=== PATIENT | female | born 1965 | race Caucasian/White ===

== ENCOUNTER 2020-03-30 02:00 | Emergency (ER) | payer MEDICAID, SELFPAY ==
[2020-03-30 02:18] VITALS: BP 138/88; PULSE 85; RESP 18; TEMP 36.3; O2SAT 98; BMI 25.7
--- NOTE | 2020-03-30 02:28 | ED_ITS ---
HPI - Weakness General Chief complaint: Weakness Stated complaint: Weakness Time Seen by Provider: 03/30/20 02:13 Source: patient and japanese interpreter Mode of arrival: ambulatory Limitations: no limitations History of Present Illness HPI Narrative: This is a 54-year-old female who is the mother of a patient who has tested positive for COVID-19. She states her daughter called her and that she has been exposed to her and recalls that she has been feeling body aches for the past 3 days. Related Data Allergies Allergy/AdvReac Type Severity Reaction Status Date / Time No Known Allergies Allergy Mild NO KNOW Unverified 01/30/20 16:03 ALLERGY Review of Systems Review of Systems: pertinent positives and negatives as stated HPI 10 point review systems otherwise negative. [facility] Past Medical History Source: nursing notes reviewed Medical History No known health problems No known health problems Social History Social History Advance Directives: No Advance Directives Information Provided: No Physical Exam Vital Signs: Vital Signs: Last Vital Signs Temp 97.3 F 03/30/20 02:18 Pulse 85 03/30/20 02:18 Resp 18 03/30/20 02:18 BP 138/88 03/30/20 02:18 Pulse Ox 98 03/30/20 02:18 Body Mass Index 25.7 VITAL SIGNS: Reviewed. GENERAL: Well developed, well nourished, in no acute distress. HEAD: Normocephalic/atraumatic, EYES: PERRLA, EOMI intact without pain, no nystagmus/pallor/icterus noted EARS: Ext canals without abnormality, TMs non-bulging and non-erythematous NOSE: Nares patent bilateral OROPHARYNX: no oral lesions noted, posterior pharynx clear and non-erythematous without noted tonsillar enlargement/erythema/exudates NECK: Supple, no adenopathy LUNGS: Normal breath sounds. No adventitious sounds or accessory muscle use. SpO2<98> CARDIOVASCULAR: Regular rate and rhythm without noted murmurs, no JVD or lower extremity edema. ABDOMEN: Soft, non-tender, non-distended with bowel sounds. No rigidity. No guarding. No palpable masses or hernias noted MUSCULOSKELETAL: No tenderness, deformities, or effusions noted on gross inspection. EXTREMITIES: No cyanosis, clubbing or edema. SKIN: Inspection of the skin reveals no rashes, ulcerations, jaundice, pallor, or petechiae. NEUROLOGIC: Alert and oriented x 4. Strength and sensation to light touch were grossly intact x 4. Course Course Course Narrative: This is a 54-year-old female with history and clinical presentation most consistent with viral syndrome but patient otherwise looks well and there is no evidence respiratory distress or hypoxia. In addition, there is no temperature elevation. Patient will be tested for COVID-19 and then instructed to self quarantine until the results are called to her. She is stable for discharge to home. Discharge Plan Discharge Clinical Impression: Acute viral syndrome Patient Disposition: Home, Self-Care Instructions: Viral Syndrome (ED) Additional Instructions: 1. Tylenol 1000 mg, por v?a oral, cada 6 horas seg?n sea necesario para tacos corporales y temperaturas superiores a 100,4?C. No exceda los 4000 mg en 24 horas. 2. Aumente la hidrataci?n de l?quidos espec?ficamente con agua. 3. Hoy le mena hecho la prueba de COVID-19 y debe ponerse en cuarentena hasta que reciba los resultados de la prueba de COVID-19 y debe cumplir con todas las pautas y precauciones estatales liz meredith tiempo. El paciente y / o la kandy reconocen que comprenden los resultados (seg?n corresponda), el diagn?stico, el plan de tratamiento, la necesidad de seguimiento y los s?ntomas que deber?an impulsar el regreso a la kady de emergencias. Referrals: Luly Laguna MD [Primary Care Provider] - 2 days ( management and re- evaluation presentation.) Print Language: Cuban
== END 2020-03-30 03:17 | disposition home or self-care (01) ==
LOC: HO.ED 02:54
PROVIDERS: Emergency Provider Student in an Organized Health Care Education/Training Program; PCP Family Medicine
DX: B34.9 Viral infection, unspecified (principal); Z20.828 Contact with and (suspected) exposure to other viral communicable diseases
CPT/HCPCS: 99283; U0003

== ENCOUNTER 2020-05-18 11:15 | Outpatient (REF) | payer MEDICAID, SELFPAY ==
--- NOTE | 2020-05-18 11:25 | XR_ITS ---
EXAMINATION: RIGHT SHOULDER AND CERVICAL SPINE. CLINICAL INFORMATION: Pain right shoulder and neck pain. COMPARISON: None TECHNIQUE: Cervical spine 5 views. Right shoulder 3 views. FINDINGS: CERVICAL SPINE: There is mild straightening of cervical lordosis. The vertebral heights and alignment is normal. There is mild loss of C5-C6 disc height with moderate ventral and mild posterior spondylosis. Mild bilateral narrowing of neural foramina at C5-C6 disc level from uncovertebral hypertrophic changes are noted. No visible acute fracture, dislocation or subluxation seen. The craniovertebral junction and C1-C2 alignment is normal. The prevertebral and paravertebral soft tissues are normal. RIGHT SHOULDER: There is no visible acute fracture, dislocation or subluxation. There is mild loss of AC joint space with inferior periarticular spurring. No loose bodies or calcifications seen. XR/XR cervical spine 4V IMPRESSION: Degenerative arthritic changes C5-C6 disc level with moderate ventral bridging osteophyte and mild posterior spondylosis.
--- NOTE | 2020-05-18 11:25 | XR_ITS ---
EXAMINATION: RIGHT SHOULDER AND CERVICAL SPINE. CLINICAL INFORMATION: Pain right shoulder and neck pain. COMPARISON: None TECHNIQUE: Cervical spine 5 views. Right shoulder 3 views. FINDINGS: CERVICAL SPINE: There is mild straightening of cervical lordosis. The vertebral heights and alignment is normal. There is mild loss of C5-C6 disc height with moderate ventral and mild posterior spondylosis. Mild bilateral narrowing of neural foramina at C5-C6 disc level from uncovertebral hypertrophic changes are noted. No visible acute fracture, dislocation or subluxation seen. The craniovertebral junction and C1-C2 alignment is normal. The prevertebral and paravertebral soft tissues are normal. RIGHT SHOULDER: There is no visible acute fracture, dislocation or subluxation. There is mild loss of AC joint space with inferior periarticular spurring. No loose bodies or calcifications seen. XR/XR shoulder RT min 2V IMPRESSION: Degenerative arthritic changes C5-C6 disc level with moderate ventral bridging osteophyte and mild posterior spondylosis.
== END 2020-05-18 11:16 | disposition home or self-care (01) ==
LOC: HO.XRAY 11:15
PROVIDERS: PCP Family Medicine; Visit Provider Family Medicine
DX: M25.511 Pain in right shoulder (principal); M54.2 Cervicalgia
CPT/HCPCS: 72050; 73030

== ENCOUNTER → 2020-05-27 10:47 | Outpatient (BNVA) | payer MEDICAID, SELFPAY | PROVIDERS: PCP Family Medicine; Visit Provider Orthopaedic Surgery | DX: M54.12 Radiculopathy, cervical region (principal) | CPT/HCPCS: 99202 ==

== ENCOUNTER 2020-07-17 12:00 | Outpatient (RCR) | payer MEDICAID, SELFPAY | END 2020-07-17 12:36 | disposition other institution (70) | LOC: HO.PT 12:00 | PROVIDERS: PCP Family Medicine; Visit Provider Family Medicine | DX: M25.511 Pain in right shoulder (principal) | CPT/HCPCS: 97110; 97112; 97140; 97161 ==

== ENCOUNTER 2021-02-23 10:36 | Outpatient (REF) | payer MEDICAID, SELFPAY ==
--- NOTE | ~2021-02-23 | MM_ITS ---
EXAMINATION: MM SCREENING DIGITAL BREAST TOMOSYNTHESIS, BILATERAL CLINICAL INFORMATION: Screening. Asymptomatic. The lifetime risk of breast cancer based on the Tyrer-Cuzick Model is 8.8%. COMPARISON: Mammography: December 18, 2019 and studies dating back to August 23, 2011 TECHNIQUE: Digital breast tomosynthesis is performed in both the craniocaudal and mediolateral oblique views along with computer-aided detection (CAD). Synthesized 2D images are generated from the tomosynthesis. FINDINGS: There are scattered areas of fibroglandular density (ACR BI-RADS breast composition Category b). There are no significant masses, abnormal calcifications, or other abnormalities. About the deep medial aspect of the right breast on craniocaudal view there is a density likely related to sternalis muscle as has been seen on multiple prior studies. MM/MM tomosynthesis screening BI IMPRESSION: There are no significant changes from prior study. ASSESSMENT: BI-RADS 1: Negative RECOMMENDATION: Routine annual mammography screening. This patient's information was entered into a reminder system with a target due date for their next mammogram.
== END 2021-02-23 10:37 | disposition home or self-care (01) ==
LOC: HO.MAMMO 10:36
PROVIDERS: Visit Provider Family Medicine
DX: Z12.31 Encounter for screening mammogram for malignant neoplasm of breast (principal)
CPT/HCPCS: 77063; 77067

== ENCOUNTER 2021-10-28 15:51 | Outpatient (REF) | payer MEDICAID, SELFPAY ==
--- NOTE | ~2021-10-28 | MR_ITS ---
EXAMINATION: MR BRAIN WITHOUT AND WITH CONTRAST CLINICAL INFORMATION: Left-sided sensorineural hearing loss. COMPARISON: None. TECHNIQUE: Multiplanar, multisequential imaging was obtained without and with intravenous contrast. Intravenous contrast: Gadolinium 7.5 mL. FINDINGS: No diffusion abnormality is seen. Minimal scattered white matter signal changes are nonspecific and may be due to chronic microangiopathy. The ventricles are normal in size. No mass effect or midline shift is evident. No extra-axial fluid collections are noted. The brainstem and cerebellum are normal. There is no abnormal parenchymal or leptomeningeal enhancement. The VII and VIII cranial nerve complexes are normal in course and caliber. No signal abnormality is visualized within the inner ear structures on the precontrast axial T1-weighted sequence. Fluid signal is preserved within the cochlea, semicircular canals, and vestibule on the high-resolution axial FIESTA sequence. No cerebellopontine angle lesion is noted. There is no abnormal labyrinthine or intracanalicular enhancement on postcontrast imaging. The craniovertebral junction, marrow signal, and midline structures are normal. The gradient refocused acquisition is normal. The visualized portions of the major intracranial flow voids at the level of the igiugig of Ambriz are preserved. The dural venous sinus flow voids are maintained. The mastoid air cells and paranasal sinuses are fairly well aerated. MR/MR head/brain wo/w con IMPRESSION: No retrocochlear pathology. Minimal scattered white matter signal changes which are nonspecific but may be due to chronic microangiopathy.
== END 2021-10-28 15:52 | disposition home or self-care (01) ==
LOC: HO.MRI 15:51
PROVIDERS: Visit Provider Otolaryngology
DX: H90.42 Sensorineural hearing loss, unilateral, left ear, with unrestricted hearing on the contralateral side (principal)
CPT/HCPCS: 70553; A9585

== ENCOUNTER 2022-03-01 10:23 | Outpatient (REF) | payer MEDICAID, SELFPAY ==
--- NOTE | ~2022-03-01 | MM_ITS ---
EXAMINATION: MM SCREENING DIGITAL BREAST TOMOSYNTHESIS, BILATERAL CLINICAL INFORMATION: Screening. Asymptomatic. The lifetime risk of breast cancer based on the Tyrer-Cuzick Model is 9%. COMPARISON: Mammography: 02/23/2021, 12/18/2019, 12/12/2018 TECHNIQUE: Digital breast tomosynthesis is performed in both the craniocaudal and mediolateral oblique views along with computer-aided detection (CAD). Synthesized 2D images are generated from the tomosynthesis. FINDINGS: There are scattered areas of fibroglandular density (ACR BI-RADS breast composition Category b). There are no significant masses, abnormal calcifications, or other abnormalities. No developing density or architectural abnormality. No significant changes. The axilla and skin contours are unremarkable. MM/MM tomosynthesis screening BI IMPRESSION: No mammographic evidence of malignancy. ASSESSMENT: BI-RADS 1: Negative RECOMMENDATION: Routine annual mammography screening. This patient's information was entered into a reminder system with a target due date for their next mammogram.
== END 2022-03-01 10:24 | disposition home or self-care (01) ==
LOC: HO.MAMMO 10:23
PROVIDERS: PCP Family Medicine; Visit Provider Family Medicine
DX: Z12.31 Encounter for screening mammogram for malignant neoplasm of breast (principal)
CPT/HCPCS: 77063; 77067

== ENCOUNTER 2023-03-07 10:17 | Outpatient (REF) | payer MEDICAID, SELFPAY | END 2023-03-07 10:18 | disposition home or self-care (01) | LOC: HO.MAMMO 10:17 | PROVIDERS: PCP Family Medicine; Visit Provider Family Medicine | DX: Z12.31 Encounter for screening mammogram for malignant neoplasm of breast (principal) | CPT/HCPCS: 77063; 77067 ==

== ENCOUNTER → 2023-03-07 10:30 | Outpatient (BNV) | payer MEDICAID, SELFPAY | PROVIDERS: PCP Family Medicine; Visit Provider Radiology Diagnostic Radiology | DX: Z12.31 Encounter for screening mammogram for malignant neoplasm of breast (principal) | CPT/HCPCS: 77063; 77067 ==

== ENCOUNTER 2023-05-04 11:30 | Outpatient (REF) | payer MEDICAID, SELFPAY ==
[2023-05-04 13:17] LABS: MANUAL DIFF FLAG NO
[2023-05-04 13:39] LABS: Basophils Absolute Auto 0.1 X10*3/uL (0.0-0.2); Basophils Percent Auto 0.7 % (0-2); Eosinophils Absolute Auto 0.3 X10*3/uL (0.0-0.4); Eosinophils Percent Auto 4.1 % (0-4); Hematocrit 41.3 % (37.0-47.0); Hemoglobin 13.2 g/dl (12.0-16.0); Imm Gran Abs Auto 0.03 X10*3/uL (0.00-0.03); Imm Gran Pct Auto 0.4 % (0.0-0.4); Lymphocytes Absolute Auto 2.9 X10*3/uL (1.2-4.9); Lymphocytes Percent Auto 34.9 % (20-40); Mean Corpuscular Hemoglobin 29.6 pg (27.0-33.0); Mean Corpuscular Volume 92.6 fL (80.0-98.0); Mean Platelet Volume 10.8 fL (9.4-12.3); Monocytes Absolute Auto 0.5 X10*3/uL (0.1-1.2); Monocytes Percent Auto 6.4 % (2-11); Neutrophils Absolute Auto 4.4 x10*3/uL (2.0-8.3); Neutrophils Percent Auto 53.5 % (45-73); Platelet Count 265 X10*3/uL (160-400); Red Blood Count 4.46 X10*6/uL (4.20-5.50); Red Cell Distribution Width 12.8 % (11.0-16.0); White Blood Count 8.3 X10*3/uL (4.8-10.8)
[2023-05-04 13:49] LABS: Estimated Average Glucose 111 mg/dL; Hemoglobin A1c % 5.5 % (<6.0)
[2023-05-04 14:03] LABS: Alanine Aminotransferase 24 U/L (0-31); Albumin Level 4.1 g/dL (3.5-5.0); Alkaline Phosphatase 90 U/L (39-117); Anion Gap 13 (12-20); Aspartate Amino Transferase 21 U/L (5-31); Bilirubin Direct 0.2 mg/dL (0.0-0.5); Bilirubin Total 0.7 mg/dL (0.0-1.0); Blood Urea Nitrogen 11 mg/dL (9-16); Calcium 9.3 mg/dL (8.4-10.2); Carbon Dioxide 27 mmol/L (22-29); Chloride 109 mmol/L (96-108); Cholesterol 224 mg/dL (<200); Estimated Glomerular Filt Rate > 60; Glucose Random 93 mg/dL (60-115); HDL Cholesterol 50 mg/dL (>40); LDL Cholesterol Calculated 145 mg/dL (<100); Magnesium 2.3 mg/dL (1.6-2.6); Potassium 4.8 mmol/L (3.3-5.1); Sodium 144 mmol/L (135-145); Triglycerides 146 mg/dL (<150)
[2023-05-04 14:22] LABS: TSH reflex Free T4 1.81 uIU/mL (0.32-4.0); Vitamin D 25-OH Total 29.9 ng/mL (>30)
[2023-05-05 08:12] LABS: ~HepC Num1 0.17 S/CO (0.00-0.79); ~Hepatitis C Antibody Nonreactive (Nonreactive)
== END 2023-05-04 11:31 | disposition home or self-care (01) ==
LOC: HO.HHCL 11:30
PROVIDERS: Visit Provider Family Medicine
DX: E55.9 Vitamin D deficiency, unspecified (principal); E66.9 Obesity, unspecified; E78.5 Hyperlipidemia, unspecified; M79.7 Fibromyalgia; Z11.59 Encounter for screening for other viral diseases
CPT/HCPCS: 36415; 80048; 80061; 80076; 82306; 83036; 83735; 84443; 85025; 86803

== ENCOUNTER → 2024-02-27 09:23 | Outpatient (REF) | payer MEDICAID, SELFPAY ==
--- NOTE | 2024-02-27 09:27 | HM_ITS ---
* Total monitoring time 1 day 13 hours. * Underlying rhythm is sinus with an average rate of 85/Min. * Rare supraventricular ectopy. * One isolated ventricular ectopic beat. * No significant pauses or high-grade AV blocks. * No patient markers or diary events. MTDD
== END ==
LOC: HO.CARD 09:23
PROVIDERS: PCP Family Medicine; Visit Provider Nurse Practitioner Primary Care
DX: R00.2 Palpitations (principal)
CPT/HCPCS: 93225

== ENCOUNTER → 2024-02-27 09:27 | Outpatient (BNV) | payer MEDICAID, SELFPAY | PROVIDERS: PCP Family Medicine; Visit Provider Internal Medicine | DX: I47.10 Supraventricular tachycardia, unspecified (principal) | CPT/HCPCS: 93227 ==

== ENCOUNTER 2024-03-08 10:43 | Outpatient (REF) | payer MEDICAID, SELFPAY ==
--- NOTE | ~2024-03-08 | MM_ITS ---
EXAMINATION: MM SCREENING DIGITAL BREAST TOMOSYNTHESIS, BILATERAL CLINICAL INFORMATION: Screening. Asymptomatic. COMPARISON: Mammography: Comparison is made with available priors TECHNIQUE: Digital breast mammography with tomosynthesis is performed in both the craniocaudal and mediolateral oblique views along with computer-aided detection (CAD). FINDINGS: There are scattered areas of fibroglandular density (ACR BI-RADS breast composition Category b). There are no significant masses, abnormal calcifications, or other abnormalities. MM/MM tomosynthesis screening BI IMPRESSION: No mammographic evidence of malignancy. ASSESSMENT: BI-RADS BI-RADS 1 - Negative RECOMMENDATION: Routine annual mammography screening. 1 year F/U This examination should not preclude the clinical evaluation of a suspicious palpable abnormality. This patient's information was entered into a reminder system with a target due date for their next mammogram. Electronically signed by: Lisa Casper DO 03/19/2024 08:47 AM THAI
== END 2024-03-08 10:44 | disposition home or self-care (01) ==
LOC: HO.MAMMO 10:43
PROVIDERS: PCP Family Medicine; Visit Provider Family Medicine
DX: Z12.31 Encounter for screening mammogram for malignant neoplasm of breast (principal)
CPT/HCPCS: 77063; 77067

== ENCOUNTER → 2024-03-08 10:45 | Outpatient (BNV) | payer MEDICAID, SELFPAY | PROVIDERS: PCP Family Medicine; Visit Provider Internal Medicine | DX: Z12.31 Encounter for screening mammogram for malignant neoplasm of breast (principal) | CPT/HCPCS: 77063; 77067 ==

== ENCOUNTER 2024-03-25 11:45 | Outpatient (REF) | payer MEDICAID, SELFPAY ==
[2024-03-25 13:27] LABS: Basophils Percent Auto 0.6 % (0-2); Eosinophils Absolute Auto 0.2 X10*3/uL (0.0-0.4); Eosinophils Percent Auto 3.2 % (0-4); Hematocrit 39.2 % (37.0-47.0); Hemoglobin 12.8 g/dl (12.0-16.0); Imm Gran Abs Auto 0.01 X10*3/uL (0.00-0.03); Imm Gran Pct Auto 0.1 % (0.0-0.4); Lymphocytes Absolute Auto 2.7 X10*3/uL (1.2-4.9); Lymphocytes Percent Auto 38.5 % (20-40); MANUAL DIFF FLAG NO; Mean Corpuscular HGB Conc 32.7 g/dl (31.0-35.0); Mean Corpuscular Hemoglobin 29.4 pg (27.0-33.0); Mean Corpuscular Volume 90.1 fL (80.0-98.0); Mean Platelet Volume 10.5 fL (9.4-12.3); Monocytes Absolute Auto 0.4 X10*3/uL (0.1-1.2); Monocytes Percent Auto 6.2 % (2-11); Neutrophils Absolute Auto 3.7 x10*3/uL (2.0-8.3); Neutrophils Percent Auto 51.4 % (45-73); Platelet Count 252 X10*3/uL (160-400); Red Blood Count 4.35 X10*6/uL (4.20-5.50); Red Cell Distribution Width 12.8 % (11.0-16.0); White Blood Count 7.1 X10*3/uL (4.8-10.8)
[2024-03-25 13:48] LABS: Anion Gap 13 (12-20); Blood Urea Nitrogen 12 mg/dL (9-16); Calcium 9.2 mg/dL (8.4-10.2); Carbon Dioxide 26 mmol/L (22-29); Chloride 109 mmol/L (96-108); Estimated Glomerular Filt Rate > 60; Glucose Random 92 mg/dL (60-115); Potassium 4.5 mmol/L (3.3-5.1); Sodium 143 mmol/L (135-145)
[2024-03-25 13:52] LABS: Alanine Aminotransferase 18 U/L (0-31); Alkaline Phosphatase 74 U/L (39-117); Anion Gap 10 (12-20); Aspartate Amino Transferase 22 U/L (5-31); Bilirubin Direct 0.2 mg/dL (0.0-0.5); Bilirubin Total 0.7 mg/dL (0.0-1.0); Blood Urea Nitrogen 12 mg/dL (9-16); Calcium 9.4 mg/dL (8.4-10.2); Carbon Dioxide 27 mmol/L (22-29); Chloride 110 mmol/L (96-108); Cholesterol 204 mg/dL (<200); Estimated Glomerular Filt Rate > 60; Glucose Random 93 mg/dL (60-115); HDL Cholesterol 47 mg/dL (>40); LDL Cholesterol Calculated 132 mg/dL (<100); Potassium 4.2 mmol/L (3.3-5.1); Sodium 143 mmol/L (135-145); Total Protein 6.8 g/dL (6.5-8.0); Triglycerides 128 mg/dL (<150)
[2024-03-25 14:08] LABS: TSH reflex Free T4 1.98 uIU/mL (0.32-4.0)
[2024-03-25 14:09] LABS: TSH reflex Free T4 1.98 uIU/mL (0.32-4.0); Vitamin D 25-OH Total 52.8 ng/mL (>30)
== END 2024-03-25 11:46 | disposition home or self-care (01) ==
LOC: HO.HHCL 11:45
PROVIDERS: Nurse Practitioner Primary Care; Visit Provider Family Medicine
DX: R00.2 Palpitations (principal); E55.9 Vitamin D deficiency, unspecified; I67.1 Cerebral aneurysm, nonruptured; I10 Essential (primary) hypertension
CPT/HCPCS: 36415; 80048; 80061; 80076; 82306; 83735; 84443; 85025

== ENCOUNTER 2024-08-19 09:55 | Outpatient (AMB) | payer MEDICAID, SELFPAY ==
[2024-08-19 10:03] VITALS: BP 120/70; PULSE 87; BMI 28.9
--- NOTE | 2024-08-19 10:03 | MHC.OFFVIS ---
Vital Signs 08/19/24 10:03 Height 5 ft 3 in Weight 163 lb 2.273 oz BMI 28.9 BP 120/70 Blood Pressure Location Lt brachial Position Sitting Pulse 87 Intake Visit Reasons: [employer]/Dr. Laguna/Palpitations Intake Note: New patient dx palpitations c/o every once in a while strong palpitation lasting a few seconds Model And Mold Maker Required: Yes Model And Mold Maker Services: Model And Mold Maker Present Model And Mold Maker Name: maria t Villar Allergies No Known Allergies Allergy (Mild, Unverified 01/30/20 16:03) NO KNOW ALLERGY Medication List - Last Reconciled 08/19/24 by Yair Dillon MD atorvastatin 20 mg PO DAILY cholecalciferol (vitamin D3) 25 mcg PO DAILY clonazepam (Klonopin) 0.25 mg PO BEDTIME fluoxetine 20 mg PO DAILY omeprazole 20 mg PO BID HPI Comments Details: Mahogany was referred here for symptoms of palpitation. History was obtained with help of foreign language interpreter over the phone. Patient was 59 year female with prior history of what appears to be anxiety as well as acid reflux disease and hyperlipidemia. Since fall last year she has been having intermittent episode of palpitation. She describes his episodes of palpitation he was strong heartbeat feels it in her chest and then radiating to her throat. Symptoms are intermittent and not periodic are not consistent. Symptoms happen at any time mostly at rest. She also has Mibi few sec she feels fast heart rate. She underwent a Holter monitor and was told that this was abnormal and she was referred here for further evaluation. Holter monitor showed rare PACs. She had no sustained arrhythmias noted during that time. However since these symptoms she was also noticing with exertion she gets tired and short of breath. She was no exertional chest pain. Denies any orthopnea, PND, leg edema. No lightheadedness, syncope. There was no significant recent change in her health. No systemic symptoms otherwise. [facility] Medical History Depression Anxiety Hypertension No known health problems No known health problems Family History Father Stroke Mother No problems noted. Social History Current occupational status: unemployed Current occupation: Right Handed Review of Systems Const Denies chills, Denies daytime sleepiness, Denies fatigue, Denies fever(s), Denies frequent falls, Denies poor appetite, Denies snoring, Denies stops breathing during sleep, Denies weakness, Denies weight gain and Denies weight loss Eyes Denies loss of vision ENT Denies dizziness and Denies hearing loss Card Reports chest pain, Denies claudication, Denies leg edema, Denies lightheadedness, Reports palpitations, Denies dyspnea, Denies dyspnea on exertion and Denies orthopnea Resp Denies cough, Denies excessive phlegm production, Denies dyspnea, Denies dyspnea on exertion, Denies snoring and Denies wheezing GI Denies abdominal pain, Denies hematochezia, Denies change in bowel habits, Denies nausea and Denies vomiting Denies urinary frequency and Denies dysuria Musc Denies arthralgias, Denies muscle weakness, Denies numbness and Denies other (frequent falls) Skin/Breast Denies nail changes and Denies rash Neuro Denies Abnormal speech present, Denies dizziness, Denies frequent falls, Denies loss of vision, Denies memory loss, Denies numbness and Denies weakness Psych Denies depression and Denies memory loss Endo Denies fatigue and Reports palpitations Vik/Lymph Reports easy bruising and Reports other (anemia) Aller/Immun Denies wheezing Physical Exam Vital Signs: Last Vital Signs Pulse 87 08/19/24 10:03 BP 120/70 08/19/24 10:03 BMI result Body Mass Index 28.9 Const General: cooperative, comfortable, no acute distress, well developed, alert and awake Nutritional Appearance: well nourished and overweight Orientation/consciousness: patient oriented x3 Limitations: no limitations HEENT Head: Yes normocephalic and Yes atraumatic Neck Neck: Yes trachea midline, Yes supple and Yes no JVD Resp Effort & Inspection: normal respiratory effort Auscultation: clear to auscultation bilaterally Cardio Jugular venous distension: no JVD Palpation: normal PMI Rate: regular rate Rhythm: regular rhythm Heart sounds: S1 normal heart sound present, S2 normal heart sound present, no click, no gallops, no murmurs and no rubs GI Auscultation: normal bowel sounds Skin General skin exam: no rashes or lesions noted Neuro General: patient oriented x3 and no focal motor deficits Speech: No Abnormal speech present Extrem General: Yes no clubbing, cyanosis or edema Psych Appearance: grossly normal Office Procedures EKG Details: EKG shows normal sinus rhythm with nonspecific ST changes 24773-[id number], Complete Assessment & Plan Assessment & Plan (1) Palpitations: Code(s): R00.2 - Palpitations Plan: Patient with persistent symptoms of palpitation which she says have been worse since her Holter monitor results. Holter monitor was pretty benign and this was explained to her with help of foreign language interpreter. This showed rare PACs. This carries benign prognosis. However she says she continues to have significant symptoms and is possible that her arrhythmia burden has increased and/or she was different for him for arrhythmias such as atrial fibrillation. Will suggest a 30 day event monitor to further assess for the same. Also suggest an echocardiogram to assess for the same. Will not start on any pharmacotherapy till we establish a diagnose. Avoidance of stimulants was discussed. Stress mitigation strategies was discussed. (2) Short of breath on exertion: Code(s): R06.02 - Shortness of breath Plan: Patient also says since onset of her palpitation she is also notice decreased exercise capacity with increased exertional shortness of breath. She says she was still walking but is able to not do that now. She does have risk factors of age as well as hyperlipidemia. Will suggest a stress test with a stress echocardiogram going to baseline abnormal EKG to assess for myocardial ischemia. Continue statin therapy with target goal LDL less than 100 mg/dL. Will follow up in the clinic in 2 months time, sooner p.r.n.. Thank you for allowing me to partake in her care Coding Level of Care Code New Pt Level 4 (25661) Complex EM visit Add On G2211 Diagnoses Palpitations R00.2 Short of breath on exertion R06.02 CPT Codes EKG - CPT: 97302-[id number], Complete ([id number])
--- OUTSIDE RECORDS SUMMARY | 2024-08-19 11:34 | XMS_ITS | Encounter Summary ---
Author Organization [employer] Address [address] [facility] [address] [place] [address] Care Team Providers Care House Coordinator Name Role Phone Luly Laguna MD Primary Care Provider [phone]- [phone] Alan Horowitz Unavailable Polly Bryant Unavailable Reason for Visit * Reason Comments Med Refill Encounter Details Date Type Department Care Team (Late st Contact Info) Description 01/19/2024 Refill [facility] [address] [place], [place] [phone] Gudelia Jaimes, ANP [address], [place] [phone] Gastroesophageal reflux disease, unspecified whether esophagitis present (Primary Dx) Social History Tobacco Use Types Packs/Day Years Used Date Smoking Tobacco: Never Smokeless Tobacco: Never Alcohol Use Standard Drinks/Week Comments Never 0 (1 standard drink = 0.6 oz pur e alcohol) Depression Answer Date Recorded Patient Health Questionnaire-9 Score 0 11/07/2022 Housing Stability Answer Date Recorded What is your housing situation today? I have kemal vieira 03/06/[address] you li ve. Do you have problems with any of the following? None of the above 03/06/2023 Food Insecurity Answer Date Recorded Within the past 12 months, y ou worried that your food would run out before you got money to buy more: Never True 03/06/2023 Within the past 12 months,th e food you bought just didn't last and you didn't have enough money to get more: Never True Transportation Answer Date Recorded In the past 12 months, has l ack of transportation kept you from medical appts, meetings, work or from getting things needed for daily living? No 03/06/2023 Utilities Answer Date Recorded In the past 12 months, has t he electric, gas, oil or water company threatened to shut off services in your home? No 03/06/2023 Depression Answer Date Recorded Patient Health Questionnaire-2 Score 0 11/07/2022 Comments Unknown Sex and Gender Information Value Date Recorded Sex Assigned at Female 03/14/2022 10:15 AM EDT Legal Sex Female 10:15 AM EDT Gender Identity Female 03/14/2022 10:15 AM EDT Sexual Orientation Choose not to disclose 2021 10:15 AM EDT documented as of this encounter Plan of Treatment Upcoming Encounters Date Type Department Care Team (Late st Contact Info) Description 09/18/2024 11:30 AM EDT Office Visit [facility] [address] [place] [address] Luly Laguna MD [address] [place] [address] documented as of this encounter Visit Diagnoses Diagnosis Gastroesophageal reflux disease, unspecified whether esophagitis present- Primary documented in this encounter Additional Health Concerns Assessment Noted Time PHQ-9 Depression Total Score: 0 11/08/19 23 11:15 AM EDT documented as of this encounter Care Teams House Coordinator Relationship Specialty Start Date End Date Luly Laguna MD [address] [place] [address] PCP - General Family Medicine 05/15/18 Alan Horowitz [address] [facility] [address] [place] [address] Gastroenterology 06/18/24 Polly Bryant [address] [address] Obstetrics and Gynecology 06/18/24 An Thomas Wage And Salary AdministratorMerchandise Handler 01/22/24 documented as of this encounter
--- OUTSIDE RECORDS SUMMARY | 2024-08-19 11:34 | XMS_ITS | Encounter Summary ---
Author Organization [employer] Address [address] [place] [address] [address] [place] [address] Care Team Providers Care Makeup Artist Name Role Phone Luly Laguna MD Primary Care Provider [phone]- [phone] Alan Horowitz Unavailable Polly Bryant Unavailable Encounter Details Date Type Department Care Team (Late st Contact Info) Description 11/24/2022 Abstract [facility] [address] [place] [address] Luly Laguna MD [address] [place] [address] Social History Tobacco Use Types Packs/Day Years Used Date Smoking Tobacco: Never Smokeless Tobacco: Never Alcohol Use Standard Drinks/Week Comments Never 0 (1 standard drink = 0.6 oz pur e alcohol) Depression Answer Date Recorded Patient Health Questionnaire-9 Score 0 11/07/2022 Depression Answer Date Recorded Patient Health Questionnaire-2 Score 0 11/07/2022 Comments Unknown Sex and Gender Information Value Date Recorded Sex Assigned at Female 03/14/2022 10:15 AM EDT Legal Sex Female 10:15 AM EDT Gender Identity Female 03/14/2022 10:15 AM EDT Sexual Orientation Choose not to disclose 2021 10:15 AM EDT COVID-19 Exposure Response Date Recorded In the last 10 days, have yo u been in contact with someone who was confirmed or suspected to have Coronavirus/COVID-19? No / Unsure 11/07/2022 10:44 AM EDT documented as of this encounter Plan of Treatment Upcoming Encounters Date Type Department Care Team (Late st Contact Info) Description 09/18/2024 11:30 AM EDT Office Visit [facility] [address] [place] [address] Luly Laguna MD [address] [place] [address] documented as of this encounter Visit Diagnoses Not on filedocumented in this encounter Additional Health Concerns Assessment Noted Time PHQ-9 Depression Total Score: 0 11/08/19 23 11:15 AM EDT documented as of this encounter Care Teams Makeup Artist Relationship Specialty Start Date End Date Luly Laguna MD [address] [place], [place] [phone] PCP - General Family Medicine 05/15/18 Alan Horowitz [address] [facility] [address] [place] [address] Gastroenterology 06/18/24 Polly Bryant [address] [address] Obstetrics and Gynecology 06/18/24 An Thomas Ferryboat OperatorAssociate Professor Of Art 01/22/24 documented as of this encounter
--- OUTSIDE RECORDS SUMMARY | 2024-08-19 11:34 | XMS_ITS | Clinical Summary ---
Author Organization [employer] Address [address] [place] [address] Care Team Providers Care Environmental Engineering Manager Name Role Phone Luly Laguna MD Primary Care Provider [phone] Alan Horowitz Unavailable Gerry Bryantmen Unavailable Allergies No known active allergies Medications ibuprofen 400 MG tabletIndicatio ns:Streptococca l pharyngitis Take 1 tablet (400 mg) by mouth every 6 (six) hours if needed for moderate pain or fever for up to 30 doses. 30 tablet 11/08/19 23 Active FLUoxetine (PROzac) 20 MG capsuleIndicati ons:Depressive disorder TAKE 2 CAPSULES BY MOUTH EVERY MORNING 60 capsule 11 12/21/19 24 Active atorvastatin (Lipitor) 20 MG tabletIndicatio ns:Dyslipidemia Take 1 tablet (20 mg) by mouth Once per day. 30 tablet 11 03/27/20 24 025 Active omeprazole (PriLOSEC) [address] capsuleIndicati ons:Gastroesoph ageal reflux disease, unspecified whether esophagitis present TAKE 1 CAPSULE BY MOUTH TWICE A DAY 180 capsule 1 07/17/19 25 Active clonazePAM (KlonoPIN) 0.5 MG tabletIndicatio ns:Anxiety TOME 1 TABLETA POR VIA ORAL DOS VECES AL VANESSA CUANDO SEA NECESARIO PARA LA ANSIEDAD 56 tablet 07/27/19 25 Active clonazePAM (KlonoPIN) 0.5 MG tabletIndicatio ns:Anxiety TOME 1 TABLETA POR VIA ORAL DOS VECES AL VANESSA CUANDO SEA NECESARIO PARA LA ANSIEDAD 56 tablet 07/27/19 25 Active cholecalciferol (Vitamin D-[address]) 25 MCG (1000 UT) tabletIndicatio ns:Vitamin D deficiency TAKE 1 TABLET BY MOUTH EVERY DAY 90 tablet 07/31/19 25 Active cholecalciferol (Vitamin D-[address]) 25 MCG (1000 UT) tabletIndicatio ns:Vitamin D deficiency TAKE 1 TABLET BY MOUTH EVERY DAY 90 tablet 3 07/28/19 24 025 Discontinued clonazePAM (KlonoPIN) 0.5 MG tabletIndicatio ns:Anxiety TOME 1 TABLETA POR VIA ORAL DOS VECES AL VANESSA CUANDO SEA NECESARIO PARA LA ANSIEDAD 56 tablet 06/25/19 25 025 Discontinued Active Problems Problem Noted Date Diagnosed Date Palpitations 03/25/2024 Overview (03/26/2024): [facility]en on [facility] for palpitations with associated SOB. Symptoms appeared episodic and random. Check Holter. EKG here sinus no ST changes. Ordered TSH W/Reflex to FT4, CBC auto differential, Basic Metabolic Panel. -Will refer to cardiology for longer monitor 03/25/24 Assessment & Plan (03/25/2024 12:59 PM EST): Seen on 02/09/24 in [facility] for palpitations with associated SOB. Symptoms appeared episodic and random. Check Holter. EKG here sinus no ST changes. Ordered TSH W/Reflex to FT4, CBC auto differential, Basic Metabolic Panel. -Will refer to cardiology for longer monitor 03/25/24 Abnormal colonoscopy 03/25/2024 Overview (06/18/2024): - 07/25/23 impression: 1 diminutive polyp in the ascending colon, removed with a jumbo cold forceps. Resected and retrieved. Internal hemorrhoids. Recommendations: Advance diet as tolerated. Continue present medications. Await pathology results. And repeat colonoscopy in 10 years. Done at [facility] with Dr. Alan Horowitz MD Assessment & Plan (03/26/2024 1:34 PM EST): - 07/25/23 impression: 1 diminutive polyp in the ascending colon, removed with a jumbo cold forceps. Resected and retrieved. Internal hemorrhoids. Recommendations: Advance diet as tolerated. Continue present medications. Await pathology results. And repeat colonoscopy in 10 years. Encounter for screening mamm ogram for malignant neoplasm of breast 03/25/2024 Overview (03/25/2024): 03/08/24 BI-RADS 1 - Negative. RECOMMENDATION: Routine annual mammography screening. Assessment & Plan (03/26/2024 1:37 PM EST): 03/08/24 BI-RADS 1 - Negative. RECOMMENDATION: Routine annual mammography screening. Chronically on benzodiazepine therapy 03/13/2024 Cardiac risk counseling 09/06/2023 Overview (03/27/2024): Calculated 03/27/24: low risk The 10-year ASCVD risk score (Quang CARPIO, et al., 2019) is: 3.7% Values used to calculate the score: Age: 58 years Sex: Female Is Non- : No Diabetic: No Tobacco smoker: No Systolic Blood Pressure: 128 mmHg Is BP treated: No HDL Cholesterol: 47 mg/dL Total Cholesterol: 204 mg/dL Lab Results Component Value Date LDLCHOLCAL 132 (H) 03/25/2024 LDLCHOLCAL 145 (H) 05/04/2023 -Atherosclerotic Cardiovascular Disease (ASCVD) Risk Calculator is intended for a person age 40-79 without ASCVD and with LDL-cholesterol < 190/mg/dl to assesses the chances of developing heart disease over the next 10 years. -ACC/AHA risk categories based on a person's estimated 10-year risk of CVD: ?Low - <5 percent ?Borderline risk - 5 to 7.4 percent ?Intermediate risk- 7.5 to 19.9 percent ?High risk- >=20 percent -Tobacco cessation: not applicable -Statin therapy: atorvastatin 20mg started 03/27/24 -Importance of moderate physical activity and nutrition interventions discussed. Essential hypertension 11/07/2022 Overview (03/25/2024): -Blood pressure is at goal. 128/86 BP 03/25/24 -Continue lifestyle modifications -Controlled off medicaions Assessment & Plan (03/25/2024 12:56 PM EST): -Blood pressure is at goal. 128/86 BP 03/25/24 -Continue lifestyle modifications -Controlled off medicaions Assessment & Plan (05/04/2023 10:53 AM EST): -Blood pressure is at goal -Continue lifestyle modifications -Controlled off medicaions Assessment & Plan (11/07/2022 12:54 PM EDT): -Blood pressure is at goal -Continue lifestyle modifications -Controlled off medicaions Fibromyalgia 11/07/2022 Overview (03/25/2024): Multiple labs including inflammatory markers, lyme, CBC, gen chem normal 02/2019 I explained to her that in the absence of secondary arthritis, current grieving and depression could exacerbate pains and aches. Assessment & Plan (05/04/2023 10:53 AM EST): Multiple labs including inflammatory markers, lyme, CBC, gen chem normal 02/2019 I explained to her that in the absence of secondary arthritis, current grieving and depression could exacerbate pains and aches. Assessment & Plan (11/07/2022 12:55 PM EDT): Multiple labs including inflammatory markers, lyme, CBC, gen chem normal 02/2019 I explained to her that in the absence of secondary arthritis, current grieving and depression could exacerbate pains and aches. Sensorineural hearing loss ( SNHL) of left ear with unrestricted hearing of right ear 11/07/2022 Overview (05/04/2023): Seen by Dr. Ezekiel Pickard 01/15/2019 -audiometric testing demonstrated mild high freqkuency SNHL bilaterally slight worse in left ear. -follow up audiogram in 1 year recommended to ensure stable hearing and consider MRI if hearing worsens -notes requested 11/07/2022, she reports has follow up next month Assessment & Plan (05/04/2023 10:54 AM EST): Seen by Dr. Ezekiel Pickard 01/15/2019 -audiometric testing demonstrated mild high freqkuency SNHL bilaterally slight worse in left ear. -follow up audiogram in 1 year recommended to ensure stable hearing and consider MRI if hearing worsens -notes requested 11/07/2022, she reports has follow up next month Assessment & Plan (11/07/2022 12:56 PM EDT): Seen by Dr. Ezekiel Pickard 01/15/2019 -audiometric testing demonstrated mild high freqkuency SNHL bilaterally slight worse in left ear. -follow up audiogram in 1 year recommended to ensure stable hearing and consider MRI if hearing worsens -notes requested 11/07/2022, she reports has follow up next month Other specified health status 11/07/2022 Overview (03/26/2024): -next annual exam due after 03/25/25 -eye care facilitated by Dr. Carrasco, notes requested 11/07/2022 -dental home is [facility] - Health care Proxy 03/25/24 Assessment & Plan (03/26/2024 1:39 PM EST): -next annual exam due after 03/25/25 -eye care facilitated by Dr. Carrasco, notes requested 11/07/2022 -dental home is [facility] - Health care Proxy 03/25/24 Assessment & Plan (11/07/2022 12:56 PM EDT): -next physical exam due after 11/08/2023 -eye care facilitated by Dr. Carrasco, notes requested 11/07/2022 -dental home is [facility] Dyslipidemia 11/07/2022 Overview (03/27/2024): Lab Results Component Value Date CHOL 204 (H) 03/25/2024 CHOL 224 (H) 05/04/2023 TRIG 128 03/25/2024 TRIG 146 05/04/2023 HDL 47 03/25/2024 HDL 50 05/04/2023 LDLCHOLCAL 132 (H) 03/25/2024 LDLCHOLCAL 145 (H) 05/04/2023 -continue lifestyle modification -atrovastatin 20mg started 03/27/24 -check labs 6 weeks Assessment & Plan (03/27/2024 6:50 AM EST): Lab Results Component Value Date CHOL 204 (H) 03/25/2024 CHOL 224 (H) 05/04/2023 TRIG 128 03/25/2024 TRIG 146 05/04/2023 HDL 47 03/25/2024 HDL 50 05/04/2023 LDLCHOLCAL 132 (H) 03/25/2024 LDLCHOLCAL 145 (H) 05/04/2023 -continue lifestyle modification -atrovastatin 20mg started 03/27/24 -check labs 6 weeks Assessment & Plan (05/04/2023 10:54 AM EST): No results found for: TRIG , CHOL , LDLCHOLCAL , HDL Lab Results Component Value Date CHOLESTEROL 236 (H) 08/05/2021 HDLCHOL 46 (L) 08/05/2021 LDLCHOL 161 (H) 08/05/2021 CHOLHDLRAT 5.1 (H) 08/05/2021 NONHDLCHOL 190 (H) 08/05/2021 -continue lifestyle modifications Assessment & Plan (11/07/2022 12:57 PM EDT): Lab Results Component Value Date CHOLESTEROL 236 (H) 08/05/2021 LDLCHOL 161 (H) 08/05/2021 HDLCHOL 46 (L) 08/05/2021 CHOLHDLRAT 5.1 (H) 08/05/2021 No indication for statin at this time, labs ordered 11/07/2022 Lifestyle modification discuseed GERD (gastroesophageal reflux disease) 3 Overview (11/07/2022): -trial of omeprazole short term 11/07/2022 Assessment & Plan (03/25/2024 1:05 PM EST): -trial of omeprazole short term 11/07/2022 Assessment & Plan (05/04/2023 10:54 AM EST): -trial of omeprazole short term 11/07/2022 Assessment & Plan (11/07/2022 12:57 PM EDT): -trial of omeprazole short term 11/07/2022 Right ear impacted cerumen 11/07/2022 Vitamin D deficiency 11/07/2022 Cerebral arterial aneurysm 08/05/2021 Overview (03/26/2024): Seen in inpatient neurology due to left sided facial symptoms. Saw Fahad Barrientos 07/10/18. 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 CTA notes a small outpouching , possibly a small sidewall aneurysm of basilar vs an irregularity due to atherosclerosis. -MRA of the head 08/03/2018 revealed area of previously questions aneurysm of the distal basilar artery apperas to represent tortuosity of the basilar tip and proximal right P1 segment, no evidence of aneurysm. -MRA 04/2019 no discrete aneurysm demonstrated -Visit with Dr Barrientos 06/25/2019 no further imagine required. Follow up PRN. - Ordered Labs 03/25/24 Assessment & Plan (03/26/2024 1:22 PM EST): Seen in inpatient neurology due to left sided facial symptoms. Saw Fahad Barrientos 07/10/18. 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 CTA notes a small outpouching , possibly a small sidewall aneurysm of basilar vs an irregularity due to atherosclerosis. -MRA of the head 08/03/2018 revealed area of previously questions aneurysm of the distal basilar artery apperas to represent tortuosity of the basilar tip and proximal right P1 segment, no evidence of aneurysm. -MRA 04/2019 no discrete aneurysm demonstrated -Visit with Dr Barrientos 06/25/2019 no further imagine required. Follow up PRN. - Ordered Labs 03/25/24 Assessment & Plan (05/04/2023 10:52 AM EST): Seen in inpatient neurology due to left sided facial symptoms. Saw Fahad Barrientos 07/10/18. 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 CTA notes a small outpouching , possibly a small sidewall aneurysm of basilar vs an irregularity due to atherosclerosis. -MRA of the head 08/03/2018 revealed area of previously questions aneurysm of the distal basilar artery apperas to represent tortuosity of the basilar tip and proximal right P1 segment, no evidence of aneurysm. -MRA 04/2019 no discrete aneurysm demonstrated -Visit with Dr Barrientos 06/25/2019 no further imagine required. Follow up PRN. Assessment & Plan (11/07/2022 11:05 AM EDT): Seen in inpatient neurology due to left sided facial symptoms. Saw Fahad Barrientos 07/10/18. 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 CTA notes a small outpouching , possibly a small sidewall aneurysm of basilar vs an irregularity due to atherosclerosis. -MRA of the head 08/03/2018 revealed area of previously questions aneurysm of the distal basilar artery apperas to represent tortuosity of the basilar tip and proximal right P1 segment, no evidence of aneurysm. -MRA 04/2019 no discrete aneurysm demonstrated -Visit with Dr Barrientos 06/25/2019 no further imagine required. Follow up PRN. Mass of oral cavity 08/05/2021 Overview (05/04/2023): -CT neck 06/2018 revealed fullness of left oral pharynx, concerning a neoplastic Left sided BOT mass. 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 She underwent biopsy 07/13/18 which revealed benign lingual tonsil with reactive lymphoid hyperplasia. Negative for dysplasia. Gram stain negative for fungal organisms. -Saw ENT Dr Ezekiel Pickard 09/07/18 Laryngoscopy showed stable 1cm mass of left BOT. He recommends repeat DL with biopsy for a more complete assessment of the mass. This was postponed due to the pandemic. -biopsy performed 10/02/2018 was benign -Seen 01/31/2019 work of for lingual tonsil prominence benign and no further intervention required. Assessment & Plan (05/04/2023 10:53 AM EST): -CT neck 06/2018 revealed fullness of left oral pharynx, concerning a neoplastic Left sided BOT mass. 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 She underwent biopsy 07/13/18 which revealed benign lingual tonsil with reactive lymphoid hyperplasia. Negative for dysplasia. Gram stain negative for fungal organisms. -Saw ENT Dr Ezekiel Pickard 09/07/18 Laryngoscopy showed stable 1cm mass of left BOT. He recommends repeat DL with biopsy for a more complete assessment of the mass. This was postponed due to the pandemic. -biopsy performed 10/02/2018 was benign -Seen 01/31/2019 work of for lingual tonsil prominence benign and no further intervention required. Assessment & Plan (11/07/2022 12:56 PM EDT): -CT neck 06/2018 revealed fullness of left oral pharynx, concerning a neoplastic Left sided BOT mass. 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 She underwent biopsy 07/13/18 which revealed benign lingual tonsil with reactive lymphoid hyperplasia. Negative for dysplasia. Gram stain negative for fungal organisms. -Saw ENT Dr Ezekiel Pickard 09/07/18 Laryngoscopy showed stable 1cm mass of left BOT. He recommends repeat DL with biopsy for a more complete assessment of the mass. This was postponed due to the pandemic. -biopsy performed 10/02/2018 was benign -Seen 01/31/2019 work of for lingual tonsil prominence benign and no further intervention required. Anxiety 02/20/2012 Depressive disorder 02/20/2012 Resolved Problems Problem Noted Date Diagnosed Date Resolved Date Joint pain 11/07/2022 11/07/2022 Encounters Date Type Department Care Team Description 07/30/2024 Refill [facility] [address] [place] [address] Luly Laguna MD Vitamin D deficiency 07/26/2024 Population Health Risk Score [facility] [address] [place] [address] Provider, Population Health Generic 07/25/2024 Refill [facility] [address] [place] [address] Yenny Ryder RN Anxiety 07/24/2024 Refill [facility] [address] [place] [address] Luly Laguna MD Anxiety 07/15/2024 Refill [facility] [address] [place] [address] Luly Laguna MD Gastroesophageal reflux disease, unspecified whether esophagitis present 07/02/2024 Telephone [facility] [address] [place] [address] Luly Laguna MD May Recalls 07/02/2024 Travel 06/24/2024 Refill [facility] [address] [place] [address] Luly Laguna MD Anxiety 06/18/2024 Orders Only [facility] [address] [place] [phone] Luly Laguna MD Abnormal colonoscopy (Primary Dx) 06/18/2024 Telephone [facility] [address] [place] [address] [phone] Luly Laguna MD from Last 3 Months Immunizations Name Administration Dates Next Due Hep A / Hep B 02/13/2017,09/09/2016,08/12/2016 Hep B, adult 11/07/2022 Influenza Injectable Quadriv alant Preservative Free IIV4 MDCK 08/05/2021 Influenza injectable quadriv alent IIV4 with preservative 02/08/2018 Influenza injectable quadriv alent preservative free 04/14/2020,01/31/2019,02/13/2017,2015,02/02/2015 Influenza, IIV3, injectable 01/29/2014, 2 Influenza, Split (incl. nicole fied surface antigen) 02/20/2012 Tdap 11/07/2022,08/05/2021,10/20/2009 Zoster, Recombinant 10/06/2021,08/05/2021 Social History Tobacco Use Types Packs/Day Years Used Date Smoking Tobacco: Never Smokeless Tobacco: Never Tobacco Cessation:Counseling Given: Not Answered Alcohol Use Standard Drinks/Week Comments Never 0 (1 standard drink = 0.6 oz pur e alcohol) Depression Answer Date Recorded Patient Health Questionnaire-9 Score 3 03/25/2024 Patient Health Questionnaire-9 Score 3 03/25/2024 Last PHQ-9: Questionnaire Data Not on file 1 05/25/2023 Housing Stability Answer Date Recorded What is [...] Date Recorded Patient Health Questionnaire-2 Score 0 03/25/2024 Comments Unknown Sex and Gender Information Value Date Recorded Sex Assigned at Female 03/14/2022 10:15 AM EDT Legal Sex Female 10:15 AM EDT Gender Identity Female 03/14/2022 10:15 AM EDT Sexual Orientation Choose not to disclose 2021 10:15 AM EDT Last Filed Vital Signs Vital Sign Reading Time Taken Comments Blood Pressure 128/86 03/25/2024 1:06 PM EST Pulse 78 03/25/2024 10:57 AM EST Temperature 36.1 ??C (97 ??F) 03/25/2024 10:57 AM EST Respiratory Rate 14 03/25/2024 10:57 AM EST Oxygen Saturation 98% 03/25/2024 10:57 AM EST Inhaled Oxygen Concentration - - Weight 72 kg (158 lb 12.8 oz) 03/25/2024 10:57 A M EST Height 162.6 cm (5' 4 ) 03/25/2024 10:57 AM EST Body Mass Index 27.26 03/25/2024 10:57 AM EST Plan of Treatment Upcoming Encounters Date Type Department Care Team (Late st Contact Info) Description 09/18/2024 11:30 AM EDT Office Visit [facility] [address] [place] [address] Luly Laguna MD [address] [place] [address] Health Maintenance Due Date Last Done Comments CT Colonography 1965 FIT DNA/Cologuard 1965 FIT 1965 FOBT 1965 Sigmoidoscopy 1965 Pneumococcal Vaccine: 50+ Years (1 of 1 - PCV) 06/02/2013 SDOH Screening 06/23/2023 06/23/2022 Influenza Vaccine (#1) 2024 , 04/14/2020, 01/31/2019, Additional history exists Postponed from 01/14/2024 (Patient Refused) Alcohol/Substance Use Screening 03/25/2025 03/25/2024 COVID-19 Vaccine ( - season) 2025 Postponed from 01/14/2024 (Patient Refused) Depression Screening 03/25/2025 03/25/2024, 03/25/20 24 Tobacco Screening 03/25/2025 03/25/2024 Pap Smear 09/19/2025 09/19/2022, 08/11/2016 Mammogram 03/08/2026 03/08/2024, 02/13, 03/01/2022, Additional history exists Cervical Cancer Screening 09/20/2027 HPV/Cotest 09/20/2027 09/19/2022 Lipid Panel 03/25/2029 03/25/2024, 04/15, 08/05/2021 DTaP/Tdap/Td Vaccines (4 - Td or Tdap) 11/07/2032 11/07/2022, 08/05/2021, 10/20/2009 Colonoscopy 07/24/2033 07/25/2023, 04/24/2014 Colorectal Cancer Screening 07/24/2033 RSV Patients and Patients Aged 60 years or older (1 - 1-dose 75+ series) 06/02/2038 Hepatitis A Vaccines Aged Out 02/13/2017, 09/09/2016, 08/12/2016 No longer eligible based on patient's age to complete this topic HIV Screening Completed 08/05/2021 Zoster Vaccines Completed 10/06/2021, 08/05/2021 Hepatitis B Vaccines Completed 11/07/2022, 02/13/2017, 09/09/2016, Additional history exists Hepatitis C Screening Completed 05/04/2023 HIB Vaccines Aged Out No longer eligi ble based on patient's age to complete this topic HPV Vaccines Aged Out No longer eligi ble based on patient's age to complete this topic IPV Vaccines Aged Out No longer eligi ble based on patient's age to complete this topic Meningococcal Vaccine Aged Out No reynold darwin eligible based on patient's age to complete this topic RSV under 20 months Aged Out No longe r eligible based on patient's age to complete this topic Rotavirus Vaccines Aged Out No longer eligible based on patient's age to complete this topic Procedures Procedure Name Priority Date/Time Associated Diagnosis Comments LIPID PANEL, STANDARD Routine 03/25/2024 11:50 AM EST Cerebral arterial aneurysm BI MAMMOGRAM SCREENING TOMOSYNTHESIS BILATERAL Routine 03/08/2024 10:50 AM EDT COLONOSCOPY Routine 07/25/2023 HEPATITIS C AB W/REFL TO HCV RNA, QN, PCR Routine 05/04/2023 11:34 AM EST Encounter for hepatitis C screening test for low risk patient PAP/HPV Routine 09/19/2022 HIV 1/2 ANTIGEN/ANTIBODY, FOURTH GENERATION W/RFL Routine 08/05/2021 11:46 AM EDT from Last 3 Months or Most Recently Relevant to Health Maintenance Results * (ABNORMAL) Lipid Panel, Standard (03/25/2024 11:50 AM EST) Triglycerides 128 <150 mg/dL [facility] Comment:Desirable Triglyceri de: less than 150 mg/dLBorderline High Triglyceride 150-199 mg/dLHigh Triglyceride: 200-499 mg/dLVery High Triglyceride: greater than or equal to 5OO mg/dL Cholesterol 204(H) <200 mg/dL [facility] Comment:Desirable Cholestero l: less than 200 mg/dLBorderline High Cholesterol: 200-239 mg/dLHigh Cholesterol: greater than 239 mg/dL LDL Cholesterol Calculated 132(H) <100 mg/dL [facility] Comment:Desirable LDL: less than 100 mg/dLNear Optimal/Above Optimal LDL: 110- 129 mg/dLBorderline High LDL: 130-159 mg/dLHigh LDL: 160-189 mg/dLVery High LDL: greater than or equal to 190 mg/dL HDL Cholesterol 47 >40 mg/dL [facility] Comment:Desirable HDL: great er than 40 mg/dL Note: This HDL assay may give artificially low results in patients with liver disease. Blood Venous blood specimen / Unknown 03/25/2024 11:50 AM EST 03/25/2024 1:09 PM EST Luly Laguna MD LAB BLOOD ORDERABLES Final Result Performing Organization Address City/State/[facility] Co de Phone Number [facility] [address] [place] [address] [phone] * BI Mammogram Screening Tomosynthesis Bilateral (03/08/2024 10:50 AM EDT) Anatomical Region Laterality Modality Breast Bilateral Mammography 03/08/2024 10:5 0 AM EDT Narrative 03/19/2024 8:50 AM EST ? [facility] ? [address] ?[place] [address] ? Mammography Report ? Signed ? Patient: Tapia,Mahogany ?MR#: [id number] ?? 2 ? : 1965 ?Acct:[id number] ? Age/Sex: 58 / F ?ADM Date: 10/25/24 ? Loc: HO.MAMMO ? Attending : Luly Laguna MD ? Ordering Physician: Luly Laguna MD ?Results: 1N ?? egative ? Date of Service: 03/08/24 ?Follow Up: 1 Year From Orig ?? inal Mammogram ? Procedure(s): MM tomosynthesis screening BI ?? Accession Number(s): [id number] ? cc: Luly Laguna MD ? EXAMINATION: ?? MM SCREENING DIGITAL BREAST TOMOSYNTHESIS, BILATERAL ? CLINICAL INFORMATION: ? Screening. Asymptomatic. ? COMPARISON: ?? Mammography: Comparison is made with available priors ? TECHNIQUE: ?? Digital breast mammography with tomosynthesis is performed in both the ?? craniocaudal and mediolateral oblique views along with computer-aided ?? detection (CAD). ? FINDINGS: ?? There are scattered areas of fibroglandular density (ACR BI-RADS breast ?? composition Category b). ? There are no significant masses, abnormal calcifications, or other ?? abnormalities. ? MM/MM tomosynthesis screening BI ?? IMPRESSION: ?? No mammographic evidence of malignancy. ? ASSESSMENT: ? BI-RADS BI-RADS 1 - Negative ? RECOMMENDATION: ?? Routine annual mammography screening. ? 1 year F/U ? This examination should not preclude the clinical evaluation of a ?? suspicious palpable abnormality. ? This patient's information was entered into a reminder system with a ?? target due date for their next mammogram. ? Electronically signed by: ??Lisa Casper DO ??03/19/2024 08:47 AM EST ?? RP ? Dictated By: ?Lisa Casper DO ? Signed By: ?<Electronically signed by Lisa Casper, DO in OV> ? 03/19/24 0847 ? DD/ 1050 ? TD/TT: 03/08/24 1112 ? Pre Certification Specialist: ? Procedure Note Donotuseinterpreter, Image - 03/19/2024 [place] [facility] [address] [place], [place] [address] Mammography Report Signed Patient: Deann Tapia#: [id number] 2 : 1965Acct:[id number] Age/Sex: 58 / FADM Date: 03/08/24 Loc: HO.MAMMO Attending Dr: Luly Laguna MD Ordering Physician: Luly Laguna MDResults: 1N egative Date of Service: 03/08/24Follow Up: 1 Year From Orig inal Mammogram Procedure(s): MM tomosynthesis screening BI Accession Number(s): [id number] cc: Luly Laguna MD EXAMINATION: MM SCREENING DIGITAL BREAST TOMOSYNTHESIS, BILATERAL CLINICAL INFORMATION: Screening. Asymptomatic. COMPARISON: Mammography: Comparison is made with available priors TECHNIQUE: Digital breast mammography with tomosynthesis is performed in both the craniocaudal and mediolateral oblique views along with computer-aided detection (CAD). FINDINGS: There are scattered areas of fibroglandular density (ACR BI-RADS breast composition Category b). There are no significant masses, abnormal calcifications, or other abnormalities. MM/MM tomosynthesis screening BI IMPRESSION: No mammographic evidence of malignancy. ASSESSMENT: BI-RADS BI-RADS 1 - Negative RECOMMENDATION: Routine annual mammography screening. 1 year F/U This examination should not preclude the clinical evaluation of a suspicious palpable abnormality. This patient's information was entered into a reminder system with a target due date for their next mammogram. Electronically signed by: Lisa Casper DO 03/19/2024 08:47 AM EST Dictated By: Lisa Casper DO Signed By: <Electronically signed by Lisa Casper DO in OV> 03/19/24 0847 DD/ 1050 TD/TT: 03/08/24 1112 Pre Certification Specialist: Luly Laguna MD IMG BI PROCEDURES Final Re sult * (ABNORMAL) Colonoscopy (07/25/2023) Pathologist [facility] Colonoscopy Abnormal( A) Normal Comment:small polyp, await p athology results at [place] Historical Provider HEALTH MAINTENANCE Final Result * Hepatitis C Antibody with Reflex to HCV, RNA, Quantitative, Real-Time PCR (05/04/2023 11:34 AM EST) [facility] Hepatitis C Antibody Nonreactive Nonreactive [facility] Comment:Antibodies to HCV no t detected; does not exclude early acuteHCV infection. Blood Venous blood specimen / Unknown 05/04/2023 11:34 AM EST 05/04/2023 1:12 PM EST Result [facility] Luly Laguna MD LAB BLOOD ORDERABLES Final Result Performing Organization Address City/State/[facility] Co de Phone Number [facility] [address] [place] [phone] * (ABNORMAL) Pap Smear (09/19/2022) [facility] Pap Other Negative for intraephithelial lesion or malignancy, Other Comment:unsatisfactory HPV Not Detected Undetected, Indeterminate, Quantitative, Not Detected Historical Provider HEALTH MAINTENANCE Final Result * HIV 1/2 ANTIGEN/ANTIBODY,FOURTH GENERATION W/RFL (08/05/2021 11:46 AM EDT) [facility] HIV-1/2 ANTIGEN AND ANTIBODIES, 4TH GENERATION W/ REFLEX NON-REACT SAVI NON-REACT SAVI [facility] Comment: HIV-1 antigen and HIV-1/HIV-2 antibodies were not detected. There is no laboratory evidence of HIV infection. ?? PLEASE NOTE: This information has been disclosed to you from records whose confidentiality may be protected by state law. ??If your state requires such protection, then the state law prohibits you from making any further disclosure of the information without the specific written consent of the person to whom it pertains, or as otherwise permitted by law. A general authorization for the release of medical or other information is NOT sufficient for this purpose. ? For additional information please refer to http://education.StartBull.Matcha/faq/VJH427 (This link is being provided for informational/ educational purposes only.) ? The performance of this assay has not been clinically validated in patients less than 2 years old. ?? 08/05/2021 11:4 6 AM EDT us Luly Laguna MD LAB BLOOD ORDERABLES Final Result [facility] [address] from Last 3 Months or Most Recently Relevant to Health Maintenance Insurance [facility] Care Teams Environmental Engineering Manager Relationship Specialty Start Date End Date [place], [place] Luly [address] [place] [phone] PCP - General Family Medicine 05/15/18 Alan Horowitz 175 [facility] 2nd Floor [address] [place] [address] Gastroenterology 06/18/24 Polly Bryant [address] [address] Obstetrics and Gynecology 06/18/24 An Thomas School Lunch MonitorPbx Wire Chief 01/22/24
--- OUTSIDE RECORDS SUMMARY | 2024-08-19 11:34 | XMS_ITS | Encounter Summary ---
Author Organization [employer] Address [address] [place] [address] 7t [place] [address] Care Team Providers Care Recording Clerk Name Role Phone Luly Laguna MD Primary Care Provider +1- [phone] Alan Horowitz Unavailable Polly Bryant Unavailable Encounter Details Date Type Department Care Team (Late st Contact Info) Description 11/24/2022 Abstract [facility] MEDICINE [address] [place] [address] Luly Laguna MD [address] [place] [address] Social History Tobacco Use Types Packs/Day Years [...] Description 09/18/2024 11:30 AM EDT Office Visit [facility] MEDICINE [address] [place] [address] Luly Laguna MD 230 [place] [address] documented as of this encounter Visit Diagnoses Not on filedocumented in this encounter Additional Health Concerns Assessment Noted Time PHQ-9 Depression Total Score: 0 11/08/19 23 11:15 AM EDT documented as of this encounter Care Teams Recording Clerk Relationship Specialty Start Date End Date Luly Laguna MD 230 [place], [place] [phone] PCP - General Family Medicine 05/15/18 Alan Horowitz 175 [facility] 2nd Floor [address] [place] [address] Gastroenterology 06/18/24 Polly Bryant [address] [address] Obstetrics and Gynecology 06/18/24 An Thomas Continuous Improvement ConsultantPot Fisher 01/22/24 documented as of this encounter
--- OUTSIDE RECORDS SUMMARY | 2024-08-19 11:34 | XMS_ITS | Encounter Summary ---
Author Organization [employer] Address [address] [facility] 7t [place] [address] Care Team Providers Care Refractory Furnace Designer Name Role Phone Luly Laguna MD Primary Care Provider +1- [phone] Alan Horowitz Unavailable Polly Bryant Unavailable Encounter Details Date Type Department Care Team (Late st Contact Info) Description 06/18/2024 Orders Only [facility] MEDICINE 230 [place] [address] Luly Laguna MD 230 [place], [place] [phone] Abnormal colonoscopy (Primary Dx) Social History Tobacco Use Types [...] 11:30 AM EDT Office Visit [facility] MEDICINE 230 [place] [address] Luly Laguna MD 230 [place] [address] documented as of this encounter Visit Diagnoses Diagnosis Abnormal colonoscopy- Primary documented in this encounter Additional Health Concerns Assessment Noted Time PHQ-9 Depression Total Score: 3 03/25/20 24 11:38 AM EST documented as of this encounter Care Teams Refractory Furnace Designer Relationship Specialty Start Date End Date Luly Laguna MD 230 [place] [address] PCP - General Family Medicine 05/15/18 Alan Horowitz 175 [facility] 2nd Floor [address] [place] [address] Gastroenterology 06/18/24 Polly Bryant 271 [address] [place] [address] Obstetrics and Gynecology 06/18/24 An Thomas Elementary Art TeacherShell Mold Bonder 01/22/24 documented as of this encounter
--- OUTSIDE RECORDS SUMMARY | 2024-08-19 11:34 | XMS_ITS | Encounter Summary ---
Author Organization [employer] Address [address] [place] [address] 7t [place] [address] Care Team Providers Care Marking Stitcher Name Role Phone Luly Laguna MD Primary Care Provider +1- [phone] CampbelljesAlan Unavailable Manny Polly Unavailable Reason for Visit * Reason Comments Med Change Request Encounter Details Date Type Department Care Team ([facility] st Contact Info) Description 11/07/2022 Refill [facility] MEDICINE 230 [place] [address] Luly Laguna MD 230 [place], [place] [phone] Social History Tobacco Use Types Packs/Day Years [...] Description 09/18/2024 11:30 AM EDT Office Visit [facility] MEDICINE [address] [place] [address] Luly Laguna MD 230 [place] [address] documented as of this encounter Visit Diagnoses Not on filedocumented in this encounter Additional Health Concerns Assessment Noted Time PHQ-9 Depression Total Score: 0 11/08/19 23 11:15 AM EDT documented as of this encounter Care Teams Marking Stitcher Relationship Specialty Start Date End Date Luly Laguna MD 230 [place] [address] PCP - General Family Medicine 05/15/18 Alan Horowitz 175 [facility] 2nd Floor [address] [place] [address] Gastroenterology 06/18/24 Polly Bryant [address] [address] Obstetrics and Gynecology 06/18/24 An Thomas Product DeveloperPatrol Deputy Sheriff 01/22/24 documented as of this encounter
--- OUTSIDE RECORDS SUMMARY | 2024-08-19 11:34 | XMS_ITS | Encounter Summary ---
Author Organization [employer] Address [address] [place] [address] 7t [place] [address] Care Team Providers Care Serologist Name Role Phone Luly Laguna MD Primary Care Provider +1- [phone] Alan Horowitz Unavailable Polly Bryant Unavailable Encounter Details Date Type Department Care Team (Late st Contact Info) Description 11/24/2022 Abstract [facility] MEDICINE 230 [place] [address] Luly Laguna MD 230 [place] [address] Social History Tobacco Use Types Packs/Day Years [...] Description 09/18/2024 11:30 AM EDT Office Visit [facility] MEDICINE [address] [place] [address] Luly Laguna MD 230 [place] [address] documented as of this encounter Visit Diagnoses Not on filedocumented in this encounter Additional Health Concerns Assessment Noted Time PHQ-9 Depression Total Score: 0 11/08/19 23 11:15 AM EDT documented as of this encounter Care Teams Serologist Relationship Specialty Start Date End Date Luly Laguna MD 230 [place], [place] [phone] PCP - General Family Medicine 05/15/18 Alan Horowitz 175 [facility] 2nd Floor [address] [place] [address] Gastroenterology 06/18/24 Polly Bryant [address] [address] Obstetrics and Gynecology 06/18/24 An Thomas Aircraft PainterBranding Machine Operator 01/22/24 documented as of this encounter
--- OUTSIDE RECORDS SUMMARY | 2024-08-19 11:34 | XMS_ITS | Encounter Summary ---
Author Organization [employer] Address [address] [place] [address] 7t [place] [address] Care Team Providers Care Evening Anchor Name Role Phone Luly Laguna MD Primary Care Provider +1- [phone] Campbelljes Alan Zayda Unavailable Manny Polly Unavailable Encounter Details Date Type Department Care Team (Late st Contact Info) Description 05/29/2022 Abstract [facility] MEDICINE [address] [place] [address] [phone] Luly Laguna MD [address] [place] [address] [phone] Social History Tobacco Use Types Packs/Day Years Used Date Smoking Tobacco: Never Assessed Comments Unknown Sex and Gender Information Value [...] Description 09/18/2024 11:30 AM EDT Office Visit [facility] MEDICINE [address] [place] [address] [phone] Luly Laguna MD [address] [place] [address] [phone] documented as of this encounter Procedures Procedure Name Priority Date/Time Associated Diagnosis Comments MAMMOGRAPHY Routine 03/01/2022 PAP/HPV Routine 08/11/2016 COLONOSCOPY Routine 04/24/2014 documented in this encounter Results * Mammography (03/01/2022) Mammogram normal Anatomical Region Laterality Modality Other Historical Provider HEALTH MAINTENANCE Final Result * Pap Smear (08/11/2016) Pap smear ILM HPV neg Polly Treadwell [facility] Provider HEALTH MAINTENANCE Final Result * Colonoscopy (04/24/2014) Pathologist [facility] Colonoscopy normal with Dr. Sawant [facility] Provider HEALTH MAINTENANCE Final Result documented in this encounter Visit Diagnoses Not on filedocumented in this encounter Care Teams Evening Anchor Relationship Specialty Start Date End Date Luly Laguna MD 230 [place] [address] PCP - General Family Medicine 05/15/18 Alan Horowitz 175 [facility] 2nd Floor [address] [place] [address] Gastroenterology 06/18/24 Polly Bryant [address] [address] Obstetrics and Gynecology 06/18/24 An Thomas Metal TempererPalliative Care Nurse 01/22/24 documented as of this encounter
--- OUTSIDE RECORDS SUMMARY | 2024-08-19 11:34 | XMS_ITS | Encounter Summary ---
Author Organization [employer] Address 75 [facility] 7t [place] [address] Care Team Providers Care Communication Clerk Name Role Phone Luly Laguna MD Primary Care Provider +1- [phone] Alan Horowitz Unavailable Manny Polly Unavailable Reason for Visit * Reason Comments Med Refill Encounter Details Date Type Department Care Team (Late st Contact Info) Description 10/23/2023 Refill [facility] MEDICINE 230 [place], [place] [phone] Luly Laguna MD 230 [place], [place] [phone] Social History Tobacco Use Types Packs/Day Years [...] 11:30 AM EDT Office Visit [facility] MEDICINE [address] [place] [address] Luly Laguna MD 230 [place] [address] documented as of this encounter Visit Diagnoses Not on filedocumented in this encounter Additional Health Concerns Assessment Noted Time PHQ-9 Depression Total Score: 0 11/08/19 23 11:15 AM EDT documented as of this encounter Care Teams Communication Clerk Relationship Specialty Start Date End Date Luly Laguna MD 230 [place] [address] PCP - General Family Medicine 05/15/18 Alan Horowitz 175 [facility] 2nd Floor [address] [place] [address] Gastroenterology 06/18/24 Polly Bryant [address] [place] [place] [address] Obstetrics and Gynecology 06/18/24 An Thomas Roller Skates AssemblerSole Scraper 01/22/24 documented as of this encounter
--- OUTSIDE RECORDS SUMMARY | 2024-08-19 11:34 | XMS_ITS | Encounter Summary ---
Author Organization [employer] Address [address] [facility] 7t [place] [address] Care Team Providers Care Conditioning Yard Supervisor Name Role Phone Luly Laguna MD Primary Care Provider +1- [phone] CampbelljesAlan Unavailable Manny Polly Unavailable Encounter Details Date Type Department Care Team ([facility] Contact Info) Description 07/01/2022 Orders Only [facility] MED & PEDS [address] [place], [place] [phone] Lora Russell LPN Social History Tobacco Use Types Packs/Day Years Used Date Smoking Tobacco: Never Smokeless Tobacco: Never Alcohol Use Standard Drinks/Week Comments Never 0 (1 standard drink = 0.6 oz pur e alcohol) Comments Unknown Sex and Gender Information Value [...] suspected to have Coronavirus/COVID-19? No / Unsure 06/23/2022 2:01 PM EST documented as of this encounter Plan of Treatment Upcoming Encounters Date Type Department Care Team ([facility] Contact Info) Description 09/18/2024 11:30 AM EDT Office Visit [facility] MEDICINE 230 [place], [place] [phone] Luly Laguna MD 230 [place] [address] documented as of this encounter Visit Diagnoses Not on filedocumented in this encounter Care Teams Conditioning Yard Supervisor Relationship Specialty Start Date End Date Luly Laguna MD 230 [place] [address] PCP - General Family Medicine 05/15/18 Alan Horowitz 175 [facility] 2nd Floor [address] [place] [address] Gastroenterology 06/18/24 Polly Bryant [address] [address] Obstetrics and Gynecology 06/18/24 An Thomas Pouch MakerAlcohol Rubber 01/22/24 documented as of this encounter
--- OUTSIDE RECORDS SUMMARY | 2024-08-19 11:34 | XMS_ITS | Encounter Summary ---
Author Organization [employer] Address [address] [place] [address] 7t [place] [address] Care Team Providers Care Loss Prevention And Safety Manager Name Role Phone Luly Laguna MD Primary Care Provider +1- [phone] Alan Horowitz Unavailable Manny Polly Unavailable Encounter Details Date Type Department Care Team (Latest Contact Info) Description 11/22/2018 Abstract [facility] CONVERSIONS Dental, Provider, DDS Social History Tobacco Use Types Packs/Day Years [...] Description 09/18/2024 11:30 AM EDT Office Visit [facility] MEDICINE [address] [place] [address] Luly Laguna MD 230 [place], [place] [phone] documented as of this encounter Visit Diagnoses Not on filedocumented in this encounter Care Teams Loss Prevention And Safety Manager Relationship Specialty Start Date End Date Luly Laguna MD [address] [place] [address] [phone] PCP - General Family Medicine 05/15/18 Alan Horowitz 175 [facility] 2nd Floor [address] [place] [address] Gastroenterology 06/18/24 Polly Bryant [address] [place] [address] Obstetrics and Gynecology 06/18/24 An Thomas Associate JusticeTool And Die Maker/Designer 01/22/24 documented as of this encounter
== END 2024-08-19 10:38 | disposition home or self-care (01) ==
LOC: HO.HCS 09:55
PROVIDERS: PCP Family Medicine; Visit Provider Internal Medicine Cardiovascular Disease
DX: R00.2 Palpitations (principal); R06.02 Shortness of breath
CPT/HCPCS: 93010; 99204

== ENCOUNTER → 2024-08-19 09:55 | Outpatient (BNVA) | payer MEDICAID, SELFPAY | PROVIDERS: PCP Family Medicine; Visit Provider Internal Medicine Cardiovascular Disease | DX: R00.2 Palpitations (principal); R06.02 Shortness of breath | CPT/HCPCS: 93005; 99202 ==

== ENCOUNTER → 2024-08-29 08:52 | Outpatient (REF) | payer MEDICAID, SELFPAY ==
--- NOTE | ~2024-08-29 | XR_ITS ---
EXAMINATION: X-ray knee bilaterally, 3 views. CLINICAL INFORMATION: Chronic knee pain, bilaterally. TECHNIQUE: 3 views of the knees. COMPARISON: September 30, 2014. FINDINGS: There is mild asymmetric joint space narrowing involving mostly the medial compartment. No acute cortical disruption or malalignment. There is marginal osteophyte formation on the right femoral condyles and posterior patella. No suprapatellar bursa joint effusion on the right knee. Probable suprapatellar bursa joint effusion on the left knee. No subcutaneous emphysema. XR/XR Knee Oscar 3V IMPRESSION: Mild medial compartment osteoarthrosis, bilaterally. Probable suprapatellar bursa joint effusion, left knee. Electronically signed by: Mitch Cantu MD 08/29/2024 04:01 PM EDT
--- NOTE | 2024-08-29 08:59 | CA_ITS ---
Transthoracic Echocardiogram Patient (Last, First, Middle): Mahogany Tapia, Gender: Female Date of : 1965 Age: 59 Procedure Date: 08/29/2024 Procedure Type: Transthoracic Echocardiogram Location: OP Height: 160.02 cm Weight: 73.94 kg BSA: 1.77 m2 Heart Rate: bpm BP: 120 / 70 mmHg Mobile Security Architect: MACI Referring MD: Yair Dillon MD Syrup Machine Laborer: Yair Dillon MD Symptoms: R00.2 - Palpitations Study Quality: Fair ECG Rhythm: Sinus Conclusions: - Essentially normal study Findings Left Ventricle Normal left ventricular size, thickness, and systolic function. The visually estimated ejection fraction is between 60-65%. Spectral Doppler is indicative of a normal filling pattern. Right Ventricle Normal right ventricular cavity size and systolic function. Atria The left atrium is normal in size. There is no evidence of interatrial shunt. The right atrium was not well visualized. Aortic Valve The aortic valve structure and function is likely normal. There is no aortic valve stenosis. There is no aortic valve regurgitation. Mitral Valve Normal mitral valve structure and function. There is trace mitral valve regurgitation. There is no mitral valve stenosis. Pulmonic Valve The pulmonic valve is likely normal. There is trace pulmonic valve regurgitation. Tricuspid Valve Normal tricuspid valve structure. There is trace tricuspid valve regurgitation. The right ventricular systolic pressure is normal. The right ventricular systolic pressure is 15 mmHg. Normal right atrial pressure. There is no evidence of pulmonary hypertension. Great Vessels All visible segments of the aorta are normal in size. The pulmonary artery was not well visualized. There is no dilatation of the ascending aorta measuring 3.00 cm. Venous The inferior vena cava is normal in size and collapses greater than 50% with inspiration. Pericardium/Pleural There is no evidence of pericardial effusion. Prior Study Comparison No prior study available for comparison. Measurements 2D Linear Measurements IVSd: 0.81 0.6-0.9/0.6-1.0 cm LVIDd: 3.87 3.9-5.3/4.2-5.9 cm LVIDd Index: 2.19 2.4-3.2/2.2-3.1 cm/m2 LVIDs: 2.37 2.0-3.6 cm LVPWd: 0.88 0.7-1.1 cm LA Diam: 3.00 2.7-3.8/3.0-4.0 cm LAIDs Index: 1.69 1.5-2.3 cm/m2 LV Mass: 117.99 67-162/88-224 g LV Mass Index: 66.66 43-95/49-115 g/m2 LVOT Diam: 1.90 3.0+(-)1.3 cm 2D Systolic Function EF 4C: 59.40 >55% EF 2C: 64.70 >55% EF BiP: 61.20 >55% Mitral Valve MV Pk E: 0.89 MV PK A: 0.81 MV Decel Time: 165.00 E/A: 1.10 E'Lateral: 5.98 E'Medial: 4.68 E/E' Med: 19.00 E/E' Lat: 14.90 PHT: 48.00 MVA PHT: 4.58 Decel Plumas: 5.39 Aortic Valve AoV Pk Ruben: 1.34 AoV Mn Ruben: 0.84 AoV VTI: 0.29 AoV Pk Grad: 7.00 Aov Mn Grad: 3.00 XIOMARA Cont.VTI: 2.28 LVOT LVOT Pk Ruben: 1.02 LVOT Mn Ruben: 0.74 LVOT VTI: 0.23 LVOT Pk Grad: 4.00 LVOT Mn Grad: 2.00 LVOT Diam: 1.90 LVOT Area: 2.84 Diastolic Function MV Pk E: 0.89 MV Pk A: 0.81 E/A: 1.10 E'Medial: 4.68 E/E' Med: 19.00 E' Laterial: 5.98 E/E' Lat: 14.90 Right Ventricle TAPSE (mm): 24.40 TVS' Ruben: 10.40 Tricuspid Valve TR Pk Ruben: 1.74 TR Pk Grad: 12.00 RA Press: 3.00 RVSP: 15.00 Great Vessels Aorta Sinus of Valsalva: 2.96 2.0-3.[address] Ridge: 2.79 1.7-3.4 cm Ao Asc: 3.00 2.1-3.4 cm Ao Arch: 2.80 Updated in Other Vendor System with Status of Final Yair Dillon MD electronically signed on 08/29/2024 3:35:11 PM with status of Final
--- OUTSIDE RECORDS SUMMARY | 2024-08-29 09:35 | XMS_ITS | Encounter Summary ---
Author Organization [employer] Address [address] [facility] 7t [place] [address] Care Team Providers Care Grain Farmer Name Role Phone Luly Laguna MD Primary Care Provider +1- [phone] Alan Horowitz Unavailable Manny Polly Unavailable Reason for Visit * Reason Comments Med Refill Encounter Details Date Type Department Care Team (Late st Contact Info) Description 10/23/2023 Refill [facility] MEDICINE [address] [place], [place] [phone] Luly Laguna MD 230 [place], [place] [phone] Social History Tobacco Use Types Packs/Day Years [...] Description 09/18/2024 11:30 AM EDT Office Visit [facility] MEDICINE 230 [place] [address] Luly Laguna MD [address] [place] [address] documented as of this encounter Visit Diagnoses Not on filedocumented in this encounter Additional Health Concerns Assessment Noted Time PHQ-9 Depression Total Score: 0 11/08/19 23 11:15 AM EDT documented as of this encounter Care Teams Grain Farmer Relationship Specialty Start Date End Date Luly Laguna MD [address] [place] [address] PCP - General Family Medicine 05/15/18 Alan Horowitz 175 [facility] 2nd Floor [address] [place] [address] Gastroenterology 06/18/24 Polly Bryant [address] [place] [address] Obstetrics and Gynecology 06/18/24 An Thomas Link Wire Fabric Machine OperatorGround Support Equipment Fitter 01/22/24 documented as of this encounter
--- OUTSIDE RECORDS SUMMARY | 2024-08-29 09:35 | XMS_ITS | Encounter Summary ---
Author Organization [employer] Address [address] [place] [address] 7t [place] [address] Care Team Providers Care Stable Hand Name Role Phone Luly Laguna MD Primary Care Provider +1- [phone] Alan Horowitz Unavailable Manny Polly Unavailable Encounter Details Date Type Department Care Team (Latest Contact Info) Description 11/22/2018 Abstract [facility] CONVERSIONS Dental, Provider, DDS Social History Tobacco [...] Description 09/18/2024 11:30 AM EDT Office Visit [facility] MEDICINE [address] [place] [address] Luly Laguna MD 230 [place], [place] [phone] documented as of this encounter Visit Diagnoses Not on filedocumented in this encounter Care Teams Stable Hand Relationship Specialty Start Date End Date Luly Laguna MD [address] [place] [address] [phone] PCP - General Family Medicine 05/15/18 Alan Horowitz 175 [facility] 2nd Floor [address] [place] [address] Gastroenterology 06/18/24 Polly Bryant [address] [place] [address] Obstetrics and Gynecology 06/18/24 An Thomas City DirectorDirector Of Occupational Therapy 01/22/24 documented as of this encounter
--- OUTSIDE RECORDS SUMMARY | 2024-08-29 09:35 | XMS_ITS | Encounter Summary ---
Author Organization [employer] Address [address] [facility] 7t [place] [address] Care Team Providers Care Director Mission Name Role Phone Luly Laguna MD Primary Care Provider +1- [phone] Alan Horowitz Unavailable Polly Bryant Unavailable Encounter Details Date Type Department Care Team (Late st Contact Info) Description 06/18/2024 Orders Only [facility] MEDICINE [address] [place] [address] Luly Laguna MD [address] [place], [place] [phone] Abnormal colonoscopy (Primary Dx) Social History Tobacco [...] 09/18/2024 11:30 AM EDT Office Visit [facility] MEDICINE [address] [place] [address] Luly Laguna MD 230 [place] [address] documented as of this encounter Visit Diagnoses Diagnosis Abnormal colonoscopy- Primary documented in this encounter Additional Health Concerns Assessment Noted Time PHQ-9 Depression Total Score: 3 03/25/20 24 11:38 AM EST documented as of this encounter Care Teams Director Mission Relationship Specialty Start Date End Date Luly Laguna MD [address] [place] [address] PCP - General Family Medicine 05/15/18 Alan Horowitz [address] [facility] 2nd Floor [address] [place] [address] Gastroenterology 06/18/24 Polly Bryant [address] [place] [address] Obstetrics and Gynecology 06/18/24 An Thomas Data Visualization DeveloperMeat Cutting Block Repairer 01/22/24 documented as of this encounter
--- OUTSIDE RECORDS SUMMARY | 2024-08-29 09:35 | XMS_ITS | Clinical Summary ---
Author Organization [employer] Address [address] [facility] 7t [place] [address] Care Team Providers Care Agent Licensing Clerk Name Role Phone Luly Laguna MD Primary Care Provider +1- [phone] Alan Horowitz Unavailable Polly Bryant Unavailable Allergies No known active allergies Medications ibuprofen 400 MG tabletIndication s:Streptococcal pharyngitis Take 1 tablet (400 mg) by mouth every 6 (six) hours if needed for moderate pain or fever for up to 30 doses. 30 tablet 3 Active FLUoxetine (PROzac) 20 MG capsuleIndicatio ns:Depressive disorder TAKE 2 CAPSULES BY MOUTH EVERY MORNING 60 capsule 11 4 Active atorvastatin (Lipitor) 20 MG tabletIndication s:Dyslipidemia Take 1 tablet (20 mg) by mouth Once per day. 30 tablet 11 4 03/27/20 25 Active omeprazole (PriLOSEC) [address] capsuleIndicatio ns:Gastroesophag eal reflux disease, unspecified whether esophagitis present TAKE 1 CAPSULE BY MOUTH TWICE A DAY 180 capsule 1 5 Active clonazePAM (KlonoPIN) 0.5 MG tabletIndication s:Anxiety TOME 1 TABLETA POR VIA ORAL DOS VECES AL VANESSA CUANDO SEA NECESARIO PARA LA ANSIEDAD 56 tablet 5 Active clonazePAM (KlonoPIN) 0.5 MG tabletIndication s:Anxiety TOME 1 TABLETA POR VIA ORAL DOS VECES AL VANESSA CUANDO SEA NECESARIO PARA LA ANSIEDAD 56 tablet 5 Active cholecalciferol (Vitamin D-[address]) 25 MCG (1000 UT) tabletIndication s:Vitamin D deficiency TAKE 1 TABLET BY MOUTH EVERY DAY 90 tablet 5 Active Active Problems Problem Noted Date Diagnosed Date [...] repeat colonoscopy in 10 years. Done at [facility] with Dr. Alan Horowitz MD Assessment & [...] Carrasco, notes requested 11/07/2022 -dental home is [facility] - Health care Proxy 03/25/24 Assessment & Plan (03/26/2024 1:39 PM EST): -next annual exam due after 03/25/25 -eye care facilitated by Dr. Carrasco, notes requested 11/07/2022 -dental home is [facility] - Health care Proxy 03/25/24 Assessment & Plan (11/07/2022 12:56 PM EDT): -next physical exam due after 11/08/2023 -eye care facilitated by Dr. Carrasco, notes requested 11/07/2022 -dental home is [facility] Dyslipidemia 11/07/2022 Overview (03/27/2024): Lab Results Component [...] Lifestyle modification discuseed GERD (gastroesophageal reflux disease) Overview (11/07/2022): -trial of omeprazole short term [...] to left sided facial symptoms. Saw Fahad Chacho Barrientos 07/10/18. Found to have a possible [...] due to left sided facial symptoms. Saw KatherineMauricio Chacho Barrientos 07/10/18. Found to have a possible [...] to left sided facial symptoms. Saw Fahad Chacho Barrientos 07/10/18. Found to have a possible [...] Type Department Care Team Description 07/30/2024 Refill [facility] MEDICINE [address] [place] [address] Luly Laguna MD Vitamin D deficiency 07/26/2024 Population Health Risk Score [facility] (C3) Department [address] [phone] Provider, Population Health Generic 07/25/2024 Refill [facility] [address] [place] [address] Yenny Ryder, WM Anxiety 07/24/2024 Refill [facility] MEDICINE [address] [place] [address] Luly Laguna MD Anxiety 07/15/2024 Refill [facility] MEDICINE [address] [place] [address] Luly Laguna MD Gastroesophageal reflux disease, unspecified whether esophagitis present 07/02/2024 Telephone [facility] MEDICINE [address] [place] [address] Luly Laguna MD May Recalls 07/02/2024 Travel 06/24/2024 Refill [facility] MEDICINE [address] [place] [address] Luly Laguna MD Anxiety 06/18/2024 Orders Only [facility] [place] [address] Luly Laguna MD Abnormal colonoscopy (Primary Dx) 06/18/2024 Telephone [facility] MEDICINE [address] [place] [address] Luly Laguna MD from Last 3 Months [...] Description 09/18/2024 11:30 AM EDT Office Visit [facility] MEDICINE [address] [place] [address] Luly Laguna MD [address] [place] [address] Health Maintenance Due Date Last Done Comments [...] (Patient Refused) Depression Screening 03/25/2025 03/25/2024, 03/25/20 Tobacco Screening 03/25/2025 03/25/2024 Pap Smear 09/19/2025 [...] TOMOSYNTHESIS BILATERAL Routine 03/08/2024 10:50 AM EDT HM COLONOSCOPY Routine 07/25/2023 HEPATITIS C AB W/REFL [...] 11:50 AM EST) Triglycerides 128 <150 mg/dL [facility] Comment:Desirable Triglyceri de: less than 150 mg/dLBorderline High Triglyceride 150-199 mg/dLHigh Triglyceride: 200-499 mg/dLVery High Triglyceride: greater than or equal to 5OO mg/dL Cholesterol 204(H) <200 mg/dL [facility] Comment:Desirable Cholestero l: less than 200 mg/dLBorderline High Cholesterol: 200-239 mg/dLHigh Cholesterol: greater than 239 mg/dL LDL Cholesterol Calculated 132(H) <100 mg/dL [facility] Comment:Desirable LDL: less than 100 mg/dLNear Optimal/Above Optimal LDL: 110- 129 mg/dLBorderline High LDL: 130-159 mg/dLHigh LDL: 160-189 mg/dLVery High LDL: greater than or equal to 190 mg/dL HDL Cholesterol 47 >40 mg/dL [facility] Comment:Desirable HDL: great er than 40 mg/dL Note: This HDL assay may give artificially low results in patients with liver disease. Blood Venous blood specimen / Unknown 03/25/2024 11:50 AM EST 03/25/2024 1:09 PM EST Luly Laguna MD LAB BLOOD ORDERABLES Final Result [facility] [address] [place] [address] [phone] * BI Mammogram Screening Tomosynthesis Bilateral (03/08/2024 10:50 AM EDT) Anatomical Region Laterality Modality Breast Bilateral Mammography 03/08/2024 10:5 0 AM EDT Narrative 03/19/2024 8:50 AM EST ? [facility] ? [address] ?[place] [address] ? Mammography Report ? Signed ? Patient: Tapia,Mahogany ?MR#: [id number] ?? 2 ? : 1965 ?Acct:[id number] ? Age/Sex: 58 / F ?ADM Date: 10/25/24 ? Loc: HO.MAMMO ? Attending Dr: Luly Laguna MD ? Ordering Physician: Luly Laguna MD ?Results: 1N ?? egative ? Date of Service: 10/25/24 ?Follow Up: 1 Year From Orig ?? inal Mammogram ? Procedure(s): MM tomosynthesis screening BI ?? Accession Number(s): [id number] ? cc: Luly Laguna MD ? EXAMINATION: [...] ??Lisa Casper DO ??03/19/2024 08:47 AM EST ? Dictated By: ?Lisa Casper DO ? Signed By: ?<Electronically signed by Lisa Casper, DO in OV> ? 03/19/24 0847 ? DD/ 1050 ? TD/TT: 03/08/24 1112 ? Operations Agent: ? Procedure Note Arely Ridley - 03/19/2024 [facility] [address] [place] [address] Mammography Report Signed Patient: Deann Tapia#: [id number] 2 : 1965Acct:[id number] Age/Sex: 58 / FADM Date: 03/08/24 Loc: HO.MAMMO Attending Dr: Luly Laguna MD Ordering Physician: Luly Laguna MDResults: 1N egative Date of Service: 03/08/24Follow Up: 1 Year From Orig ina Mammogram Procedure(s): MM tomosynthesis screening BI Accession Number(s): [id number] cc: Luly Laguna MD EXAMINATION: MM SCREENING [...] 03/19/24 0847 DD/ 1050 TD/TT: 03/08/24 1112 Operations Agent: Luly Laguna MD IMG BI PROCEDURES Final Re sult * (ABNORMAL) Hm Colonoscopy (07/25/2023) Colonoscopy Abnormal( A) Normal Comment:small polyp, await p athology results at [place] Historical Provider HEALTH MAINTENANCE Final Result * Hepatitis C Antibody with Reflex to HCV, RNA, Quantitative, Real-Time PCR (05/04/2023 11:34 AM EST) Hepatitis C Antibody Nonreactive Nonreactive [facility] Comment:Antibodies to HCV no t detected; does not exclude early acuteHCV infection. Blood Venous blood specimen / Unknown 05/04/2023 11:34 AM EST 05/04/2023 1:12 PM EST Result [facility] Luly Laguna MD LAB BLOOD ORDERABLES Final Result [facility] [address] [place] [phone] * (ABNORMAL) Hm Pap Smear (09/19/2022) Pathologist [facility] Pap Other Negative for intraephithelial lesion or malignancy, Other Comment:unsatisfactory HPV Not Detected Undetected, Indeterminate, Quantitative, Not Detected Kentrell Nassar MD HEALTH MAINTENANCE Final Result * HIV 1/2 ANTIGEN/ANTIBODY,FOURTH GENERATION W/RFL (08/05/2021 11:46 AM EDT) [facility] HIV-1/2 ANTIGEN AND ANTIBODIES, 4TH GENERATION W/ REFLEX NON-REACT SAVI NON-REACT SAVI [facility] Comment: HIV-1 antigen and HIV-1/HIV-2 [...] ? For additional information please refer to http://education.[employer].CPXi/faq/BJY384 (This link is being provided for informational/ educational purposes only.) ? The performance of this assay has not been clinically validated in patients less than 2 years old. ?? 08/05/2021 11:4 6 AM EDT Result [facility] Luly Laguna MD LAB BLOOD ORDERABLES Final Result [facility] [address] from Last 3 Months or Most Recently Relevant to Health Maintenance Insurance [facility] C3 Care Teams Agent Licensing Clerk Relationship Specialty Start Date End Date [place], [place] Luly [address] [place] [address] PCP - General Family Medicine 05/15/18 Alan Horowitz 175 [facility] 2nd Floor [address] [place] [address] Gastroenterology 06/18/24 Polly Bryant [address] [address] Obstetrics and Gynecology 06/18/24 An Thomas Foam Cutting SupervisorBacking In Machine Tender 01/22/24
--- OUTSIDE RECORDS SUMMARY | 2024-08-29 09:35 | XMS_ITS | Encounter Summary ---
Author Organization [employer] Address [address] [place] [address] 7t [place] [address] Care Team Providers Care Whale Fisherman Name Role Phone Luly Laguna MD Primary Care Provider +1- [phone] Alan Horowitz Unavailable Polly Bryant Unavailable Encounter Details Date Type Department Care Team (Late st Contact Info) Description 11/24/2022 Abstract [facility] MEDICINE [address] [place] [address] Luly Laguna MD [address] [place] [address] Social History Tobacco Use Types Packs/Day Years [...] Description 09/18/2024 11:30 AM EDT Office Visit [facility] MEDICINE [address] [place] [address] Luly Laguna MD [address] [place] [address] documented as of this encounter Visit Diagnoses Not on filedocumented in this encounter Additional Health Concerns Assessment Noted Time PHQ-9 Depression Total Score: 0 11/08/19 23 11:15 AM EDT documented as of this encounter Care Teams Whale Fisherman Relationship Specialty Start Date End Date Luly Laguna MD [address] [place], [place] [phone] PCP - General Family Medicine 05/15/18 Alan Horowitz 175 [facility] 2nd Floor [address] [place] [address] Gastroenterology 06/18/24 Polly Bryant [address] [address] Obstetrics and Gynecology 06/18/24 An Thomas Insurance Office SupervisorTransportation Services Representative 01/22/24 documented as of this encounter
--- OUTSIDE RECORDS SUMMARY | 2024-08-29 09:35 | XMS_ITS | Encounter Summary ---
Author Organization [employer] Address [address] [place] [address] 7t [place] [address] Care Team Providers Care Income Auditor Name Role Phone Luly Laguna MD Primary Care Provider +1- [phone] CampbelljesAlan Unavailable Manny Polly Unavailable Reason for Visit * Reason Comments Med Change Request Encounter Details Date Type Department Care Team ([facility] st Contact Info) Description 11/07/2022 Refill [facility] MEDICINE [address] [place] [address] Luly Laguna MD [address] [place], [place] [phone] Social History Tobacco Use Types Packs/Day Years [...] Description 09/18/2024 11:30 AM EDT Office Visit [facility] MEDICINE [address] [place] [address] Luly Laguna MD [address] [place] [address] documented as of this encounter Visit Diagnoses Not on filedocumented in this encounter Additional Health Concerns Assessment Noted Time PHQ-9 Depression Total Score: 0 11/08/19 23 11:15 AM EDT documented as of this encounter Care Teams Income Auditor Relationship Specialty Start Date End Date Luly Laguna MD [address] [place] [address] PCP - General Family Medicine 05/15/18 Alan Horowitz 175 [facility] 2nd Floor [address] [place] [address] Gastroenterology 06/18/24 Polly Bryant [address] [address] Obstetrics and Gynecology 06/18/24 An Thomas Office TechnologistElectric Detector Operator 01/22/24 documented as of this encounter
--- OUTSIDE RECORDS SUMMARY | 2024-08-29 09:35 | XMS_ITS | Encounter Summary ---
Author Organization [employer] Address [address] [place] [address] 7t [place] [address] Care Team Providers Care Licsw Name Role Phone Luly Laguna MD Primary Care Provider +1- [phone] Alan Horowitz Unavailable Polly Bryant Unavailable Encounter Details Date Type Department Care Team (Late st Contact Info) Description 11/24/2022 Abstract [facility] MEDICINE [address] [place] [address] Luly Laguna MD [address] [place] [address] Social History Tobacco Use Types Packs/Day Years [...] Description 09/18/2024 11:30 AM EDT Office Visit [facility] MEDICINE [address] [place] [address] Luly Laguna MD [address] [place] [address] documented as of this encounter Visit Diagnoses Not on filedocumented in this encounter Additional Health Concerns Assessment Noted Time PHQ-9 Depression Total Score: 0 11/08/19 23 11:15 AM EDT documented as of this encounter Care Teams Licsw Relationship Specialty Start Date End Date Luly Laguna MD 230 [place], [place] [phone] PCP - General Family Medicine 05/15/18 Alan Horowitz 175 [facility] 2nd Floor [address] [place] [address] Gastroenterology 06/18/24 Polly Bryant [address] [address] Obstetrics and Gynecology 06/18/24 An Thomas Director Of Vendor ManagementCrew Attendant 01/22/24 documented as of this encounter
--- OUTSIDE RECORDS SUMMARY | 2024-08-29 09:35 | XMS_ITS | Encounter Summary ---
Author Organization [employer] Address [address] [place] [address] 7t [place] [address] Care Team Providers Care Benefits Administrator Name Role Phone Luly Laguna MD Primary Care Provider +1- [phone] Alan Horowitz Unavailable Polly Bryant Unavailable Encounter Details Date Type Department Care Team (Late st Contact Info) Description 11/24/2022 Abstract [facility] MEDICINE [address] [place] [address] Luly Laguna MD 230 [place] [address] Social History Tobacco Use Types Packs/Day Years [...] 11:30 AM EDT Office Visit [facility] MEDICINE [address] [place] [address] Luly Laguna MD [address] [place] [address] documented as of this encounter Visit Diagnoses Not on filedocumented in this encounter Additional Health Concerns Assessment Noted Time PHQ-9 Depression Total Score: 0 11/08/19 23 11:15 AM EDT documented as of this encounter Care Teams Benefits Administrator Relationship Specialty Start Date End Date Luly Laguna MD 230 [place], [place] [phone] PCP - General Family Medicine 05/15/18 Alan Horowitz 175 [facility] 2nd Floor [address] [place] [address] Gastroenterology 06/18/24 Polly Bryant [address] [address] Obstetrics and Gynecology 06/18/24 An Thomas Program Coordinator For Residence LifeElectrical Equipment Technician 01/22/24 documented as of this encounter
--- OUTSIDE RECORDS SUMMARY | 2024-08-29 09:35 | XMS_ITS | Encounter Summary ---
Author Organization [employer] Address 75 [facility] 7t [place] [address] Care Team Providers Care Workforce Analyst Name Role Phone Luly Laguna MD Primary Care Provider +1- [phone] Alan Horowitz Unavailable Polly Bryant Unavailable Reason for Visit * Reason Comments Med Refill Encounter Details Date Type Department Care Team (Late st Contact Info) Description 01/19/2024 Refill [facility] MEDICINE 230 [place], [place] [phone] Gudelia Jaimes, ANP [address] [place], [place] [phone] Gastroesophageal reflux disease, unspecified whether esophagitis present [...] Description 09/18/2024 11:30 AM EDT Office Visit [facility] MEDICINE [address] [place] [address] Luly Laguna MD [address] [place] [address] documented as of this encounter Visit Diagnoses Diagnosis Gastroesophageal reflux disease, unspecified whether esophagitis present- Primary documented in this encounter Additional Health Concerns Assessment Noted Time PHQ-9 Depression Total Score: 0 11/08/19 23 11:15 AM EDT documented as of this encounter Care Teams Workforce Analyst Relationship Specialty Start Date End Date Luly Laguna MD [address] [place] [address] PCP - General Family Medicine 05/15/18 Alan Horowitz 175 [facility] 2nd Floor [address] [place] [address] Gastroenterology 06/18/24 Polly Bryant [address] [address] Obstetrics and Gynecology 06/18/24 An Thomas Assistant Account ManagerCanvas Cutter 01/22/24 documented as of this encounter
--- OUTSIDE RECORDS SUMMARY | 2024-08-29 09:35 | XMS_ITS | Encounter Summary ---
Author Organization [employer] Address [address] [place] [address] 7t [place] [address] Care Team Providers Care Pari Mutuel Ticket Cashier Name Role Phone Luly Laguna MD Primary Care Provider +1- [phone] Campbelljes Alan Zayda Unavailable Manny Polly Unavailable Encounter Details Date Type Department Care Team (Late st Contact Info) Description 05/29/2022 Abstract [facility] MEDICINE [address] [place] [phone] Luly Laguna MD [address] [place] [address] [phone] Social History Tobacco Use Types Packs/Day Years [...] Description 09/18/2024 11:30 AM EDT Office Visit [facility] MEDICINE [address] [place] [address] [phone] Luly Laguna MD [address] [place] [phone] documented as of this encounter Procedures Procedure Name Priority Date/Time Associated Diagnosis Comments MAMMOGRAPHY Routine 03/01/2022 PAP/HPV Routine 08/11/2016 COLONOSCOPY Routine 04/24/2014 documented in this encounter Results * Mammography (03/01/2022) Mammogram normal Anatomical Region Laterality Modality Other Historical Provider HEALTH MAINTENANCE Final Result * Pap Smear (08/11/2016) Pap smear ILM HPV neg Polly Treadwell [facility] Provider HEALTH MAINTENANCE Final Result * Colonoscopy (04/24/2014) Pathologist [facility] Colonoscopy normal with Dr. Sawant [facility] Provider HEALTH MAINTENANCE Final Result documented in this encounter Visit Diagnoses Not on filedocumented in this encounter Care Teams Pari Mutuel Ticket Cashier Relationship Specialty Start Date End Date Luly Laguna MD [address] [place] [address] PCP - General Family Medicine 05/15/18 Alan Horowitz 175 [facility] 2nd Floor [address] [place] [address] Gastroenterology 06/18/24 Polly Bryant [address] [address] Obstetrics and Gynecology 06/18/24 An Thomas Set IllustratorProfile Saw Setup Operator 01/22/24 documented as of this encounter
--- OUTSIDE RECORDS SUMMARY | 2024-08-29 09:35 | XMS_ITS | Encounter Summary ---
Author Organization [employer] Address 75 [facility] 7t [place] [address] Care Team Providers Care Public Service Representative Name Role Phone Luly Laguna MD Primary Care Provider +1- [phone] CampbelljesAlan Unavailable Manny Polly Unavailable Encounter Details Date Type Department Care Team ([facility] Contact Info) Description 07/01/[address] [facility] [address] [place], [place] [phone] Lora Russell LPN Social History Tobacco Use [...] Upcoming Encounters Date Type Department Care Team ([facility] Contact Info) Description 09/18/2024 11:30 AM EDT Office Visit [facility] MEDICINE 230 [place], [place] [phone] Luly Laguna MD 230 [place] [address] documented as of this encounter Visit Diagnoses Not on filedocumented in this encounter Care Teams Public Service Representative Relationship Specialty Start Date End Date Luly Laguna MD 230 [place] [address] PCP - General Family Medicine 05/15/18 Alan Horowitz 175 [facility] 2nd Floor [address] [place] [address] Gastroenterology 06/18/24 Polly Bryant [address] [address] Obstetrics and Gynecology 06/18/24 An Thomas Vacuum Cleaner RepairerMaltster 01/22/24 documented as of this encounter
[2024-08-29 17:41] LABS: Alanine Aminotransferase 30 U/L (0-31); Aspartate Amino Transferase 27 U/L (5-31); Bilirubin Direct 0.4 mg/dL (0.0-0.5); Cholesterol 138 mg/dL (<200); HDL Cholesterol 47 mg/dL (>40); LDL Cholesterol Calculated 70 mg/dL (<100); Total Protein 6.7 g/dL (6.5-8.0); Triglycerides 108 mg/dL (<150)
[2024-08-29 17:48] LABS: Alkaline Phosphatase 93 U/L (39-117)
== END ==
LOC: HO.CARD 08:52
PROVIDERS: PCP Family Medicine; Visit Provider Internal Medicine Cardiovascular Disease
DX: R00.2 Palpitations (principal); R06.02 Shortness of breath; E78.5 Hyperlipidemia, unspecified
CPT/HCPCS: 36415; 73562; 80061; 80076; 93270; 93306

== ENCOUNTER → 2024-08-29 08:59 | Outpatient (BNV) | payer MEDICAID, SELFPAY | PROVIDERS: PCP Family Medicine; Visit Provider Internal Medicine Cardiovascular Disease | DX: I34.0 Nonrheumatic mitral (valve) insufficiency (principal); I37.1 Nonrheumatic pulmonary valve insufficiency; I36.1 Nonrheumatic tricuspid (valve) insufficiency | CPT/HCPCS: 93306 ==

== ENCOUNTER → 2024-08-29 13:30 | Outpatient (BNV) | payer MEDICAID, SELFPAY | PROVIDERS: PCP Family Medicine; Visit Provider Radiology Diagnostic Radiology | DX: M25.562 Pain in left knee (principal); M25.561 Pain in right knee | CPT/HCPCS: 73562 ==

== ENCOUNTER 2024-08-29 14:01 | Outpatient (REF) | payer MEDICAID, SELFPAY ==
--- OUTSIDE RECORDS SUMMARY | 2024-08-29 17:06 | XMS_ITS | Clinical Summary ---
Author Organization [employer] Address [address] [facility] 7[address] [place] [address] Care Team Providers Care Water System Operator Name Role Phone Luly Laguna MD Primary Care Provider +1- [phone] Alan Horowitz Unavailable Polly Bryant Unavailable Allergies [...] EVERY DAY 90 tablet 07/31/19 25 Active predniSONE (Deltasone) 20 MG tabletIndicatio ns:Right knee pain, unspecified chronicity,Pain and swelling of left knee 2 tabs po daily for 5 days 10 tablet 08/30/19 25 Active clonazePAM (KlonoPIN) 0.5 MG tabletIndicatio ns:Anxiety TOME 1 TABLETA POR VIA ORAL DOS VECES AL VANESSA CUANDO SEA NECESARIO PARA LA ANSIEDAD 56 tablet 07/27/19 25 025 Discontinued(Me d list cleanup (will not trigger notification to Pharmacy)) Active Problems Problem Noted Date Diagnosed Date Right knee pain 08/29/2024 Overview (08/29/2024): Pain and decreased ROM to right knee. No increased warmth, swelling, or effusion on exam. -ordered XR right knee 08/29/24 Assessment & Plan (08/29/2024 1:31 PM EDT): Pain and decreased ROM to right knee. No increased warmth, swelling, or effusion on exam. -ordered XR right knee 08/29/24 Pain and swelling of left knee 08/29/2024 Overview (08/29/2024): Suspect mild joint inflammation versus joint strain. No effusion on exam. No increased warmth, Appreciated swelling, tenderness and decreased ROM. -ordered left knee XR 08/29/24 -prescribed predniSONE (Deltasone) 20 MG 08/29/24 Xr 08/29/24 XR/XR Knee Oscar 3V IMPRESSION: Mild medial compartment osteoarthrosis, bilaterally. Probable suprapatellar bursa joint effusion, left knee. Assessment & Plan (08/29/2024 4:23 PM EDT): Suspect mild joint inflammation versus joint strain. No effusion on exam. No increased warmth, Appreciated swelling, tenderness and decreased ROM. -ordered left knee XR 08/29/24 -prescribed predniSONE (Deltasone) 20 MG 08/29/24 Xr 08/29/24 XR/XR Knee Oscar 3V IMPRESSION: Mild medial compartment osteoarthrosis, bilaterally. Probable suprapatellar bursa joint effusion, left knee. Overweight 08/29/2024 Assessment & Plan (08/29/2024 1:31 PM EDT): Discussed weight, diet, exercise with patient in relation to health conditions. Used motivational interviewing to illicit change talk and established initial goals with patient. Exercise counseling 08/29/2024 Assessment & Plan (08/29/2024 1:31 PM EDT): Exercise Recommendations: At least 150 minutes of moderate-intensity physical activity per week, or an equivalent combination of moderate- and vigorous-intensity activity. Dietary counseling 08/29/2024 Assessment & Plan (08/29/2024 1:31 PM EDT): Dietary Recommendations: Fruits, vegetables, whole grains, protein foods, and fat-free or low-fat dairy products are healthy choices. Eat different types of protein foods in your diet. This can include seafood, lean meats, poultry, beans, peas, lentils, nuts, seeds, soy products, and eggs. Limit foods and beverages higher in added sugars, saturated fat, and sodium. Palpitations 03/25/2024 Overview (08/29/2024): Seen on 02/09/24 in [facility] for palpitations with associated SOB. Symptoms appeared episodic and random. Check Holter. EKG here sinus no ST changes. Ordered TSH W/Reflex to FT4, CBC auto differential, Basic Metabolic Panel. -Will refer to cardiology for longer monitor 03/25/24 -08/30/23 currently has extended cafeteria monitor for 30 days, will follow-up with cardiology after completion. Assessment & Plan (08/29/2024 1:26 PM EDT): Seen [facility]/24 in [facility] for palpitations with associated SOB. Symptoms appeared episodic and random. Check Holter. EKG here sinus no ST changes. Ordered TSH W/Reflex to FT4, CBC auto differential, Basic Metabolic Panel. -Will refer to cardiology for longer monitor 03/25/24 -08/30/23 currently has extended cafeteria monitor for 30 days, will follow-up with cardiology after completion. Assessment & Plan (03/25/2024 12:59 PM EST): [...] repeat colonoscopy in 10 years. Done at [facility] with Dr. Alan Horowitz MD Assessment & [...] therapy 03/13/2024 Cardiac risk counseling 09/06/2023 Overview (08/29/2024): Calculated 08/29/24: low risk The 10-year ASCVD risk score (Quang CARPIO, et al., 2019) is: 4.9% Values used to calculate the score: Age: 59 years Sex: Female Is Non- : No Diabetic: No Tobacco smoker: No Systolic Blood Pressure: 140 mmHg Is BP treated: No HDL Cholesterol: [...] moderate physical activity and nutrition interventions discussed. -ordered repeat FLP and HFP 08/29/24 Assessment & Plan (08/29/2024 1:32 PM EDT): Calculated 08/29/24: low risk The 10-year ASCVD risk score (Quang CARPIO, et al., 2019) is: 4.9% Values used to calculate the score: Age: 59 years Sex: Female Is Non- : No Diabetic: No Tobacco smoker: No Systolic Blood Pressure: 140 mmHg Is BP treated: No HDL Cholesterol: [...] moderate physical activity and nutrition interventions discussed. -ordered repeat FLP and HFP 08/29/24 Essential hypertension 11/07/2022 Overview (03/25/2024): -Blood pressure [...] Carrasco, notes requested 11/07/2022 -dental home is [facility] - Health care Proxy 03/25/24 Assessment & Plan (03/26/2024 1:39 PM EST): -next annual exam due after 03/25/25 -eye care facilitated by Dr. Carrasco, notes requested 11/07/2022 -dental home is [facility] - Health care Proxy 03/25/24 Assessment & Plan (11/07/2022 12:56 PM EDT): -next physical exam due after 11/08/2023 -eye care facilitated by Dr. Carrasco, notes requested 11/07/2022 -dental home is [facility] Dyslipidemia 11/07/2022 Overview (08/29/2024): Lab Results Component Value Date CHOL 204 (H) 03/25/2024 CHOL 224 (H) 05/04/2023 TRIG 128 03/25/2024 TRIG 146 05/04/2023 HDL 47 03/25/2024 HDL 50 05/04/2023 LDLCHOLCAL 132 (H) 03/25/2024 LDLCHOLCAL 145 (H) 05/04/2023 -continue lifestyle modification -atrovastatin 20mg started 03/27/24 -ordered repeat FLP and HFP 08/29/24 Assessment & Plan (08/29/2024 1:32 PM EDT): Lab Results Component Value Date CHOL 204 (H) 03/25/2024 CHOL 224 (H) 05/04/2023 TRIG 128 03/25/2024 TRIG 146 05/04/2023 HDL 47 03/25/2024 HDL 50 05/04/2023 LDLCHOLCAL 132 (H) 03/25/2024 LDLCHOLCAL 145 (H) 05/04/2023 -continue lifestyle modification -atrovastatin 20mg started 03/27/24 -ordered repeat FLP and HFP 08/29/24 Assessment & Plan (03/27/2024 6:50 AM EST): [...] deficiency 11/07/2022 Cerebral arterial aneurysm 08/05/2021 Overview (08/29/2024): Seen in inpatient neurology due to left [...] required. Follow up PRN. - Ordered Labs 03/25/24, which was largely unremarkable except for elevated lipids, started on Statin 03/27/24 Assessment & Plan (03/26/2024 1:22 PM EST): [...] Encounters Date Type Department Care Team Description 08/29/2024 1:00 PM EDT Office Visit [facility] [address] [place] [address] Luly Laguna MD Right knee pain, unspecified chronicity (Primary Dx); Pain and swelling of left knee; Palpitations; Dyslipidemia; Cardiac risk counseling; Overweight; Dietary counseling; Exercise counseling 08/29/2024 Travel 07/30/2024 Refill [facility] MEDICINE [address] [place] [phone] Luly Laguna MD Vitamin D deficiency 07/26/2024 Population Health Risk Score [facility] () Department [address] [place] [phone] Provider, Population Health Generic 07/25/2024 Refill [facility] CHC MED & PEDS [address] [place] [address] Yenny Ryder RN Anxiety 07/24/2024 Refill [facility] MEDICINE [address] [place] [address] Luly Laguna MD Anxiety 07/15/2024 Refill [facility] MEDICINE [address] [place] [address] Luly Laguna MD Gastroesophageal reflux disease, unspecified whether esophagitis present 07/02/2024 Telephone [facility] MEDICINE [address] [place] [address] Luly Laguna MD May Recalls 07/02/2024 Travel 06/24/2024 Refill [facility] MEDICINE [address] [place] [address] Luly Laguna MD Anxiety 06/18/2024 Orders Only [facility] MED[facility]INE [address] [place] [phone] Luly Laguna MD Abnormal colonoscopy (Primary Dx) 06/18/2024 Telephone [facility] MEDICINE [address] [place] [phone] Luly Laguna MD from Last 3 Months [...] antigen) 02/20/2012 Tdap 11/07/2022,08/05/2021,10/20/2009 Zoster, Recombinant 10/06/2021,08/05/2021 Family History Medical History Relation Name Comments Heart disease Father Relation Name Status Comments Father Social History Tobacco Use Types Packs/Day Years [...] Sign Reading Time Taken Comments Blood Pressure 140/90 08/29/2024 1:00 PM EDT Pulse 80 08/29/2024 1:00 PM EDT Temperature 36.7 ??C (98 ??F) 08/29/2024 1:00 PM EDT Respiratory Rate 20 08/29/2024 1:00 PM EDT Oxygen Saturation 98% 03/25/2024 10:57 AM EST Inhaled Oxygen Concentration - - Weight 74.6 kg (164 lb 6.4 oz) 08/29/2024 1:00 P M EDT Height 162.6 cm (5' 4 ) 08/29/2024 1:00 PM EDT Body Mass Index 28.22 08/29/2024 1:00 PM EDT Plan of Treatment Upcoming Encounters Date Type Department Care Team (Late st Contact Info) Description 09/18/2024 11:30 AM EDT Office Visit [facility] MEDICINE [address] [place] [phone] Luly Laguna MD [address] [place] [address] Health Maintenance Due Date Last Done Comments CT Colonography 1965 FIT DNA/Cologuard 1965 FIT 1965 FOBT 1965 Sigmoidoscopy 1965 Pneumococcal Vaccine: 50+ Years (1 of 1 - PCV) 06/02/2013 SDOH Screening 06/23/2023 06/23/2022 Influenza Vaccine (#1) 2024 2, 04/14/2020, 01/31/2019, Additional history exists Postponed from 01/14/2024 (Patient Refused) Alcohol/Substance Use Screening 03/25/2025 03/25/2024 COVID-19 Vaccine ( season) 2025 Postponed from 01/14/2024 (Patient Refused) Depression Screening 03/25/2025 03/25/2024, 03/25/20 Tobacco Screening 08/29/2025 08/29/2024 Pap Smear 09/19/2025 09/19/2022, 08/11/2016 Mammogram 03/08/2026 [...] Procedure Name Priority Date/Time Associated Diagnosis Comments XR KNEE 3 VIEWS BILATERAL Routine 08/29/2024 1:30 PM EDT LIPID PANEL, STANDARD Routine 03/25/2024 11:50 AM [...] Recently Relevant to Health Maintenance Results * XR Knee 3 Views Bilateral (08/29/2024 1:30 PM EDT) Anatomical Region Laterality Modality Lower Extremities, Knee Bilateral Radiogra phic Imaging 08/29/2024 1:30 PM EDT Narrative 08/29/2024 4:04 PM EDT ? [facility] ?[address] ?[place] [address] ?XRay Report ? Signed ? Patient: Tapia,Mahogany ?MR#: [id number] ?? 2 ? : 1965 ?Acct:[id number] ? Age/Sex: 59 / F ?ADM Date: 04/17/25 ? Loc: HO.CARD ? Attending Mayda Dillon MD ? Ordering Physician: [place],Luly MD ?? Date of Service: 08/29/24 ?? Procedure(s): XR Knee Oscar 3V ?? Accession Number(s): [id number] ? cc: Luly Laguna MD ? EXAMINATION: ?? X-ray knee bilaterally, 3 views. ? CLINICAL INFORMATION: ?? Chronic knee pain, bilaterally. ? TECHNIQUE: 3 views of the knees. ? COMPARISON: September 30, 2014. ? FINDINGS: ? There is mild asymmetric joint space narrowing involving mostly the ?? medial compartment. No acute cortical disruption or malalignment. There ?? is marginal osteophyte formation on the right femoral condyles and ?? posterior patella. ?? No suprapatellar bursa joint effusion on the right knee. ?? Probable suprapatellar bursa joint effusion on the left knee. ?? No subcutaneous emphysema. ? XR/XR Knee Oscar 3V ?? IMPRESSION: ? Mild medial compartment osteoarthrosis, bilaterally. ?? Probable suprapatellar bursa joint effusion, left knee. ? Electronically signed by: ??Mitch Cantu MD ??08/29/2024 04:01 PM ?? EDT RP ? Dictated By: ?Mitch Castro MD ? Signed By: ?<Electronically signed by Mitch Alfredo MD in OV> ? 08/29/24 1601 ? DD/ 1330 ? TD/TT: 08/29/24 1400 ? Budget Officer: ? Procedure Note Keyana, Image - 08/29/2024 [place] [address] XRay Report Signed Patient: Deann Tapia#: [id number] 2 : 1965Acct:[id number] Age/Sex: 59 / FADM Date: 08/29/24 Loc: KASSANDRA Attending Dr: Yair Dillon MD Ordering Physician: Luly Laguna MD Date of Service: 08/29/24 Procedure(s): XR Knee Oscar 3V Accession Number(s): [id number] cc: Luly Laguna MD EXAMINATION: X-ray knee bilaterally, 3 views. CLINICAL INFORMATION: Chronic knee pain, bilaterally. TECHNIQUE: 3 views of the knees. COMPARISON: September 30, 2014. FINDINGS: There is mild asymmetric joint space narrowing involving mostly the medial compartment. No acute cortical disruption or malalignment. There is marginal osteophyte formation on the right femoral condyles and posterior patella. No suprapatellar bursa joint effusion on the right knee. Probable suprapatellar bursa joint effusion on the left knee. No subcutaneous emphysema. XR/XR Knee Oscar 3V IMPRESSION: Mild medial compartment osteoarthrosis, bilaterally. Probable suprapatellar bursa joint effusion, left knee. Electronically signed by: Mitch Cantu MD 08/29/2024 04:01 PM EDT RP Dictated By: Mitch Castro MD Signed By: <Electronically signed by Mitch Alfredo MDin OV> 08/29/24 1601 DD/ 1330 TD/TT: 08/29/24 1400 Budget Officer: Luly Laguna MD IMG XR PROCEDURES Final Re sult * (ABNORMAL) Lipid Panel, Standard (03/25/2024 11:50 AM EST) Triglycerides 128 <150 mg/dL [facility] Comment:Desirable Triglyceri de: less than 150 mg/dLBorderline High Triglyceride 150-199 mg/dLHigh Triglyceride: 200-499 mg/dLVery High Triglyceride: greater than or equal to 5OO mg/dL Cholesterol 204(H) <200 mg/dL [facility] Comment:Desirable Cholestero l: less than 200 mg/dLBorderline High Cholesterol: 200-239 mg/dLHigh Cholesterol: greater than 239 mg/dL LDL Cholesterol Calculated 132(H) <100 mg/dL [facility] Comment:Desirable LDL: less than 100 mg/dLNear Optimal/Above Optimal LDL: 110- 129 mg/dLBorderline High LDL: 130-159 mg/dLHigh LDL: 160-189 mg/dLVery High LDL: greater than or equal to 190 mg/dL HDL Cholesterol 47 >40 mg/dL [facility] Comment:Desirable HDL: great er than 40 mg/dL Note: This HDL assay may give artificially low results in patients with liver disease. Blood Venous blood specimen / Unknown 03/25/2024 11:50 AM EST 03/25/2024 1:09 PM EST Luly Laguna MD LAB BLOOD ORDERABLES Final Result [facility] [address] [place] [address] [phone] * BI Mammogram Screening Tomosynthesis Bilateral (03/08/2024 10:50 AM EDT) Anatomical Region Laterality Modality Breast Bilateral Mammography 03/08/2024 10:5 0 AM EDT Narrative 03/19/2024 8:50 AM EST ? [facility] ? [address] ?[place] [address] ? Mammography Report ? Signed ? Patient: Tapia,Mahogany ?MR#: [id number] ?? 2 ? : 1965 ?Acct:[id number] ? Age/Sex: 58 / F ?ADM Date: 03/08/24 ? Loc: HO.MAMMO ? Attending Dr: Luly Laguna MD ? Ordering Physician: Luly Laguna MD ?Results: 1N ?? egative ? Date of Service: 03/08/ ?Follow Up: 1 Year From Orig ?? inal Mammogram ? Procedure(s): MM tomosynthesis screening BI ?? Accession Number(s): [id number] ? cc: Luly Laguna MD ? EXAMINATION: [...] DD/ 1050 ? TD/TT: 03/08/24 1112 ? Budget Officer: ? Procedure Note Keyana, Image - 03/19/2024 [facility] [address] [place] [address] Mammography Report Signed Patient: Deann Tapia#: [id number] 2 : 1965Acct:[id number] Age/Sex: 58 / FADM Date: 03/08/24 Loc: KELI Attending Dr: Luly Laguna MD Ordering Physician: Luly Lagunaesults: 1N egative Date of Service: 03/08/24Follow Up: 1 Year From Orig inal Mammogram Procedure(s): MM tomosynthesis screening BI Accession Number(s): [id number] cc: Luly Laguna MD EXAMINATION: MM SCREENING [...] 03/19/24 0847 DD/ 1050 TD/TT: 03/08/24 1112 Budget Officer: Luly Laguna MD IMG BI PROCEDURES Final Re sult * (ABNORMAL) Colonoscopy (07/25/2023) Colonoscopy Abnormal( A) Normal Comment:small polyp, await p athology results at [place] Historical Provider HEALTH MAINTENANCE Final Result * Hepatitis C Antibody with Reflex to HCV, RNA, Quantitative, Real-Time PCR (05/04/2023 11:34 AM EST) Hepatitis C Antibody Nonreactive Nonreactive [facility] Comment:Antibodies to HCV no t detected; does not exclude early acuteHCV infection. Blood Venous blood specimen / Unknown 05/04/2023 11:34 AM EST 05/04/2023 1:12 PM EST Luly Laguna MD LAB BLOOD ORDERABLES Final Result [facility] [address] [place] [address] [phone] * (ABNORMAL) Pap Smear (09/19/2022) Pap Other Negative for intraephithelial lesion or malignancy, Other Comment:unsatisfactory HPV Not Detected Undetected, Indeterminate, Quantitative, Not Detected Historical Provider HEALTH MAINTENANCE Final Result * HIV 1/2 ANTIGEN/ANTIBODY,FOURTH GENERATION W/RFL (08/05/2021 11:46 AM EDT) HIV-1/2 ANTIGEN AND ANTIBODIES, 4TH GENERATION W/ REFLEX NON-REACT SAVI NON-REACT SAVI [facility] Comment: HIV-1 antigen and HIV-1/HIV-2 [...] ? For additional information please refer to http://education.[employer].Kymeta/faq/BEF510 (This link is being provided for informational/ educational purposes only.) ? The performance of this assay has not been clinically validated in patients less than 2 years old. ?? 08/05/2021 11:4 6 AM EDT Luly Laguna MD LAB BLOOD ORDERABLES Final Result [facility] [address] from Last 3 Months or Most Recently Relevant to Health Maintenance Insurance [facility] C3 Care Teams Water System Operator Relationship Specialty Start Date End Date [place], MD Luly [address] [place] [address] PCP - General Family Medicine 05/15/18 Alan Horowitz [address] [place] [address] Gastroenterology 06/18/24 Polly Bryant [address] [address] Obstetrics and Gynecology 06/18/24 An Thomas Stone Chimney MasonCloth Washer 01/22/24
--- OUTSIDE RECORDS SUMMARY | 2024-08-29 17:06 | XMS_ITS | Encounter Summary ---
Author Organization [employer] Address [address] [facility] 7t [place] [address] Care Team Providers Care Field Crop Grower Name Role Phone Luly Laguna MD Primary Care Provider +1- [phone] Alan Horowitz Unavailable Polly Bryant Unavailable Encounter Details Date Type Department Care Team (Latest Contact Info) Description 08/29/2024 Travel Social History Tobacco Use Types Packs/Day Years [...] Description 09/18/2024 11:30 AM EDT Office Visit [facility] [address] [place] [address] Luly Laguna MD [address] [place] [address] documented as of this encounter Visit Diagnoses Not on filedocumented in this encounter Additional Health Concerns Assessment Noted Time PHQ-9 Depression Total Score: 3 03/25/20 24 11:38 AM EST documented as of this encounter Care Teams Field Crop Grower Relationship Specialty Start Date End Date Luly Laguna MD [address] [place] [address] PCP - General Family Medicine 05/15/18 Alan Horowitz 175 [facility] 2nd Floor [address] [place] [address] Gastroenterology 06/18/24 Polly Bryant [address] [place] [address] Obstetrics and Gynecology 06/18/24 An Thomas Crosscutter Rolled GlassFactory Engineer 01/22/24 documented as of this encounter
--- OUTSIDE RECORDS SUMMARY | 2024-08-29 17:06 | XMS_ITS | Encounter Summary ---
Author Organization [employer] Address [address] [place] [address] 7t [place] [address] Care Team Providers Care Production Checker Name Role Phone Luly Laguna MD Primary Care Provider +1- [phone] Alan Horowitz Unavailable Polly Bryant Unavailable Encounter Details Date Type Department Care Team (Late st Contact Info) Description 11/24/2022 Abstract [facility] [address] [place] [address] Luly Laguna MD [address] [place] [address] Social History Tobacco Use Types Packs/Day Years [...] Description 09/18/2024 11:30 AM EDT Office Visit [facility] MED[facility] [address] [place] [address] Luly Laguna MD [address] [place] [address] documented as of this encounter Visit Diagnoses Not on filedocumented in this encounter Additional Health Concerns Assessment Noted Time PHQ-9 Depression Total Score: 0 11/08/19 23 11:15 AM EDT documented as of this encounter Care Teams Production Checker Relationship Specialty Start Date End Date Luly Laguna MD [address] [place], [place] [phone] PCP - General Family Medicine 05/15/18 Alan Horowitz 175 [facility] 2nd Floor [address] [place] [address] Gastroenterology 06/18/24 Polly Bryant [address] [address] Obstetrics and Gynecology 06/18/24 An Thomas Wallpaper InstallerBusiness Development Executive 01/22/24 documented as of this encounter
--- OUTSIDE RECORDS SUMMARY | 2024-08-29 17:06 | XMS_ITS | Encounter Summary ---
Author Organization [employer] Address [address] [facility] 7t [place] [address] Care Team Providers Care Product Marketing Intern Name Role Phone Luly Laguna MD Primary Care Provider +1- [phone] Alan Horowitz Unavailable Manny Polly Unavailable Reason for Visit * Reason Comments Med Refill Encounter Details Date Type Department Care Team (Late st Contact Info) Description 10/23/2023 Refill [facility] MEDICINE [address] [place], [place] [phone] Luly Laguna MD [address] [place], [place] [phone] Social History Tobacco Use Types Packs/Day Years [...] 11:30 AM EDT Office Visit [facility] MED[facility] [address] [place] [address] Luly Laguna MD [address] [place] [address] documented as of this encounter Visit Diagnoses Not on filedocumented in this encounter Additional Health Concerns Assessment Noted Time PHQ-9 Depression Total Score: 0 11/08/19 23 11:15 AM EDT documented as of this encounter Care Teams Product Marketing Intern Relationship Specialty Start Date End Date Luly Laguna MD [address] [place] [address] PCP - General Family Medicine 05/15/18 Alan Horowitz 175 [facility] 2nd Floor [address] [place] [address] Gastroenterology 06/18/24 Polly Bryant [address] [place] [address] Obstetrics and Gynecology 06/18/24 An Thomas Zinc Plate CutterPlane Tender 01/22/24 documented as of this encounter
--- OUTSIDE RECORDS SUMMARY | 2024-08-29 17:06 | XMS_ITS | Encounter Summary ---
Author Organization [employer] Address [address] [facility] 7t [place] [address] Care Team Providers Care Adapted Physical Education Teacher Name Role Phone Luly Laguna MD Primary Care Provider +1- [phone] Alan Horowitz Unavailable Manny Polly Unavailable Reason for Referral * Consultation (Routine) - Pending Review Specialty Diagnoses / Procedures Referred By Efren manzo Referred To Contact Orthopaedic Surgery Diagnoses Right knee pain, unspecified chronicity Pain and swelling of left knee Luly Laguna MD [address] [place] [phone] Phone: tel: fax: Referral ID Status Reason Start Date Expiration Date Visits Requested Visits Authorized [id number] Pending Review Specialty Services Required 08/29/2024 08/29/2025 1 1 Reason for Visit * Reason Comments Knee Pain Encounter Details Date Type Department Care Team (Late st Contact Info) Description 08/29/2024 1:00 PM EDT Office Visit [facility] [address] [place] [address] [phone] Luly Laguna MD [address] [place] [address] [phone] Right knee pain, unspecified chronicity (Primary Dx); Pain and swelling of left knee; Palpitations; Dyslipidemia; Cardiac risk counseling; Overweight; Dietary counseling; Exercise counseling Social History Tobacco Use Types Packs/Day Years [...] AM EDT documented as of this encounter Last Filed Vital Signs Vital Sign Reading Time Taken Comments Blood Pressure 140/90 08/29/2024 1:00 PM EDT Pulse 80 08/29/2024 1:00 PM EDT Temperature 36.7 ??C (98 ??F) 08/29/2024 1:00 PM EDT Respiratory Rate 20 08/29/2024 1:00 PM EDT Oxygen Saturation - - Inhaled Oxygen Concentration - - Weight 74.6 kg (164 lb 6.4 oz) 08/29/2024 1:00 P M EDT Height 162.6 cm (5' 4 ) 08/29/2024 1:00 PM EDT Body Mass Index 28.22 08/29/2024 1:00 PM EDT documented in this encounter Progress Notes * Neema Nice - 08/29/2024 1:00 PM EDT Subjective Patient ID: Mahogany Tapia is a 59 y.o. female with past medical history of hypertension, cerebralarterial aneurysm, GERD, fibromyalgia and dyslipidemia who presents to walk in clinic for Knee Pain. During last visit with me(PCP) 03/25/24, pt reported palpitations/heart racing and Holter monitor did not provide accurate results as pt felt her palpitations were not prominent during the monitoring. Referred back to cardiology for longer monitoring. And ordered HFP, Mg, TSH and CBC which were unremarkable. Today pt reports both knees are painful., but left knee has had swelling, pain and discomfort with movement. Has tried PT but was not able to complete it due to difficulty with required movements. She reports she currently has a monitoring engineer in place that she is wearing for 30 days and will then follow-up with cardiology regarding results. Pt notes she has been taking her statin. Review of Systems Constitutional: Negative for fever and unexpected weight change. Respiratory: Negative for shortness of breath. Cardiovascular: Negative for chest pain. Gastrointestinal: Negative for abdominal pain. Genitourinary: Negative for difficulty urinating. Musculoskeletal: Positive for arthralgias and joint swelling. Objective Visit Vitals BP (!) 140/90 (BP Location: Left arm, Patient Position: Sitting, BP Cuff Size: Adult) Pulse 80 Temp 98 ??F (36.7 ??C) (Temporal) Resp 20 Ht 5' 4 (1.626 m) Wt 164 lb 6.4 oz (74.6 kg) BMI 28.22 kg/m?? Smoking Status Never BSA 1.84 m?? Physical Exam Constitutional: Appearance: Normal appearance. Cardiovascular: Rate and Rhythm: Normal rate and regular rhythm. Heart sounds: Normal heart sounds. Pulmonary: Effort: Pulmonary effort is normal. Breath sounds: Normal breath sounds. Musculoskeletal: Cervical back: Normal range of motion and neck supple. Right knee: Tenderness present over the lateral joint line. Left knee: Swelling present. Decreased range of motion. Tenderness present over the lateral joint line. Neurological: General: No focal deficit present. Mental Status: She is alert. Psychiatric: Behavior: Behavior normal. Office Visit on 03/25/2024 Component Date Value Bilirubin, Total 03/25/2024 0.7 Bilirubin, Direct 03/25/2024 0.2 Aspartate Amino Transfer* 03/25/2024 22 Alanine Aminotransferase 03/25/2024 18 Total Protein 03/25/2024 6.8 Albumin Level 03/25/2024 4.0 Alkaline Phosphatase 03/25/2024 74 Magnesium 03/25/2024 2.0 Triglycerides 03/25/2024 128 Cholesterol 03/25/2024 204 (H) LDL Cholesterol Calculat* 03/25/2024 132 (H) HDL Cholesterol 03/25/2024 47 Sodium 03/25/2024 143 Potassium 03/25/2024 4.2 Chloride 03/25/2024 110 (H) Carbon Dioxide 03/25/2024 27 Anion Gap 03/25/2024 10 (L) Urea Nitrogen (BUN) 03/25/2024 12 Creatinine, Serum 03/25/2024 0.76 Estimated Glomerular Thomas* 03/25/2024 >60 Glucose 03/25/2024 93 Calcium 03/25/2024 9.4 TSH reflex Free T4 03/25/2024 1.98 White Blood Count 03/25/2024 7.1 Red Blood Count 03/25/2024 4.35 Hemoglobin 03/25/2024 12.8 Hematocrit 03/25/2024 39.2 Mean Corpuscular Volume 03/25/2024 90.1 Mean Corpuscular Hemoglo* 03/25/2024 29.4 Mean Corpuscular HGB Conc 03/25/2024 32.7 Red Cell Distribution Wi* 03/25/2024 12.8 Platelet Count 03/25/2024 252 Mean Platelet Volume 03/25/2024 10.5 Neutrophils Percent Auto 03/25/2024 51.4 Imm Gran Pct Auto 03/25/2024 0.1 Lymphocytes Percent Auto 03/25/2024 38.5 Monocytes Percent Auto 03/25/2024 6.2 Eosinophils Percent Auto 03/25/2024 3.2 Basophils Percent Auto 03/25/2024 0.6 NRBC Pct Auto 03/25/2024 0.0 Neutrophils Absolute Auto 03/25/2024 3.7 Imm Gran Abs Auto 03/25/2024 0.01 Lymphocytes Absolute Au* 03/25/2024 2.7 Monocytes Absolute Auto 03/25/2024 0.4 Eosinophils Absolute Auto 03/25/2024 0.2 Basophils Absolute Auto 03/25/2024 0.0 NRBC Abs Auto 03/25/2024 0.000 Vitamin D 25-OH Total 03/25/2024 52.8 Problem List Items Addressed This Visit Right knee pain - Primary Pain and decreased ROM to right knee. No increased warmth, swelling, or effusion on exam. -ordered XR right knee 08/29/24 Relevant Medications predniSONE (Deltasone) 20 MG tablet Other Relevant Orders XR Knee 3 Views Right Referral to Orthopaedic Surgery Pain and swelling of left knee Suspect mild joint inflammation versus joint strain. No effusion on exam. No increased warmth, Appreciated swelling, tenderness and decreased ROM. -ordered left knee XR 08/29/24 -prescribed predniSONE (Deltasone) 20 MG 08/29/24 Xr 08/29/24 XR/XR Knee Oscar 3V IMPRESSION: Mild medial compartment osteoarthrosis, bilaterally. Probable suprapatellar bursa joint effusion, left knee. Relevant Medications predniSONE (Deltasone) 20 MG tablet Other Relevant Orders XR Knee 3 Views Right Referral to Orthopaedic Surgery Palpitations Seen on 02/09/24 in [facility] Center for palpitations with associated SOB. Symptoms appeared episodic and random. Check Holter. EKG here sinus no ST changes. Ordered TSH W/Reflex to FT4, CBC auto differential, Basic Metabolic Panel. -Will refer to cardiology for longer monitor 03/25/24 -08/30/23 currently has extended monitoring engineer for 30 days, will follow-up with cardiology after completion. Dyslipidemia Lab Results Component Value Date CHOL 204 (H) 03/25/2024 CHOL 224 (H) 05/04/2023 TRIG 128 03/25/2024 TRIG 146 05/04/2023 HDL 47 03/25/2024 HDL 50 05/04/2023 LDLCHOLCAL 132 (H) 03/25/2024 LDLCHOLCAL 145 (H) 05/04/2023 -continue lifestyle modification -atrovastatin 20mg started 03/27/24 -ordered repeat FLP and HFP 08/29/24 Relevant Orders Lipid Panel, Standard Hepatic Function Panel Cardiac risk counseling Calculated 08/29/24: low risk The 10-year ASCVD [...] discussed. -ordered repeat FLP and HFP 08/29/24 Overweight Discussed weight, diet, exercise with patient in relation to health conditions. Used motivational interviewing to illicit change talk and established initial goals with patient. Dietary counseling Dietary Recommendations: Fruits, vegetables, whole grains, protein foods, and fat-free or low-fat dairy products are healthychoices. Eat different types of protein foods in your diet. This can include seafood, lean meats, poultry, beans, peas, lentils, nuts, seeds, soy products, and eggs. Limit foods and beverages higher in added sugars, saturated fat, and sodium. Exercise counseling Exercise Recommendations: At least 150 minutes of moderate-intensity physical activity per week, or an equivalent combinationof moderate- and vigorous-intensity activity. -No evidence of acute disease process. Suspect acute in chronic joint pain versus joint inflammation. Symptoms mild. -Will treat with short course of steroids and ordered Xrays. . -ER precautions discussed. -Seek medical attention for worsening symptoms. I, Neema Nice, am serving as a scribe to document services personally performed by Dr. Alcaraz, based on the patient's response to questions by provider and providers statements to me. documented in this encounter Miscellaneous Notes * Assessment & Plan Note - Neema Nice - 08/29/2024 1:32 PM EDTAssociated Problem(s): Cardiac risk counseling Calculated 08/29/24: low risk The 10-year ASCVD [...] discussed. -ordered repeat FLP and HFP 08/29/24 * Assessment & Plan Note - Neema Nice - 08/29/2024 1:32 PM EDTAssociated Problem(s): Dyslipidemia Lab Results Component Value Date CHOL 204 (H) 03/25/2024 CHOL 224 (H) 05/04/2023 TRIG 128 03/25/2024 TRIG 146 05/04/2023 HDL 47 03/25/2024 HDL 50 05/04/2023 LDLCHOLCAL 132 (H) 03/25/2024 LDLCHOLCAL 145 (H) 05/04/2023 -continue lifestyle modification -atrovastatin 20mg started 03/27/24 -ordered repeat FLP and HFP 08/29/24 * Assessment & Plan Note - Neema Nice - 08/29/2024 1:31 PM EDTAssociated Problem(s): Dietary counseling Dietary Recommendations: Fruits, vegetables, whole grains, protein foods, and fat-free or low-fat dairy products are healthychoices. Eat different types of protein foods in your diet. This can include seafood, lean meats, poultry, beans, peas, lentils, nuts, seeds, soy products, and eggs. Limit foods and beverages higher in added sugars, saturated fat, and sodium. * Assessment & Plan Note - Neema Nice - 08/29/2024 1:31 PM EDTAssociated Problem(s): Exercise counseling Exercise Recommendations: At least 150 minutes of moderate-intensity physical activity per week, or an equivalent combinationof moderate- and vigorous-intensity activity. * Assessment & Plan Note - Neema Nice - 08/29/2024 1:31 PM EDTAssociated Problem(s): Overweight Discussed weight, diet, exercise with patient in relation to health conditions. Used motivational interviewing to illicit change talk and established initial goals with patient. * Assessment & Plan Note - Neema Nice - 08/29/2024 1:31 PM EDTAssociated Problem(s): Right knee pain Pain and decreased ROM to right knee. No increased warmth, swelling, or effusion on exam. -ordered XR right knee 08/29/24 * Assessment & Plan Note - Neema Nice - 08/29/2024 1:29 PM EDTAssociated Problem(s): Pain and swelling of left knee Suspect mild joint inflammation versus joint strain. No effusion on exam. No increased warmth, Appreciated swelling, tenderness and decreased ROM. -ordered left knee XR 08/29/24 -prescribed predniSONE (Deltasone) 20 MG 08/29/24 Xr 08/29/24 XR/XR Knee Oscar 3V IMPRESSION: Mild medial compartment osteoarthrosis, bilaterally. Probable suprapatellar bursa joint effusion, left knee. * Assessment & Plan Note - Neema Nice - 08/29/2024 1:26 PM EDTAssociated Problem(s): Palpitations Seen on 02/09/24 in [facility] for palpitations with associated SOB. Symptoms appeared episodic and random. Check Holter. EKG here sinus no ST changes. Ordered TSH W/Reflex to FT4, CBC auto differential, Basic Metabolic Panel. -Will refer to cardiology for longer monitor 03/25/24 -08/30/23 currently has extended monitoring engineer for 30 days, will follow-up with cardiology after completion. documented in this encounter Plan of Treatment Upcoming Encounters Date Type Department Care Team (Late st Contact Info) Description 09/18/2024 11:30 AM EDT Office Visit [facility] [address] [place] [address] Luly Laguna MD [address] [place] [address] Scheduled Orders Name Type Priority Associated Diagnoses Orde r Schedule XR Knee 3 Views Right Imaging Routine Right knee pain, unspecified chronicity Pain and swelling of left knee Expected: 08/29/2024, Expires: 08/29/2025 Lipid Panel, Standard Lab Routine Dyslipidemia Expected: 08/29/2024 (Approximate), Expires: 08/29/2025 Hepatic Function Panel Lab Routine Dyslipidemia Expected: 08/29/2024 (Approximate), Expires: 08/29/2025 Scheduled Referrals Name Type Priority Associated Diagnoses Orde r Schedule Referral to Orthopaedic Surgery Outpatient Referral Routine Right knee pain, unspecified chronicity Pain and swelling of left knee Expected: 08/29/2024 (Approximate), Expires: 08/29/2025 documented as of this encounter Procedures Procedure Name Priority Date/Time Associated Diagnosis Comments XR KNEE 3 VIEWS BILATERAL Routine 08/29/2024 1:30 PM EDT documented in this encounter Results * XR Knee 3 Views Bilateral (08/29/2024 1:30 PM EDT) Anatomical Region Laterality Modality Lower Extremities, Knee Bilateral Radiogra phic Imaging 08/29/2024 1:30 PM EDT Narrative 08/29/2024 4:04 PM EDT ? [facility] ?[address] ?[place] [address] ?XRay Report ? Signed ? Patient: Mahogany Tapia ?MR#: [id number] ?? 2 ? : 1965 ?Acct:[id number] ? Age/Sex: 59 / F ?ADM Date: 08/29/24 ? Loc: HO.CARD ? Attending Dr: Yair [place] MD ? Ordering Physician: Luly Laguna MD ?? Date of Service: 08/29/24 ?? Procedure(s): XR Knee Oscar 3V ?? Accession Number(s): [id number] ? cc: Luly Laguna MD ? EXAMINATION: [...] DD/ 1330 ? TD/TT: 08/29/24 1400 ? Insurance Sales Specialist: ? Procedure Note Arely Ridley - 08/29/2024 [place] [address] XRay Report Signed Patient: Deann Tapia#: [id number] 2 : 1965Acct:[id number] Age/Sex: 59 / FADM Date: 08/29/24 Loc: HO.CARD Attending Dr: Yair [place] MD Ordering Physician: Luly Laguna MD Date of Service: 08/29/24 Procedure(s): XR Knee Oscar 3V Accession Number(s): [id number] cc: Luly Laguna MD EXAMINATION: X-ray knee [...] 08/29/24 1601 DD/ 1330 TD/TT: 08/29/24 1400 Insurance Sales Specialist: Lluy Laguna MD IMG XR PROCEDURES Final Re sult documented in this encounter Visit Diagnoses Diagnosis Right knee pain, unspecified chronicity- Primary Pain and swelling of left knee Palpitations Dyslipidemia Other and unspecified hyperlipidemia Cardiac risk counseling Overweight Dietary counseling Dietary surveillance and counseling Exercise counseling documented in this encounter Additional Health Concerns Assessment Noted Time PHQ-9 Depression Total Score: 3 03/25/20 24 11:38 AM EST documented as of this encounter Care Teams Adapted Physical Education Teacher Relationship Specialty Start Date End Date Luly Laguna MD [address] [place] [address] PCP - General Family Medicine 05/15/18 Alan Horowitz [address] [facility] 2nd Floor [address] [place] [address] Gastroenterology 06/18/24 Polly Bryant [address] [address] Obstetrics and Gynecology 06/18/24 An Thomas Tumbler Machine OperatorAnalog Design Engineer 01/22/24 documented as of this encounter
--- OUTSIDE RECORDS SUMMARY | 2024-08-29 17:06 | XMS_ITS | Encounter Summary ---
Author Organization [employer] Address [address] [facility] 7t [place] [address] Care Team Providers Care Medical Records Supervisor Name Role Phone Luly Laguna MD Primary Care Provider +1- [phone] CampbelljesAlan Unavailable Manny Polly Unavailable Encounter Details Date Type Department Care Team ([facility] Contact Info) Description 07/01/2022 Orders Only [facility] [address] [place], [place] [phone] Lora Russell LPN Social History Tobacco Use [...] Upcoming Encounters Date Type Department Care Team ([facility] Contact Info) Description 09/18/2024 11:30 AM EDT Office Visit [facility] [address] [place], [place] [phone] Luly Laguna MD [address] [place] [address] documented as of this encounter Visit Diagnoses Not on filedocumented in this encounter Care Teams Medical Records Supervisor Relationship Specialty Start Date End Date Luly Laguna MD [address] [place] [address] PCP - General Family Medicine 05/15/18 Alan Horowitz [address] [facility] 2nd Floor [address] [place] [address] Gastroenterology 06/18/24 Polly Bryant [address] [address] Obstetrics and Gynecology 06/18/24 An Thomas Water Quality TesterDirector Of Global Marketing 01/22/24 documented as of this encounter
--- OUTSIDE RECORDS SUMMARY | 2024-08-29 17:06 | XMS_ITS | Encounter Summary ---
Author Organization [employer] Address [address] [place] [address] 7t [place] [address] Care Team Providers Care Moshgiach Name Role Phone Luly Laguna MD Primary Care Provider +1- [phone] Alan Horowitz Unavailable Polly Bryant Unavailable Encounter Details Date Type Department Care Team (Late st Contact Info) Description 11/24/2022 Abstract [facility] [address] [place] [address] Luly Laguna MD [address] [place] [address] Social History Tobacco Use Types Packs/Day Years [...] 11:30 AM EDT Office Visit [facility] [address] [place] [address] Luly Laguna MD [address] [place] [address] documented as of this encounter Visit Diagnoses Not on filedocumented in this encounter Additional Health Concerns Assessment Noted Time PHQ-9 Depression Total Score: 0 11/08/19 23 11:15 AM EDT documented as of this encounter Care Teams Moshgiach Relationship Specialty Start Date End Date Luly Laguna MD [address] [place], [place] [phone] PCP - General Family Medicine 05/15/18 Alan Horowitz 175 [facility] 2nd Floor [address] [place] [address] Gastroenterology 06/18/24 Polly Bryant [address] [address] Obstetrics and Gynecology 06/18/24 An Thomas Advanced Solutions ArchitectProposal Editor 01/22/24 documented as of this encounter
--- OUTSIDE RECORDS SUMMARY | 2024-08-29 17:06 | XMS_ITS | Encounter Summary ---
Author Organization [employer] Address [address] [place] [address] 7t [place] [address] Care Team Providers Care Pattern Duplicator Name Role Phone Luly Laguna MD Primary Care Provider +1- [phone] CampbelljesAlan Unavailable Manny Polly Unavailable Reason for Visit * Reason Comments Med Change Request Encounter Details Date Type Department Care Team ([facility] st Contact Info) Description 11/07/2022 Refill [facility] [address] [place] [address] Luly Laguna MD [address] [place], [place] [phone] Social History Tobacco Use Types Packs/Day Years [...] Description 09/18/2024 11:30 AM EDT Office Visit [facility] [address] [place] [address] Luly Laguna MD [address] [place] [address] documented as of this encounter Visit Diagnoses Not on filedocumented in this encounter Additional Health Concerns Assessment Noted Time PHQ-9 Depression Total Score: 0 11/08/19 23 11:15 AM EDT documented as of this encounter Care Teams Pattern Duplicator Relationship Specialty Start Date End Date Luly Laguna MD [address] [place] [address] PCP - General Family Medicine 05/15/18 Alan Horowitz 175 [facility] 2nd Floor [address] [place] [address] Gastroenterology 06/18/24 Polly Bryant [address] [address] Obstetrics and Gynecology 06/18/24 An Thomas Senior Health ConsultantSteerer 01/22/24 documented as of this encounter
--- OUTSIDE RECORDS SUMMARY | 2024-08-29 17:06 | XMS_ITS | Encounter Summary ---
Author Organization [employer] Address [address] [facility] 7t [place] [address] Care Team Providers Care Research Tech Name Role Phone Luly Laguna MD Primary Care Provider +1- [phone] Alan Horowitz Unavailable Polly Bryant Unavailable Reason for Visit * Reason Comments Med Refill Encounter Details Date Type Department Care Team (Late st Contact Info) Description 01/19/2024 Refill [facility] [address] [place], [place] [phone] Gudelia Jaimes, ANP [address] [place], [place] [phone] Gastroesophageal reflux disease, unspecified whether esophagitis present [...] Description 09/18/2024 11:30 AM EDT Office Visit [facility] [address] [place] [address] Luly Laguna MD [address] [place] [address] documented as of this encounter Visit Diagnoses Diagnosis Gastroesophageal reflux disease, unspecified whether esophagitis present- Primary documented in this encounter Additional Health Concerns Assessment Noted Time PHQ-9 Depression Total Score: 0 11/08/19 23 11:15 AM EDT documented as of this encounter Care Teams Research Tech Relationship Specialty Start Date End Date Luly Laguna MD [address] [place] [address] PCP - General Family Medicine 05/15/18 Alan Horowitz 175 [facility] 2nd Floor [address] [place] [address] Gastroenterology 06/18/24 Polly Bryant [address] [address] Obstetrics and Gynecology 06/18/24 An Thomas Gang Hemstitching Machine OperatorTool Grinder Operator External 01/22/24 documented as of this encounter
--- OUTSIDE RECORDS SUMMARY | 2024-08-29 17:06 | XMS_ITS | Encounter Summary ---
Author Organization [employer] Address [address] [place] [address] 7t [place] [address] Care Team Providers Care Kiln Worker Name Role Phone Luly Laguna MD Primary Care Provider +1- [phone] Alan Horowitz Unavailable Manny Polly Unavailable Encounter Details Date Type Department Care Team (Latest Contact Info) Description 11/22/2018 Abstract [facility] CONVERSIONS Dental, Provider, DDS Social [...] Description 09/18/2024 11:30 AM EDT Office Visit [facility] [address] [place] [address] Luly Laguna MD [address] [place], [place] [phone] documented as of this encounter Visit Diagnoses Not on filedocumented in this encounter Care Teams Kiln Worker Relationship Specialty Start Date End Date Luly Laguna MD [address] [place] [phone] PCP - General Family Medicine 05/15/18 Alan Horowitz 175 [facility] 2nd Floor [address] [place] [address] Gastroenterology 06/18/24 Polly Bryant [address] [place] [address] Obstetrics and Gynecology 06/18/24 An Thomas Hotel DirectorHealth Sanitarian 01/22/24 documented as of this encounter
--- OUTSIDE RECORDS SUMMARY | 2024-08-29 17:06 | XMS_ITS | Encounter Summary ---
Author Organization [employer] Address [address] [facility] 7t [place] [address] Care Team Providers Care Forestry Contractor Name Role Phone Luly Laguna MD Primary Care Provider +1- [phone] Alan Horowitz Unavailable Polly Bryant Unavailable Encounter Details Date Type Department Care Team (Late st Contact Info) Description 06/18/2024 Orders Only [facility] [address] [place] [address] Luly Laguna MD [address] [place], [place] [phone] Abnormal colonoscopy (Primary Dx) Social History Tobacco [...] 11:30 AM EDT Office Visit [facility] [address] [place] [address] Luly Laguna MD [address] [place] [address] documented as of this encounter Visit Diagnoses Diagnosis Abnormal colonoscopy- Primary documented in this encounter Additional Health Concerns Assessment Noted Time PHQ-9 Depression Total Score: 3 03/25/20 24 11:38 AM EST documented as of this encounter Care Teams Forestry Contractor Relationship Specialty Start Date End Date Luly Laguna MD [address] [place] [address] PCP - General Family Medicine 05/15/18 Alan Horowitz 175 [facility] 2nd Floor [address] [place] [address] Gastroenterology 06/18/24 Polly Bryant [address] [place] [address] Obstetrics and Gynecology 06/18/24 An Thomas Field InspectorHealth Education Director 01/22/24 documented as of this encounter
--- OUTSIDE RECORDS SUMMARY | 2024-08-29 17:06 | XMS_ITS | Encounter Summary ---
Author Organization [employer] Address [address] [place] [address] 7[address] [place] [address] Care Team Providers Care Supervisor Plastering Name Role Phone Luly Laguna MD Primary Care Provider +1- [phone] Alan oHrowitz Unavailable Polly Bryant Unavailable Encounter Details Date Type Department Care Team (Late st Contact Info) Description 11/24/2022 Abstract [facility] MEDICINE [address] [place] [address] Luly Laguna MD [address] [place] [address] Social History Tobacco Use Types Packs/Day Years [...] Description 09/18/2024 11:30 AM EDT Office Visit [facility] MEDICINE [address] [place] [address] Luly Laguna MD [address] [place] [address] documented as of this encounter Visit Diagnoses Not on filedocumented in this encounter Additional Health Concerns Assessment Noted Time PHQ-9 Depression Total Score: 0 11/08/19 23 11:15 AM EDT documented as of this encounter Care Teams Supervisor Plastering Relationship Specialty Start Date End Date Luly Laguna MD [address] [place], [place] [phone] PCP - General Family Medicine 05/15/18 Alan Horowitz [address] [facility] 2nd Floor [address] [place] [address] Gastroenterology 06/18/24 Polly Bryant [address] [address] Obstetrics and Gynecology 06/18/24 An Thomas [employer] RepairerEmergency Management Program Specialist 01/22/24 documented as of this encounter
--- OUTSIDE RECORDS SUMMARY | 2024-08-29 17:06 | XMS_ITS | Encounter Summary ---
Author Organization [employer] Address [address] [place] [address] 7t [place] [address] Care Team Providers Care Ammonium Hydroxide Operator Name Role Phone Luly Laguna MD Primary Care Provider +1- [phone] Campbelljes Alan Zayda Unavailable Manny Polly Unavailable Encounter Details Date Type Department Care Team (Late st Contact Info) Description 05/29/[address] [facility] MEDICINE [address] [place] [address] [phone] Luly Laguna MD [address] [place] [address] [phone] Social History Tobacco Use Types Packs/Day Years [...] Description 09/18/2024 11:30 AM EDT Office Visit [facility] MEDICINE [address] [place] [address] [phone] Luly Laguna MD [address] [place] [address] [phone] documented as of this encounter Procedures Procedure Name Priority Date/Time Associated Diagnosis Comments MAMMOGRAPHY Routine 03/01/2022 PAP/HPV Routine 08/11/2016 COLONOSCOPY Routine 04/24/2014 documented in this encounter Results * Mammography (03/01/2022) Mammogram normal Anatomical Region Laterality Modality Other Historical Provider HEALTH MAINTENANCE Final Result * Pap Smear (08/11/2016) Pap smear ILM HPV neg Polly Treadwell [facility] Provider HEALTH MAINTENANCE Final Result * Colonoscopy (04/24/2014) Pathologist [facility] Colonoscopy normal with Dr. Sawant [facility] Provider HEALTH MAINTENANCE Final Result documented in this encounter Visit Diagnoses Not on filedocumented in this encounter Care Teams Ammonium Hydroxide Operator Relationship Specialty Start Date End Date Luly Laguna MD [address] [place] [address] PCP - General Family Medicine 05/15/18 Alan Horowitz 175 [facility] 2nd Floor [address] [place] [address] Gastroenterology 06/18/24 Polly Bryant [address] [address] Obstetrics and Gynecology 06/18/24 An Thomas Box WorkerMule Operator 01/22/24 documented as of this encounter
== END 2024-08-29 14:02 | disposition home or self-care (01) ==
LOC: HO.HHCL 14:01
PROVIDERS: Visit Provider Family Medicine
DX: Z13.89 Encounter for screening for other disorder (principal)

== ENCOUNTER → 2024-09-26 10:52 | Outpatient (REF) | payer MEDICAID, SELFPAY ==
--- NOTE | 2024-09-26 10:55 | CA_ITS ---
Acquisition Time: 2024-09-26 11:13:58 Total Exercise Time: 00:05:01 Test Indications: PAC'S,Dyspnea,Palpitations Medications: ATORVASTATIN FLUOXETINE OMEPRAZOLE CLONAZAPAM Protocol: LUTHER Max HR: 151 BPM 94% of Pred: 159 BPM Max BP: 162/74 mmHG Max Work Load: 7.0 METS Exercise stress test with exercise 5 mins 1 sec of Luther Protocol, achieving 94% MPHR, with reports of SOB and dizzines, no chest pain, without any arrythmias, with normotensive response to exercise. With sagging ST in recovery, not meeting criteria for ischemia. Baseline ST-T waves abnormality. In recovery, pt feeling back to baseline. Echo images obtained by tech at rest and post peak exercise. Definity contrast utilized. Test reviewed with Dr. Dillon. Referred By: Yair Dillon Electronically Signed By: Dc Blackman
--- OUTSIDE RECORDS SUMMARY | 2024-09-26 12:01 | XMS_ITS | Encounter Summary ---
Author Organization [employer] Address [address] [facility] 7t [place] [address] Care Team Providers Care Business Applications Developer Name Role Phone Luly Laguna MD Primary Care Provider +1- [phone] Alan Horowitz Zayda Unavailable Polly Bryant Unavailable Reason for Visit * Reason Comments Med Refill Encounter Details Date Type Department Care Team (Late st Contact Info) Description 10/23/2023 Refill [facility] MEDICINE [address] [place], [place] [phone] Luly Laguna MD [address] [place], [place] [phone] Social History Tobacco Use Types Packs/Day Years [...] Care Team (Late st Contact Info) Description 10/22/2024 10:30 AM EDT Office Visit [facility] ADULT DENTAL [address] [place] [address] Chaya Bustamante DDS [address] [place] [address] documented as of this encounter Visit Diagnoses Not on filedocumented in this encounter Additional Health Concerns Assessment Noted Time PHQ-9 Depression Total Score: 0 11/08/19 23 11:15 AM EDT documented as of this encounter Care Teams Business Applications Developer Relationship Specialty Start Date End Date Luly Laguna MD [address] [place] [address] PCP - General Family Medicine 05/15/18 Alan Horowitz 175 [facility] 2nd Floor [address] [place] [address] Gastroenterology 06/18/24 Polly Bryant [address] [place] [address] Obstetrics and Gynecology 06/18/24 An Thomas Seaming Machine OperatorInsulation Cupola Operator 01/22/24 documented as of this encounter
--- OUTSIDE RECORDS SUMMARY | 2024-09-26 12:01 | XMS_ITS | Clinical Summary ---
Author Organization [employer] Address [address] [facility] 7t [place] [address] Care Team Providers Care Radio Electrician Name Role Phone Luly Laguna MD Primary Care Provider +1- [phone] Alan Horowitz Unavailable Manny Polly Unavailable Allergies No known active allergies Medications [...] daily for 5 days 10 tablet 08/30/19 Active clonazePAM (KlonoPIN) 0.5 MG tabletIndicatio ns:Anxiety [...] and swelling of left knee 08/29/2024 Overview (09/18/2024): Suspect mild joint inflammation versus joint strain. No effusion on exam. No increased warmth, Appreciated swelling, tenderness and decreased ROM. -ordered left knee XR 08/29/24 -prescribed predniSONE (Deltasone) 20 MG 08/29/24 XR 08/29/24 IMPRESSION: Mild medial compartment osteoarthrosis, bilaterally. Probable suprapatellar bursa joint effusion, left knee. -Encouraged to follow-up with Orthopedist. Assessment & Plan (08/29/2024 4:23 PM EDT): [...] (08/29/2024): Seen on 02/09/24 in [facility] for palpitations with associated SOB. Symptoms appeared episodic and random. Check Holter. EKG here sinus no ST changes. Ordered TSH W/Reflex to FT4, CBC auto differential, Basic Metabolic Panel. -Will refer to cardiology for longer monitor 03/25/24 -08/30/23 currently has extended quality assurance monitor final for 30 days, will follow-up with cardiology [...] longer monitor 03/25/24 -08/30/23 currently has extended quality assurance monitor final for 30 days, will follow-up with cardiology [...] repeat colonoscopy in 10 years. Done at [facility] with Dr. Alan Horowitz MD Assessment & [...] therapy 03/13/2024 Cardiac risk counseling 09/06/2023 Overview (09/18/2024): Calculated 09/18/24: low risk The ASCVD Risk score (Quang CARPIO, et al., 2019) failed to calculate for the following reasons: Unable to determine if patient is Non- Lab Results Component Value Date LDLCHOLCAL 70 08/29/2024 LDLCHOLCAL 132 (H) 03/25/2024 LDLCHOLCAL 145 (H) [...] and HFP 08/29/24 Essential hypertension 11/07/2022 Overview (09/18/2024): -Blood pressure is at goal. -Continue lifestyle modifications -Controlled off medicaions Assessment & Plan (09/18/2024 2:40 PM EDT): -Blood pressure is at goal. -Continue lifestyle modifications -Controlled off medicaions Assessment [...] month Other specified health status 11/07/2022 Overview (09/18/2024): -next annual exam due after 03/25/25 -eye care facilitated by Dr. Carrasco, notes requested 11/07/2022 -dental home is [facility] -Health care Proxy 03/25/24 Assessment & Plan (03/26/2024 1:39 PM EST): -next annual exam due after 03/25/25 -eye care facilitated by Dr. Carrasco, notes requested 11/07/2022 -dental home is [facility] - Health care Proxy 03/25/24 Assessment & Plan (11/07/2022 12:56 PM EDT): -next physical exam due after 11/08/2023 -eye care facilitated by Dr. Carrasco, notes requested 11/07/2022 -dental home is [facility] Dyslipidemia 11/07/2022 Overview (09/18/2024): Lab Results Component Value Date CHOL 138 08/29/2024 CHOL 204 (H) 03/25/2024 CHOL 224 (H) 05/04/2023 TRIG 108 08/29/2024 TRIG 128 03/25/2024 TRIG 146 05/04/2023 HDL 47 08/29/2024 HDL 47 03/25/2024 HDL 50 05/04/2023 LDLCHOLCAL 70 08/29/2024 LDLCHOLCAL 132 (H) 03/25/2024 LDLCHOLCAL 145 (H) 05/04/2023 -continue lifestyle modification -atrovastatin 20mg started 03/27/24 with normal repeat labs Assessment & Plan (09/18/2024 2:40 PM EDT): Lab Results Component Value Date CHOL 138 08/29/2024 CHOL 204 (H) 03/25/2024 CHOL 224 (H) 05/04/2023 TRIG 108 08/29/2024 TRIG 128 03/25/2024 TRIG 146 05/04/2023 HDL 47 08/29/2024 HDL 47 03/25/2024 HDL 50 05/04/2023 LDLCHOLCAL 70 08/29/2024 LDLCHOLCAL 132 (H) 03/25/2024 LDLCHOLCAL 145 (H) 05/04/2023 -continue lifestyle modification -atrovastatin 20mg started 03/27/24 with normal repeat labs Assessment & Plan (08/29/2024 1:32 PM EDT): [...] impacted cerumen 11/07/2022 Vitamin D deficiency 11/07/2022 Overview (09/18/2024): Lab Results Component Value Date [id number] 52.8 03/25/2024 [id number] 29.9 (L) 05/04/2023 Mass of oral cavity 08/05/2021 Overview (05/04/2023): [...] Date Resolved Date Joint pain 11/07/2022 11/07/2022 Cerebral arterial aneurysm 08/05/2021 0 09/18/2024 Overview (08/29/2024): Seen in inpatient neurology due [...] to left sided facial symptoms. Saw Fahad Flor Floyd 07/10/18. Found to have a possible 2-3 [...] no further imagine required. Follow up PRN. Encounters Date Type Department Care Team Description 09/18/2024 11:30 AM EDT Office Visit [address] [address] Luly Laguna MD Essential hypertension (Primary Dx); Pain and swelling of left knee; Dyslipidemia; Overweight; Dietary counseling; Exercise counseling; Chronic pain of both knees; Other specified health status; Encounter for immunization 09/18/2024 Travel 09/17/[address] [address] Luly Laguna MD CHART PREP 08/30/[address] [address] Luly Laguna MD 08/30/[address] [address] Anastasiia Alfredo, RN Results; Referral 08/29/2024 1:00 PM EDT Office Visit [facility] [address] [place] [address] Luly Laguna MD Right knee pain, unspecified chronicity (Primary Dx); Pain and swelling of left knee; Palpitations; Dyslipidemia; Cardiac risk counseling; Overweight; Dietary counseling; Exercise counseling 08/29/2024 Travel 07/30/2024 Refill [facility] [address] [place] [address] Luly Laguna MD Vitamin D deficiency 07/26/2024 Population Health Risk Score [facility] () Department [address] [place] [phone] Provider, Population Health Generic 07/25/2024 Refill [facility] [address] [place], [place] [phone] Yenny Ryder RN Anxiety 07/24/2024 Refill [facility] [address] [place] [address] Luly Laguna MD Anxiety 07/15/2024 Refill [facility] [address] [place], [place] [phone] Luly Laguna MD Gastroesophageal reflux disease, unspecified whether esophagitis present 07/02/2024 Telephone [facility] [address] [place] [address] Luly Laguna MD May Recalls 07/02/2024 Travel from Last 3 Months Immunizations Immunization Administration Dates Next Due Hep A / Hep B 02/13/2017,09/09/2016,08/12/2016 Hep B, adult 11/07/2022 Influenza Injectable Quadriv alant Preservative Free IIV4 MDCK 08/05/2021 Influenza injectable quadriv alent IIV4 with preservative 02/08/2018 Influenza injectable quadriv alent preservative free 04/14/2020,01/31/2019,02/13/2017,2015,02/02/2015 Influenza, IIV3, injectable 01/29/2014, 2 Influenza, Split (incl. nicole fied surface antigen) 02/20/2012 Pneumococcal Conjugate PCV 20 09/18/2024 Tdap 11/07/2022,08/05/2021,10/20/2009 Zoster, Recombinant 10/06/2021,08/05/2021 Family History [...] is your housing situation today? I have kemalfarhana vieira 09/18/[address] you li ve. Do you have problems with any of the following? None of the above 09/18/2024 Food Insecurity Answer Date Recorded Within the past 12 months, y ou worried that your food would run out before you got money to buy more: Never True 09/18/2024 Within the past 12 months,th e food you bought just didn't last and you didn't have enough money to get more: Never True 11/2024 Transportation Answer Date Recorded In the past 12 months, has l ack of transportation kept you from medical appts, meetings, work or from getting things needed for daily living? No 09/18/2024 Utilities Answer Date Recorded In the past 12 months, has t he [email or web address], gas, oil or water [employer] threatened to shut off services in your home? No 09/18/2024 Depression Answer Date Recorded Patient Health Questionnaire-2 Score 0 03/25/2024 Internet Access Answer Date Recorded Internet Access Q1 No 09/18/2024 Internet Access Q2 I do not want or need it 11/2024 Comments Unknown Sex and Gender Information Value Date Recorded Sex Assigned at Female 03/14/2022 10:15 AM EDT Legal Sex Female 10:15 AM EDT Gender Identity Female 03/14/2022 10:15 AM EDT Sexual Orientation Choose not to disclose 2021 10:15 AM EDT Last Filed Vital Signs Vital Sign Reading Time Taken Comments Blood Pressure 138/80 09/18/2024 11:24 AM EDT Pulse 85 09/18/2024 11:16 AM EDT Temperature 35.8 ??C (96.5 ??F) 09/18/2024 11:16 AM E DT Respiratory Rate 20 09/18/2024 11:16 AM EDT Oxygen Saturation 98% 09/18/2024 11:16 AM EDT Inhaled Oxygen Concentration - - Weight 73 kg (161 lb) 09/18/2024 11:16 AM EDT Height 158.8 cm (5' 2.5 ) 09/18/2024 11:16 AM ED T Body Mass Index 28.98 09/18/2024 11:16 AM EDT Plan of Treatment Upcoming Encounters Date Type Department Care Team (Late st Contact Info) Description 10/22/2024 10:30 AM EDT Office Visit [facility] [address] [place], [place] [phone] Chaya Bustamante, DDS [address] [place] [address] Health Maintenance Due Date Last Done Comments CT Colonography 1965 FIT DNA/Cologuard 1965 FIT 1965 FOBT 1965 Sigmoidoscopy 1965 Influenza Vaccine (#1) 2024 2, 04/14/2020, 01/31/2019, Additional history exists Postponed from 01/14/2024 (Patient Refused) Alcohol/Substance Use Screening 03/25/2025 03/25/2024 COVID-19 Vaccine ( season) 2025 Postponed from 01/14/2024 (Patient Refused) Depression Screening 03/25/2025 03/25/2024, 03/25/20 24 SDOH Screening 09/18/2025 09/18/2024 Tobacco Screening 09/18/2025 09/18/2024 Pap Smear 09/19/2025 09/19/2022, 08/11/2016 Mammogram 03/08/2026 03/08/2024, 02/13, 03/01/2022, Additional history exists Cervical Cancer Screening 09/20/2027 HPV/Cotest 09/20/2027 09/19/2022 Lipid Panel 08/29/2029 08/29/2024, 03/15, 05/04/2023, Additional history exists DTaP/Tdap/Td Vaccines (4 - Td or Tdap) 11/07/2032 11/07/2022, 08/05/2021, 10/20/2009 Colonoscopy 07/24/2033 07/25/2023, 04/24/2014 Colorectal Cancer Screening 07/24/2033 RSV Patients and Patients Aged 60 years or older (1 - 1-dose 75+ series) 2038 Hepatitis A Vaccines Aged Out 02/13/2017, 09/09/2016, 08/12/2016 No longer eligible based on patient's age to complete this topic HIV Screening Completed 08/05/2021 Zoster Vaccines Completed 10/06/2021, 08/05/2021 Hepatitis B Vaccines Completed 11/07/2022, 02/13/2017, 09/09/2016, Additional history exists Hepatitis C Screening Completed 05/04/2023 Pneumococcal Vaccine: 50+ Years Completed 09/18/2024 HIB Vaccines Aged Out No longer eligi ble based on patient's age to complete this topic HPV Vaccines Aged Out No longer eligi ble based on patient's age to complete this topic IPV Vaccines Aged Out No longer eligi ble based on patient's age to complete this topic Meningococcal B Vaccine Aged Out No l onger eligible based on patient's age to complete [...] Procedure Name Priority Date/Time Associated Diagnosis Comments HEPATIC FUNCTION PANEL Routine 2:04 PM EDT Dyslipidemia LIPID PANEL, STANDARD Routine 08/29/2024 2:04 PM EDT Dyslipidemia XR KNEE 3 VIEWS BILATERAL Routine 08/29/2024 1:30 PM EDT BI MAMMOGRAM SCREENING TOMOSYNTHESIS BILATERAL Routine 03/08/2024 [...] Recently Relevant to Health Maintenance Results * Hepatic Function Panel (08/29/2024 2:04 PM EDT) Bilirubin, Total 1.0 0.0 - 1.0 mg/dL [facility] Bilirubin, Direct 0.4 0.0 - 0.5 mg/dL [facility] Aspartate Amino Transferase 27 5 - 31 U/L [facility] Alanine Aminotransferase 30 0 - 31 U/L [facility] Total Protein 6.7 6.5 - 8.0 g/dL [facility] Albumin Level 4.0 3.5 - 5.0 g/dL [facility] Alkaline Phosphatase 93 39 - 117 U/L [facility] Blood Venous blood specimen / Unknown 08/29/2024 2:04 PM EDT 08/29/2024 4:12 PM EDT us Luly Laguna MD LAB BLOOD ORDERABLES Final Result [facility] [address] [place] [phone] * Lipid Panel, Standard (08/29/2024 2:04 PM EDT) Triglycerides 108 <150 mg/dL [facility] Comment:Desirable Triglyceri de: less than 150 mg/dLBorderline High Triglyceride 150-199 mg/dLHigh Triglyceride: 200-499 mg/dLVery High Triglyceride: greater than or equal to 5OO mg/dL Cholesterol 138 <200 mg/dL [facility] Comment:Desirable Cholestero l: less than 200 mg/dLBorderline High Cholesterol: 200-239 mg/dLHigh Cholesterol: greater than 239 mg/dL LDL Cholesterol Calculated 70 <100 mg/dL [facility] Comment:Desirable LDL: less than 100 mg/dLNear Optimal/Above Optimal LDL: 110- 129 mg/dLBorderline High LDL: 130-159 mg/dLHigh LDL: 160-189 mg/dLVery High LDL: greater than or equal to 190 mg/dL HDL Cholesterol 47 >40 mg/dL [facility] Comment:Desirable HDL: great er than 40 mg/dL Note: This HDL assay may give artificially low results in patients with liver disease. Blood Venous blood specimen / Unknown 08/29/2024 2:04 PM EDT 08/29/2024 4:12 PM EDT us Luly Laguna MD LAB BLOOD ORDERABLES Final Result [facility] [address] [place] [phone] * XR Knee 3 Views Bilateral (08/29/2024 1:30 PM EDT) Anatomical Region Laterality Modality Lower Extremities, Knee Bilateral Radiogra phic Imaging 08/29/2024 1:30 PM EDT Narrative 08/29/2024 4:04 PM EDT ? [facility] ?[address] [facility] ?[place] [address] ?XRay Report ? Signed ? Patient: Tapia,Mahogany ?MR#: [id number] ?? 2 ? : 1965 ?Acct:[id number] ? Age/Sex: 59 / F ?ADM Date: 04/17/25 ? Loc: HO.CARD ? Attending Dr: Yair Dillon MD ? Ordering Physician: Luly Laguna MD ?? Date of Service: 08/29/24 ?? Procedure(s): XR Knee Oscar 3V ?? Accession Number(s): [id number] ? cc: Luly Laguna MD ? EXAMINATION: [...] DD/ 1330 ? TD/TT: 08/29/24 1400 ? Chemical Equipment Controller: ? Procedure Note [place], Image - 08/29/2024 [place] [address] XRay Report Signed Patient: Deann Tapia#: [id number] 2 : 1965Acct:[id number] Age/Sex: 59 / FADM Date: 08/29/24 Loc: [facility]AN[facility] Attending Dr: Yair Dillon MD Ordering Physician: Luly Laguna MD Date of Service: 08/29/24 Procedure(s): XR Knee Oscar 3V Accession Number(s): [id number] cc: Luly Laguna MD EXAMINATION: X-ray knee [...] 08/29/24 1601 DD/ 1330 TD/TT: 08/29/24 1400 Chemical Equipment Controller: Luly Laguna MD IMG XR PROCEDURES Final Re sult * BI Mammogram Screening Tomosynthesis Bilateral (03/08/2024 10:50 AM EDT) Anatomical Region Laterality Modality Breast Bilateral Mammography 03/08/2024 10:5 0 AM EDT Narrative 03/19/2024 8:50 AM EST ? [facility] [place] ? [address] ?[place] [address] ? Mammography Report ? Signed ? Patient: Tapia,Mahogany ?MR#: [id number] ?? 2 ? : 1965 ?Acct:[id number] ? Age/Sex: 58 / F ?ADM Date: 10/25/24 ? Loc: HO.MAMMO ? Attending Dr: Luly Laguna MD ? Ordering Physician: Luly Laguna MD ?Results: 1N ?? egative ? Date of Service: 03/08/24 ?Follow Up: 1 Year From Orig ?? inal Mammogram ? Procedure(s): MM tomosynthesis screening BI ?? Accession Number(s): [id number] ? cc: Luly Laguna MD ? EXAMINATION: [...] DO in OV> ? 03/19/24 0847 ? DD/DT: 03/08/ 1050 ? TD/TT: 03/08/ 1112 ? Chemical Equipment Controller: ? Procedure Note Donotuseinterpreter, Image - 03/19/2024 [facility] [address] [place], [place] [address] Mammography Report Signed Patient: Deann Tapia#: [id number] 2 : 1965Acct:[id number] Age/Sex: 58 / FADM Date: 03/08/24 Loc: HO.MAMMO Attending Dr: Luly Laguna MD Ordering Physician: Luly Laguna MDResults: 1N egative Date of Service: 03/08/24Follow Up: 1 Year From Orig inal Mammogram Procedure(s): MM tomosynthesis screening BI Accession Number(s): [id number] cc: Luly Laguna MD EXAMINATION: MM SCREENING [...] 03/19/24 0847 DD/ 1050 TD/TT: 03/08/24 1112 Chemical Equipment Controller: Luly Laguna MD IMG BI PROCEDURES Final Re sult * (ABNORMAL) Hm Colonoscopy (07/25/2023) Pathologist [facility] Colonoscopy Abnormal( A) Normal Comment:small polyp, await p athology results at [place] Historical Provider HEALTH MAINTENANCE Final Result * Hepatitis C Antibody with Reflex to HCV, RNA, Quantitative, Real-Time PCR (05/04/2023 11:34 AM EST) [facility] Hepatitis C Antibody Nonreactive Nonreactive [facility] Comment:Antibodies to HCV no t detected; does not exclude early acuteHCV infection. Blood Venous blood specimen / Unknown 05/04/2023 11:34 AM EST 05/04/2023 1:12 PM EST Luly Laguna MD LAB BLOOD ORDERABLES Final Result [facility] [address] [place] [phone] * (ABNORMAL) Pap Smear (09/19/2022) Pathologist [facility] Pap Other Negative for intraephithelial lesion or malignancy, Other Comment:unsatisfactory HPV Not Detected Undetected, Indeterminate, Quantitative, Not Detected Historical Provider [facility] MAINTENANCE Final Result * HIV 1/2 ANTIGEN/ANTIBODY,FOURTH GENERATION W/RFL (08/05/2021 11:46 AM EDT) Pathologist [facility] HIV-1/2 ANTIGEN AND ANTIBODIES, 4TH GENERATION W/ REFLEX NON-REACT SAVI NON-REACT SAVI [facility] Comment: HIV-1 antigen and HIV-1/HIV-2 [...] ? For additional information please refer to http://education.questdiagnostics.com/faq/IBM068 (This link is being provided for informational/ educational purposes only.) ? The performance of this assay has not been clinically validated in patients less than 2 years old. ?? 08/05/2021 11:4 6 AM EDT Luly Laguna MD LAB BLOOD ORDERABLES Final Result Performing Organization Address City/State/[facility] Co de Phone Number [facility] [address] from Last 3 Months or Most Recently Relevant to Health Maintenance Insurance [facility] STANDARD DENTAL-[facility] MEDICAID STAND ADULT Care Teams Radio Electrician Relationship Specialty Start Date End Date [place], MD Luly [address] [place] [address] PCP - General Family Medicine 05/15/18 Alan Horowitz [address] [facility] 2nd Floor [address] [place] [address] Gastroenterology 06/18/24 Polly Bryant [address] [facility] 1stfloor [place] [address] Obstetrics and Gynecology 06/18/24 An Thomas Category SpecialistThiokol Operator 01/22/24
--- OUTSIDE RECORDS SUMMARY | 2024-09-26 12:01 | XMS_ITS | Encounter Summary ---
Author Organization [employer] Address [address] [facility] 7t [place] [address] Care Team Providers Care Clinical Support Nurse Name Role Phone Luly Laguna MD Primary Care Provider +1- [phone] Alan Horowitz Zayda Unavailable Polly Bryant Unavailable Encounter Details Date Type Department Care Team (Latest Contact Info) Description 11/22/2018 Abstract [facility] CONVERSIONS Dental, Provider, DDS Social [...] Description 10/22/2024 10:30 AM EDT Office Visit [facility] ADULT [facility] [address] [place] [address] Patino-Stark, Chaya, DDS [address] [place] [address] documented as of this encounter Visit Diagnoses Not on filedocumented in this encounter Care Teams Clinical Support Nurse Relationship Specialty Start Date End Date Luly Laguna MD [address] [place], [place] [phone] PCP - General Family Medicine 1/1/19 Alan Horowitz [address] [facility] 2nd Floor [address] [place] [address] Gastroenterology 06/18/24 Polly Bryant [address] [address] Obstetrics and Gynecology 06/18/24 An Thomas Renovator Machine OperatorGlass Presser 01/22/24 documented as of this encounter
--- OUTSIDE RECORDS SUMMARY | 2024-09-26 12:01 | XMS_ITS | Encounter Summary ---
Author Organization [employer] Address [address] [facility] 7t [place] [address] Care Team Providers Care Biotech Production Specialist Name Role Phone Luly Laguna MD Primary Care Provider +1- [phone] Alan Horowitz Unavailable Manny Polly Unavailable Reason for Visit * Reason Comments Med Refill Encounter Details Date Type Department Care Team (Late st Contact Info) Description 01/19/2024 Refill [facility] [address] [place] [address] Gudelia Jaimes, ANP [address] [place], [place] [phone] Gastroesophageal reflux disease, unspecified whether esophagitis present [...] Description 10/22/2024 10:30 AM EDT Office Visit [facility] [address] [place] [address] Chaya Bustamante DDS [address] [place] [address] documented as of this encounter Visit Diagnoses Diagnosis Gastroesophageal reflux disease, unspecified whether esophagitis present- Primary documented in this encounter Additional Health Concerns Assessment Noted Time PHQ-9 Depression Total Score: 0 11/08/19 23 11:15 AM EDT documented as of this encounter Care Teams Biotech Production Specialist Relationship Specialty Start Date End Date Luly Laguna MD [address] [place] [address] PCP - General Family Medicine 05/15/18 Alan Horowitz [address] [facility] 2nd Floor [address] [place] [address] Gastroenterology 06/18/24 Polly Bryant [address] [place] [address] Obstetrics and Gynecology 06/18/24 An Thomas Program/Music DirectorDistrict Medical Examiner 01/22/24 documented as of this encounter
--- OUTSIDE RECORDS SUMMARY | 2024-09-26 12:02 | XMS_ITS | Encounter Summary ---
Author Organization [employer] Address [address] [facility] 7t [place] [address] Care Team Providers Care Laundry Clerk Name Role Phone Luly Laguna MD Primary Care Provider +1- [phone] Alan Horowitz Zayda Unavailable Manny Polly Unavailable Encounter Details Date Type Department Care Team (Late st Contact Info) Description 11/24/2022 Abstract [facility] [address] [place] [address] Luly Laguna MD [address] [place] [address] Social History Tobacco Use Types Packs/Day Years [...] Description 10/22/2024 10:30 AM EDT Office Visit [facility] [address] [place], [place] [phone] Sukumar-Chaya Stark, DDS [address] [place], [place] [phone] documented as of this encounter Visit Diagnoses Not on filedocumented in this encounter Additional Health Concerns Assessment Noted Time PHQ-9 Depression Total Score: 0 11/08/19 23 11:15 AM EDT documented as of this encounter Care Teams Laundry Clerk Relationship Specialty Start Date End Date Luly Laguna MD [address] [place], [place] [phone] PCP - General Family Medicine 05/15/18 Alan Horowitz [address] [facility] 2nd Floor [address] [place] [address] Gastroenterology 06/18/24 Polly Bryant [address] [address] Obstetrics and Gynecology 06/18/24 An Thomas Scrubber System AttendantCompugraph Operator 01/22/24 documented as of this encounter
--- OUTSIDE RECORDS SUMMARY | 2024-09-26 12:02 | XMS_ITS | Encounter Summary ---
Author Organization [employer] Address [address] [facility] 7t [place] [address] Care Team Providers Care Cattle Dehorner Name Role Phone Luly Laguna MD Primary Care Provider +1- [phone] CampbelljesAlan Unavailable Manny Polly Unavailable Encounter Details Date Type Department Care Team (Late st Contact Info) Description 06/18/2024 Orders Only [facility] [address] [place], [place] [phone] Luly Laguna MD [address] [place], [place] [phone] Abnormal colonoscopy (Primary Dx) Social History Tobacco [...] Description 10/22/2024 10:30 AM EDT Office Visit [facility] ADULT DENTAL [address] [place] [address] Chaya Bustamante DDS [address] [place] [address] documented as of this encounter Visit Diagnoses Diagnosis Abnormal colonoscopy- Primary documented in this encounter Additional Health Concerns Assessment Noted Time PHQ-9 Depression Total Score: 3 03/25/20 24 11:38 AM EST documented as of this encounter Care Teams Cattle Dehorner Relationship Specialty Start Date End Date Luly Laguna MD [address] [place] [address] PCP - General Family Medicine 05/15/18 Alan Horowitz [address] [facility] 2nd Floor [address] [place] [address] Gastroenterology 06/18/24 Polly Bryant [address] [address] Obstetrics and Gynecology 06/18/24 An Thomas Gauge CheckerReimbursement Counselor 01/22/24 documented as of this encounter
--- OUTSIDE RECORDS SUMMARY | 2024-09-26 12:02 | XMS_ITS | Encounter Summary ---
Author Organization [employer] Address 75 [facility] 7t [place] [address] Care Team Providers Care Director Of Enrollment Name Role Phone Luly Laguna MD Primary Care Provider +1- [phone] CampbellAlan andre Zayda Unavailable KristaPolly gary Unavailable Encounter Details Date Type Department Care Team ([facility] Contact Info) Description 07/01/2022 Orders Only [facility] CHC MED & PEDS [address] [place], [place] [phone] Lora Russell LPN Social History Tobacco Use [...] Upcoming Encounters Date Type Department Care Team ([facility] Contact Info) Description 10/22/2024 10:30 AM EDT Office Visit [facility] ADULT DENTAL [address] [place] [address] Chaya Bustamante DDS [address] [place] [address] documented as of this encounter Visit Diagnoses Not on filedocumented in this encounter Care Teams Director Of Enrollment Relationship Specialty Start Date End Date Luly Laguna MD [address] [place] [address] PCP - General Family Medicine 05/15/18 Alan Horowitz 175 [facility] 2nd Floor [address] [place] [address] Gastroenterology 06/18/24 Polly Bryant [address] [address] Obstetrics and Gynecology 06/18/24 An Thomas Relocation ManagerCoating Machine Operator 01/22/24 documented as of this encounter
--- OUTSIDE RECORDS SUMMARY | 2024-09-26 12:02 | XMS_ITS | Encounter Summary ---
Author Organization [employer] Address 75 [facility] 7t [place] [address] Care Team Providers Care Materials Engineer Name Role Phone Luly Laguna MD Primary Care Provider +1- [phone] Alan Horowitz Zayda Unavailable Manny Polly Unavailable Encounter Details Date Type Department Care Team (Late st Contact Info) Description 11/24/2022 Abstract [facility] MEDICINE [address] [place] [address] Luly Laguna MD [address] [place] [address] Social History Tobacco Use Types Packs/Day Years [...] Description 10/22/2024 10:30 AM EDT Office Visit [facility] ADULT DENTAL [address] [place], [place] [phone] Sukumar-Chaya Stark, DDS [address] [place], [place] [phone] documented as of this encounter Visit Diagnoses Not on filedocumented in this encounter Additional Health Concerns Assessment Noted Time PHQ-9 Depression Total Score: 0 11/08/19 23 11:15 AM EDT documented as of this encounter Care Teams Materials Engineer Relationship Specialty Start Date End Date Luly Laguna MD [address] [place], [place] [phone] PCP - General Family Medicine 05/15/18 Alan Horowitz 175 [facility] 2nd Floor [address] [place] [address] Gastroenterology 06/18/24 Polly Bryant [address] [address] Obstetrics and Gynecology 06/18/24 An Thomas Intelligence Support OfficerDirector Channel 01/22/24 documented as of this encounter
--- OUTSIDE RECORDS SUMMARY | 2024-09-26 12:02 | XMS_ITS | Encounter Summary ---
Author Organization [employer] Address [address] [place] [address] 7t [place] [address] Care Team Providers Care Tanner Rotary Drum Continuous Process Name Role Phone Luly Laguna MD Primary Care Provider +1- [phone] MusAlan andre Zayda Unavailable KristaPolly gary Unavailable Encounter Details Date Type Department Care Team (Late st Contact Info) Description 05/29/2022 Abstract [facility] MEDICINE [address] [place] [address] Luly Laguna MD [address] [place] [address] Social History Tobacco Use Types Packs/Day Years [...] Description 10/22/2024 10:30 AM EDT Office Visit [facility] ADULT DENTAL [address] [place] [address] Chaya Bustamante, DDS [address] [place], [place] [phone] documented as of this encounter Procedures Procedure Name Priority Date/Time Associated Diagnosis Comments MAMMOGRAPHY Routine 03/01/2022 PAP/HPV Routine 08/11/2016 COLONOSCOPY Routine 04/24/2014 documented in this encounter Results * Mammography (03/01/2022) Mammogram normal Anatomical Region Laterality Modality Other Historical Provider HEALTH MAINTENANCE Final Result * Pap Smear (08/11/2016) Pap smear ILM HPV neg Polly Treadwell [facility] Provider HEALTH MAINTENANCE Final Result * Colonoscopy (04/24/2014) Colonoscopy normal with Dr. Sawant [facility] Provider HEALTH MAINTENANCE Final Result documented in this encounter Visit Diagnoses Not on filedocumented in this encounter Care Teams Tanner Rotary Drum Continuous Process Relationship Specialty Start Date End Date Luly Laguna MD [address] [place] [address] PCP - General Family Medicine 05/15/18 Alan Horowitz 175 [facility] 2nd Floor [address] [place] [address] Gastroenterology 06/18/24 Polly Bryant 271 [address] [place] [address] Obstetrics and Gynecology 06/18/24 An Thomas Catheterization Laboratory TechnicianConstruction Electrician 01/22/24 documented as of this encounter
--- OUTSIDE RECORDS SUMMARY | 2024-09-26 12:02 | XMS_ITS | Encounter Summary ---
Author Organization [employer] Address 75 [facility] 7t [place] [address] Care Team Providers Care Core Machine Tender Name Role Phone Luly Laguna MD Primary Care Provider +1- [phone] Alan Horowitz Zayda Unavailable Manny Polly Unavailable Encounter Details Date Type Department Care Team (Late st Contact Info) Description 11/24/2022 Abstract [facility] MEDICINE [address] [place] [address] Luly Laguna MD [address] [place] [address] Social History Tobacco Use Types Packs/Day Years [...] 10/22/2024 10:30 AM EDT Office Visit [facility] ADULT DENTAL [address] [place], [place] [phone] Sukumar-Chaya Stark, DDS [address] [place], [place] [phone] documented as of this encounter Visit Diagnoses Not on filedocumented in this encounter Additional Health Concerns Assessment Noted Time PHQ-9 Depression Total Score: 0 11/08/19 23 11:15 AM EDT documented as of this encounter Care Teams Core Machine Tender Relationship Specialty Start Date End Date Luly Laguna MD [address] [place], [place] [phone] PCP - General Family Medicine 05/15/18 Alan Horowitz 175 [facility] 2nd Floor [address] [place] [address] Gastroenterology 06/18/24 Polly Bryant [address] [address] Obstetrics and Gynecology 06/18/24 An Thomas Rv MechanicDirector Of Online Education 01/22/24 documented as of this encounter
--- OUTSIDE RECORDS SUMMARY | 2024-09-26 12:02 | XMS_ITS | Encounter Summary ---
Author Organization [employer] Address 75 [facility] 7t [place] [address] Care Team Providers Care Portable Track Crew Chief Name Role Phone Luly Laguna MD Primary Care Provider +1- [phone] Alan Horowitz Zayda Unavailable Polly Bryant Unavailable Reason for Visit * Reason Comments Med Change Request Encounter Details Date Type Department Care Team (Late st Contact Info) Description 11/07/2022 Refill [facility] MEDICINE [address] [place] [address] Luly Laguna MD [address] [place] [address] Social History Tobacco Use Types Packs/Day Years [...] AM EDT documented as of this encounter Functional Status * Over the past 2 weeks, how often have you been bothered by any of the following problems? Question Answer Date of Assessment Author Patient Health Questionnaire-2 Score 0 10/14 11:15 AM Vicki Franklin [place] * Over the past 2 weeks, how often have you been bothered by any of the following problems? Question Answer Date of Assessment Author Little interest or pleasure in doing things Not at all 11/07/2022 11:15 AM Vicki Franklin M A Feeling down, depressed, or hopeless Not at all 11/07/2022 11:15 AM Vicki Franklin M A Trouble falling or staying asleep, or sleeping too much Not at all 11/07/2022 11:15 AM Vicki Franklin [place] Feeling tired or having julian le energy Not at all 11/07/2022 11:15 AM Vicki Franklin M A Poor appetite or overeating Not at all 11/07/2022 11 :15 AM Vicki Franklin [place] Feeling bad about yourself - or that you are a failure or have let yourself or your family down Not at all 11/07/2022 11:15 AM Vicki Calderón [place] Trouble concentrating on thi ngs, such as reading the newspaper or watching television Not at all 11/07/2022 11:15 AM Vicki Franklin M A Moving or speaking so slowly that other people could have noticed? Or the opposite - being so fidgety or restless that you have been moving around a lot more than usual. Not at all 11/07/2022 11:15 AM Vicki Franklin M A Thoughts that you would be better off or hurting yourself in some way Not at all 11/07/2022 11:15 AM Vicki Franklin MA Patient Health Questionnaire -9 Score 0 11/07/2022 11:15 AM Vicki Franklin M A documented as of this encounter Plan of Treatment Upcoming Encounters Date Type Department Care Team (Late st Contact Info) Description 10/22/2024 10:30 AM EDT Office Visit [facility] ADULT DENTAL [address] [place] [address] Sukumar-Chaya Stark, DDS [address] [place] [address] documented as of this encounter Visit Diagnoses Not on filedocumented in this encounter Additional Health Concerns Assessment Noted Time PHQ-9 Depression Total Score: 0 11/08/19 23 11:15 AM EDT documented as of this encounter Care Teams Portable Track Crew Chief Relationship Specialty Start Date End Date Luly Laguna MD [address] [place] [address] PCP - General Family Medicine 05/15/18 Alan Horowitz 175 [facility] 2nd Floor [address] [place] [address] Gastroenterology 06/18/24 Polly Bryant [address] [address] Obstetrics and Gynecology 06/18/24 An Thomas Senior Teradata DeveloperOrthotist 01/22/24 documented as of this encounter
== END ==
LOC: HO.CARD 10:52
PROVIDERS: PCP Family Medicine; Visit Provider Internal Medicine Cardiovascular Disease
DX: R06.02 Shortness of breath (principal)
CPT/HCPCS: 93350; Q9957

== ENCOUNTER → 2024-09-26 10:55 | Outpatient (BNV) | payer MEDICAID, SELFPAY | PROVIDERS: PCP Family Medicine | DX: R06.02 Shortness of breath (principal); R94.31 Abnormal electrocardiogram [ECG] [EKG] | CPT/HCPCS: 93016; 93018; 93350; 93352 ==

== ENCOUNTER 2024-10-31 10:25 | Outpatient (AMB) | payer MEDICAID, SELFPAY ==
--- NOTE | 2024-10-31 10:28 | MHC.OFFVIS ---
Vital Signs 10/31/24 10:29 Height 5 ft 3 in Weight 161 lb 6.054 oz BMI 28.6 BP 110/72 Blood Pressure Location Lt brachial Position Sitting Pulse 83 Pulse Source Pulse Oximeter Intake Visit Reasons: 2 mth s/p stress echo/ echo/ 30 day Intake Note: mth f/up-stress echo/echo/30 day holter Process Improvement Analyst Required: Yes Process Improvement Analyst Language: Credit Professional Name: maria t/[id number] Accompanied by: Self / Same As Patient Allergies No Known Allergies Allergy (Mild, Unverified 01/30/20 16:03) NO KNOW ALLERGY Medication List - Last Reconciled 10/31/24 by Sandra Schaffer NP-C atorvastatin 20 mg PO DAILY cholecalciferol (vitamin D3) 25 mcg PO DAILY clonazepam (Klonopin) 0.25 mg PO BEDTIME diclofenac potassium 50 mg PO DAILY fluoxetine 20 mg PO DAILY omeprazole 20 mg PO BID HPI HPI 2 mth s/p stress echo/ echo/ 30 day: Details: Mahogany is a 59-year-old female with past medical history of hypertension who was recently evaluated for heart palpitations. A Holter monitor had shown no significant abnormalities. She underwent a cardiac event monitor and echocardiogram and now presents for follow-up. Today she reports that she continues to have rapid heart palpitations that cause her concern. She has no lightheadedness, presyncope, syncope, falls. No chest discomfort at rest or with activity. No shortness of breath, PND, orthopnea or edema. She tries to remain physically active but concern over her rapid heartbeat Holter back. She denies caffeine intake and reports compliance with her medications. [facility], [facility] Medical History (Updated 10/31/24 @ 11:36 by Sandra Schaffer NP-[place]) Depression Anxiety Hypertension No known health problems No known health problems Family History Father Stroke Mother No problems noted. Social History Current occupational status: unemployed Current occupation: Right Handed Review of Systems Const All systems reviewed & are unremarkable except as noted in HPI and below Denies chills, Denies fatigue, Denies fever(s), Denies frequent falls, Denies weakness, Denies weight gain and Denies weight loss ENT Denies dizziness Card Details: Palpitations Denies chest pain, Reports rapid heart rate, Denies leg edema, Denies lightheadedness, Denies palpitations, Denies dyspnea and Denies dyspnea on exertion Resp Denies cough, Denies dyspnea and Denies dyspnea on exertion GI Denies hematochezia Musc Denies abnormal gait, Denies muscle weakness, Denies numbness, Denies radiating pain into limb and Denies tingling Neuro Denies abnormal gait, Denies dizziness, Denies frequent falls, Denies numbness, Denies tingling and Denies weakness Endo Denies fatigue and Denies palpitations Physical Exam Vital Signs: Last Vital Signs Pulse 83 10/31/24 10:29 BP 110/72 10/31/24 10:29 BMI result Body Mass Index 28.6 Const General: cooperative, healthy appearing, comfortable and no acute distress Orientation/consciousness: patient oriented x3 Neck Neck: Yes normal visual inspection Resp Effort & Inspection: normal respiratory effort Auscultation: clear to auscultation bilaterally, no crackles, no rales, no rhonchi and no wheezes Cardio Rate: regular rate Rhythm: regular rhythm Heart sounds: S1 normal heart sound present, S2 normal heart sound present, no gallops, no murmurs and no rubs Neuro General: patient oriented x3 Extrem General: Yes normal to inspection, No no pedal edema and No calf tenderness Psych Appearance: grossly normal Mental Status: mental status grossly normal Speech and movement: Normal speech and movement present Assessment & Plan Assessment & Plan (1) Palpitations: Code(s): R00.2 - Palpitations Category: Medical Plan: Reports of heart palpitations like her heart is beating fast. Holter monitor done 02/26/2025 for 1-1/2 days shows sinus rhythm with average heart rate 85, rare SVE, 1 PVC. A cardiac event monitor 08/29/2024 05/18/2019 8.5 days shows sinus rhythm with average heart rate 90 beats per minute with heart rate range 50 to 144 beats per minute frequent sinus tachycardia, 40% of the time heart rate greater than 100, one 5 beat NSVT, symptoms correlated with sinus rhythm.. Echocardiogram done 08/29/2024 shows normal study, EF 60-65%. Due to her concerns over rapid heartbeats will start on metoprolol XL 25 mg daily. Reviewed avoidance of caffeinated beverages. Maintain good hydration and physical activity. Cardiology follow-up 6-8 weeks, sooner if needed to reassess. (2) Sinus tachycardia: Code(s): R00.0 - Tachycardia, unspecified Category: Medical Plan: As above (3) Hypertension: Code(s): I10 - Essential (primary) hypertension Category: Medical Plan: Blood pressure goal less than 130/80, well controlled at this time. Adding low-dose metoprolol. Plan I discussed with the patient that her rapid heartbeat is not currently a cause for concern and does not require medication unless it causes significant anxiety. After further discussion, we decided to try metoprolol to help manage her symptoms, with instructions to take one pill daily and adjust the dose if side effects occur. I advised her to follow up in a few weeks to assess the medication's effectiveness and to report any side effects. Medications: New metoprolol succinate ER 25 mg PO DAILY 30 tabs 5RF Patient Instructions: - Take metoprolol as prescribed, one pill daily. - If dizziness or lightheadedness occurs, take half a pill. - Follow up in a few weeks to evaluate the medication's effectiveness. - Report any concerning side effects immediately. Patient was informed and verbally consented to the use of an ambient scribe for clinic note documentation during this visit. Visit time spent on chart review, interview, assessment, orders, documentation. Coding Level of Care Code Est Pt Level 4 (11208) Complex EM visit Add On G2211 Diagnoses Palpitations R00.2 Sinus tachycardia R00.0 Hypertension I10 Time Spent (min) 28
[2024-10-31 10:29] VITALS: BP 110/72; PULSE 83; BMI 28.6
--- OUTSIDE RECORDS SUMMARY | 2024-10-31 11:49 | XMS_ITS | Encounter Summary ---
Author Organization [employer] Address 75 [facility] 7t [place] [address] Care Team Providers Care Plant Taxonomist Name Role Phone Luly Laguna MD Primary Care Provider +1- [phone] Alan Horowitz Unavailable Polly Bryant Unavailable Reason for Visit * Reason Comments Med Refill Encounter Details Date Type Department Care Team (Late st Contact Info) Description 01/19/2024 Refill [facility] MEDICINE [address] [place], [place] [phone] Gudelia Jaimes, ANP [address] [place], [place] [phone] Gastroesophageal reflux disease, unspecified whether esophagitis present [...] Care Team (Late st Contact Info) Description 11/06/2024 10:30 AM EDT Office Visit [facility] ADULT DENTAL [address] [place] [address] Chaya Bustamante DDS [address] [place] [address] 05/06/2025 1:00 PM EST Office Visit [facility] ADULT DENTAL [address] [place] [address] AdolphTasha [address] [place] [address] documented as of this encounter Visit Diagnoses Diagnosis Gastroesophageal reflux disease, unspecified whether esophagitis present- Primary documented in this encounter Additional Health Concerns Assessment Noted Time PHQ-9 Depression Total Score: 0 11/08/19 11:15 AM EDT documented as of this encounter Care Teams Plant Taxonomist Relationship Specialty Start Date End Date Luly Laguna MD [address] [place] [address] PCP - General Family Medicine 05/15/18 Alan Horowitz 175 [facility] 2nd Floor [address] [place] [address] Gastroenterology 06/18/24 Polly Bryant [address] [place] [address] Obstetrics and Gynecology 06/18/24 An Thomas Software Development ManagerBible Reader 01/22/24 documented as of this encounter
== END 2024-10-31 10:57 | disposition home or self-care (01) ==
LOC: HO.HCS 10:25
PROVIDERS: PCP Family Medicine; Visit Provider Nurse Practitioner Family
DX: R00.2 Palpitations (principal); R00.0 Tachycardia, unspecified; I10 Essential (primary) hypertension
CPT/HCPCS: 99214

== ENCOUNTER → 2024-10-31 10:25 | Outpatient (BNVA) | payer MEDICAID, SELFPAY | PROVIDERS: PCP Family Medicine; Visit Provider Nurse Practitioner Family | DX: R00.2 Palpitations (principal); R00.0 Tachycardia, unspecified; I10 Essential (primary) hypertension | CPT/HCPCS: 99212 ==

== ENCOUNTER 2024-11-08 07:23 | Outpatient (REF) | payer MEDICAID, SELFPAY ==
--- NOTE | ~2024-11-08 | XR_ITS ---
CLINICAL HISTORY: M25.569 - Pain in unspecified knee --- Additional Notes or Special Instructions: bilateral sunrise Left knee one view Comparison: None provided Findings: Single sunrise view of the patella. No acute bony abnormality noted. Significant abnormalities could go undetected. There is loss of joint space femoropatellar compartment. Impression: Single view of left patella is somewhat limited No acute bony abnormality identified This document has been electronically signed by: Robin Henson MD on 11/09/2024 20:34:59
--- NOTE | ~2024-11-08 | XR_ITS ---
CLINICAL HISTORY: M25.569 - Pain in unspecified knee --- Additional Notes or Special Instructions: bilateral sunrise Right knee one view Comparison: None provided Findings: I have a single image labeled left knee. This demonstrates just the left patella. Additional image submitted of both patella. However, images clipped and portions of both knees excluded. If right patellar assessment is needed, recommend repeat study. Impression: Nondiagnostic right patellar images This document has been electronically signed by: Robin Henson MD on 11/09/2024 21:13:36
--- OUTSIDE RECORDS SUMMARY | 2024-11-11 07:18 | XMS_ITS | Encounter Summary ---
Author Organization [employer] Address 75 [facility] 7t [place] [address] Care Team Providers Care Supervising Film Or Videotape Editor Name Role Phone Luly Laguna MD Primary Care Provider +1- [phone] Alan Horowitz Unavailable Manny Polly Unavailable Sandra Schaffer Unavailable Reason for Visit * Reason Comments Med Refill Encounter Details Date Type Department Care Team (Late st Contact Info) Description 01/19/2024 Refill [facility] MEDICINE [address] [place], [place] [phone] Gudelia Jaimes, ANP [address] [place], [place] [phone] Gastroesophageal reflux disease, unspecified whether esophagitis present [...] Care Team (Late st Contact Info) Description 05/06/2025 1:00 PM EST Office Visit [facility] ADULT DENTAL [address] [place] [address] Adolph, Tasha [address] [place] [address] documented as of this encounter Visit Diagnoses Diagnosis Gastroesophageal reflux disease, unspecified whether esophagitis present- Primary documented in this encounter Additional Health Concerns Assessment Noted Time PHQ-9 Depression Total Score: 0 11/08/19 23 11:15 AM EDT documented as of this encounter Care Teams Supervising Film Or Videotape Editor Relationship Specialty Start Date End Date Luly Laguna MD [address] [place] [address] PCP - General Family Medicine 05/15/18 Alan Horowitz 175 [facility] 2nd Floor [address] [place] [address] Gastroenterology 06/18/24 Polly Bryant [address] [address] Obstetrics and Gynecology 06/18/24 Sandra Schaffer [address] 3rd [place] [address] Cardiology 11/01/24 An Thomas AppliquerMixer Operator Tablets 01/22/24 documented as of this encounter
== END 2024-11-08 07:24 | disposition home or self-care (01) ==
LOC: HO.HOSX 07:23
PROVIDERS: PCP Family Medicine; Visit Provider Physician Assistant
DX: M17.0 Bilateral primary osteoarthritis of knee (principal)
CPT/HCPCS: 20610; 73560; 99212; J1010; J2003

== ENCOUNTER 2024-11-08 13:27 | Outpatient (AMB) | payer MEDICAID, SELFPAY ==
[2024-11-08 13:36] VITALS: BMI 28.5
--- NOTE | 2024-11-08 13:36 | A.OFFVIS_ITS ---
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 Patient reports ongoing pain for about 3 months and has not improved. She notices her pain is worse in the right knee and is worsen when she is bending, walking and using the stairs. Patient recalls walking for a prolong time and woke up with knee pain the following day. She was seen with her PCP who RX her prednisone. She takes tylenol to help with her pain . IMPRESSION: Mild medial compartment osteoarthrosis, bilaterally. Probable suprapatellar bursa joint effusion, left knee. 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 Tapia is a 59-year-old female who presents to the office today for bilateral knee pain. She reports pain for the last 3 months. Atraumatic in nature. She saw her PCP for this and was prescribed prednisone but this did not help. She is looking for additional treatment options today. [facility] Medical History (Updated 11/08/24 @ 14:25 by Keyla Stevenson PA-C) Depression Anxiety Hypertension No known health problems No known health problems Family History Father Stroke Mother No problems noted. Social History Current occupational status: unemployed Current occupation: Right Handed Physical Exam Vital Signs: BMI result Body Mass Index 28.5 Extrem Other: Bilateral knees mild effusion. Range of motion 0-90 degrees with crepitus. Pain with patellar grind and retropatellar tenderness. NVI. Office Procedures AMB Joint Injection/Aspiration Joint Injection/Aspiration Primary Site: right knee Secondary Site: left knee Prep: site was prepped using aseptic technique, ethochloride spray was applied and injection warnings given Injected: 80 mg of, DepoMedrol and with 8 mL of (2% plain lidocaine ) Approach Used: anterolateral Procedure: The patient tolerated the procedure well, but had some pain with the injection and there was some relief with the local anesthesia Coding 16924 - Bilateral Large Joint Procedure code (CPT) selection complete Assessment & Plan Assessment & Plan (1) Bilateral primary osteoarthritis of knee: Code(s): M17.0 - Bilateral primary osteoarthritis of knee Category: Medical Plan The patient was offered a cortisone injection in bilateral knees with 80 mg of DepoMedrol. The patient was explained the risks, benefits, and alternatives to receiving this injection. After receiving consent for the injection, the patient had the procedure done while in the office today. The patient tolerated the procedure well with no complications. Due to the patient?s history of diabetes, they were instructed to monitor their blood glucose level. The patient was informed that they could see a rise in their numbers and if the numbers became too high, they were instructed to call their PCP. The patient was also informed that they could have facial flushing as a side effect of the injection, but this will pass. Follow-up will be PRN, or sooner if needed X-rays of bilateral knees which were obtained while in the office today and were reviewed by me, Keyla Stevenson PA-C, revealed osteoarthritis. Orders: Orders XR knee LT 1V Today M25.569 - Pain in unspecified knee XR knee RT 1V Today M25.569 - Pain in unspecified knee Coding Level of Care Code New Pt Level 3 (80125) Diagnoses Bilateral primary osteoarthritis of knee M17.0 CPT Codes Coding - 37140 - Bilateral Large Joint: 26560 - Bilateral Large Joint ([id number])
== END 2024-11-08 14:36 | disposition home or self-care (01) ==
LOC: HO.HOS 13:28
PROVIDERS: PCP Family Medicine; Visit Provider Physician Assistant
DX: M17.0 Bilateral primary osteoarthritis of knee (principal)
CPT/HCPCS: 20610; 99203

== ENCOUNTER → 2024-11-08 13:45 | Outpatient (BNV) | payer MEDICAID, SELFPAY | PROVIDERS: Visit Provider Radiology Diagnostic Radiology | DX: M25.569 Pain in unspecified knee (principal) | CPT/HCPCS: 73560 ==

== ENCOUNTER 2024-12-19 09:58 | Outpatient (AMB) | payer MEDICAID, SELFPAY ==
[2024-12-19 10:18] VITALS: BP 120/72; PULSE 76; BMI 27.9
--- NOTE | 2024-12-19 10:18 | A.OFFVIS_ITS ---
Vital Signs 12/19/24 10:18 Height 5 ft 3 in Weight 157 lb 6.561 oz BMI 27.9 BP 120/72 Blood Pressure Location Rt brachial Position Sitting Pulse 76 Pulse Source Pulse Oximeter Intake Visit Reasons: 6-8 wk follow up Linderman Operator Required: Yes Linderman Operator Language: Environmental Technician Name: voice chong [id number] Allergies No Known Allergies Allergy (Mild, Unverified 12/19/24 10:20) NO KNOW ALLERGY Medication List - Last Reconciled 12/19/24 by Sandra Schaffer NP-C atorvastatin 20 mg PO DAILY cholecalciferol (vitamin D3) 25 mcg PO DAILY clonazepam (Klonopin) 0.25 mg PO BEDTIME diclofenac potassium 50 mg PO DAILY fluoxetine 20 mg PO DAILY metoprolol succinate ER 25 mg PO DAILY omeprazole 20 mg PO BID HPI HPI 6-8 wk follow up: Details: Mahogany is a 59-year-old female with past medical history of hypertension, palpitations, frequent sinus tachycardia who was started on metoprolol last visit and now presents for follow-up. Today she reports that she has been feeling much better with less heart palpitations. She no longer has concerning tachycardia. No lightheadedness, presyncope, syncope, falls. No chest discomfort at rest or with activity. No shortness of breath, PND, orthopnea or edema. She tries has been physically active and walking more. She is limited by bilateral knee pain which she says is arthritis. Taking meds as directed. [facility], [facility] Medical History Depression Anxiety Hypertension No known health problems No known health problems Family History Father Stroke Mother No problems noted. Social History Current occupational status: unemployed Current occupation: Right Handed Review of Systems Const All systems reviewed & are unremarkable except as noted in HPI and below ENT Denies dizziness Card Denies chest pain, Denies chest pain at rest, Denies chest pain with activity, Denies rapid heart rate, Denies pedal edema, Denies edema, Denies leg edema, Denies lightheadedness, Denies palpitations, Denies dyspnea, Denies dyspnea on exertion and Denies orthopnea Resp Denies cough, Denies dyspnea and Denies dyspnea on exertion GI Denies hematochezia and Denies change in stool character Musc Denies abnormal gait, Denies limited range of motion, Denies muscle cramps, Denies muscle weakness, Denies numbness, Denies radiating pain into limb, Denies stiffness and Denies tingling Neuro Denies abnormal gait, Denies dizziness, Denies numbness and Denies tingling Endo Denies palpitations Physical Exam Vital Signs: BMI result Body Mass Index 27.9 Const General: cooperative, healthy appearing, comfortable and no acute distress Orientation/consciousness: patient oriented x3 Neck Neck: Yes normal visual inspection Resp Effort & Inspection: normal respiratory effort Auscultation: clear to auscultation bilaterally, no crackles, no rales, no rhonchi and no wheezes Cardio Rate: regular rate Rhythm: regular rhythm Heart sounds: S1 normal heart sound present, S2 normal heart sound present, no gallops, no murmurs and no rubs Neuro General: patient oriented x3 Extrem General: Yes normal to inspection, No no pedal edema and No calf tenderness Psych Appearance: grossly normal Mental Status: mental status grossly normal Speech and movement: Normal speech and movement present Assessment & Plan Assessment & Plan (1) Palpitations: Code(s): R00.2 - Palpitations Category: Medical Plan: Prior Reports of heart palpitations like her heart is beating fast with finding of frequent sinus tachycardia. Echocardiogram done 08/29/2024 shows normal study, EF 60-65%. A cardiac event monitor 08/29/2024 worn for 28.5 days shows sinus rhythm with average heart rate 90 beats per minute with heart rate range 50 to 144 beats per minute frequent sinus tachycardia, 40% of the time heart rate greater than 100, one 5 beat NSVT, symptoms correlated with sinus rhythm. Metoprolol added following this result with resolution of her symptom. Pulse is 76 on exam today. Continue metoprolol XL 25 mg daily. Reviewed avoidance of caffeinated beverages. Maintain good hydration and physical activity. Cardiology follow-up 1 year, sooner if needed to reassess. (2) Sinus tachycardia: Code(s): R00.0 - Tachycardia, unspecified Category: Medical Plan: As above (3) Hypertension: Code(s): I10 - Essential (primary) hypertension Category: Medical Plan: Blood pressure goal less than 130/80, well controlled at this time. Continue metoprolol. Plan Time spent on chart review, documentation, interview and assessment Coding Level of Care Code Est Pt Level 3 (15827) Complex EM visit Add On G2211 Diagnoses Palpitations R00.2 Sinus tachycardia R00.0 Hypertension I10 Time Spent (min) 22
--- OUTSIDE RECORDS SUMMARY | 2024-12-19 10:26 | XMS_ITS | Encounter Summary ---
Author Organization [employer] Address [address] [facility] 7t [place] [address] Care Team Providers Care Access Spec Name Role Phone Luly Laguna MD Primary Care Provider +1- [phone] Alan Horowitz Unavailable Manny Polly Unavailable Karime, Sandra Unavailable Elva Keyla Unavailable Reason for Visit * Reason Comments Med Refill Encounter Details Date Type Department Care Team (Late st Contact Info) Description 01/19/2024 Refill [facility] MEDICINE 230 [place], [place] [phone] Gudelia Jaimes, ANP 230 [place], [place] [phone] Gastroesophageal reflux disease, unspecified whether esophagitis present [...] Description 05/06/2025 1:00 PM EST Office Visit [facility] ADULT DENTAL 230 [place] [address] Adolph, Tasha 230 [place] [address] documented as of this encounter Visit Diagnoses Diagnosis Gastroesophageal reflux disease, unspecified whether esophagitis present- Primary documented in this encounter Additional Health Concerns Assessment Noted Time PHQ-9 Depression Total Score: 0 11/08/19 23 11:15 AM EDT documented as of this encounter Care Teams Access Spec Relationship Specialty Start Date End Date Luly Laguna MD 230 [place] [address] PCP - General Family Medicine 05/15/18 Alan Horowitz 175 [facility] 2nd Floor [address] [place] [address] Gastroenterology 06/18/24 Polly Bryant [address] [address] Obstetrics and Gynecology 06/18/24 Sandra Schaffer [address] 3rd [place] [id number] Cardiology 11/01/24 Keyla Stevenson [address] [place] [address] [address] [place] [id number] Orthopaedic Surgery 11/14/24 An Thomas Brick OffbearerNumerical Control Router Operator 01/22/24 documented as of this encounter
== END 2024-12-19 10:45 | disposition home or self-care (01) ==
LOC: HO.HCS 09:58
PROVIDERS: PCP Family Medicine; Visit Provider Nurse Practitioner Family
DX: R00.2 Palpitations (principal); R00.0 Tachycardia, unspecified; I10 Essential (primary) hypertension
CPT/HCPCS: 99213

== ENCOUNTER → 2024-12-19 09:58 | Outpatient (BNVA) | payer MEDICAID, SELFPAY | PROVIDERS: PCP Family Medicine; Visit Provider Nurse Practitioner Family | DX: R00.2 Palpitations (principal); R00.0 Tachycardia, unspecified; I10 Essential (primary) hypertension | CPT/HCPCS: 99212 ==

== ENCOUNTER 2025-02-11 15:04 | Outpatient (AMB) | payer MEDICAID, SELFPAY ==
--- NOTE | 2025-02-11 15:47 | A.OFFVIS_ITS ---
Intake Visit Reasons: Inj- B/L knee last inj- 11/08/24 Allergies No Known Allergies Allergy (Mild, Unverified 12/19/24 10:20) NO KNOW ALLERGY HPI HPI Inj- B/L knee last inj- 11/08/24: Details: Ms. Tapia is a 59-year-old female who presents to the office today for chronic bilateral knee pain. Last cortisone injection was performed on 11/08/2024. She is looking to repeat injections while in the office today. She reports that she received about a month and a half of relief from the prior injections. [facility] Medical History Depression Anxiety Hypertension No known health problems No known health problems Family History Father Stroke Mother No problems noted. Social History Current occupational status: unemployed Current occupation: Right Handed Review of Systems Const All systems reviewed & are unremarkable except as noted in HPI and below Physical Exam Const General: cooperative, healthy appearing and no acute distress Resp Effort & Inspection: normal respiratory effort and able to speak in complete sentences Extrem Other: Bilateral knees mild effusion. Range of motion 0-90 degrees with crepitus. Pain with patellar grind and retropatellar tenderness. NVI. Psych Appearance: grossly normal Mental Status: mental status grossly normal Attitude: cooperative Office Procedures AMB Joint Injection/Aspiration Joint Injection/Aspiration Primary Site: right knee Secondary Site: left knee Prep: site was prepped using aseptic technique, ethochloride spray was applied and injection warnings given Injected: 40 mg of, with 3 mL of, 1% plain lidocaine, 0.25% bupivacaine, in the joint and decadron Approach Used: anterolateral Procedure: The patient tolerated the procedure well, but had some pain with the injection and there was some relief with the local anesthesia Coding 72515 - Bilateral Large Joint Procedure code (CPT) selection complete Assessment & Plan Assessment & Plan (1) Bilateral primary osteoarthritis of knee: Code(s): M17.0 - Bilateral primary osteoarthritis of knee Category: Medical Plan Ms. Tapia is a 59-year-old female who presents to the office today for chronic bilateral knee pain. Last cortisone injection was performed on 11/08/2024. She is looking to repeat injections while in the office today. She reports that she received about a month and a half of relief from the prior injections. The patient was offered a cortisone injection in bilateral knees. The patient was explained the risks, benefits, and alternatives to receiving this injection. After receiving consent for the injection, the patient had the procedure done while in the office today. The patient tolerated the procedure well with no complications. Follow-up will be PRN, or sooner if needed Orders: Referrals 2 Podiatry Referral M79.671 - Pain in right foot Coding Level of Care Code Est Pt Level 3 (74773) Diagnoses Bilateral primary osteoarthritis of knee M17.0 CPT Codes Coding - 22599 - Bilateral Large Joint: 33461 - Bilateral Large Joint ([id number])
--- OUTSIDE RECORDS SUMMARY | 2025-02-11 16:28 | XMS_ITS | Encounter Summary ---
Author Organization [employer] Address [address] [facility] 7t [place] [address] Care Team Providers Care Jewelry Drilling Machine Operator Name Role Phone Luly Laguna MD Primary Care Provider +1- [phone] Musjes Alna Zayda Unavailable KristaPolly gary Unavailable Sandra Schaffer Unavailable Keyla Stevenson Unavailable Encounter Details Date Type Department Care Team (Late st Contact Info) Description 11/24/[address] [facility] MEDICINE 230 [place], [place] [phone] Luly Laguna MD 230 [place], [place] [phone] Social History Tobacco Use Types Packs/Day Years [...] Care Team (Late st Contact Info) Description 07/02/2025 10:00 AM EST Office Visit [facility] ADULT DENTAL 230 [place] [address] Tasha Farfan 230 [place] [address] documented as of this encounter Visit Diagnoses Not on filedocumented in this encounter Additional Health Concerns Assessment Noted Time PHQ-9 Depression Total Score: 0 11/08/19 11:15 AM EDT documented as of this encounter Care Teams Jewelry Drilling Machine Operator Relationship Specialty Start Date End Date Luly Laguna MD 230 [place] [address] PCP - General Family Medicine 05/15/18 Alan Horowitz 175 [facility] 2nd Floor [address] [place] [address] Gastroenterology 06/18/24 Polly Bryant [address] [address] Obstetrics and Gynecology 06/18/24 Sandra Schaffer 11 [facility] 3rd [place] [address] Cardiology 11/01/24 Keyla Stevenson [address] [place] [address] Orthopaedic Surgery 11/14/24 An Thomas Drawer Hardware WorkerBottle Label Inspector 01/22/24 documented as of this encounter
--- OUTSIDE RECORDS SUMMARY | 2025-02-11 16:28 | XMS_ITS | Encounter Summary ---
Author Organization [employer] Address [address] [facility] 7t [place] [address] Care Team Providers Care Expressive Therapist Name Role Phone Luly Laguna MD Primary Care Provider +1- [phone] Musjes Alan Zayda Unavailable KristaPolly gary Unavailable Sandra Schaffer Unavailable Keyla Stevenson Unavailable Encounter Details Date Type Department Care Team (Late st Contact Info) Description 11/24/2022 Abstract [facility] MEDICINE 230 [place], [place] [phone] Luly Laguna MD 230 [place], [place] [phone] Social History Tobacco Use Types Packs/Day Years [...] Description 07/02/2025 10:00 AM EST Office Visit [facility] ADULT DENTAL 230 [place] [address] Tasha Farfan 230 [place] [address] documented as of this encounter Visit Diagnoses Not on filedocumented in this encounter Additional Health Concerns Assessment Noted Time PHQ-9 Depression Total Score: 0 11/08/19 11:15 AM EDT documented as of this encounter Care Teams Expressive Therapist Relationship Specialty Start Date End Date Luly Laguna MD 230 [place] [address] PCP - General Family Medicine 05/15/18 Alan Horowitz 175 [facility] 2nd Floor [address] [place] [address] Gastroenterology 06/18/24 Polly Bryant [address] [address] Obstetrics and Gynecology 06/18/24 Sandra Schaffer 11 [facility] 3rd [place] [address] Cardiology 11/01/24 Keyla Stevenson [address] [facility] [address] [place] [address] Orthopaedic Surgery 11/14/24 An Thomas Crisis ManagerKiln Operator Helper 01/22/24 documented as of this encounter
--- OUTSIDE RECORDS SUMMARY | 2025-02-11 16:28 | XMS_ITS | Encounter Summary ---
Author Organization [employer] Address [address] [place] [address] 7t [place] [address] Care Team Providers Care Cloth Grader Name Role Phone Luly Laguna MD Primary Care Provider +1- [phone] Alan Horowitz Unavailable Manny Polly Unavailable Karime, Sandra Unavailable Evla Keyla Unavailable Reason for Visit * Reason Comments Med Refill Encounter Details Date Type Department Care Team (Late st Contact Info) Description 02/05/2025 Refill [facility] MEDICINE 230 [place], [place] [phone] Daya Matta MD 230 [place], [place] [phone] Anxiety Social History Tobacco Use Types Packs/Day Years [...] housing situation today? I have kemal vieira 09/18/[address] you [...] Description 07/02/2025 10:00 AM EST Office Visit [facility] ADULT DENTAL 230 [place] [address] Adolph, Tasha 230 [place] [address] documented as of this encounter Visit Diagnoses Diagnosis Anxiety Anxiety state, unspecified documented in this encounter Additional Health Concerns Assessment Noted Time PHQ-9 Depression Total Score: 3 03/25/20 24 11:38 AM EST documented as of this encounter Care Teams Cloth Grader Relationship Specialty Start Date End Date Luly Laguna MD 230 [place] [address] PCP - General Family Medicine 05/15/18 Alan Horowitz 175 [facility] 2nd Floor [address] [place] [address] Gastroenterology 06/18/24 Polly Bryant [address] [place] [address] Obstetrics and Gynecology 06/18/24 Sandra Schaffer [address] [place] [address] 3rd [place] [address] Cardiology 11/01/24 Keyla Stevenson [address] [place] [address] Dr [address] [place] [address] Orthopaedic Surgery 11/14/24 An Thomas Etl Informatica DeveloperProduction Dispatcher 01/22/24 documented as of this encounter
--- OUTSIDE RECORDS SUMMARY | 2025-02-11 16:28 | XMS_ITS | Encounter Summary ---
Author Organization [employer] Address [address] [facility] 7t [place] [address] Care Team Providers Care Warehouse Assembly Worker Name Role Phone Luly Laguna MD Primary Care Provider +1- [phone] CampbelljesAlan Unavailable Manny Polly Unavailable Sandra Schaffer Unavailable Keyla Stevenson Unavailable Reason for Visit * Reason Onset Date Comments Telephone Call 11/22/2024 Durable Medical Equipment 11/22/2024 Encounter Details Date Type Department Care Team (Late st Contact Info) Description 11/22/2024 Telephone [facility] MEDICINE 230 [place], [place] [phone] Luly Laguna MD 230 [place], [place] [phone] Telephone Call ; Durable Medical Equipment Social History Tobacco Use Types Packs/Day Years [...] AM EDT documented as of this encounter Miscellaneous Notes * Telephone Encounter - Jesenia Momin - 02/11/2025 10:34 AM EDT Please see message from [facility], below and advise. If agree, please provide diagnosis and notes to support the need for orthopedic shoes and cane. Thank you * Telephone Encounter - Emmie Nguyen - 02/10/2025 10:01 AM EDT Tc from [facility] requesting status on DME in prior message Contact Radhika at [phone] * Telephone Encounter - Kaya Mancilla - 11/22/2024 2:54 PM EDT Incoming call from [facility], pt is requesting a rx for new blood pressure machine, a cane and orthopedicshoes. Call back number is [phone]. Thanks. Kaya Medina documented in this encounter Plan of Treatment Upcoming Encounters Date Type Department Care Team (Late st Contact Info) Description 07/02/2025 10:00 AM EST Office Visit [facility] ADULT DENTAL 230 [place] [address] Adolph, Tasha 230 [place] [address] documented as of this encounter Visit Diagnoses Diagnosis Essential hypertension Unspecified essential hypertension documented in this encounter Additional Health Concerns Assessment Noted Time PHQ-9 Depression Total Score: 3 03/25/20 24 11:38 AM EST documented as of this encounter Care Teams Warehouse Assembly Worker Relationship Specialty Start Date End Date Luly Laguna MD 230 [place] [address] PCP - General Family Medicine 05/15/18 Alan Horowitz 175 [facility] 2nd Floor [address] [place] [address] Gastroenterology 06/18/24 Polly Bryant 271 [facility] 1stfloor [place] [address] Obstetrics and Gynecology 06/18/24 Sandra Schaffer [address] [facility] [address] 3rd [place] [address] Cardiology 11/01/24 Keyla Stevenson [address] [place] [address] [address] [place] [address] Orthopaedic Surgery 11/14/24 An Thomas Water Resources Program DirectorLining Finisher 01/22/24 documented as of this encounter
--- OUTSIDE RECORDS SUMMARY | 2025-02-11 16:28 | XMS_ITS | Encounter Summary ---
Author Organization [employer] Address [address] [facility] 7t [place] [address] Care Team Providers Care Block Breaker Operator Name Role Phone Luly Laguna MD Primary Care Provider +1- [phone] Alan Horowitz Unavailable Manny Polly Unavailable Karime, Sandra Unavailable Elva Keyla Unavailable Reason for Visit * Reason Comments Med Refill Encounter Details Date Type Department Care Team (Late st Contact Info) Description 01/19/2024 Refill [facility] MEDICINE 230 [place], [place] [phone] Gudelia Jaimes, ANP 230 [place], [place] [phone] Gastroesophageal reflux disease, unspecified whether esophagitis present [...] Description 07/02/2025 10:00 AM EST Office Visit [facility] ADULT DENTAL 230 [place] [address] Adolph, Tasha 230 [place] [address] documented as of this encounter Visit Diagnoses Diagnosis Gastroesophageal reflux disease, unspecified whether esophagitis present- Primary documented in this encounter Additional Health Concerns Assessment Noted Time PHQ-9 Depression Total Score: 0 11/08/19 23 11:15 AM EDT documented as of this encounter Care Teams Block Breaker Operator Relationship Specialty Start Date End Date Luly Laguna MD 230 [place] [address] PCP - General Family Medicine 05/15/18 Alan Horowitz 175 [facility] 2nd Floor [address] [place] [address] Gastroenterology 06/18/24 Polly Bryant [address] [address] Obstetrics and Gynecology 06/18/24 Sandra Schaffer [address] [facility] [address] [place] [address] Cardiology 11/01/24 Keyla Stevenson [address] [place] [address] [address] [place] [address] Orthopaedic Surgery 11/14/24 An Thomas Manufacturing Quality InspectorLadies Locker Room Attendant 01/22/24 documented as of this encounter
--- OUTSIDE RECORDS SUMMARY | 2025-02-11 16:28 | XMS_ITS | Encounter Summary ---
Author Organization [employer] Address [address] [facility] 7t [place] [address] Care Team Providers Care Tap Dancer Name Role Phone Luly Laguna MD Primary Care Provider +1- [phone] MusjesAlan Unavailable KristaPolly gary Unavailable Sandra Schaffer Unavailable ElvaKeyla Unavailable Reason for Visit * Reason Comments Med Change Request Encounter Details Date Type Department Care Team (Late st Contact Info) Description 11/07/2022 Refill [facility] MEDICINE 230 [place], [place] [phone] Luly Laguna MD 230 [place], [place] [phone] Social History Tobacco Use Types Packs/Day Years [...] television Not at all 11/07/2022 11:15 AM iVcki Franklin M A Moving or speaking so [...] 10:00 AM EST Office Visit [facility] ADULT DENTAL 230 [place] [address] Tasha Farfan [address] [place] [address] documented as of this encounter Visit Diagnoses Not on filedocumented in this encounter Additional Health Concerns Assessment Noted Time PHQ-9 Depression Total Score: 0 11/08/19 23 11:15 AM EDT documented as of this encounter Care Teams Tap Dancer Relationship Specialty Start Date End Date Luly Laguna MD 230 [place] [address] PCP - General Family Medicine 05/15/18 Alan Horowitz 175 [facility] 2nd Floor [address] [place] [address] Gastroenterology 06/18/24 Polly Bryant [address] [facility] [address] [place] [address] Obstetrics and Gynecology 06/18/24 Sandra Schaffer [address] [place] [address] [address] [place] [address] Cardiology 11/01/24 Keyla Stevenson [address] [place] [address] Dr [address] [place] [address] Orthopaedic Surgery 11/14/24 An Thomas Labor Law ProfessorRaw Stock Drier Tender 01/22/24 documented as of this encounter
--- OUTSIDE RECORDS SUMMARY | 2025-02-11 16:28 | XMS_ITS | Encounter Summary ---
Author Organization [employer] Address [address] [facility] 7t [place] [address] Care Team Providers Care Business Information Manager Name Role Phone Luly Laguna MD Primary Care Provider +1- [phone] MusAlan andre Unavailable Polly Bryant Unavailable Karime, Sandra Unavailable Elva, Keyla Unavailable Encounter Details Date Type Department Care Team (Late st Contact Info) Description 07/01/2022 Orders Only [facility] MED & PEDS [address] [place], [place] [phone] Lora Russell LPN Social History Tobacco Use [...] Encounters Date Type Department Care Team (Late Contact Info) Description 07/02/2025 10:00 AM EST Office Visit [facility] ADULT DENTAL 230 [place] [address] Tasha Farfan 230 [place] [address] documented as of this encounter Visit Diagnoses Not on filedocumented in this encounter Care Teams Business Information Manager Relationship Specialty Start Date End Date Luly Laguna MD 230 [place] [address] PCP - General Family Medicine 05/15/18 Alan Horowitz 175 [facility] 2nd Floor [address] [place] [address] Gastroenterology 06/18/24 Polly Bryant 271 [facility] 1stfloor [place] [address] Obstetrics and Gynecology 06/18/24 Sandra Schaffer [address] [facility] 3rd [place] [address] Cardiology 11/01/24 Keyla Stevenson [address] [place] [address] Dr [address] [place] [address] Orthopaedic Surgery 11/14/24 An Thomas Individualized Education Plan AideManager Strategy & Account 01/22/24 documented as of this encounter
--- OUTSIDE RECORDS SUMMARY | 2025-02-11 16:28 | XMS_ITS | Encounter Summary ---
Author Organization [employer] Address 75 [facility] 7t [place] [address] Care Team Providers Care Technical Applications Specialist Name Role Phone Luly Laguna MD Primary Care Provider +1- [phone] Alan Horowitz Unavailable Manny Polly Unavailable Sandra Schaffer Unavailable Elva, Keyla Unavailable Encounter Details Date Type Department Care Team (Late st Contact Info) Description 06/18/2024 Orders Only [facility] [address] [place] [address] Luly Laguna MD [address] [place], [place] [phone] Abnormal colonoscopy (Primary Dx) Social History Tobacco [...] Description 07/02/2025 10:00 AM EST Office Visit [facility] ADULT DENTAL [address] [place] [address] Adolph, Tasha [address] [place] [address] documented as of this encounter Visit Diagnoses Diagnosis Abnormal colonoscopy- Primary documented in this encounter Additional Health Concerns Assessment Noted Time PHQ-9 Depression Total Score: 3 03/25/20 24 11:38 AM EST documented as of this encounter Care Teams Technical Applications Specialist Relationship Specialty Start Date End Date Luly Laguna MD [address] [place] [address] PCP - General Family Medicine 05/15/18 Alan Horowitz 175 [facility] 2nd Floor [address] [place] [address] Gastroenterology 06/18/24 Polly Bryant [address] [address] Obstetrics and Gynecology 06/18/24 Sandra Schaffer 11 [facility] 3rd [place] [address] Cardiology 11/01/24 Keyla Stevenson [address] [place] [address] Dr [address] [place] [address] Orthopaedic Surgery 11/14/24 An Thomas Php Mysql DeveloperLap Runner 01/22/24 documented as of this encounter
--- OUTSIDE RECORDS SUMMARY | 2025-02-11 16:28 | XMS_ITS | Encounter Summary ---
Author Organization [employer] Address 75 [facility] 7t [place] [address] Care Team Providers Care Price Changer Name Role Phone Luly Laguna MD Primary Care Provider + [phone] MusAlan andre Unavailable KristaPolly gary Unavailable Sandra Schaffer Unavailable Keyla Stevenson Unavailable Encounter Details Date Type Department Care Team (Late st Contact Info) Description 05/29/2022 Abstract [facility] MEDICINE [address] [place], [place] [phone] Luly Laguna MD [address] [place], [place] [phone] Social History Tobacco Use Types Packs/Day Years [...] Description 07/02/2025 10:00 AM EST Office Visit [facility] ADULT DENTAL [address] [place], [place] [phone] Tasha Farfan [address] [place], [place] [phone] documented as of this encounter Procedures Procedure Name Priority Date/Time Associated Diagnosis Comments MAMMOGRAPHY Routine 03/01/2022 PAP/HPV Routine 08/11/2016 COLONOSCOPY Routine 04/24/2014 documented in this encounter Results * Mammography (03/01/2022) Mammogram normal Anatomical Region Laterality Modality Other Historical Provider HEALTH MAINTENANCE Final Result * Pap Smear (08/11/2016) Pap smear ILM HPV neg Polly Treadwell [facility] Provider HEALTH MAINTENANCE Final Result * Colonoscopy (04/24/2014) Colonoscopy normal with Dr. Sawant [facility] Provider HEALTH MAINTENANCE Final Result documented in this encounter Visit Diagnoses Not on filedocumented in this encounter Care Teams Price Changer Relationship Specialty Start Date End Date Luly Laguna MD [address] [place] [address] PCP - General Family Medicine 05/15/18 Alan Horowitz 175 [facility] 2nd Floor [address] [place] [address] Gastroenterology 06/18/24 Polly Bryant [address] [place] [address] Obstetrics and Gynecology 06/18/24 Sandra Schaffer 11 [facility] 3rd [place] [address] Cardiology 11/01/24 Keyla Stevenson [address] [place] [address] Dr [address] [place] [address] Orthopaedic Surgery 11/14/24 An Thomas Rn Complex CareControl Supervisor 01/22/24 documented as of this encounter
--- OUTSIDE RECORDS SUMMARY | 2025-02-11 16:28 | XMS_ITS | Encounter Summary ---
Author Organization [employer] Address 75 [facility] 7t [place] [address] Care Team Providers Care Welfare Supervisor Name Role Phone Luly Laguna MD Primary Care Provider +1- [phone] Alan Horowitz Unavailable KristaPolly gary Unavailable Sandra Schaffer Unavailable ElvaKeyla Unavailable Reason for Visit * Reason Comments Med Refill Encounter Details Date Type Department Care Team (Late st Contact Info) Description 02/05/[address] [facility] MEDICINE [address] [place], [place] [phone] Luly Laguna MD 230 [place], [place] [phone] Vitamin D deficiency Social History Tobacco Use Types Packs/Day Years [...] AM EST Office Visit [facility] ADULT DENTAL [address] [place] [address] Adolph, Tasha [address] [place] [address] documented as of this encounter Visit Diagnoses Diagnosis Vitamin D deficiency documented in this encounter Additional Health Concerns Assessment Noted Time PHQ-9 Depression Total Score: 3 03/25/20 24 11:38 AM EST documented as of this encounter Care Teams Welfare Supervisor Relationship Specialty Start Date End Date Luly Laguna MD 230 [place] [address] PCP - General Family Medicine 05/15/18 Alan Horowitz 175 [facility] 2nd Floor [address] [place] [address] Gastroenterology 06/18/24 Polly Bryant [address] [place] [address] Obstetrics and Gynecology 06/18/24 Sandra Schaffer [address] [place] [address] 3rd [place] [address] Cardiology 11/01/24 Keyla Stevenson [address] [place] [address] Dr [address] [place] [address] Orthopaedic Surgery 11/14/24 An Thomas Certified Medicine AideAddiction Medicine Physician 01/22/24 documented as of this encounter
--- OUTSIDE RECORDS SUMMARY | 2025-02-11 16:28 | XMS_ITS | Encounter Summary ---
Author Organization [employer] Address 75 [facility] 7t [place] [address] Care Team Providers Care Auto Slip Cover Installer Name Role Phone Luly Laguna MD Primary Care Provider +1- [phone] Musjes Alan Zayda Unavailable KristaPolly gary Unavailable Sandra Schaffer Unavailable Keyla Stevenson Unavailable Encounter Details Date Type Department Care Team (Late st Contact Info) Description 11/24/2022 Abstract [facility] MEDICINE 230 [place], [place] [phone] Luly Laguna MD 230 [place], [place] [phone] Social History Tobacco Use Types Packs/Day Years [...] Description 07/02/2025 10:00 AM EST Office Visit [facility] ADULT DENTAL 230 [place] [address] Tasha Farfan 230 [place] [address] documented as of this encounter Visit Diagnoses Not on filedocumented in this encounter Additional Health Concerns Assessment Noted Time PHQ-9 Depression Total Score: 0 11/08/19 11:15 AM EDT documented as of this encounter Care Teams Auto Slip Cover Installer Relationship Specialty Start Date End Date Luly Laguna MD [address] [place] [address] PCP - General Family Medicine 05/15/18 Alan Horowitz 175 [facility] 2nd Floor [address] [place] [address] Gastroenterology 06/18/24 Polly Bryant [address] [address] Obstetrics and Gynecology 06/18/24 Sandra Schaffer 11 [facility] 3rd [place] [address] Cardiology 11/01/24 Keyla Stevenson [address] [facility] [address] [place] [address] Orthopaedic Surgery 11/14/24 An Thomas Plywood PatcherLawn Care Professional 01/22/24 documented as of this encounter
--- OUTSIDE RECORDS SUMMARY | 2025-02-11 16:28 | XMS_ITS | Clinical Summary ---
Author Organization [employer] Address 75 [facility] 7t [place] [address] Care Team Providers Care Life Insurance Actuary Name Role Phone Luly Laguna MD Primary Care Provider +1- [phone] Alan Horowitz Unavailable Polly rByant Unavailable Karime, Sandra Unavailable Elva, Keyla Unavailable Allergies No known active allergies Medications ibuprofen 400 MG tabletIndication s:Streptococcal pharyngitis Take 1 tablet (400 mg) by mouth every 6 (six) hours if needed for moderate pain or fever for up to 30 doses. 30 tablet 11/08/19 23 Active FLUoxetine (PROzac) 20 MG capsuleIndicatio ns:Depressive disorder TAKE 2 CAPSULES BY MOUTH EVERY MORNING 60 capsule 11 12/21/19 24 Active predniSONE (Deltasone) 20 MG tabletIndication s:Right knee pain, unspecified chronicity,Pain and swelling of left knee 2 tabs po daily for 5 days 10 tablet 08/30/19 25 Active Acetaminophen Extra Strength 500 MG tabletIndication s:Chronic pain of both knees TAKE 2 TABLETS (1,000 MG) BY MOUTH EVERY 6 (SIX) HOURS IF NEEDED FOR MODERATE PAIN OR FEVER. 240 tablet 11/15/19 25 Active Blood Pressure kitIndications:E ssential hypertension 1 each Once per day. Use to check blood pressure once daily 1 kit 11/27/19 25 Active atorvastatin (Lipitor) 20 MG tabletIndication s:Dyslipidemia TAKE 1 TABLET BY MOUTH EVERY DAY 90 tablet 3 01/10/20 25 Active omeprazole (PriLOSEC) [address] capsuleIndicatio ns:Gastroesophag eal reflux disease, unspecified whether esophagitis present TAKE 1 CAPSULE BY MOUTH TWICE A DAY 180 capsule 01/11/20 25 Active cholecalciferol (Vitamin D-[address]) 25 MCG (1000 UT) tabletIndication s:Vitamin D deficiency TOME 1 TABLETA POR VIA ORAL TODOS LOS MARTINEZ 90 tablet 01/25/20 25 Active clonazePAM (KlonoPIN) 0.5 MG tabletIndication s:Anxiety TOME 1 TABLETA POR VIA ORAL DOS VECES AL VANESSA CUANDO SEA NECESARIO PARA LA ANSIEDAD 56 tablet 02/07/20 25 Active diclofenac (Cataflam) 50 MG tabletIndication s:Chronic pain of both knees TOME 1 TABLETA POR VIA ORAL DOS VECES AL VANESSA 60 tablet 02/11/20 25 Active cholecalciferol (Vitamin D-[address]) 25 MCG (1000 UT) tabletIndication s:Vitamin D deficiency TOME 1 TABLETA POR VIA ORAL TODOS LOS MARTINEZ 90 tablet 10/17/19 25 025 Discontinued diclofenac (Cataflam) 50 MG tabletIndication s:Chronic pain of both knees TAKE 1 TABLET BY MOUTH TWICE A DAY 60 tablet 11/15/19 25 025 Discontinued clonazePAM (KlonoPIN) 0.5 MG tabletIndication s:Anxiety TOME 1 TABLETA POR VIA ORAL DOS VECES AL VANESSA CUANDO SEA NECESARIO PARA LA ANSIEDAD 56 tablet 01/11/20 25 025 Discontinued Active Problems Problem Noted Date Diagnosed Date Right knee pain 08/29/2024 Overview (11/15/2024): Pain and decreased ROM to right knee. No increased warmth, swelling, or effusion on exam. -ordered XR right knee 08/29/24 -seen by Keyla mitchell 11/08/24 s/p cortisone injection in bilateral knees with 80 mg of DepoMedrol. -xr 11/14/24 right knee unrearkable Assessment & Plan (08/29/2024 1:31 PM EDT): Pain and decreased ROM to right knee. No increased warmth, swelling, or effusion on exam. -ordered XR right knee 08/29/24 Pain and swelling of left knee 08/29/2024 Overview (11/14/2024): Suspect mild joint inflammation versus joint strain. No effusion on exam. No increased warmth, Appreciated swelling, tenderness and decreased ROM. -ordered left knee XR 08/29/24 -prescribed predniSONE (Deltasone) 20 MG 08/29/24 XR 08/29/24 IMPRESSION: Mild medial compartment osteoarthrosis, bilaterally. Probable suprapatellar bursa joint effusion, left knee. -Encouraged to follow-up with Orthopedist. -seen by Keyla mitchell 11/08/24 s/p cortisone injection in bilateral knees with 80 mg of DepoMedrol. Assessment & Plan (08/29/2024 4:23 PM EDT): [...] saturated fat, and sodium. Palpitations 03/25/2024 Overview (12/19/2024): Seen on 02/09/24 in [facility] for palpitations with associated SOB. Symptoms appeared episodic and random. Labs reassuring and referred to cardiology. Followed by Pamella Woods NP. -Holter monitor done 02/26/2025 for 1-1/2 days shows sinus rhythm with average heart rate 85, rare SVE, 1 PVC. -A cardiac event monitor 08/29/2024 05/18/2019 8.5 days shows sinus rhythm with average heart rate 90 beats per minute with heart rate range 50 to 144 beats per minute frequent sinus tachycardia, 40% of the time heart rate greater than 100, one 5 beat NSVT, symptoms correlated with sinus rhythm. -Echocardiogram done 08/29/2024 shows normal study, EF 60-65%. Due to her concerns over rapid heartbeats will start on metoprolol XL 25 mg daily. Avoidance of caffeinated beverages. Maintain good hydration and physical activity. -note with Johanne Woods 10/31/24: her rapid heartbeat is not currently a cause for concern and does not require medication unless it causes significant anxiety. After further discussion, we decided to try metoprolol Succinate 25mg daily to help manage her symptoms, with instructions to take one pill daily and adjust the dose if side effects occur. I advised her to follow up in a few weeks to assess the medication's effectiveness and to report any side effects. -note with Sandra Schaffer NP Metoprolol with resolution of her symptom. Pulse was 76 on exam . Continue metoprolol XL 25 mg daily. Reviewed avoidance of caffeinated beverages. Maintain good hydration and physical activity. Cardiology follow-up 1 year, sooner if needed to reassess. Assessment & Plan (08/29/2024 1:26 PM EDT): Seen on 02/09/24 in [facility] for palpitations with associated SOB. Symptoms appeared episodic and random. Check Holter. EKG here sinus no ST changes. Ordered TSH W/Reflex to FT4, CBC auto differential, Basic Metabolic Panel. -Will refer to cardiology for longer monitor 03/25/24 -08/30/23 currently has extended appliance service supervisor for 30 days, will follow-up with cardiology [...] repeat colonoscopy in 10 years. Done at [facility] with Dr. Alan Horowitz MD [...] Carrasco, notes requested 11/07/2022 -dental home is [facility] -Health care Proxy 03/25/24 Assessment & Plan (03/26/2024 1:39 PM EST): -next annual exam due after 03/25/25 -eye care facilitated by Dr. Carrasco, notes requested 11/07/2022 -dental home is [facility] - Health care Proxy 03/25/24 Assessment & Plan (11/07/2022 12:56 PM EDT): -next physical exam due after 11/08/2023 -eye care facilitated by Dr. Carrasco, notes requested 11/07/2022 -dental home is [facility] Dyslipidemia 11/07/2022 Overview (09/18/2024): Lab Results Component [...] Overview (09/18/2024): Lab Results Component Value Date [id number] 52.8 03/25/2024 [id number] 29.9 (L) 05/04/2023 Mass of oral cavity [...] Encounters Date Type Department Care Team Description 02/07/2025 Refill [facility] [address] [place] [address] Luly Laguna MD Chronic pain of both knees 02/05/2025 Refill [facility] [address] [place] [address] Luly Laguna MD Vitamin D deficiency 02/05/2025 Refill [facility] [address] [place] [address] Daya Matta MD Anxiety 01/24/2025 Refill [facility] [address] [place] [address] Luly Laguna MD Vitamin D deficiency 01/10/2025 Refill [facility] [address] [place] [address] Luly Laguna MD Gastroesophageal reflux disease, unspecified whether esophagitis present 01/09/2025 Refill [facility] [address] [place] [address] Daya Matta MD Anxiety; Gastroesophageal reflux disease, unspecified whether esophagitis present 01/09/2025 Refill [facility] [address] [place] [address] Luly Laguna MD Dyslipidemia 12/25/2024 1:00 PM EDT Office Visit [facility] ADULT DENTAL [address] [place] [address] Marta Huang 12/02/2024 Refill [facility] [address] [place] [address] Luly Laguna MD Anxiety 11/22/2024 Telephone [facility] [address] [place] [address] Luly Laguna MD Telephone Call ; Durable Medical Equipment 11/14/2024 Refill [facility] [address] [place] [address] Nury Brower NP Chronic pain of both knees from Last 3 Months Immunizations Immunization Administration [...] Sign Reading Time Taken Comments Blood Pressure 116/72 12/25/2024 1:03 PM EDT Pulse 78 12/25/2024 1:03 PM EDT Temperature 36.7 C (98.1 F) 10/18/2024 12:57 PM EDT Respiratory Rate 17 10/18/2024 12:57 PM EDT Oxygen Saturation 96% 10/18/2024 12:57 PM EDT Inhaled Oxygen Concentration - - Weight 73.3 kg (161 lb 9.6 oz) 10/18/2024 12:57 PM EDT Height 158.8 cm (5' 2.5 ) 09/18/2024 11:16 AM ED T Body Mass Index 29.09 09/18/2024 11:16 AM EDT Plan of Treatment Upcoming Encounters Date Type Department Care Team (Late st Contact Info) Description 07/02/2025 10:00 AM EST Office Visit [facility] [address] [place] [address] Adolph, Tasha [address] [place] [address] Health Maintenance Due Date Last Done Comments CT Colonography 1965 FIT DNA/Cologuard 1965 FIT 1965 FOBT 1965 Sigmoidoscopy 1965 COVID-19 Vaccine ( season) 2025 Influenza Vaccine (#1) 2025 , 04/14/2020, 01/31/2019, Additional history exists Alcohol/Substance Use Screening 03/25/2025 03/25/2024 Depression Screening 03/25/2025 03/25/2024, 03/25/20 24 Dental Oral Exam 04/24/2025 10/22/2024, 03/2019, 11/16/2017, Additional history exists Dental Prophylaxis 06/28/2025 12/25/2024, 0 05/28/2019, 11/22/2018, Additional history exists Disability Screening 09/18/2025 09/18/2024 SDOH Screening 09/18/2025 09/18/2024 Pap Smear 09/19/2025 09/19/2022, 08/11/2016 Dental X-Ray: Bitewings 10/23/2025 10/23/19, 11/22/2018, 11/16/2017, Additional history exists Tobacco Screening 12/25/2025 12/25/2024 Mammogram 03/08/2026 03/08/2024, 02/13, 03/01/2022, Additional history exists Cervical Cancer Screening 09/20/2027 HPV/Cotest 09/20/2027 09/19/2022 Dental X-Ray: Full Mouth 10/24/2027 10/22/2024, 07/13 Lipid Panel 08/29/2029 08/29/2024, 03/15, 05/04/2023, Additional [...] Procedure Name Priority Date/Time Associated Diagnosis Comments CASE PRESENTATION, DETAILED AND EXTENSIVE TREATMENT PLANNING Routine 12/25/2024 1:00 PM EDT PROPHYLAXIS - ADULT Routine 12/25/2024 1 :00 PM EDT INTRAORAL - COMPLETE SERIES OF RADIOGRAPHIC IMAGES Routine 10/22/2024 10:30 AM EDT Excessive attrition of teeth Encounter for dental examination Fractured dental sabianist with loss of material Gingival hyperplasia Maxillary macrognathia PERIODIC ORAL EVALUATION - ESTABLISHED PATIENT Routine 10/22/2024 10:30 AM EDT Excessive attrition of teeth Encounter for dental examination Fractured dental sabianist with loss of material Gingival hyperplasia Maxillary macrognathia LIPID PANEL, STANDARD Routine 08/29/2024 2:04 PM EDT Dyslipidemia BI MAMMOGRAM SCREENING TOMOSYNTHESIS BILATERAL Routine 03/08/2024 [...] Recently Relevant to Health Maintenance Results * Lipid Panel, Standard (08/29/2024 2:04 PM EDT) Triglycerides 108 <150 mg/dL [facility] Comment:Desirable Triglyceri de: less than 150 mg/dLBorderline High Triglyceride 150-199 mg/dLHigh Triglyceride: 200-499 mg/dLVery High Triglyceride: greater than or equal to 5OO mg/dL Cholesterol 138 <200 mg/dL [facility] Comment:Desirable Cholestero l: less than 200 mg/dLBorderline High Cholesterol: 200-239 mg/dLHigh Cholesterol: greater than 239 mg/dL LDL Cholesterol Calculated 70 <100 mg/dL [facility] Comment:Desirable LDL: less than 100 mg/dLNear Optimal/Above Optimal LDL: 110- 129 mg/dLBorderline High LDL: 130-159 mg/dLHigh LDL: 160-189 mg/dLVery High LDL: greater than or equal to 190 mg/dL HDL Cholesterol 47 >40 mg/dL [facility] Comment:Desirable HDL: great er than 40 mg/dL Note: This HDL assay may give artificially low results in patients with liver disease. Blood Venous blood specimen / Unknown 08/29/2024 2:04 PM EDT 08/29/2024 4:12 PM EDT Luly Laguna MD LAB BLOOD ORDERABLES Final Result [facility] [address] [place] [phone] * BI Mammogram Screening Tomosynthesis Bilateral (03/08/2024 10:50 AM EDT) Anatomical Region Laterality Modality Breast Bilateral Mammography 03/08/2024 10:5 0 AM EDT Narrative 03/19/2024 8:[address] [place] [address] Mammography Report Signed Patient: Mahogany Tapia MR#: [id number] 2 : 1965 Acct:[id number] Age/Sex: 58 / F ADM Date: 03/08/24 Loc: HO.MAMMO Attending Dr: Luly Laguna MD Ordering Physician: Luly Laguna MD Results: 1N egative Date of Service: 03/08/24 Follow Up: 1 Year From Orig ina Mammogram Procedure(s): MM tomosynthesis screening BI Accession Number(s): [id number] cc: Luly Laguna MD EXAMINATION: MM SCREENING [...] Casper DO Signed By: <Electronically signed by Lias Casper DO in OV> 03/19/24 0847 DD/ 1050 TD/TT: 03/08/24 1112 Matrix Inspector: Procedure Note Donotuseinterpreter, Image - [facility]/20[facility] [address] [place] [address] Mammography Report Signed Patient: Deann Tapia#: [id number] 2 : 1965Acct:[id number] Age/Sex: 58 / FADM Date: 03/08/24 Loc: HO.MAMMO Attending Dr: Luly Laguna MD Ordering Physician: Luly Laguna MDResults: 1N egative Date of Service: 03/08/24Follow Up: 1 Year From Orig inal Mammogram Procedure(s): MM tomosynthesis screening BI Accession Number(s): [id number] cc: Luly Laguna MD EXAMINATION: MM SCREENING [...] DO Signed By: <Electronically signed by Lisa Csaper DO in OV> 03/19/24 0847 DD/ 1050 TD/TT: 03/08/24 1112 Matrix Inspector: Luly Laguna MD IMG BI PROCEDURES Final Re sult * (ABNORMAL) Colonoscopy (07/25/2023) Colonoscopy Abnormal( A) Normal Comment:small polyp, await p athology results at [place] [facility] Provider HEALTH MAINTENANCE Final Result * Hepatitis C Antibody with Reflex to HCV, RNA, Quantitative, Real-Time PCR (05/04/2023 11:34 AM EST) Hepatitis C Antibody Nonreactive Nonreactive [facility] Comment:Antibodies to HCV no t detected; does not exclude early acuteHCV infection. Blood Venous blood specimen / Unknown 05/04/2023 11:34 AM EST 05/04/2023 1:12 PM EST Result [facility] Luly Laguna MD LAB BLOOD ORDERABLES Final Result [facility] [address] [place] [phone] * (ABNORMAL) Pap Smear (09/19/2022) Pap Other [...] is no laboratory evidence of HIV infection. PLEASE NOTE: This information has been disclosed to you from records whose confidentiality may be protected by state law. If your state requires such protection, then the state law prohibits you from making any further disclosure of the information without the specific written consent of the person to whom it pertains, or as otherwise permitted by law. A general authorization for the release of medical or other information is NOT sufficient for this purpose. For additional information please refer to http://education.Animoto/faq/NXX576 (This link is being provided for informational/ educational purposes only.) The performance of this assay has not been clinically validated in patients less than 2 years old. 08/05/2021 11:4 6 AM EDT us Luly Laguna MD LAB BLOOD ORDERABLES Final Result [facility] [address] from Last 3 Months or Most Recently Relevant to Health Maintenance Insurance [facility] STAND ADULT Care Teams Life Insurance Actuary Relationship Specialty Start Date End Date Fisher, MD Luly [address] [place] [address] PCP - General Family Medicine 05/15/18 Alan Horowitz 175 [facility] 2nd Floor [address] [place] [address] Gastroenterology 06/18/24 Polly Bryant [address] [address] Obstetrics and Gynecology 06/18/24 Sandra Schaffer [address] [place] [address] Cardiology 11/01/24 Keyla Stevenson [address] [place] [address] [address] [place] [address] Orthopaedic Surgery 11/14/24 An Thomas Director Of MarketingService Employee 01/22/24
--- OUTSIDE RECORDS SUMMARY | 2025-02-11 16:28 | XMS_ITS | Encounter Summary ---
Author Organization [employer] Address 75 [facility] 7t [place] [address] Care Team Providers Care Pick Pack Worker Name Role Phone Luly aLguna MD Primary Care Provider +1- [phone] Alan Horowitz Unavailable KristaPolly gary Unavailable Sandra Schaffer Unavailable Keyla Stevenson Unavailable Reason for Visit * Reason Comments Med Refill Encounter Details Date Type Department Care Team (Late st Contact Info) Description 02/07/2025 Refill [facility] [address] [place], [place] [phone] Luly Laguna MD [address] [place], [place] [phone] Chronic pain of both knees Social History Tobacco Use Types Packs/Day Years [...] Description 07/02/2025 10:00 AM EST Office Visit [facility] [address] [place] [address] Tasha Farfan 230 [place] [address] documented as of this encounter Visit Diagnoses Diagnosis Chronic pain of both knees documented in this encounter Additional Health Concerns Assessment Noted Time PHQ-9 Depression Total Score: 3 03/25/20 24 11:38 AM EST documented as of this encounter Care Teams Pick Pack Worker Relationship Specialty Start Date End Date Luly Laguna MD 230 [place] [address] PCP - General Family Medicine 05/15/18 Alan Horowitz 175 [facility] 2nd Floor [address] [place] [address] Gastroenterology 06/18/24 Polly Bryant [address] [place] [address] Obstetrics and Gynecology 06/18/24 Sandra Schaffer [address] [place] [address] 3rd [place] [address] Cardiology 11/01/24 Keyla Stevenson [address] [place] [address] Dr [address] [place] [address] Orthopaedic Surgery 11/14/24 An Thomas Fabrication SupervisorFoil Wrapper 01/22/24 documented as of this encounter
--- OUTSIDE RECORDS SUMMARY | 2025-02-11 16:28 | XMS_ITS | Encounter Summary ---
Author Organization [employer] Address 75 [facility] 7t [place] [address] Care Team Providers Care Senior Compensation Consultant Name Role Phone Luly Laguna MD Primary Care Provider MusAlan andre Unavailable KristaPolly gary Unavailable Sandra Schaffer Unavailable ElvaKeyla kumar Unavailable Encounter Details Date Type Department Care Team (Latest Contact Info) Description 11/22/2018 Abstract [facility] CONVERSIONS Dental, Provider, DDS Social [...] Description 07/02/2025 10:00 AM EST Office Visit [facility] ADULT [facility] 230 [place], [place] [phone] Adolph, Tasha 230 [place], [place] [phone] documented as of this encounter Visit Diagnoses Not on filedocumented in this encounter Care Teams Senior Compensation Consultant Relationship Specialty Start Date End Date Luly Laguna MD 230 [place], [place] [phone] PCP - General Family Medicine 05/15/18 Alan Horowitz 175 [facility] 2nd Floor [address] [place] [address] Gastroenterology 06/18/24 Polly Bryant 271 [facility] 1stfloor [place] [address] Obstetrics and Gynecology 06/18/24 Sandra Schaffer [address] [facility] [address] 3rd [place] [address] Cardiology 11/01/24 Keyla Stevenson [address] [place] [address] Dr [address] [place] [address] Orthopaedic Surgery 11/14/24 An Thomas Bulldozer MechanicManager Of It 01/22/24 documented as of this encounter
--- OUTSIDE RECORDS SUMMARY | 2025-02-11 16:28 | XMS_ITS | Encounter Summary ---
Author Organization [employer] Address 75 [facility] 7t [place] [address] Care Team Providers Care Gas Pumping Station Supervisor Name Role Phone Luly Laguna MD Primary Care Provider +1- [phone] Alan Horowitz Unavailable KristaPolly gary Unavailable Sandra Schaffer Unavailable ElvaKeyla Unavailable Reason for Visit * Reason Comments Med Refill Encounter Details Date Type Department Care Team (Late st Contact Info) Description 10/23/2023 Refill [facility] 230 [place], [place] [phone] Luly Laguna MD 230 [place], [place] [phone] Social History Tobacco Use Types Packs/Day Years Used Date Smoking Tobacco: Never Smokeless Tobacco: Never Alcohol Use Standard Drinks/Week Comments Never 0 (1 standard drink = 0.6 oz pur e alcohol) Depression Answer Date Recorded Patient Health Questionnaire-9 Score 0 11/07/2022 Housing Stability Answer Date Recorded What is your housing situation today? I have kemal isha 03/06/[address] you li [...] [facility] 230 [place] [address] Adolph, Tasha 230 [place] [address] documented as of this encounter Visit Diagnoses Not on filedocumented in this encounter Additional Health Concerns Assessment Noted Time PHQ-9 Depression Total Score: 0 11/08/19 23 11:15 AM EDT documented as of this encounter Care Teams Gas Pumping Station Supervisor Relationship Specialty Start Date End Date Luly Laguna MD 230 [place] [address] PCP - General Family Medicine 05/15/18 Alan Horowitz 175 [facility] 2nd Floor [address] [place] [address] Gastroenterology 06/18/24 Polly Bryant 271 [address] [place] [address] Obstetrics and Gynecology 06/18/24 Sandra Schaffer [address] [facility] [address] 3rd [place] [address] Cardiology 11/01/24 Keyla Stevenson [address] [place] [address] Dr [address] [place] [address] Orthopaedic Surgery 11/14/24 An Thomas Otter Trawler BoatswainStretching Machine Tender Frame 01/22/24 documented as of this encounter
== END 2025-02-11 15:31 | disposition home or self-care (01) ==
LOC: HO.HOS 15:05
PROVIDERS: PCP Family Medicine; Visit Provider Physician Assistant
DX: M17.0 Bilateral primary osteoarthritis of knee (principal)
CPT/HCPCS: 20610; 99213

== ENCOUNTER → 2025-02-11 15:04 | Outpatient (BNVA) | payer MEDICAID, SELFPAY | PROVIDERS: PCP Family Medicine; Visit Provider Physician Assistant | DX: M17.0 Bilateral primary osteoarthritis of knee (principal) | CPT/HCPCS: 20610; 99212; J0665; J1100; J2003 ==

== ENCOUNTER 2025-02-28 10:08 | Outpatient (AMB) | payer MEDICAID, SELFPAY ==
--- NOTE | 2025-02-28 10:27 | MHC.OFFVIS ---
Vital Signs 02/28/25 10:27 Height 5 ft 3 in Intake Visit Reasons: New Pt - Right Foot Pain Intake Note: Mahogany is a 59 year old female who presents today as a new patient for her right foot pain. Pain is located on the ball of her feet towards her first three toes and her pain has been going on for 6 months. She has tried Tylenol and Motrin and massages, stretching exercises and bengay with no relief. Allergies acetaminophen (From Percocet) Allergy (Verified 02/28/25 10:29) shake oxycodone (From Percocet) Allergy (Verified 02/28/25 10:29) shake Medication List - Last Reconciled 02/28/25 by Alba Meadows DPM atorvastatin 20 mg PO DAILY cholecalciferol (vitamin D3) 25 mcg PO DAILY clonazepam (Klonopin) 0.25 mg PO BEDTIME diclofenac potassium 50 mg PO DAILY fluoxetine 20 mg PO DAILY methylprednisolone (Medrol (Nelson)) PO PER PKG DIR metoprolol succinate ER 25 mg PO DAILY omeprazole 20 mg PO BID HPI Comments Details: The patient is a 59 year old female with a PMH as seen below who presents today for right foot pain. She states she has been experiencing the pain for approximately 6 months, but denies any inciting injuries. Patient states the pain is localized to the area of the lateral metatarsal heads dorsally and plantaraly. She states she experiences pain while walking and with activity, and sometimes while at rest. She characterizes the pain as sharp and stabbing with intermittent pins and needles. She denies any numbness. She states she has tried Tylenol, Ibuprofen, Diclofenac, massaging, and toe sleeves without relief. She denies any other pedal concerns. Patient was accompanied by her daughter. [facility] Medical History (Updated 02/28/25 @ 10:44 by Alba Meadows DPM) Interdigital neuroma of right foot Metatarsalgia, right foot Depression Anxiety Hypertension No known health problems No known health problems Family History Father Stroke Mother No problems noted. Social History Current occupational status: unemployed Current occupation: Right Handed Review of Systems Const Details: MSK: Reports pain to the ball of the right foot with intermittent pins and needles. All systems reviewed & are unremarkable except as noted in HPI and below Physical Exam Extrem Other: RLE Focused Physical Exam: Derm: Skin supple and turgor WNL. No open lesions, abrasions, or wounds noted. No ecchymosis or discoloration noted. No maceration noted. No hyperkeratotic lesions noted. No clinical signs of infections. Vasc: DP/PT pulses palpable. CFT < 3 secs. Temp gradient warm to warm. No edema noted. No varicosities noted. Pedal hair absent. Neuro: Protective sensations grossly intact. MSK: Pain on palpation to the area of the 3rd and 4th metatarsal heads plantaraly and dorsally. Positive squeeze test. Positive jacob's sign without crepitus. Pain with ROM of the forefoot. MMT 5/5. ROM of the hindfoot and ankle WNL. Mildly antalgic gait unassisted noted. Results Reviewed Results Reviewed: Ordered right foot weightbearing xrays to be performed prior to next visit. Assessment & Plan Assessment & Plan (1) Right foot pain: Code(s): M79.671 - Pain in right foot Category: Medical (2) Metatarsalgia, right foot: Code(s): M77.41 - Metatarsalgia, right foot Category: Medical (3) Interdigital neuroma of right foot: Code(s): G57.81 - Other specified mononeuropathies of right lower limb Category: Medical Plan Discussed with patient diagnosis of metatarsalgia with potential diagnosis of a neuroma. Discussed conservative and surgical treatment options. Recommend conservative treatment at this time. - Ordered right foot weightbearing xrays to be obtained prior to next visit. - Provided patient with metatarsal pads to be used daily. - Advised patient to wear supportive shoe gear and avoid barefoot walking. - Prescribed Medrol dose nelson to be taken as directed. - Advised patient to wear inserts. - If pain persists, recommend injection or further imaging. RTC in 3 weeks for re-evaluation. Orders: Orders XR foot RT min 3V Today G57.81 - Other specified mononeuropathies of right lower limb, M77.41 - Metatarsalgia, right foot, M79.671 - Pain in right foot Medications: New methylprednisolone (Medrol (Nelson)) PO PER PKG DIR 21 ea 0RF Metatarsalgia & Neuroma right foot G57.81 - Other specified mononeuropathies of right lower limb, M77.41 - Metatarsalgia, right foot, M79.671 - Pain in right foot Coding Level of Care Code New Pt Level 4 (92509) Diagnoses Right foot pain M79.671 Metatarsalgia, right foot M77.41 Interdigital neuroma of right foot G57.81 Time Spent (min) 45
--- OUTSIDE RECORDS SUMMARY | 2025-02-28 11:56 | XMS_ITS | Encounter Summary ---
Author Organization [employer] Address 75 [facility] 7t [place] [address] Care Team Providers Care Sanitation Inspector Name Role Phone Luly Laguna MD Primary Care Provider +1- [phone] Alan Horowitz Unavailable KristaPolly gary Unavailable Sandra Schaffer Unavailable ElvaKeyal Unavailable Reason for Visit * Reason Comments Med Refill Encounter Details Date Type Department Care Team (Late st Contact Info) Description 10/23/2023 Refill [facility] [address] [place], [place] [phone] Luly Laguna MD 230 [place], [place] [phone] Social History Tobacco Use Types Packs/Day Years [...] Description 07/02/2025 10:00 AM EST Office Visit [facility]ULT [facility] 230 [place] [address] Adolph, Tasha [address] [place] [address] documented as of this encounter Visit Diagnoses Not on filedocumented in this encounter Additional Health Concerns Assessment Noted Time PHQ-9 Depression Total Score: 0 11/08/19 23 11:15 AM EDT documented as of this encounter Care Teams Sanitation Inspector Relationship Specialty Start Date End Date Luly Laguna MD 230 [place] [address] PCP - General Family Medicine 05/15/18 Alan Horowitz 175 [facility] 2nd Floor [address] [place] [address] Gastroenterology 06/18/24 Polly Bryant 271 [address] [place] [address] Obstetrics and Gynecology 06/18/24 Sandra Schaffer [address] 3rd [place] [address] Cardiology 11/01/24 Keyla Stevenson [address] [place] [address] Dr [address] [place] [address] Orthopaedic Surgery 11/14/24 An Thomas Underwriting Account RepresentativeDamage Appraiser 01/22/24 documented as of this encounter
--- OUTSIDE RECORDS SUMMARY | 2025-02-28 11:56 | XMS_ITS | Clinical Summary ---
Author Organization [employer] Address 75 [facility] 7t [place] [address] Care Team Providers Care Tanning Wheel Filler Name Role Phone Luly Laguna MD Primary Care Provider +1- [phone] Alan Horowitz Unavailable Polly Bryant Unavailable Karime, Sandra Unavailable [...] 25 Active omeprazole (PriLOSEC) [address] Tucker ns:Gastroesophag eal reflux disease, unspecified whether esophagitis [...] AL VANESSA 60 tablet 02/11/20 25 Active diclofenac (Cataflam) 50 MG tabletIndication [...] Diagnosed Date Right knee pain 08/29/2024 Overview (02/12/2025): Pain and decreased ROM to right knee. No increased warmth, swelling, or effusion on exam. -ordered XR right knee 08/29/24 -seen by Keyla Stevenson ortho 11/08/24 s/p cortisone injection in bilateral knees with 80 mg of DepoMedrol. -xr 11/14/24 right knee unrearkable -note from Dr. Stevenson from 02/11/25 reviewed Assessment & Plan (08/29/2024 1:31 PM EDT): [...] (12/19/2024): Seen on 02/09/24 in [facility] [place] for palpitations with associated SOB. Symptoms appeared [...] longer monitor 03/25/24 -08/30/23 currently has extended physical therapy teacher for 30 days, will follow-up with cardiology [...] repeat colonoscopy in 10 years. Done at [facility] with Dr. Alan Horowitz MD Assessment [...] Carrasco, notes requested 11/07/2022 -dental home is [facility] -Health care Proxy 03/25/24 Assessment & Plan (03/26/2024 1:39 PM EST): -next annual exam due after 03/25/25 -eye care facilitated by Dr. Carrasco, notes requested 11/07/2022 -dental home is [facility] - Health care Proxy 03/25/24 Assessment & Plan (11/07/2022 12:56 PM EDT): -next physical exam due after 11/08/2023 -eye care facilitated by Dr. Carrasco, notes requested 11/07/2022 -dental home is [facility] Dyslipidemia 11/07/2022 Overview (09/18/2024): Lab Results Component [...] Overview (09/18/2024): Lab Results Component Value Date [id number] 52.8 03/25/2024 [id number] 29.9 (L) 05/04/2023 Mass of oral cavity [...] Type Department Care Team Description 02/07/2025 Refill [facility] [address] [place] [address] Luly Laguna MD Chronic pain of both knees 02/05/2025 Refill [facility] 230 [place], [place] [phone] Luly Laguna MD Vitamin D deficiency 02/05/2025 Refill [facility] [address] [place] [address] Daya Matta MD Anxiety 01/24/2025 Refill [facility] [address] [place] [address] Luly Laguna MD Vitamin D deficiency 01/10/2025 Refill [facility] [address] [place] [address] Luly Laguna MD Gastroesophageal reflux disease, unspecified whether esophagitis present 01/09/2025 Refill [facility] [address] [place] [address] Daya Matta MD Anxiety; Gastroesophageal reflux disease, unspecified whether esophagitis present 01/09/2025 Refill [facility] [address] [place] [address] Luly Laguna MD Dyslipidemia 12/25/2024 1:00 PM EDT Office Visit [facility] [address] [place], [place] [phone] Sal, Marta 12/02/2024 Refill [facility] [address] [place] [address] Luly Laguna MD Anxiety from Last 3 Months Immunizations Immunization Administration [...] Description 07/02/2025 10:00 AM EST Office Visit [facility] [address] [place] [address] Adolph, Tasha [address] [place] [address] Health Maintenance Due Date Last Done Comments [...] teeth Encounter for dental examination 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 PERIODIC ORAL EVALUATION - ESTABLISHED PATIENT Routine 10/22/2024 10:30 AM EDT Excessive attrition of teeth Encounter for dental examination 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 Maxillary [...] 2:04 PM EDT) Triglycerides 108 <150 mg/dL [facility] Comment:Desirable Triglyceri de: less than 150 mg/dLBorderline High Triglyceride 150-199 mg/dLHigh Triglyceride: 200-499 mg/dLVery High Triglyceride: greater than or equal to 5OO mg/dL Cholesterol 138 <200 mg/dL [facility] Comment:Desirable Cholestero l: less than 200 mg/dLBorderline High Cholesterol: 200-239 mg/dLHigh Cholesterol: greater than 239 mg/dL LDL Cholesterol Calculated 70 <100 mg/dL [facility] Comment:Desirable LDL: less than 100 mg/dLNear Optimal/Above Optimal LDL: 110- 129 mg/dLBorderline High LDL: 130-159 mg/dLHigh LDL: 160-189 mg/dLVery High LDL: greater than or equal to 190 mg/dL HDL Cholesterol 47 >40 mg/dL [facility] Comment:Desirable HDL: great er than 40 mg/dL Note: This HDL assay may give artificially low results in patients with liver disease. Blood Venous blood specimen / Unknown 08/29/2024 2:04 PM EDT 08/29/2024 4:12 PM EDT Luly Laguna MD LAB BLOOD ORDERABLES Final Result [facility] [address] [place] [address] [phone] * BI Mammogram Screening Tomosynthesis Bilateral (03/08/2024 10:50 AM EDT) Anatomical Region Laterality Modality Breast Bilateral Mammography 03/08/2024 10:5 0 AM EDT Narrative 03/19/2024 8:50 AM EST [address] [place] [address] Mammography Report Signed Patient: Mahogany Tapia MR#: [id number] 2 : 1965 Acct:[id number] Age/Sex: 58 / F ADM Date: 03/08/24 Loc: HO.MAMMO Attending Dr: Luly Laguna MD Ordering Physician: Luly Laguna MD Results: 1N egative Date of Service: 03/08/24 Follow Up: 1 Year From Orig ina Mammogram Procedure(s): MM tomosynthesis screening BI Accession Number(s): [id number] cc: Luly Laguna MD EXAMINATION: MM SCREENING [...] Lisa Casper DO 03/19/2024 08:47 AM EST RP Dictated By: Lisa Casper DO Signed By: <Electronically signed by Lisa Casper DO in OV> 03/19/24 0847 DD/ 1050 TD/TT: 03/08/24 1112 Exhibits Curator: Procedure Note Donotuseinterpreter, Image - 03/19/20[facility] [address] [place], [place] [address] Mammography Report Signed Patient: Deann Tapia#: [id number] 2 : 1965Acct:[id number] Age/Sex: 58 / FADM Date: 03/08/24 Loc: HO.MAMMO Attending Dr: Luly Laguna MD Ordering Physician: Luly Laguna MDResults: 1N egative Date of Service: 03/08/24Follow Up: 1 Year From Orig inal Mammogram Procedure(s): MM tomosynthesis screening BI Accession Number(s): [id number] cc: Luly Laguna MD EXAMINATION: MM SCREENING [...] Lisa Casper DO 03/19/2024 08:47 AM EST RP Dictated By: Lisa Casper DO Signed By: <Electronically signed by Lisa Casper DO in OV> 03/19/24 0847 DD/ 1050 TD/TT: 03/08/24 1112 Exhibits Curator: Result [facility] Luly Laguna MD IMG BI PROCEDURES Final Re sult * (ABNORMAL) Colonoscopy (07/25/2023) Colonoscopy Abnormal( A) Normal Comment:small polyp, await p athology results at [facility] Result [facility] Historical Provider HEALTH MAINTENANCE Final Result * Hepatitis C Antibody with Reflex to HCV, RNA, Quantitative, Real-Time PCR (05/04/2023 11:34 AM EST) Pathologist [facility] Hepatitis C Antibody Nonreactive Nonreactive [facility] Comment:Antibodies to HCV no t detected; does not exclude early acuteHCV infection. Blood Venous blood specimen / Unknown 05/04/2023 11:34 AM EST 05/04/2023 1:12 PM EST Result [facility] Luly Laguna MD LAB BLOOD ORDERABLES Final Result [facility] [address] [place] [phone] * (ABNORMAL) Pap Smear (09/19/2022) Pap Other Negative for intraephithelial lesion or malignancy, Other Comment:unsatisfactory HPV Not Detected Undetected, Indeterminate, Quantitative, Not Detected Result [facility] Historical Provider [facility] MA[facility] Final Result * HIV 1/2 ANTIGEN/ANTIBODY,FOURTH GENERATION W/RFL (08/05/2021 11:46 AM EDT) HIV-1/2 ANTIGEN AND ANTIBODIES, 4TH GENERATION W/ REFLEX NON-REACT SAVI NON-REACT SAVI [facility] Comment: HIV-1 antigen and HIV-1/HIV-2 [...] purpose. For additional information please refer to http://education.BomTrip.com/faq/HTI215 (This link is being provided for informational/ educational purposes only.) The performance of this assay has not been clinically validated in patients less than 2 years old. 08/05/2021 11:4 6 AM EDT us Luly Laguna MD LAB BLOOD ORDERABLES Final Result [facility] Anywhere [address] from Last 3 Months or Most Recently Relevant to Health Maintenance Insurance [facility] ST[facility] AD[facility] Care Teams Tanning Wheel Filler Relationship Specialty Start Date End Date [place], MD Luly [address] [place] [address] PCP - General Family Medicine 05/15/18 Alan Horowitz 175 [facility] 2nd Floor [address] [place] [address] Gastroenterology 06/18/24 Polly Bryant 271 [facility] [place] [address] Obstetrics and Gynecology 06/18/24 Sandra Schaffer [address] 3rd [place] [address] Cardiology 11/01/24 Keyla Stevenson [address] [place] [address] Dr [address] [place] [address] Orthopaedic Surgery 11/14/24 An Thomas Motor ExpertState Appellate Clerk 01/22/24
--- OUTSIDE RECORDS SUMMARY | 2025-02-28 11:56 | XMS_ITS | Encounter Summary ---
Author Organization [employer] Address 75 [facility] 7t [place] [address] Care Team Providers Care Freight Broker Agent Name Role Phone Luly Laguna MD Primary Care Provider +1- [phone] Alan Horowitz Unavailable Manny Polly Unavailable Sandra Schaffer Unavailable Elva, Keyla Unavailable Encounter Details Date Type Department Care Team (Late st Contact Info) Description 06/18/2024 Orders Only [facility] MED[facility] [address] [place] [address] Luly Laguna MD 230 [place], [place] [phone] Abnormal colonoscopy (Primary Dx) Social History Tobacco [...] Description 07/02/2025 10:00 AM EST Office Visit [facility]ULT [facility] [address] [place] [address] Adolph, Tasha [address] [place] [address] documented as of this encounter Visit Diagnoses Diagnosis Abnormal colonoscopy- Primary documented in this encounter Additional Health Concerns Assessment Noted Time PHQ-9 Depression Total Score: 3 03/25/20 24 11:38 AM EST documented as of this encounter Care Teams Freight Broker Agent Relationship Specialty Start Date End Date Luly Laguna MD 230 [place] [address] PCP - General Family Medicine 05/15/18 Alan Horowitz 175 [facility] 2nd Floor [address] [place] [address] Gastroenterology 06/18/24 Polly Bryant [address] [address] Obstetrics and Gynecology 06/18/24 Sandra Schaffer 11 [facility] 3rd [place] [address] Cardiology 11/01/24 Keyla Stevenson [address] [place] [address] Dr [address] [place] [address] Orthopaedic Surgery 11/14/24 An Thomas Outreach CounselorRnp 01/22/24 documented as of this encounter
--- OUTSIDE RECORDS SUMMARY | 2025-02-28 11:56 | XMS_ITS | Encounter Summary ---
Author Organization [employer] Address 75 [facility] 7t [place] [address] Care Team Providers Care Complex Human Resources Manager Name Role Phone Luly Laguna MD Primary Care Provider +1- [phone] Alan Horowitz Unavailable Manny Polly Unavailable Karime, Sandra Unavailable Elva Keyla Unavailable Reason for Visit * Reason Comments Med Refill Encounter Details Date Type Department Care Team (Late st Contact Info) Description 01/19/2024 Refill [facility] MEDICINE [address] [place], [place] [phone] Gudelia Jaimes, ANP [address] [place], [place] [phone] Gastroesophageal reflux disease, unspecified whether esophagitis present [...] Description 07/02/2025 10:00 AM EST Office Visit [facility] ADULT DENTAL 230 [place] [address] Adolph, Tasha 230 [place] [address] documented as of this encounter Visit Diagnoses Diagnosis Gastroesophageal reflux disease, unspecified whether esophagitis present- Primary documented in this encounter Additional Health Concerns Assessment Noted Time PHQ-9 Depression Total Score: 0 11/08/19 23 11:15 AM EDT documented as of this encounter Care Teams Complex Human Resources Manager Relationship Specialty Start Date End Date Luly Laguna MD [address] [place] [address] PCP - General Family Medicine 05/15/18 Alan Horowitz 175 [facility] 2nd Floor [address] [place] [address] Gastroenterology 06/18/24 Polly Bryant [address] [address] Obstetrics and Gynecology 06/18/24 Sandra Schaffer [address] [facility] [address] 3rd [place] [address] Cardiology 11/01/24 Keyla Stevenson [address] [place] [address] [address] [place] [address] Orthopaedic Surgery 11/14/24 An Thomas Flux Core WelderAlmond Cutting Machine Tender 01/22/24 documented as of this encounter
--- OUTSIDE RECORDS SUMMARY | 2025-02-28 11:57 | XMS_ITS | Encounter Summary ---
Author Organization [employer] Address 75 [facility] 7t [place] [address] Care Team Providers Care Milk Bottler Name Role Phone Luly Laguna MD Primary Care Provider +1- [phone] MusAlan andre Unavailable Polly Bryant Unavailable Karime, Sandra Unavailable Elva, Keyla Unavailable Encounter Details Date Type Department Care Team (Late st Contact Info) Description 07/01/2022 Orders Only [facility] CH[facility] MED & PEDS [address] [place], [place] [phone] Lora Russell LPN Social History Tobacco Use [...] 07/02/2025 10:00 AM EST Office Visit [facility] ADULT DENTAL 230 [place] [address] Tasha Farfan 230 [place] [address] documented as of this encounter Visit Diagnoses Not on filedocumented in this encounter Care Teams Milk Bottler Relationship Specialty Start Date End Date Luly Laguna MD 230 [place] [address] PCP - General Family Medicine 05/15/18 Alan Horowitz 175 [facility] 2nd Floor [address] [place] [address] Gastroenterology 06/18/24 Polly Bryant 271 [facility] 1stfloor [place] [address] Obstetrics and Gynecology 06/18/24 Sandra Schaffer [address] 3rd [place] [address] Cardiology 11/01/24 Keyla Stevenson [address] [place] [address] [address] [place] [address] Orthopaedic Surgery 11/14/24 An Thomas Fitting SupervisorAmusement Ride Inspector 01/22/24 documented as of this encounter
--- OUTSIDE RECORDS SUMMARY | 2025-02-28 11:57 | XMS_ITS | Encounter Summary ---
Author Organization [employer] Address 75 [facility] 7t [place] [address] Care Team Providers Care Supervisor Motor Vehicle Assembly Name Role Phone Luly Laguna MD Primary Care Provider +1- [phone] Musjes Alan Zayda Unavailable KristaPolly gary Unavailable Sandra Schaffer Unavailable Keyla Stevenson Unavailable Encounter Details Date Type Department Care Team (Late st Contact Info) Description 11/24/2022 Abstract [facility] MEDICINE 230 [place], [place] [phone] Luly Laguna MD 230 [place], [place] [phone] Social History Tobacco Use Types Packs/Day Years [...] Description 07/02/2025 10:00 AM EST Office Visit [facility] ADULT DENTAL 230 [place] [address] Tasha Farfan 230 [place] [address] documented as of this encounter Visit Diagnoses Not on filedocumented in this encounter Additional Health Concerns Assessment Noted Time PHQ-9 Depression Total Score: 0 11/08/19 11:15 AM EDT documented as of this encounter Care Teams Supervisor Motor Vehicle Assembly Relationship Specialty Start Date End Date Luly Laguna MD 230 [place] [address] PCP - General Family Medicine 05/15/18 Alan Horowitz 175 [facility] 2nd Floor [address] [place] [address] Gastroenterology 06/18/24 Polly Bryant [address] [address] Obstetrics and Gynecology 06/18/24 Sandra Schaffer 11 [facility] 3rd [place] [address] Cardiology 11/01/24 Keyla Stevenson [address] [place] [address] Orthopaedic Surgery 11/14/24 An Thomas Wealth Management ConsultantRetail Leasing Agent 01/22/24 documented as of this encounter
--- OUTSIDE RECORDS SUMMARY | 2025-02-28 11:57 | XMS_ITS | Encounter Summary ---
Author Organization [employer] Address 75 [facility] 7t [place] [address] Care Team Providers Care Car Inspector Name Role Phone Luly Laguna MD Primary Care Provider +1- [phone] Musjes Alan Zayda Unavailable KristaPolly gary Unavailable Sandra Schaffer Unavailable Keyla Stevenson Unavailable Encounter Details Date Type Department Care Team (Late st Contact Info) Description 11/24/2022 Abstract [facility] MEDICINE 230 [place], [place] [phone] Luly Laguna MD 230 [place], [place] [phone] Social History Tobacco Use Types Packs/Day Years [...] Description 07/02/2025 10:00 AM EST Office Visit [facility] ADULT DENTAL 230 [place] [address] Tasha Farfan 230 [place] [address] documented as of this encounter Visit Diagnoses Not on filedocumented in this encounter Additional Health Concerns Assessment Noted Time PHQ-9 Depression Total Score: 0 11/08/19 11:15 AM EDT documented as of this encounter Care Teams Car Inspector Relationship Specialty Start Date End Date Luly Laguna MD 230 [place] [address] PCP - General Family Medicine 05/15/18 Alan Horowitz 175 [facility] 2nd Floor [address] [place] [address] Gastroenterology 06/18/24 Polly Bryant [address] [address] Obstetrics and Gynecology 06/18/24 Sandra Schaffer 11 [facility] 3rd [place] [address] Cardiology 11/01/24 Keyla Stevenson [address] [facility] [address] [place] [address] Orthopaedic Surgery 11/14/24 An Thomas Consultant InternHeat Plant Specialist 01/22/24 documented as of this encounter
--- OUTSIDE RECORDS SUMMARY | 2025-02-28 11:57 | XMS_ITS | Encounter Summary ---
Author Organization [employer] Address 75 [facility] 7t [place] [address] Care Team Providers Care Machine Designer Name Role Phone Luly Laguna MD Primary Care Provider MusAlan andre Unavailable KristaPolly gary Unavailable Sandra Schaffer Unavailable ElvaKeyla kumar Unavailable Encounter Details Date Type Department Care Team (Latest Contact Info) Description 11/22/2018 Abstract [facility] CONVERSIONS Dental, Provider, DDS Social History [...] 10:00 AM EST Office Visit [facility] ADULT DENTAL 230 [place], [place] [phone] Adolph, Tasha 230 [place], [place] [phone] documented as of this encounter Visit Diagnoses Not on filedocumented in this encounter Care Teams Machine Designer Relationship Specialty Start Date End Date Luly Laguna MD 230 [place], [place] [phone] PCP - General Family Medicine 05/15/18 Alan Horowitz 175 [facility] 2nd Floor [address] [place] [address] Gastroenterology 06/18/24 Polly Bryant 271 [facility] 1stfloor [place] [address] Obstetrics and Gynecology 06/18/24 Sandra Schaffer [address] [facility] [address] 3rd [place] [address] Cardiology 11/01/24 Keyla Stevenson [address] [place] [address] Dr [address] [place] [address] Orthopaedic Surgery 11/14/24 An Thomas Hospice Bereavement CoordinatorProvisioning Specialist 01/22/24 documented as of this encounter
--- OUTSIDE RECORDS SUMMARY | 2025-02-28 11:57 | XMS_ITS | Encounter Summary ---
Author Organization [employer] Address 75 [facility] 7t [place] [address] Care Team Providers Care Delivery Assistant Name Role Phone Luly Laguna MD Primary Care Provider +1- [phone] Alan Horowitz Unavailable KristaPolly gary Unavailable Sandra Schaffer Unavailable ElvaKeyla Unavailable Reason for Visit * Reason Comments Med Refill Encounter Details Date Type Department Care Team (Late st Contact Info) Description 02/05/2025 Refill [facility] MEDICINE 230 [place], [place] [phone] Luly Laguna MD 230 [place], [place] [phone] Vitamin D deficiency Social History Tobacco Use [...] Description 07/02/2025 10:00 AM EST Office Visit [facility] ADULT DENTAL 230 [place] [address] Adolph, Tasha 230 [place] [address] documented as of this encounter Visit Diagnoses Diagnosis Vitamin D deficiency documented in this encounter Additional Health Concerns Assessment Noted Time PHQ-9 Depression Total Score: 3 03/25/20 24 11:38 AM EST documented as of this encounter Care Teams Delivery Assistant Relationship Specialty Start Date End Date Luly Laguna MD 230 [place] [address] PCP - General Family Medicine 05/15/18 Alan Horowitz 175 [facility] 2nd Floor [address] [place] [address] Gastroenterology 06/18/24 Polly Bryant [address] [place] [address] Obstetrics and Gynecology 06/18/24 Sandra Schaffer [address] [place] [address] 3rd [place] [address] Cardiology 11/01/24 Keyla Stevenson [address] [place] [address] Dr [address] [place] [address] Orthopaedic Surgery 11/14/24 An Thomas Pullman Car RepairerRn Plastics 01/22/24 documented as of this encounter
--- OUTSIDE RECORDS SUMMARY | 2025-02-28 11:57 | XMS_ITS | Encounter Summary ---
Author Organization [employer] Address [address] [place] [address] 7t [place] [address] Care Team Providers Care Director Of Industrial Relations Name Role Phone Luly Laguna MD Primary Care Provider MusjesAlan Unavailable KristaPolly gary Unavailable Sandra Schaffer Unavailable Keyla Stevenson Unavailable Encounter Details Date Type Department Care Team (Late st Contact Info) Description 05/29/2022 Abstract [facility] MEDICINE 230 [place], [place] [phone] Luly Laguna MD 230 [place], [place] [phone] Social History Tobacco Use Types Packs/Day Years [...] 10:00 AM EST Office Visit [facility] ADULT DENTAL 230 [place], [place] [phone] Tasha Farfan 230 [place], [place] [phone] documented as of this encounter Procedures Procedure Name Priority Date/Time Associated Diagnosis Comments MAMMOGRAPHY Routine 03/01/2022 PAP/HPV Routine 08/11/2016 COLONOSCOPY Routine 04/24/2014 documented in this encounter Results * Mammography (03/01/2022) Mammogram normal Anatomical Region Laterality Modality Other Historical Provider HEALTH MAINTENANCE Final Result * Pap Smear (08/11/2016) Pap smear ILM HPV neg Polly Treadwell [facility] [place] [facility] Provider HEALTH MAINTENANCE Final Result * Colonoscopy (04/24/2014) Colonoscopy normal with Dr. Sawant [facility] [place] [facility] Provider HEALTH MAINTENANCE Final Result documented in this encounter Visit Diagnoses Not on filedocumented in this encounter Care Teams Director Of Industrial Relations Relationship Specialty Start Date End Date Luly Laguna MD 230 [place] [address] PCP - General Family Medicine 05/15/18 Alan Horowitz 175 [facility] 2nd Floor [address] [place] [address] Gastroenterology 06/18/24 Polly Bryant [address] [place] [address] Obstetrics and Gynecology 06/18/24 Sandra Schaffer 11 [facility] 3rd [place] [address] Cardiology 11/01/24 Keyla Stevenson [address] [place] [address] Dr [address] [place] [address] Orthopaedic Surgery 11/14/24 An Thomas Associate Professor Plant PathologyScrap Preparation Supervisor 01/22/24 documented as of this encounter
--- OUTSIDE RECORDS SUMMARY | 2025-02-28 11:57 | XMS_ITS | Encounter Summary ---
Author Organization [employer] Address [address] [place] [address] 7t [place] [address] Care Team Providers Care Pawn Shop Keeper Name Role Phone Luly Laguna MD Primary Care Provider +1- [phone] MusjesAlan Unavailable KristaPolly gary Unavailable Sandra Schaffer Unavailable ElvaKeyla Unavailable Reason for Visit * Reason Comments Med Change Request Encounter Details Date Type Department Care Team (Late st Contact Info) Description 11/07/2022 Refill [facility] MEDICINE 230 [place], [place] [phone] Luly Laguna MD 230 [place], [place] [phone] Social History Tobacco Use Types Packs/Day Years [...] 07/02/2025 10:00 AM EST Office Visit [facility] ADULT DENTAL 230 [place] [address] Tasha Farfan 230 [place] [address] documented as of this encounter Visit Diagnoses Not on filedocumented in this encounter Additional Health Concerns Assessment Noted Time PHQ-9 Depression Total Score: 0 11/08/19 23 11:15 AM EDT documented as of this encounter Care Teams Pawn Shop Keeper Relationship Specialty Start Date End Date Luly Laguna MD 230 [place] [address] PCP - General Family Medicine 05/15/18 Alan Horowitz 175 [facility] 2nd Floor [address] [place] [address] Gastroenterology 06/18/24 Polly Bryant 271 [facility] [address] [address] Obstetrics and Gynecology 06/18/24 Sandra Schaffer [address] [place] [address] 3[address] [place] [address] Cardiology 11/01/24 Keyla Stevenson [address] [place] [address] Dr [address] [place] [address] Orthopaedic Surgery 11/14/24 An Thomas Datapower DeveloperLead Loader 01/22/24 documented as of this encounter
--- OUTSIDE RECORDS SUMMARY | 2025-02-28 11:57 | XMS_ITS | Encounter Summary ---
Author Organization [employer] Address 75 [facility] 7t [place] [address] Care Team Providers Care Road Monkey Name Role Phone Luly Laguna MD Primary Care Provider +1- [phone] Musjes Alan Zayda Unavailable KristaPolly gary Unavailable Sandra Schaffer Unavailable Keyla Stevenson Unavailable Encounter Details Date Type Department Care Team (Late st Contact Info) Description 11/24/2022 Abstract [facility] MEDICINE 230 [place], [place] [phone] Luly Laguna MD 230 [place], [place] [phone] Social History Tobacco Use Types Packs/Day Years [...] Description 07/02/2025 10:00 AM EST Office Visit [facility] ADULT DENTAL 230 [place] [address] Tasha Farfan 230 [place] [address] documented as of this encounter Visit Diagnoses Not on filedocumented in this encounter Additional Health Concerns Assessment Noted Time PHQ-9 Depression Total Score: 0 11/08/19 11:15 AM EDT documented as of this encounter Care Teams Road Monkey Relationship Specialty Start Date End Date Luly Laguna MD 230 [place] [address] PCP - General Family Medicine 05/15/18 Alan Horowitz 175 [facility] 2nd Floor [address] [place] [address] Gastroenterology 06/18/24 Polly Bryant [address] [address] Obstetrics and Gynecology 06/18/24 Sandra Schaffer 11 [facility] 3rd [place] [address] Cardiology 11/01/24 Keyla Stevenson [address] [facility] [address] [place] [address] Orthopaedic Surgery 11/14/24 An Thomas Fish SmokerChipping Machine Operator 01/22/24 documented as of this encounter
== END 2025-02-28 10:51 | disposition home or self-care (01) ==
LOC: HO.HPODS 10:09
PROVIDERS: Visit Provider Student in an Organized Health Care Education/Training Program
DX: M79.671 Pain in right foot (principal); M77.41 Metatarsalgia, right foot; G57.81 Other specified mononeuropathies of right lower limb
CPT/HCPCS: 99204

== ENCOUNTER 2025-02-28 10:08 | Outpatient (REF) | payer MEDICAID, SELFPAY ==
--- NOTE | ~2025-02-28 | XR_ITS ---
EXAMINATION: XR FOOT 3 OR MORE VIEWS RIGHT HISTORY: M79.671 - Pain in right foot COMPARISON: There are no prior studies available for comparison. FINDINGS: Three weight bearing views of the right foot are submitted. Osseous mineralization is normal. There is no fracture or dislocation. The joint spaces are preserved. There is a small plantar calcaneal spur. The soft tissues are unremarkable. XR/XR foot RT min 3V IMPRESSION: Small plantar calcaneal spur. Otherwise unremarkable examination of the right foot. Electronically signed by: Ezekiel Saravia MD 02/28/2025 12:35 PM EDT
== END 2025-02-28 10:09 | disposition home or self-care (01) ==
LOC: HO.XRAY 10:08
PROVIDERS: PCP Family Medicine; Visit Provider Student in an Organized Health Care Education/Training Program
DX: M79.671 Pain in right foot (principal); M77.41 Metatarsalgia, right foot; G57.81 Other specified mononeuropathies of right lower limb
CPT/HCPCS: 73630; 99202

== ENCOUNTER → 2025-02-28 12:10 | Outpatient (BNV) | payer MEDICAID, SELFPAY | PROVIDERS: PCP Family Medicine; Visit Provider Radiology Diagnostic Radiology | DX: M77.31 Calcaneal spur, right foot (principal) | CPT/HCPCS: 73630 ==

== ENCOUNTER 2025-03-14 09:51 | Outpatient (AMB) | payer MEDICAID, SELFPAY ==
[2025-03-14 09:59] VITALS: BP 122/70; PULSE 76; BMI 28.5
--- NOTE | 2025-03-14 09:59 | MHC.OFFVIS ---
Vital Signs 03/14/25 09:59 Height 5 ft 3 in Weight 160 lb 14.999 oz BMI 28.5 BP 122/70 Blood Pressure Location Lt brachial Position Sitting Pulse 76 Pulse Source Pulse Oximeter Intake Visit Reasons: Palpitations Manager Business Required: Yes Manager Business Name: Alana [id number] Elli Accompanied by: Self / Same As Patient Allergies acetaminophen (From Percocet) Allergy (Verified 03/14/25 10:03) shake oxycodone (From Percocet) Allergy (Verified 03/14/25 10:03) shake Medication List - Last Reconciled 03/14/25 by Sandra Schaffer UNBUNDLER-C atorvastatin 20 mg PO DAILY cholecalciferol (vitamin D3) 25 mcg PO DAILY clonazepam (Klonopin) 0.25 mg PO BEDTIME diclofenac potassium 50 mg PO DAILY fluoxetine 20 mg PO DAILY methylprednisolone (Medrol (Nelson)) PO PER PKG DIR metoprolol succinate ER 25 mg PO DAILY omeprazole 20 mg PO BID HPI HPI Palpitations: Details: Mahogany is a 59-year-old female with past medical history of hypertension, palpitations, frequent sinus tachycardia who presents for follow-up. Today she reports that she has recently had an increase in her heart palpitations. It is now occurring daily and causes her concern. She is not able to check her pulse. She notices some shortness of breath when her heart is beating fast. She tries to sit and relax which will help it settled down. No lightheadedness, presyncope, syncope, falls. No chest discomfort at rest or with activity. No PND, orthopnea or edema. Activity is limited by knee arthritis. Taking meds as directed. [facility] Medical History Interdigital neuroma of right foot Metatarsalgia, right foot Depression Anxiety Hypertension No known health problems No known health problems Family History Father Stroke Mother No problems noted. Social History Current occupational status: unemployed Current occupation: Right Handed Review of Systems Const All systems reviewed & are unremarkable except as noted in HPI and below Denies daytime sleepiness, Denies difficulty sleeping, Denies snoring, Denies stops breathing during sleep and Denies weakness Card Denies chest pain, Reports rapid heart rate, Denies irregular heart rhythm, Denies claudication, Denies leg edema, Denies lightheadedness, Reports palpitations, Denies dyspnea, Denies dyspnea on exertion, Denies orthopnea, Denies paroxysmal nocturnal dyspnea and Denies slow heart rate Resp Denies cough, Denies dyspnea, Denies dyspnea on exertion and Denies snoring GI Denies no additional complaints, Denies hematochezia, Denies change in stool character and Denies dyspepsia Musc Denies abnormal gait, Denies muscle weakness and Denies numbness Neuro Denies abnormal gait, Denies numbness and Denies weakness Endo Reports palpitations Physical Exam Vital Signs: Last Vital Signs Pulse 76 03/14/25 09:59 BP 122/70 03/14/25 09:59 BMI result Body Mass Index 28.5 Const General: cooperative, healthy appearing, comfortable and no acute distress Orientation/consciousness: patient oriented x3 Neck Neck: Yes normal visual inspection and Yes no JVD Resp Effort & Inspection: normal respiratory effort Auscultation: clear to auscultation bilaterally, no crackles, no rales, no rhonchi and no wheezes Cardio Rate: regular rate Rhythm: regular rhythm Heart sounds: S1 normal heart sound present, S2 normal heart sound present, no gallops, no murmurs and no rubs Neuro General: patient oriented x3 Extrem General: Yes normal to inspection, No no pedal edema and No calf tenderness Psych Appearance: grossly normal Mental Status: mental status grossly normal Speech and movement: Normal speech and movement present Assessment & Plan Assessment & Plan (1) Palpitations: Code(s): R00.2 - Palpitations Category: Medical Plan: Prior Reports of heart palpitations like her heart is beating fast with finding of frequent sinus tachycardia treated with metoprolol XL 25 mg daily. Now with increased heart palpitations, occurring daily, causing her much concern. Last Echocardiogram done 08/29/2024 shows normal study, EF 60-65%. [facility] 08/29/[facility]24 worn for 28.5 days shows sinus rhythm with average heart rate 90 beats per minute with heart rate range 50 to 144 beats per minute frequent sinus tachycardia, 40% of the time heart rate greater than 100, one 5 beat NSVT, symptoms correlated with sinus rhythm. At this time will order Holter monitor to ensure she is not having any other arrhythmia. Will increase metoprolol XL to 50 mg daily. Reviewed avoidance of caffeinated beverages. Maintain good hydration and physical activity. Cardiology follow-up 3 mo, sooner if needed to reassess. (2) Sinus tachycardia: Code(s): R00.0 - Tachycardia, unspecified Category: Medical Plan: As above (3) Hypertension: Code(s): I10 - Essential (primary) hypertension Category: Medical Plan: Blood pressure goal less than 130/80, well controlled at this time. Continue metoprolol. Plan Time spent on chart review, documentation, interview and assessment Orders: Orders ECG 3 day holter monitor Today R00.0 - Tachycardia, unspecified, R00.2 - Palpitations Medications: New metoprolol succinate ER dose increased 50 mg PO DAILY 90 tabs 1RF Discontinued metoprolol succinate ER Discontinued Reason: Doctor's Order 25 mg PO DAILY 90 tabs 3RF Coding Level of Care Code Est Pt Level 3 (27743) Complex EM visit Add On G2211 Diagnoses Palpitations R00.2 Sinus tachycardia R00.0 Hypertension I10 Time Spent (min) 24
--- OUTSIDE RECORDS SUMMARY | 2025-03-14 11:04 | XMS_ITS | Encounter Summary ---
Author Organization [employer] Address 75 [facility] 7t [place] [address] Care Team Providers Care On Air Host Name Role Phone Luly Laguna MD Primary Care Provider +1- [phone] Musjes Alan Zayda Unavailable KristaPolly gary Unavailable Sandra Schaffer Unavailable Keyla Stevenson Unavailable Encounter Details Date Type Department Care Team (Late st Contact Info) Description 11/24/[address] [facility] MEDICINE 230 [place], [place] [phone] Luly Laguna MD 230 [place], [place] [phone] Social History Tobacco Use Types Packs/Day Years [...] Care Team (Late st Contact Info) Description 04/30/2025 11:15 AM EST Office Visit [facility] MEDICINE 230 [place] [address] Luly Laguna MD 230 [place] [address] 07/02/2025 10:15 AM EST Office Visit [facility] ADULT DENTAL 230 [place] [address] Adolph Tasha 230 [place] [address] documented as of this encounter Visit Diagnoses Not on filedocumented in this encounter Additional Health Concerns Assessment Noted Time PHQ-9 Depression Total Score: 0 11/08/19 11:15 AM EDT documented as of this encounter Care Teams On Air Host Relationship Specialty Start Date End Date Luly Laguna MD 230 [place] [address] PCP - General Family Medicine 05/15/18 Alan Horowitz 175 [facility] 2nd Floor [address] [place] [address] Gastroenterology 06/18/24 Polly Bryant 271 [facility] 1st[place] [address] Obstetrics and Gynecology 06/18/24 Sandra Schaffer 11 [facility] 3rd [place] [address] Cardiology 11/01/24 Keyla Stevenson [address] [facility] [address] [place] [address] Orthopaedic Surgery 11/14/24 An Thomas Beauty CulturistInsurance Claims Adjuster 01/22/24 documented as of this encounter
--- OUTSIDE RECORDS SUMMARY | 2025-03-14 11:04 | XMS_ITS | Encounter Summary ---
Author Organization [employer] Address 75 [facility] 7t [place] [address] Care Team Providers Care Cap Maker Name Role Phone Luly Laguna MD Primary Care Provider MusAlan andre Zayda Unavailable Polly Bryant Unavailable Sandra Schaffer Unavailable Keyla Stevenson Unavailable Encounter Details Date Type Department Care Team (Latest Contact Info) Description 11/22/2018 Abstract [facility] CONVERSIONS Dental, Provider, DDS Social History [...] Description 04/30/2025 11:15 AM EST Office Visit [facility] MEDICINE [address] [place], [place] [phone] Luly Laguna MD [address] [place], [place] [phone] 07/02/2025 10:15 AM EST Office Visit [facility] ADULT DENTAL [address] [place], [place] [phone] Tasha Farfan 230 [place] [address] documented as of this encounter Visit Diagnoses Not on filedocumented in this encounter Care Teams Cap Maker Relationship Specialty Start Date End Date Luly Laguna MD 230 [place] [address] PCP - General Family Medicine 05/15/18 Alan Horowitz 175 [facility] 2nd Floor [address] [place] [address] Gastroenterology 06/18/24 Polly Bryant [address] [place] [address] Obstetrics and Gynecology 06/18/24 Sandra Schaffer 11 [facility] 3rd [place] [address] Cardiology 11/01/24 Keyla Stevenson [address] [facility] [address] [facility] [address] [place] [address] Orthopaedic Surgery 11/14/24 An Thomas Woods WardenPhotoengraving Apprentice 01/22/24 documented as of this encounter
--- OUTSIDE RECORDS SUMMARY | 2025-03-14 11:04 | XMS_ITS | Encounter Summary ---
Author Organization [employer] Address 75 [facility] 7t [place] [address] Care Team Providers Care Biochemistry Technician Name Role Phone Luly Laguna MD Primary Care Provider +1- [phone] Alan Horowitz Unavailable KristaPolly gary Unavailable Sandra Schaffer Unavailable ElvaKeyla Unavailable Reason for Visit * Reason Comments Med Refill Encounter Details Date Type Department Care Team (Late st Contact Info) Description 10/23/[address] [facility] MEDICINE 230 [place], [place] [phone] Luly Laguna MD [address] [place], [place] [phone] Social History Tobacco Use Types Packs/Day Years [...] Description 04/30/2025 11:15 AM EST Office [facility] [address] [place] [address] Luly Laguna MD [address] [place] [address] 07/02/2025 10:15 AM EST Office Visit [facility] ADULT DENTAL [address] [place] [address] Adolph Tasha 230 [place] [address] documented as of this encounter Visit Diagnoses Not on filedocumented in this encounter Additional Health Concerns Assessment Noted Time PHQ-9 Depression Total Score: 0 11/08/19 11:15 AM EDT documented as of this encounter Care Teams Biochemistry Technician Relationship Specialty Start Date End Date Luly Laguna MD [address] [place] [address] PCP - General Family Medicine 05/15/18 Alan Horowitz 175 [facility] 2nd Floor [address] [place] [address] Gastroenterology 06/18/24 Polly Bryant [address] [place] [address] Obstetrics and Gynecology 06/18/24 Sandra Schaffer [address] [place] [address] 3rd [place] [address] Cardiology 11/01/24 Keyla Stevenson [address] [place] [address] Dr [address] [place] [address] Orthopaedic Surgery 11/14/24 An Thomas Alpaca FarmerLinen Tech 01/22/24 documented as of this encounter
--- OUTSIDE RECORDS SUMMARY | 2025-03-14 11:04 | XMS_ITS | Clinical Summary ---
Author Organization [employer] Address 75 [facility] 7t [place] [address] Care Team Providers Care Golf Course Ranger Name Role Phone Luly Laguna MD Primary Care Provider +1- [phone] Alan Horowitz Unavailable Manny Polly Unavailable Karime, Sandra Unavailable Elva, Keyla Unavailable [...] BY MOUTH TWICE A DAY 60 tablet 03/10/20 25 Active diclofenac (Cataflam) 50 MG tabletIndication s:Chronic pain of both knees TOME 1 TABLETA POR VIA ORAL DOS VECES AL VANESSA 60 tablet 02/11/20 25 025 Discontinued Active Problems Problem Noted [...] EDT): Seen on 02/09/24 in [facility] [place] for palpitations with associated SOB. Symptoms appeared episodic and random. Check Holter. EKG here sinus no ST changes. Ordered TSH W/Reflex to FT4, CBC auto differential, Basic Metabolic Panel. -Will refer to cardiology for longer monitor 03/25/24 -08/30/23 currently has extended monitoring specialist for 30 days, will follow-up with cardiology [...] repeat colonoscopy in 10 years. Done at [facility] with Dr. Alan Horowitz MD Assessment & [...] Carrasco, notes requested 11/07/2022 -dental home is [facility] -Health care Proxy 03/25/24 Assessment & Plan (03/26/2024 1:39 PM EST): -next annual exam due after 03/25/25 -eye care facilitated by Dr. Carrasco, notes requested 11/07/2022 -dental home is [facility] - Health care Proxy 03/25/24 Assessment & Plan (11/07/2022 12:56 PM EDT): -next physical exam due after 11/08/2023 -eye care facilitated by Dr. Carrasco, notes requested 11/07/2022 -dental home is [facility] Dyslipidemia 11/07/2022 Overview (09/18/2024): Lab Results Component [...] Overview (09/18/2024): Lab Results Component Value Date [id number] 52.8 03/25/2024 [id number] 29.9 (L) 05/04/2023 Mass of oral cavity [...] Encounters Date Type Department Care Team Description 03/09/2025 Refill [facility] [address] [place] [address] Luly Laguna MD Chronic pain of both knees 03/07/2025 Telephone [facility] [address] [place] [address] Luly Laguna MD April Recalls 03/07/2025 Travel 03/03/2025 Refill [facility] [address] [place] [address] Luly Laguna MD Right knee pain, unspecified chronicity; Pain and swelling of left knee 02/28/2025 Orders Only [facility] External Provider, [facility] 02/07/2025 Refill [facility] [address] [place] [address] Luly Laguna MD Chronic pain of both knees 02/05/2025 Refill [facility] [address] [place] [address] Luly Laguna MD Vitamin D deficiency 02/05/2025 Refill [facility] [address] [place] [address] Daya Matta MD Anxiety 01/24/2025 Refill [facility] [address] [place] [address] Luly Laguna MD Vitamin D deficiency 01/10/2025 Refill [facility] [address] [place] [address] Luly Laguna MD Gastroesophageal reflux disease, unspecified whether esophagitis present 01/09/2025 Refill [facility] [address] [place] [address] Daya Matta MD Anxiety; Gastroesophageal reflux disease, unspecified whether esophagitis present 01/09/2025 Refill [facility] [address] [place] [address] Luly Laguna MD Dyslipidemia 12/25/2024 1:00 PM EDT Office Visit [facility] ADULT D[facility] [address] [place] [address] Marta Huang from Last 3 Months Immunizations Immunization Administration [...] Description 04/30/2025 11:15 AM EST Office Visit [facility] [address] [place] [address] Luly Laguna MD 230 [place] [address] 07/02/2025 10:15 AM EST Office Visit [facility] ADULT DENTAL [address] [place] [address] Tasha Farfan [address] [place] [address] Health Maintenance Due Date Last Done Comments [...] Name Priority Date/Time Associated Diagnosis Comments XR FOOT 3+ VIEWS RIGHT Routine 02/28/2025 12:15 PM EDT CASE PRESENTATION, DETAILED AND EXTENSIVE TREATMENT PLANNING Routine 12/25/2024 1:00 PM EDT PROPHYLAXIS - ADULT Routine 12/25/2024 1 :00 PM EDT INTRAORAL - COMPLETE SERIES OF RADIOGRAPHIC IMAGES Routine 10/22/2024 10:30 AM EDT Excessive attrition of teeth Encounter for dental examination Fractured dental hindu with loss of material Gingival hyperplasia Maxillary macrognathia PERIODIC ORAL EVALUATION - ESTABLISHED PATIENT Routine 10/22/2024 10:30 AM EDT Excessive attrition of teeth Encounter for dental examination Fractured dental hindu with loss of material Gingival hyperplasia Maxillary [...] Relevant to Health Maintenance Results * XR Foot 3+ Views Right (02/28/2025 12:15 PM EDT) Anatomical Region Laterality Modality Lower Extremities, Foot Right Radiogra phic Imaging 02/28/2025 12:1 5 PM EDT Narrative 02/28/2025 12:37 PM EDT [address] [address] XRay Report Signed Patient: Mahogany Tapia MR#: [id number] 2 : 1965 Acct:[id number] Age/Sex: 59 / F ADM Date: 02/28/25 Loc: FLAVIO Attending Dr: Alba Meadows DPM Ordering Physician: Alba Meadows DPM Date of Service: 02/28/25 Procedure(s): XR foot RT min 3V Accession Number(s): [id number] cc: Luly Laguna MD; Alba Meadows DPM Reason for Exam: M79.671 - Pain in right foot EXAMINATION: XR FOOT 3 OR MORE VIEWS RIGHT HISTORY: M79.671 - Pain in right foot COMPARISON: There are no prior studies available for comparison. FINDINGS: Three weight bearing views of the right foot are submitted. Osseous mineralization is normal. There is no fracture or dislocation. The joint spaces are preserved. There is a small plantar calcaneal spur. The soft tissues are unremarkable. XR/XR foot RT min 3V IMPRESSION: Small plantar calcaneal spur. Otherwise unremarkable examination of the right foot. Electronically signed by: Ezekiel Saravia MD 02/28/2025 12:35 PM EDT RP Dictated By: Ezekiel Saravia MD Signed By: <Electronically signed by Ezekiel Saravia MD in OV> 02/28/25 1235 DD/ 1215 TD/TT: 02/28/25 1220 Termite Technician: Procedure Note Donotuseinterpreter, Image - 02/28/[address] [address] XRay Report Signed Patient: Deann Tapia#: [id number] 2 : 1965Acct:[id number] Age/Sex: 59 / FADM Date: 02/28/25 Loc: FLAVIO Attending Dr: Alba Meadows DPM Ordering Physician: Alba Meadows DPM Date of Service: 02/28/25 Procedure(s): XR foot RT min 3V Accession Number(s): [id number] cc: Luly Laguna MD; Alba Meadows DPM Reason for Exam: M79.671 - Pain in right foot EXAMINATION: XR FOOT 3 OR MORE VIEWS RIGHT HISTORY: M79.671 - Pain in right foot COMPARISON: There are no prior studies available for comparison. FINDINGS: Three weight bearing views of the right foot are submitted. Osseous mineralization is normal. There is no fracture or dislocation. The joint spaces are preserved. There is a small plantar calcaneal spur. The soft tissues are unremarkable. XR/XR foot RT min 3V IMPRESSION: Small plantar calcaneal spur. Otherwise unremarkable examination of the right foot. Electronically signed by: Ezekiel Saravia MD 02/28/2025 12:35 PM EDT RP Dictated By: Ezekiel Saravia MD Signed By: <Electronically signed by Ezekiel Saravia MD in OV> 02/28/25 1235 DD/ 1215 TD/TT: 02/28/25 1220 Termite Technician: [facility] External Provider IMG XR PROCEDURES Final Result * Lipid Panel, Standard (08/29/2024 2:04 PM EDT) Triglycerides 108 <150 mg/dL [facility] Comment:Desirable Triglyceri de: less than 150 mg/dLBorderline High Triglyceride 150-199 mg/dLHigh Triglyceride: 200-499 mg/dLVery High Triglyceride: greater than or equal to 5OO mg/dL Cholesterol 138 <200 mg/dL [facility] Comment:Desirable Cholestero l: less than 200 mg/dLBorderline High Cholesterol: 200-239 mg/dLHigh Cholesterol: greater than 239 mg/dL LDL Cholesterol Calculated 70 <100 mg/dL [facility] Comment:Desirable LDL: less than 100 mg/dLNear Optimal/Above Optimal LDL: 110- 129 mg/dLBorderline High LDL: 130-159 mg/dLHigh LDL: 160-189 mg/dLVery High LDL: greater than or equal to 190 mg/dL HDL Cholesterol 47 >40 mg/dL [facility] Comment:Desirable HDL: great er than 40 mg/dL Note: This HDL assay may give artificially low results in patients with liver disease. Blood Venous blood specimen / Unknown 08/29/2024 2:04 PM EDT 08/29/2024 4:12 PM EDT uLly Laguna MD LAB BLOOD ORDERABLES Final Result [facility] [address] [place] [phone] * BI Mammogram Screening Tomosynthesis Bilateral (03/08/2024 10:50 AM EDT) Anatomical Region Laterality Modality Breast Bilateral Mammography 03/08/2024 10:5 0 AM EDT Narrative 03/19/2024 8:50 AM EST [address] [place] [address] Mammography Report Signed Patient: Mahogany Tapia MR#: [id number] 2 : 1965 Acct:[id number] Age/Sex: 58 / F ADM Date: 03/08/24 Loc: HO.MAMMO Attending Dr: Luly Laguna MD Ordering Physician: Luly Laguna MD Results: 1N egative Date of Service: 03/08/24 Follow Up: 1 Year From [facility] Mammogram Procedure(s): MM tomosynthesis screening BI Accession Number(s): [id number] cc: Luly Laguna MD EXAMINATION: MM SCREENING [...] 03/19/24 0847 DD/ 1050 TD/TT: 03/08/24 1112 Termite Technician: Procedure Note Donotuseinterpreter, Image - [facility]/19/[facility] [address] [place], [place] [address] Mammography Report Signed Patient: Deann Tapia#: [id number] 2 : 1965Acct:[id number] Age/Sex: 58 / FADM Date: 03/08/24 Loc: HO.MAMMO Attending Dr: Luly Laguna MD Ordering Physician: Luly Laguna MDResults: 1N egative Date of Service: 03/08/24Follow Up: 1 Year From Orig inal Mammogram Procedure(s): MM tomosynthesis screening BI Accession Number(s): [id number] cc: Luly Laguna MD EXAMINATION: MM SCREENING [...] 03/19/24 0847 DD/ 1050 TD/TT: 03/08/24 1112 Termite Technician: Luly Laguna MD IMG BI PROCEDURES Final Re sult * (ABNORMAL) Colonoscopy (07/25/2023) Pathologist [facility] Colonoscopy Abnormal( A) Normal Comment:small polyp, await p athology results at [place] Historical Provider HEALTH MAINTENANCE Final Result * Hepatitis C Antibody with Reflex to HCV, RNA, Quantitative, Real-Time PCR (05/04/2023 11:34 AM EST) [facility] Hepatitis C Antibody Nonreactive Nonreactive [facility] Comment:Antibodies to HCV no t detected; does not exclude early acuteHCV infection. Blood Venous blood specimen / Unknown 05/04/2023 11:34 AM EST 05/04/2023 1:12 PM EST Luly Laguna MD LAB BLOOD ORDERABLES Final Result [facility] [address] [place] [phone] * (ABNORMAL) Pap Smear (09/19/2022) Pathologist [facility] Pap Other Negative for intraephithelial lesion or malignancy, Other Comment:unsatisfactory HPV Not Detected Undetected, Indeterminate, Quantitative, Not Detected Historical Provider HEALTH MAINTENANCE Final Result * HIV 1/2 ANTIGEN/ANTIBODY,FOURTH GENERATION W/RFL (08/05/2021 11:46 AM EDT) [facility] HIV-1/2 ANTIGEN AND ANTIBODIES, 4TH GENERATION W/ REFLEX NON-REACT SAVI NON-REACT SAVI [facility] Comment: HIV-1 antigen and [...] purpose. For additional information please refer to http://education.MapHazardly/faq/ZBY939 (This link is being provided for informational/ educational purposes only.) The performance of this assay has not been clinically validated in patients less than 2 years old. 08/05/2021 11:4 6 AM EDT us Luly Laguna MD LAB BLOOD ORDERABLES Final Result Performing Organization Address City/State/[facility] Phone Number [facility] [address] from Last 3 Months or Most Recently Relevant to Health Maintenance Insurance [facility] ST[facility] ADULT Care Teams Golf Course Ranger Relationship Specialty Start Date End Date Jase, MD Luly [address] [place] [address] PCP - General Family Medicine 05/15/18 Alan Horowitz 175 [facility] 2nd [facility] [address] [place] [address] Gastroenterology 06/18/24 Polly Bryant [address] [address] Obstetrics and Gynecology 06/18/24 Sandra Schaffer 11 [facility] 3rd [place] [address] Cardiology 11/01/24 Keyla Stevenson [address] [place] [address] [address] [place] [address] Orthopaedic Surgery 11/14/24 An Thomas Airport Operations CoordinatorMaterials Inspector 01/22/24
--- OUTSIDE RECORDS SUMMARY | 2025-03-14 11:04 | XMS_ITS | Encounter Summary ---
Author Organization [employer] Address 75 [facility] 7t [place] [address] Care Team Providers Care Snowmaker Name Role Phone Luly Laguna MD Primary Care Provider +1- [phone] Alan Horowitz Unavailable Manny Polly Unavailable Karime, Sandra Unavailable Elva Keyla Unavailable Reason for Visit * Reason Comments Med Refill Encounter Details Date Type Department Care Team (Late st Contact Info) Description 01/19/2024 Refill [facility] [address] [place], [place] [phone] Gudelia Jaimes, ANP [address] [place], [place] [phone] Gastroesophageal reflux disease, unspecified whether esophagitis present [...] 11:15 AM EST Office Visit [facility] [address] [place] [address] Luly Laguna MD 230 [place] [address] 07/02/2025 10:15 AM EST Office Visit [facility] [address] [place] [address] Adolph, Tasha [address] [place] [address] documented as of this encounter Visit Diagnoses Diagnosis Gastroesophageal reflux disease, unspecified whether esophagitis present- Primary documented in this encounter Additional Health Concerns Assessment Noted Time PHQ-9 Depression Total Score: 0 11/08/19 11:15 AM EDT documented as of this encounter Care Teams Snowmaker Relationship Specialty Start Date End Date Luly Laguna MD [address] [place] [address] PCP - General Family Medicine 05/15/18 Alan Horowitz [address] [place] [address] 2nd Floor [address] [place] [address] Gastroenterology 06/18/24 Polly Bryant [address] [place] [address] Obstetrics and Gynecology 06/18/24 Sandra Schaffer [address] 3rd [place] [address] Cardiology 11/01/24 Keyla Stevenson [address] [place] [address] [address] [place] [address] Orthopaedic Surgery 11/14/24 An Thomas Tyre Finisher And ExaminerK 9 Handler/ Deputy 01/22/24 documented as of this encounter
--- OUTSIDE RECORDS SUMMARY | 2025-03-14 11:04 | XMS_ITS | Encounter Summary ---
Author Organization [employer] Address 75 [facility] 7t [place] [address] Care Team Providers Care Rotary Peel Oven Tender Name Role Phone Luly Laguna MD Primary Care Provider +1- [phone] Alan Horowitz Unavailable Manny Polly Unavailable Sandra Schaffer Unavailable Elva, Keyla Unavailable Encounter Details Date Type Department Care Team (Late st Contact Info) Description 06/18/2024 Orders Only [facility] MEDICINE 230 [place] [address] uLly Laguna MD 230 [place], [place] [phone] Abnormal colonoscopy (Primary Dx) Social History Tobacco [...] Description 04/30/2025 11:15 AM EST Office Visit [facility] MEDICINE [address] [place] [address] Luly Laguna MD [address] [place] [address] 07/02/2025 10:15 AM EST Office Visit [facility] ADULT DENTAL [address] [place] [address] Adolph, Tasha 230 [place] [address] documented as of this encounter Visit Diagnoses Diagnosis Abnormal colonoscopy- Primary documented in this encounter Additional Health Concerns Assessment Noted Time PHQ-9 Depression Total Score: 3 03/25/20 24 11:38 AM EST documented as of this encounter Care Teams Rotary Peel Oven Tender Relationship Specialty Start Date End Date Luly Laguna MD [address] [place] [address] PCP - General Family Medicine 05/15/18 Alan Horowitz 175 [facility] 2nd Floor [address] [place] [address] Gastroenterology 06/18/24 Polly Bryant 271 [facility] 1stfloor [place] [address] Obstetrics and Gynecology 06/18/24 Sandra Schaffer [address] [facility] [address] [facility] [address] 3rd [place] [address] Cardiology 11/01/24 Keyla Stevenson [address] [place] [address] [address] [place] [address] Orthopaedic Surgery 11/14/24 An Thomas Lottery ClerkBakery Decorator 01/22/24 documented as of this encounter
--- OUTSIDE RECORDS SUMMARY | 2025-03-14 11:05 | XMS_ITS | Encounter Summary ---
Author Organization [employer] Address 75 [facility] 7t [place] [address] Care Team Providers Care Power Shear Operator Name Role Phone Luly Laguna MD Primary Care Provider +1- [phone] Musjes Alan Zayda Unavailable KristaPolly gary Unavailable Sandra Schaffer Unavailable Keyla Stevenson Unavailable Encounter Details Date Type Department Care Team (Late st Contact Info) Description 11/24/2022 Abstract [facility] 230 [place], [place] [phone] Luly Laguna MD 230 [place], [place] [phone] Social History Tobacco Use Types Packs/Day Years [...] Description 04/30/2025 11:15 AM EST Office Visit [facility] 230 [place] [address] Luly Laguna MD 230 [place] [address] 07/02/2025 10:15 AM EST Office Visit [facility] ADULT [facility] 230 [place] [address] Adolph Tasha 230 [place] [address] documented as of this encounter Visit Diagnoses Not on filedocumented in this encounter Additional Health Concerns Assessment Noted Time PHQ-9 Depression Total Score: 0 11/08/19 11:15 AM EDT documented as of this encounter Care Teams Power Shear Operator Relationship Specialty Start Date End Date Luly Laguna MD 230 [place] [address] PCP - General Family Medicine 05/15/18 Alan Horowitz 175 [facility] 2nd Floor [address] [place] [address] Gastroenterology 06/18/24 Polly Bryant 271 [facility] 1stfloor [place] [address] Obstetrics and Gynecology 06/18/24 Sandra Schaffer 11 [facility] [address] [place] [address] Cardiology 11/01/24 Keyla Stevenson [address] [facility] [address] [place] [address] Orthopaedic Surgery 11/14/24 An Thomas Automobile Repair Service EstimatorLadle Cleaner 01/22/24 documented as of this encounter
--- OUTSIDE RECORDS SUMMARY | 2025-03-14 11:05 | XMS_ITS | Encounter Summary ---
Author Organization [employer] Address 75 [facility] 7t [place] [address] Care Team Providers Care Warehouse Examiner Name Role Phone Luly Laguna MD Primary Care Provider + [phone] MusjesAlan Unavailable KristaPolly gary Unavailable Sandra Schaffer Unavailable Keyla Stevenson Unavailable Encounter Details Date Type Department Care Team (Late st Contact Info) Description 05/29/2022 Abstract [facility] MED[facility] [address] [place] [address] [phone] Luly Laguna MD [address] [place] [address] [phone] Social History Tobacco Use Types Packs/Day Years [...] Description 04/30/2025 11:15 AM EST Office Visit [facility] [address] [place] [address] [phone] Luly Laguna MD [address] [place] [address] [phone] 07/02/2025 10:15 AM EST Office Visit [facility] ADULT DENTAL [address] [place] [address] Tasha Farfan [address] [place] [address] documented as of this encounter Procedures Procedure Name Priority Date/Time Associated Diagnosis Comments MAMMOGRAPHY Routine 03/01/2022 PAP/HPV Routine 08/11/2016 COLONOSCOPY Routine 04/24/2014 documented in this encounter Results * Mammography (03/01/2022) Mammogram normal Anatomical Region Laterality Modality Other [facility] Provider HEALTH MAINTENANCE Final Result * Pap Smear (08/11/2016) Pap smear ILM HPV neg Polly Treadwell Historical Provider HEALTH MAINTENANCE Final Result * Colonoscopy (04/24/2014) Colonoscopy normal with Dr. Sawant [facility] Provider HEALTH MAINTENANCE Final Result documented in this encounter Visit Diagnoses Not on filedocumented in this encounter Care Teams Warehouse Examiner Relationship Specialty Start Date End Date Jase, MD Luly [address] [place] [address] PCP - General Family Medicine 05/15/18 Alan Horowitz [address] [facility] 2nd Floor [address] [place] [address] Gastroenterology 06/18/24 Polly Bryant [address] [facility] 1stfloor [place] [address] Obstetrics and Gynecology 06/18/24 Sandra Schaffer [address] 3rd [place] [address] Cardiology 11/01/24 Keyla Stevenson [address] [place] [address] Dr [address] [place] [address] Orthopaedic Surgery 11/14/24 An Thomas Solar Project Coordination SpecialistParcel Post Order Clerk 01/22/24 documented as of this encounter
--- OUTSIDE RECORDS SUMMARY | 2025-03-14 11:05 | XMS_ITS | Encounter Summary ---
Author Organization [employer] Address [address] [place] [address] 7t [place] [address] Care Team Providers Care Pageant Director Name Role Phone Luly Laguna MD Primary Care Provider +1- [phone] MusjesAlan Unavailable KristaPolly gary Unavailable Sandra Schaffer Unavailable ElvaKeyla Unavailable Reason for Visit * Reason Comments Med Change Request Encounter Details Date Type Department Care Team (Late st Contact Info) Description 11/07/2022 Refill [facility] [address] [place], [place] [phone] Luly Laguna MD [address] [place], [place] [phone] Social History Tobacco Use Types Packs/Day Years [...] Description 04/30/2025 11:15 AM EST Office Visit [facility] [address] [place] [address] Luly Laguna MD [address] [place] [address] 07/02/2025 10:15 AM EST Office Visit [facility] ADULT DENTAL [address] [place] [address] Adolph, Tasha [address] [place] [address] documented as of this encounter Visit Diagnoses Not on filedocumented in this encounter Additional Health Concerns Assessment Noted Time PHQ-9 Depression Total Score: 0 11/08/19 11:15 AM EDT documented as of this encounter Care Teams Pageant Director Relationship Specialty Start Date End Date Luly Laguna MD [address] [place] [address] PCP - General Family Medicine 05/15/18 Alan Horowitz 175 [facility] 2nd Floor [address] [place] [address] Gastroenterology 06/18/24 Polly Bryant 271 [facility] 1stfloor [place] [address] Obstetrics and Gynecology 06/18/24 Sandra Schaffer [address] 3rd [place] [address] Cardiology 11/01/24 Keyla Stevenson [address] [place] [address] Dr [address] [place] [address] Orthopaedic Surgery 11/14/24 An Thomas Supervisor Forming DepartmentFountain Clerk 01/22/24 documented as of this encounter
--- OUTSIDE RECORDS SUMMARY | 2025-03-14 11:05 | XMS_ITS | Encounter Summary ---
Author Organization [employer] Address 75 [facility] 7t [place] [address] Care Team Providers Care Returned Case Inspector Name Role Phone Luly Laguna MD Primary Care Provider +1- [phone] MusAlan andre Unavailable Manny Polly Unavailable Karime, Sandra Unavailable ElvaKeyla Unavailable Encounter Details Date Type Department Care Team (Late st Contact Info) Description 07/01/2022 Orders Only [facility] PEDS [address] [place], [place] [phone] Lora Russell LPN Social History Tobacco Use [...] Department Care Team (Late Contact Info) Description 04/30/2025 11:15 AM EST Office Visit [facility] MEDICINE [address] [place] [address] Luly Laguna MD 230 [place] [address] 07/02/2025 10:15 AM EST Office Visit [facility] ADULT DENTAL [address] [place] [address] Adolph, Tasha [address] [place] [address] documented as of this encounter Visit Diagnoses Not on filedocumented in this encounter Care Teams Returned Case Inspector Relationship Specialty Start Date End Date Luly Laguna MD 230 [place] [address] PCP - General Family Medicine 05/15/18 Alan Horowitz 175 [facility] 2nd Floor [address] [place] [address] Gastroenterology 06/18/24 Polly Bryant [address] [facility] 1stfloor [place] [address] Obstetrics and Gynecology 06/18/24 Sandra Schaffer 11 [facility] 3rd [place] [address] Cardiology 11/01/24 Keyla Stevenson [address] [place] [address] Dr [address] [place] [address] Orthopaedic Surgery 11/14/24 An Thomas Fire EngineerTalent Specialist 01/22/24 documented as of this encounter
--- OUTSIDE RECORDS SUMMARY | 2025-03-14 11:05 | XMS_ITS | Encounter Summary ---
Author Organization [employer] Address 75 [facility] 7t [place] [address] Care Team Providers Care Textile Clothing And Footwear Mechanic Name Role Phone Luly Laguna MD Primary Care Provider +1- [phone] Musjes Alan Zayda Unavailable KristaPolly gary Unavailable Sandra Schaffer Unavailable Keyla Stevenson Unavailable Encounter Details Date Type Department Care Team (Late st Contact Info) Description 11/24/2022 Abstract [facility] MEDICINE [address] [place], [place] [phone] Luly Laguna MD 230 [place], [place] [phone] Social History Tobacco Use Types Packs/Day Years [...] 11:15 AM EST Office Visit [facility] MEDICINE [address] [place] [address] Luly Laguna MD 230 [place] [address] 07/02/2025 10:15 AM EST Office Visit [facility] ADULT DENTAL [address] [place] [address] Adolph Tasha [address] [place] [address] documented as of this encounter Visit Diagnoses Not on filedocumented in this encounter Additional Health Concerns Assessment Noted Time PHQ-9 Depression Total Score: 0 11/08/19 11:15 AM EDT documented as of this encounter Care Teams Textile Clothing And Footwear Mechanic Relationship Specialty Start Date End Date Luly Laguna MD 230 [place] [address] PCP - General Family Medicine 05/15/18 Alan Horowitz 175 [facility] 2nd Floor [address] [place] [address] Gastroenterology 06/18/24 Polly Bryant 271 [facility] 1stfloor [place] [address] Obstetrics and Gynecology 06/18/24 Sandra Schaffer 11 [facility] 3rd [place] [address] Cardiology 11/01/24 Keyla Stevenson [address] [facility] [address] [place] [address] Orthopaedic Surgery 11/14/24 An Thomas Accounts Payables ClerkDry Cleaning Checker 01/22/24 documented as of this encounter
--- OUTSIDE RECORDS SUMMARY | 2025-03-14 11:05 | XMS_ITS | Encounter Summary ---
Author Organization [employer] Address 75 [facility] 7t [place] [address] Care Team Providers Care Medical Reviewer Name Role Phone Luly Laguna MD Primary Care Provider +1- [phone] Alan Horowitz Unavailable KristaPolly gary Unavailable Sandra Schaffer Unavailable ElvaKeyla Unavailable Reason for Visit * Reason Comments Med Refill Encounter Details Date Type Department Care Team (Late st Contact Info) Description 02/05/2025 Refill [facility] 230 [place], [place] [phone] Luly Laguna MD 230 [place], [place] [phone] Vitamin D deficiency Social History Tobacco Use [...] Description 04/30/2025 11:15 AM EST Office Visit [facility] [address] [place] [address] Luly Laguna MD [address] [place] [address] 07/02/2025 10:15 AM EST Office Visit [facility] ADULT DENTAL [address] [place] [address] Tasha Farfan [address] [place] [address] documented as of this encounter Visit Diagnoses Diagnosis Vitamin D deficiency documented in this encounter Additional Health Concerns Assessment Noted Time PHQ-9 Depression Total Score: 3 03/25/20 24 11:38 AM EST documented as of this encounter Care Teams Medical Reviewer Relationship Specialty Start Date End Date Luly Laguna MD [address] [place] [address] PCP - General Family Medicine 05/15/18 Alan Horowitz 175 [facility] 2nd Floor [address] [place] [address] Gastroenterology 06/18/24 Polly Bryant [address] [facility] [place] [address] Obstetrics and Gynecology 06/18/24 Sandra Schaffer 11 [facility] 3rd [place] [address] Cardiology 11/01/24 Keyla Stevenson [address] [place] [address] [address] [place] [address] Orthopaedic Surgery 11/14/24 An Thomas Mule SpinnerFabrication Mig Welder 01/22/24 documented as of this encounter
--- OUTSIDE RECORDS SUMMARY | 2025-03-14 11:05 | XMS_ITS | Encounter Summary ---
Author Organization [employer] Address 75 [facility] 7t [place] [address] Care Team Providers Care High School Industrial Arts Teacher Name Role Phone Luly Laguna MD Primary Care Provider +1- [phone] Alan Horowitz Unavailable KristaPolly gary Unavailable Sandra Schaffer Unavailable Keyla Stevenson Unavailable Reason for Visit * Reason Comments Med Refill Encounter Details Date Type Department Care Team (Late st Contact Info) Description 03/09/2025 Refill [facility] WALK[facility] C[facility] 230 [place], [place] [phone] Luly Laguna MD 230 [place], [place] [phone] Chronic pain of both knees Social History [...] the past 12 months, has t he DNA Response, gas, oil or water company threatened to [...] Description 04/30/2025 11:15 AM EST Office Visit [facility] MEDICINE [address] [place] [address] Luly Laguna MD [address] [place] [address] 07/02/2025 10:15 AM EST Office Visit [facility] ADULT DENTAL [address] [place] [address] Cristo Farfanaris 230 [place] [address] documented as of this encounter Visit Diagnoses Diagnosis Chronic pain of both knees documented in this encounter Additional Health Concerns Assessment Noted Time PHQ-9 Depression Total Score: 3 03/25/20 24 11:38 AM EST documented as of this encounter Care Teams High [employer] Industrial Arts Teacher Relationship Specialty Start Date End Date Luly Laguna MD [address] [place] [address] PCP - General Family Medicine 05/15/18 Alan Horowitz 175 [facility] 2nd Floor [address] [place] [address] Gastroenterology 06/18/24 Polly Bryant 271 [facility] 1stfloor [place] [address] Obstetrics and Gynecology 06/18/24 Sandra Schaffer 11 [facility] 3rd [place] [address] Cardiology 11/01/24 Keyla Stevenson [address] [place] [address] Dr [address] [place] [address] Orthopaedic Surgery 11/14/24 An Thomas Restaurant Service ManagerC Wpf Developer 01/22/24 documented as of this encounter
--- OUTSIDE RECORDS SUMMARY | 2025-03-14 11:05 | XMS_ITS | Encounter Summary ---
Author Organization [employer] Address 75 [facility] 7t [place] [address] Care Team Providers Care Engineered Wood Designer Name Role Phone Luly Laguna MD Primary Care Provider +1- [phone] Alan Horowitz Unavailable KristaPolly gary Unavailable Sandra Schaffer Unavailable Keyla Stevenson Unavailable Reason for Visit * Reason Comments Med Refill Encounter Details Date Type Department Care Team (Late st Contact Info) Description 03/03/2025 Refill [facility] 230 [place], [place] [phone] Luly Laguna MD [address] [place], [place] [phone] Right knee pain, unspecified chronicity; Pain and swelling of left knee Social History Tobacco Use Types Packs/Day Years [...] Description 04/30/2025 11:15 AM EST Office Visit [facility] MEDICINE [address] [place] [address] Luly Laguna MD [address] [place] [address] 07/02/2025 10:15 AM EST Office Visit [facility] ADULT DENTAL [address] [place] [address] Adolph, Tasha [address] [place] [address] documented as of this encounter Visit Diagnoses Diagnosis Right knee pain, unspecified chronicity Pain and swelling of left knee documented in this encounter Additional Health Concerns Assessment Noted Time PHQ-9 Depression Total Score: 3 03/25/20 24 11:38 AM EST documented as of this encounter Care Teams Engineered Wood Designer Relationship Specialty Start Date End Date Luly Laguna MD [address] [place] [address] PCP - General Family Medicine 05/15/18 Alan Horowitz 175 [facility] 2nd Floor [address] [place] [address] Gastroenterology 06/18/24 Polly Bryant 271 [facility] 1stfloor [place] [address] Obstetrics and Gynecology 06/18/24 Sandra Schaffer 11 [facility] 3rd [place] [address] Cardiology 11/01/24 Keyla Stevenson [address] [place] [address] [address] [place] [address] Orthopaedic Surgery 11/14/24 An Thomas Oral And Maxillofacial SurgerySenior Tech Manufacturing Engineering 01/22/24 documented as of this encounter
== END 2025-03-14 10:36 | disposition home or self-care (01) ==
LOC: HO.HCS 09:52
PROVIDERS: PCP Family Medicine; Visit Provider Nurse Practitioner Family
DX: R00.2 Palpitations (principal); R00.0 Tachycardia, unspecified; I10 Essential (primary) hypertension
CPT/HCPCS: 99213

== ENCOUNTER 2025-03-14 10:39 | Outpatient (REF) | payer MEDICAID, SELFPAY ==
--- NOTE | ~2025-03-14 | MM_ITS ---
EXAMINATION: MM SCREENING DIGITAL BREAST TOMOSYNTHESIS, BILATERAL CLINICAL INFORMATION: Screening. Asymptomatic. COMPARISON: Mammography: Comparison is made with available priors TECHNIQUE: Digital breast mammography with tomosynthesis is performed in both the craniocaudal and mediolateral oblique views along with computer-aided detection (CAD). FINDINGS: There are scattered areas of fibroglandular density. There are no significant masses, abnormal calcifications, or other abnormalities. MM/MM tomosynthesis screening BI IMPRESSION: No mammographic evidence of malignancy. ASSESSMENT: BI-RADS Category 1: Negative RECOMMENDATION: Routine annual mammography screening. 1 year F/U This examination should not preclude the clinical evaluation of a suspicious palpable abnormality. This patient's information was entered into a reminder system with a target due date for their next mammogram. Electronically signed by: Lisa Casper DO 03/18/2025 10:02 AM THAI
== END 2025-03-14 10:40 | disposition home or self-care (01) ==
LOC: HO.MAMMO 10:39
PROVIDERS: PCP Family Medicine; Visit Provider Family Medicine
DX: R00.2 Palpitations (principal); R00.0 Tachycardia, unspecified; I10 Essential (primary) hypertension; Z79.899 Other long term (current) drug therapy; Z12.31 Encounter for screening mammogram for malignant neoplasm of breast
CPT/HCPCS: 77063; 77067; 99212

== ENCOUNTER → 2025-03-14 10:45 | Outpatient (BNV) | payer MEDICAID, SELFPAY | PROVIDERS: PCP Family Medicine; Visit Provider Internal Medicine | DX: Z12.31 Encounter for screening mammogram for malignant neoplasm of breast (principal) | CPT/HCPCS: 77063; 77067 ==

== ENCOUNTER 2025-03-21 10:47 | Outpatient (AMB) | payer MEDICAID, SELFPAY ==
--- NOTE | 2025-03-21 10:57 | MHC.OFFVIS ---
Vital Signs 03/21/25 10:59 Height 5 ft 3 in Weight 160 lb BMI 28.3 Intake Visit Reasons: right foot metatarsalgia & neuroma Intake Note: Mahogany is a 59 year old female who presents today for a follow up on her metatarsalgia and neuroma. She reports no improvement since her last visit Allergies acetaminophen (From Percocet) Allergy (Verified 03/21/25 11:06) shake oxycodone (From Percocet) Allergy (Verified 03/21/25 11:06) shake HPI Comments Details: The patient is a 59-year-old female for a follow up of right foot metatarsalgia and a neuroma. The pain has been persistent and is described as a sensation of something being present at the bottom of the foot, with occasional sharp, needle-like pain. The patient reports that the pain worsens with walking and is accompanied by a hard, tingling sensation yung to a cramp. The patient has been using the metatarsal pads to alleviate the pressure on the foot, but the relief has been insufficient Patient states the Medrol dose shmuel did not provide much relief. She denies any new pedal injuries. She denies any other pedal concerns. Patient was accompanied by her daughter. [facility] Medical History Interdigital neuroma of right foot Metatarsalgia, right foot Depression Anxiety Hypertension No known health problems No known health problems Family History Father Stroke Mother No problems noted. Social History Current occupational status: unemployed Current occupation: Right Handed Review of Systems Const Details: - Musculoskeletal: Reports persistent right foot pain. - Neurological: Reports occasional sharp, needle-like pain and hard, tingling sensation yung to a cramp to the right foot. All systems reviewed & are unremarkable except as noted in HPI and below Physical Exam Vital Signs: BMI result Body Mass Index 28.3 Extrem Other: RLE Focused Physical Exam: Derm: Skin supple and turgor WNL. No open lesions, abrasions, or wounds noted. No ecchymosis or discoloration noted. No maceration noted. No hyperkeratotic lesions noted. No clinical signs of infections. Vasc: DP/PT pulses palpable. CFT < 3 secs. Temp gradient warm to warm. No edema noted. No varicosities noted. Pedal hair absent. Neuro: Protective sensations grossly intact. MSK: Pain on palpation to the sub metatarsal 3 and 4 area. Positive squeeze test. Positive jacob's sign without crepitus. Mild Pain with ROM of the forefoot. MMT 5/5. ROM of the hindfoot and ankle WNL. Mildly antalgic gait unassisted noted. No fluctuance noted. Office Procedures AMB Joint Injection/Aspir Pod Joint Injection/Aspiration Podiatry: Procedure: Right foot neuroma cortisone injection: Cleansed the right foot with an alcohol swab in the area of sub metatarsal 2,3,4. Next injected 1.5 cc of lidocaine plain, 1 cc of dexamethasone, and 0.5 cc of triamcinolone in the most painful area of the neuroma with no incidents. A band-aid was applied to the area. Provided patient with after care instructions. [id number] RT - Barahona's Neuroma Injection RT Procedure code (CPT) selection complete Office Meds triamcinolone acetonide 40 mg/mL suspension for injection Performing Provider: Alba Meadows DPM Performing Location: [facility] Administered by: Alba Meadows DPM on 03/23/25 16:05 Dose Route Admin Location Dispensed Lot Number Expiration Date [facility] Hourly Sign Language Interpreter 20 mg intra-articular 1 mL [id number] [employer] Total Dispensed Waste 1 mL 50 % dexamethasone sodium phosphate 4 mg/mL injection solution Performing Provider: Alba Meadows DPM Performing Location: [facility] Administered by: Alba Meadows DPM on 03/23/25 16:05 Dose Route Admin Location Dispensed Lot Number Expiration Date [facility] Hourly Sign Language Interpreter 4 mg intra-articular 1 mL [id number] [employer] Total Dispensed Waste 1 mL 0 % lidocaine HCl 10 mg/mL (1 %) injection solution Performing Provider: Alba Meadows DPM Performing Location: [facility] Administered by: Alba ModiandaBRENNAEloy on 03/23/25 16:05 Dose Route Admin Location Dispensed Lot Number Expiration Date [facility] Hourly Sign Language Interpreter 1.5 mL intra-articular 1.5 mL [id number] [employer] Total Dispensed Waste 1.5 mL 0 % Results Reviewed Results Reviewed: Podiatry read of right foot xrays (03/10/25): Joint space narrowing of 1st MPJ. Bone spur noted to the plantar aspect and minimally posterior aspect of the calcaneus. No acute fractures or dislocations noted. No splaying of metatarsals noted. Right foot xrays (03/10/25): FINDINGS: Three weight bearing views of the right foot are submitted. Osseous mineralization is normal. There is no fracture or dislocation. The joint spaces are preserved. There is a small plantar calcaneal spur. The soft tissues are unremarkable. IMPRESSION: Small plantar calcaneal spur. Otherwise unremarkable examination of the right foot. Assessment & Plan Assessment & Plan (1) Right foot pain: Code(s): M79.671 - Pain in right foot Category: Medical (2) Metatarsalgia, right foot: Code(s): M77.41 - Metatarsalgia, right foot Category: Medical (3) Interdigital neuroma of right foot: Code(s): G57.81 - Other specified mononeuropathies of right lower limb Category: Medical Plan Patient was informed and verbally consented to the use of an ambient scribe for clinic note documentation during this visit. I discussed with the patient the option of administering a cortisone injection to help reduce the neuroma and alleviate the pain. I explained that if the injection does not provide sufficient relief, an MRI may be necessary to further assess the condition. We also talked about the possibility of surgery if the MRI shows an enlarged neuroma. - Administeedr a cortisone injection to the right foot in the area of the neuroma. - Provided patient with metatarsal pads to be used daily. - Advised patient to wear supportive shoe gear and inserts and avoid barefoot walking. - Continue taking Ibuprofen or Tylenol prn pain. - If pain persists post-injection, will consider MRI to further evaluate. - Will consider surgical intervention if conservative treatment fails. RTC in 1 month. Orders: Orders AMB Joint Injection/Aspiration Podiatry 03/21/25 G57.81 - Other specified mononeuropathies of right lower limb, M77.41 - Metatarsalgia, right foot, M79.671 - Pain in right foot Coding Level of Care Code Est Pt Level 4 (99959) Diagnoses Right foot pain M79.671 Metatarsalgia, right foot M77.41 Interdigital neuroma of right foot G57.81 CPT Codes Joint injectio/aspiration Podiatry - Joint Injection POD8: 05512 RT - Barahona's Neuroma Injection RT ([id number]) Time Spent (min) 43 Comment 10 mins for procedure.
[2025-03-21 10:59] VITALS: BMI 28.3
--- OUTSIDE RECORDS SUMMARY | 2025-03-21 12:48 | XMS_ITS | Encounter Summary ---
Author Organization [employer] Address [address] [facility] 7t [place] [address] Care Team Providers Care Returned Materials Inspector Name Role Phone Luly Laguna MD Primary Care Provider +1- [phone] Alan Horowitz Unavailable KristaPolly gary Unavailable Sandra Schaffer Unavailable ElvaKeyla Unavailable Reason for Visit * Reason Comments Med Refill Encounter Details Date Type Department Care Team (Late st Contact Info) Description 10/23/2023 Refill [facility] MEDICINE [address] [place], [place] [phone] Luly Laguna MD [address] [place], [place] [phone] Social History Tobacco Use Types Packs/Day Years [...] Description 04/30/2025 11:15 AM EST Office Visit [facility] MEDICINE [address] [place] [address] Luly Laguna MD 230 [place] [address] 07/02/2025 10:15 AM EST Office Visit [facility] ADULT DENTAL [address] [place] [address] Adolph Tasha [address] [place] [address] documented as of this encounter Visit Diagnoses Not on filedocumented in this encounter Additional Health Concerns Assessment Noted Time PHQ-9 Depression Total Score: 0 11/08/19 11:15 AM EDT documented as of this encounter Care Teams Returned Materials Inspector Relationship Specialty Start Date End Date Luly Laguna MD [address] [place] [address] PCP - General Family Medicine 05/15/18 Alan Horowitz 175 [facility] 2nd Floor [address] [place] [address] Gastroenterology 06/18/24 Polly Bryant [address] [place] [address] Obstetrics and Gynecology 06/18/24 Sandra Schaffer [address] [place] [address] 3rd [place] [address] Cardiology 11/01/24 Keyla Stevenson [address] [place] [address] Dr [address] [place] [address] Orthopaedic Surgery 11/14/24 An Thomas Content SpecialistVideo Production Coordinator 01/22/24 documented as of this encounter
--- OUTSIDE RECORDS SUMMARY | 2025-03-21 12:48 | XMS_ITS | Encounter Summary ---
Author Organization [email or web address] Address 75 [facility] 7t [place] [address] Care Team Providers Care Cytopathology Technologist Name Role Phone Luly Laguna MD Primary Care Provider +1- [phone] Alan Horowitz Unavailable Manny Polly Unavailable Karime, Sandra Unavailable Elva Keyla Unavailable Reason for Visit * Reason Comments Med Refill Encounter Details Date Type Department Care Team (Late st Contact Info) Description 01/19/2024 Refill [facility] MED[facility] 230 [place], [place] [phone] Gudelia Jaimes, ANP 230 [place], [place] [phone] Gastroesophageal reflux disease, unspecified whether esophagitis present [...] Description 04/30/2025 11:15 AM EST Office Visit [facility] [address] [place] [address] Luly Laguna MD 230 [place] [address] 07/02/2025 10:15 AM EST Office Visit [facility] ADULT DENTAL 230 [place] [address] Adolph, Tasha 230 [place] [address] documented as of this encounter Visit Diagnoses Diagnosis Gastroesophageal reflux disease, unspecified whether esophagitis present- Primary documented in this encounter Additional Health Concerns Assessment Noted Time PHQ-9 Depression Total Score: 0 11/08/19 11:15 AM EDT documented as of this encounter Care Teams Cytopathology Technologist Relationship Specialty Start Date End Date Luly Laguna MD [address] [place] [address] PCP - General Family Medicine 05/15/18 Alan Horowitz [address] [place] [address] 2nd Floor [address] [place] [address] Gastroenterology 06/18/24 Polly Bryant [address] [place] [address] Obstetrics and Gynecology 06/18/24 Sandra Schaffer [address] [facility] [address] 3rd [place] [address] Cardiology 11/01/24 Keyla Stevenson [address] [place] [address] [address] [place] [address] Orthopaedic Surgery 11/14/24 An Thomas Splunk ArchitectSeed Laboratory Assistant 01/22/24 documented as of this encounter
--- OUTSIDE RECORDS SUMMARY | 2025-03-21 12:48 | XMS_ITS | Encounter Summary ---
Author Organization [employer] Address 75 [facility] 7t [place] [address] Care Team Providers Care Bottle Inspector Name Role Phone Luly Laguna MD Primary Care Provider +1- [phone] Alan Horowitz Unavailable Manny Polly Unavailable Sandra Schaffer Unavailable Elva, Keyla Unavailable Encounter Details Date Type Department Care Team (Late st Contact Info) Description 06/18/2024 Orders Only [facility] MEDICINE 230 [place] [address] Luly Laguna MD 230 [place], [place] [phone] Abnormal colonoscopy (Primary Dx) Social History Tobacco [...] Description 04/30/2025 11:15 AM EST Office Visit [facility] [address] [place] [address] Luly Laguna MD [address] [place] [address] 07/02/2025 10:15 AM EST Office Visit [facility] ADULT DENTAL [address] [place] [address] Adolph, Tasha 230 [place] [address] documented as of this encounter Visit Diagnoses Diagnosis Abnormal colonoscopy- Primary documented in this encounter Additional Health Concerns Assessment Noted Time PHQ-9 Depression Total Score: 3 03/25/20 24 11:38 AM EST documented as of this encounter Care Teams Bottle Inspector Relationship Specialty Start Date End Date Luly Laguna MD [address] [place] [address] PCP - General Family Medicine 05/15/18 Alan Horowitz [facility] 2nd Floor [address] [place] [address] Gastroenterology 06/18/24 Polly Bryant [address] [facility] 1stfloor [place] [address] Obstetrics and Gynecology 06/18/24 Sandra Schaffer [address] 3rd [place] [address] Cardiology 11/01/24 Keyla Stevenson [address] [place] [address] [address] [place] [address] Orthopaedic Surgery 11/14/24 An Thomas Academic InterventionistForest Economist 01/22/24 documented as of this encounter
--- OUTSIDE RECORDS SUMMARY | 2025-03-21 12:48 | XMS_ITS | Clinical Summary ---
Author Organization [employer] Address 75 [facility] 7t [place] [address] Care Team Providers Care Plug Cutter Name Role Phone Luly Laguna MD Primary Care Provider +1- [phone] Alan Horowitz Unavailable Polly Bryant Unavailable Karime, [...] talk and established initial goals with patient. Palpitations 03/25/2024 Overview (12/19/2024): Seen on 02/09/24 [...] longer monitor 03/25/24 -08/30/23 currently has extended traffic monitor specialist for 30 days, will follow-up with [...] repeat colonoscopy in 10 years. Done at [facility] with Dr. Alan Horowitz MD Assessment & [...] Carrasco, notes requested 11/07/2022 -dental home is [facility] care Proxy 03/25/24 Assessment & Plan (03/26/2024 1:39 PM EST): -next annual exam due after 03/25/25 -eye care facilitated by Dr. Carrasco, notes requested 11/07/2022 -dental home is [facility] care Proxy 03/25/24 Assessment & [...] Overview (09/18/2024): Lab Results Component Value Date [id number] 52.8 03/25/2024 [id number] 29.9 (L) 05/04/2023 Mass of oral cavity [...] and no further intervention required. Anxiety 02/20/2012 Recurrent major depressive disorder, in partial remission 02/20/2012 Resolved Problems Problem Noted Date Diagnosed Date Resolved Date Exercise counseling 08/29/2024 03/20/20 25 Assessment & Plan (08/29/2024 1:31 PM EDT): Exercise Recommendations: At least 150 minutes of moderate-intensity physical activity per week, or an equivalent combination of moderate- and vigorous-intensity activity. Dietary counseling 08/29/2024 5 Assessment & Plan (08/29/2024 1:31 PM EDT): Dietary Recommendations: Fruits, vegetables, whole grains, protein foods, and fat-free or low-fat dairy products are healthy choices. Eat different types of protein foods in your diet. This can include seafood, lean meats, poultry, beans, peas, lentils, nuts, seeds, soy products, and eggs. Limit foods and beverages higher in added sugars, saturated fat, and sodium. Joint pain 11/07/2022 11/07/2022 Cerebral arterial aneurysm [...] Type Department Care Team Description 03/09/2025 Refill [facility] [address] [place] [address] Luly Laguna MD Chronic pain of both knees 03/07/2025 Telephone [facility] MEDICINE [address] [place] [address] Luly Laguna MD April Recalls 03/07/2025 Travel 03/03/2025 Refill [facility] [address] [place] [address] Luly Laguna MD Right knee pain, unspecified chronicity; Pain and swelling of left knee 02/28/2025 Orders Only [facility] External Provider, [facility] 02/07/2025 Refill [facility] [address] [place] [address] Luly Laguna MD Chronic pain of both knees 02/05/2025 Refill [facility] MED[facility]INE 230 [place] [address] Luly Laguna MD Vitamin D deficiency 02/05/2025 Refill [facility] [address] [place] [address] Daya Matta MD Anxiety 01/24/2025 Refill [facility] [address] [place] [address] Luly Laguna MD Vitamin D deficiency 01/10/2025 Refill [facility] [address] [place] [address] Luly Laguna MD Gastroesophageal reflux disease, unspecified whether esophagitis present 01/09/2025 Refill [facility] [address] [place] [address] Daya Matta MD Anxiety; Gastroesophageal reflux disease, unspecified whether esophagitis present 01/09/2025 Refill [facility] [address] [place] [address] Luly Laguna MD Dyslipidemia 12/25/2024 1:00 PM EDT Office Visit [facility] ADULT DENTAL [address] [place] [address] Marta Huang from Last 3 Months Immunizations [...] Description 04/30/2025 11:15 AM EST Office Visit [facility] MEDICINE [address] [place] [address] Luly Laguna MD 230 [place] [address] 07/02/2025 10:15 AM EST Office Visit [facility] ADULT DENTAL [address] [place] [address] Tasha Farfan 230 [place] [address] Health Maintenance Due Date Last Done Comments CT Colonography 1963 FIT DNA/Cologuard 1963 FIT 1965 FOBT 1965 Sigmoidoscopy 1965 COVID-19 Vaccine ( season) 2025 Influenza Vaccine (#1) 2025 2, 04/14/2020, 01/31/2019, Additional history exists Alcohol/Substance Use [...] history exists Tobacco Screening 12/25/2025 12/25/2024 Mammogram 03/14/2027 03/14/2025, 02/13, 03/07/2023, Additional history exists Cervical Cancer Screening 09/20/2027 [...] Procedure Name Priority Date/Time Associated Diagnosis Comments BI MAMMOGRAM SCREENING TOMOSYNTHESIS BILATERAL Routine 03/14/2025 11:00 AM EDT XR FOOT 3+ VIEWS RIGHT Routine 02/28/2025 12:15 PM EDT CASE PRESENTATION, DETAILED AND EXTENSIVE TREATMENT PLANNING Routine 12/25/2024 1:00 PM EDT PROPHYLAXIS - ADULT Routine 12/25/2024 1 :00 PM EDT INTRAORAL - COMPLETE SERIES OF RADIOGRAPHIC IMAGES Routine 10/22/2024 10:30 AM EDT Excessive attrition of teeth Encounter for dental examination 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 PERIODIC ORAL EVALUATION - ESTABLISHED PATIENT Routine 10/22/2024 10:30 AM EDT Excessive attrition of teeth Encounter for dental examination 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 LIPID PANEL, STANDARD Routine 08/29/2024 2:04 PM EDT Dyslipidemia HM COLONOSCOPY Routine 07/25/2023 HEPATITIS C AB W/REFL TO HCV RNA, QN, PCR Routine 05/04/2023 11:34 AM EST Encounter for hepatitis C screening test for low risk patient HM PAP/HPV Routine 09/19/2022 HIV 1/2 ANTIGEN/ANTIBODY, FOURTH GENERATION W/RFL Routine 08/05/2021 11:46 AM EDT from Last 3 Months or Most Recently Relevant to Health Maintenance Results * BI Mammogram Screening Tomosynthesis Bilateral (03/14/2025 11:00 AM EDT) Anatomical Region Laterality Modality Breast Bilateral Mammography 03/14/2025 11:0 0 AM EDT Narrative 03/18/2025 10:[address] [place] [place], [place] [address] Mammography Report Signed Patient: Mahogany Tapia MR#: [id number] 2 : 1965 Acct:[id number] Age/Sex: 59 / F ADM Date: 03/14/25 Loc: HO.MAMMO Attending Dr: Luly Laguna MD Ordering Physician: Luly Laguna MD Results: 1N egative Date of Service: 03/14/25 Follow Up: 1 Year From Orig inal Mammogram Procedure(s): MM tomosynthesis screening BI Accession Number(s): [id number] cc: Luly Laguna MD Reason For Exam: SCREENING EXAMINATION: MM SCREENING DIGITAL BREAST TOMOSYNTHESIS, BILATERAL CLINICAL INFORMATION: Screening. Asymptomatic. COMPARISON: Mammography: Comparison is made with available priors TECHNIQUE: Digital breast mammography with tomosynthesis is performed in both the craniocaudal and mediolateral oblique views along with computer-aided detection (CAD). FINDINGS: There are scattered areas of fibroglandular density. There are no significant masses, abnormal calcifications, or other abnormalities. MM/MM tomosynthesis screening BI IMPRESSION: No mammographic evidence of malignancy. ASSESSMENT: BI-RADS Category 1: Negative RECOMMENDATION: Routine annual mammography screening. 1 year F/U This examination should not preclude the clinical evaluation of a suspicious palpable abnormality. This patient's information was entered into a reminder system with a target due date for their next mammogram. Electronically signed by: Lisa Casper DO 03/18/2025 10:02 AM [facility] Dictated By: Lisa Casper DO Signed By: <Electronically signed by Lisa Casper DO in OV> 03/18/25 1002 DD/ 1100 TD/TT: 03/14/25 1120 Cq Developer: Procedure Note Donotuseinterpreter, Image - 03/18/2025 [facility] [address] [place] [address] [place] [address] Mammography Report Signed Patient: Maximilian TapiaR#: [id number] 2 : 1965Acct:[id number] Age/Sex: 59 / FADM Date: 03/14/25 Loc: HO.MAMMO Attending Dr: Luly Laguna MD Ordering Physician: Luly Laguna MDResults: 1N egative Date of Service: 03/14/25Follow Up: 1 Year From Orig inal Mammogram Procedure(s): MM tomosynthesis screening BI Accession Number(s): [id number] cc: Luly Laguna MD Reason For Exam: SCREENING EXAMINATION: MM SCREENING DIGITAL BREAST TOMOSYNTHESIS, BILATERAL CLINICAL INFORMATION: Screening. Asymptomatic. COMPARISON: Mammography: Comparison is made with available priors TECHNIQUE: Digital breast mammography with tomosynthesis is performed in both the craniocaudal and mediolateral oblique views along with computer-aided detection (CAD). FINDINGS: There are scattered areas of fibroglandular density. There are no significant masses, abnormal calcifications, or other abnormalities. MM/MM tomosynthesis screening BI IMPRESSION: No mammographic evidence of malignancy. ASSESSMENT: BI-RADS Category 1: Negative RECOMMENDATION: Routine annual mammography screening. 1 year F/U This examination should not preclude the clinical evaluation of a suspicious palpable abnormality. This patient's information was entered into a reminder system with a target due date for their next mammogram. Electronically signed by: Lisa Casper DO 03/18/2025 10:02 AM [facility] Dictated By: Lisa Casper DO Signed By: <Electronically signed by Lisa Casper DO in OV> 03/18/25 1002 DD/ 1100 TD/TT: 03/14/25 1120 Cq Developer: us Luly Laguna MD IMG BI PROCEDURES Final Re sult * XR Foot 3+ Views Right (02/28/2025 12:15 PM EDT) Anatomical Region Laterality Modality Lower Extremities, Foot Right Radiogra phic Imaging 02/28/2025 12:1 5 PM EDT Narrative 02/28/2025 12:37 PM EDT [address] [address] XRay Report Signed Patient: Mahogany Tapia MR#: [id number] 2 : 1965 Acct:[id number] Age/Sex: 59 / F ADM Date: 02/28/25 Loc: FLAVIO Attending Dr: Alba Meadows DPM Ordering Physician: Alba Meadows DPM Date of Service: 02/28/25 Procedure(s): XR foot RT min 3V Accession Number(s): [id number] cc: Luly Laguna MD; Alba Meadows DPM [...] 02/28/25 1235 DD/ 1215 TD/TT: 02/28/25 1220 Cq Developer: Procedure Note Donotuseinterpreter, Image - 02/28/[address] [address] XRay Report Signed Patient: Deann Tapia#: [id number] 2 : 1965Acct:[id number] Age/Sex: 59 / FADM Date: 02/28/25 Loc: FLAVIO Attending Dr: Alba Meadows DPM Ordering Physician: Alba Meadows DPM Date of Service: 02/28/25 Procedure(s): XR foot RT min 3V Accession Number(s): [id number] cc: Luly Laguna MD; Alba Meadows DPM [...] 02/28/25 1235 DD/ 1215 TD/TT: 02/28/25 1220 Cq Developer: [facility] External Provider IMG XR PROCEDURES Final Result * Lipid Panel, Standard (08/29/2024 2:04 PM EDT) Triglycerides 108 <150 mg/dL [facility] Comment:Desirable Triglyceri de: less than 150 mg/dLBorderline High Triglyceride 150-199 mg/dLHigh Triglyceride: 200-499 mg/dLVery High Triglyceride: greater than or equal to 5OO mg/dL Cholesterol 138 <200 mg/dL [facility] Comment:Desirable Cholestero l: less than 200 mg/dLBorderline High Cholesterol: 200-239 mg/dLHigh Cholesterol: greater than 239 mg/dL LDL Cholesterol Calculated 70 <100 mg/dL [facility] Comment:Desirable LDL: less than 100 mg/dLNear Optimal/Above Optimal LDL: 110- 129 mg/dLBorderline High LDL: 130-159 mg/dLHigh LDL: 160-189 mg/dLVery High LDL: greater than or equal to 190 mg/dL HDL Cholesterol 47 >40 mg/dL [facility] Comment:Desirable HDL: great er than 40 mg/dL Note: This HDL assay may give artificially low results in patients with liver disease. Blood Venous blood specimen / Unknown 08/29/2024 2:04 PM EDT 08/29/2024 4:12 PM EDT Luly Laguna MD LAB BLOOD ORDERABLES Final Result Performing Organization Address [facility] Co de Phone Number [facility] [address] [place] [phone] * (ABNORMAL) Colonoscopy (07/25/2023) Colonoscopy Abnormal( A) Normal Comment:small polyp, await p athology results at [facility] Historical Provider HEALTH MAINTENANCE Final Result * Hepatitis C Antibody with Reflex to HCV, RNA, Quantitative, Real-Time PCR (05/04/2023 11:34 AM EST) Pathologist [facility] Hepatitis C Antibody Nonreactive Nonreactive [facility] Comment:Antibodies to HCV no t detected; does not exclude early acuteHCV infection. Blood Venous blood specimen / Unknown 05/04/2023 11:34 AM EST 05/04/2023 1:12 PM EST Result [facility] Luly Laguna MD LAB BLOOD ORDERABLES Final Result Performing Organization Address [facility] Co de Phone Number [facility] [address] [place] [phone] * (ABNORMAL) Pap Smear (09/19/2022) Pathologist [facility] Pap Other Negative for intraephithelial lesion or malignancy, Other Comment:unsatisfactory HPV Not Detected Undetected, Indeterminate, Quantitative, Not Detected Historical Provider HEALTH MAINTENANCE Final Result * HIV 1/2 ANTIGEN/ANTIBODY,FOURTH GENERATION W/RFL (08/05/2021 11:46 AM EDT) Pathologist [facility] HIV-1/2 ANTIGEN AND ANTIBODIES, 4TH GENERATION [...] purpose. For additional information please refer to http://education.QRGL/faq/VBX223 (This link is being provided for informational/ educational purposes only.) The performance of this assay has not been clinically validated in patients less than 2 years old. 08/05/2021 11:4 6 AM EDT us Luly Laguna MD LAB BLOOD ORDERABLES Final Result Performing Organization Address City/State/[facility] Phone Number [facility] Anywhere [address] from Last 3 Months or Most Recently Relevant to Health Maintenance Insurance [facility] STANDARD DENTAL-[facility] MEDICAID STAND ADULT Care Teams Plug Cutter Relationship Specialty Start Date End Date [place], [place] Luly [address] [place] [address] PCP - General Family Medicine 05/15/18 Alan Horowitz [address] [facility] 2nd Floor [address] [place] [address] Gastroenterology 06/18/24 Polly Bryant [address] [place] [address] Obstetrics and Gynecology 06/18/24 Sandra Schaffer 11 [facility] 3rd [place] [address] Cardiology 11/01/24 Keyla Stevenson [address] [place] [address] Dr [address] [place] [address] Orthopaedic Surgery 11/14/24 An Thomas Aquatic Habitat BiologistRn Private Duty 01/22/24
--- OUTSIDE RECORDS SUMMARY | 2025-03-21 12:49 | XMS_ITS | Encounter Summary ---
Author Organization [employer] Address 75 [facility] 7t [place] [address] Care Team Providers Care Computer Field Technician Name Role Phone Luly Laguna MD Primary Care Provider + [phone] MusjesAlan Unavailable KristaPolly gary Unavailable Sandra Schaffer Unavailable Keyla Stevenson Unavailable Encounter Details Date Type Department Care Team (Late st Contact Info) Description 05/29/2022 Abstract [facility] MEDICINE [address] [place] [phone] Luly Laguna MD [address] [place] [address] [phone] Social History Tobacco Use Types Packs/Day Years [...] Description 04/30/2025 11:15 AM EST Office Visit [facility] [address] [place] [address] [phone] Luly Laguna MD [address] [place] [address] [phone] 07/02/2025 10:15 AM EST Office Visit [facility] ADULT DENTAL [address] [place] [address] Tasha Farfan [address] [place] [address] documented as of this encounter Procedures Procedure Name Priority Date/Time Associated Diagnosis Comments MAMMOGRAPHY Routine 03/01/2022 PAP/HPV Routine 08/11/2016 COLONOSCOPY Routine 04/24/2014 documented in this encounter Results * Mammography (03/01/2022) Mammogram normal Anatomical Region Laterality Modality Other [facility] Provider HEALTH MAINTENANCE Final Result * Pap Smear (08/11/2016) Pap smear ILM HPV neg Polly Treadwell Historical Provider HEALTH MAINTENANCE Final Result * Colonoscopy (04/24/2014) Colonoscopy normal with Dr. Sawant [facility] Provider HEALTH MAINTENANCE Final Result documented in this encounter Visit Diagnoses Not on filedocumented in this encounter Care Teams Computer Field Technician Relationship Specialty Start Date End Date Jase, MD Luly [address] [place] [address] PCP - General Family Medicine 05/15/18 Alan Horowitz 175 [place] [facility] 2nd Floor [address] [place] [address] Gastroenterology 06/18/24 Polly Bryant 271 [facility] 1stfloor [place] [address] Obstetrics and Gynecology 06/18/24 Sandra Schaffer [address] 3rd [place] [address] Cardiology 11/01/24 Keyla Stevenson [address] [place] [address] [address] [place] [address] Orthopaedic Surgery 11/14/24 An Thomas Brine Tank Separator OperatorWool Hat Forming Machine Tender 01/22/24 documented as of this encounter
--- OUTSIDE RECORDS SUMMARY | 2025-03-21 12:49 | XMS_ITS | Encounter Summary ---
Author Organization [employer] Address 75 [facility] 7t [place] [address] Care Team Providers Care Emt Intermediate Name Role Phone Luly Laguna MD Primary Care Provider +1- [phone] Alan Horowitz Unavailable KristaPolly gary Unavailable Sandra Schaffer Unavailable Keyla Stevenson Unavailable Reason for Visit * Reason Comments Med Refill Encounter Details Date Type Department Care Team (Late st Contact Info) Description 03/03/2025 Refill [facility] [address] [place], [place] [phone] Luly Laguna MD 230 [place], [place] [phone] Right knee pain, unspecified chronicity; Pain and [...] Description 04/30/2025 11:15 AM EST Office Visit [facility] [address] [place] [address] Luly Laguna MD [address] [place] [phone] 07/02/2025 10:15 AM EST Office Visit [facility] [address] [place] [address] Adolph, Tasha [address] [place] [address] documented as of this encounter Visit Diagnoses Diagnosis Right knee pain, unspecified chronicity Pain and swelling of left knee documented in this encounter Additional Health Concerns Assessment Noted Time PHQ-9 Depression Total Score: 3 03/25/20 24 11:38 AM EST documented as of this encounter Care Teams Emt Intermediate Relationship Specialty Start Date End Date Luly Laguna MD 230 [place] [address] PCP - General Family Medicine 05/15/18 Alan Horowitz 175 [facility] 2nd Floor [address] [place] [address] Gastroenterology 06/18/24 Polly Bryant 271 [facility] 1stfloor [place] [address] Obstetrics and Gynecology 06/18/24 Sandra Schaffer 11 [facility] 3rd [place] [address] Cardiology 11/01/24 Keyla Stevenson [address] [place] [address] Dr [address] [place] [address] Orthopaedic Surgery 11/14/24 An Thomas Process StripperCaddie Supervisor 01/22/24 documented as of this encounter
--- OUTSIDE RECORDS SUMMARY | 2025-03-21 12:49 | XMS_ITS | Encounter Summary ---
Author Organization [employer] Address 75 [facility] 7t [place] [address] Care Team Providers Care Logging Shovel Operator Name Role Phone Luly Laguna MD Primary Care Provider +1- [phone] Musjes lAan Zayda Unavailable KristaPolly gary Unavailable Sandra Schaffer Unavailable Keyla Stevenson Unavailable Encounter Details Date Type Department Care Team (Late st Contact Info) Description 11/24/2022 Abstract [facility] [address] [place], [place] [phone] Luly Laguna MD 230 [place], [place] [phone] Social History Tobacco Use Types Packs/Day Years [...] 11:15 AM EST Office Visit [facility] [address] [place] [address] Luly Laguna MD 230 [place] [address] 07/02/2025 10:15 AM EST Office Visit [facility] [address] [place] [address] Adolph Tasha 230 [place] [address] documented as of this encounter Visit Diagnoses Not on filedocumented in this encounter Additional Health Concerns Assessment Noted Time PHQ-9 Depression Total Score: 0 11/08/19 11:15 AM EDT documented as of this encounter Care Teams Logging Shovel Operator Relationship Specialty Start Date End Date Luly Laguna MD 230 [place] [address] PCP - General Family Medicine 05/15/18 Alan Horowitz 175 [facility] 2nd Floor [address] [place] [address] Gastroenterology 06/18/24 Polly Bryant 271 [facility] 1stfloor [place] [address] Obstetrics and Gynecology 06/18/24 Sandra Schaffer 11 [facility] 3rd [place] [address] Cardiology 11/01/24 Keyla Stevenson [address] [facility] [address] [place] [address] Orthopaedic Surgery 11/14/24 An Thomas Production AnalystCrisis Mental Health Therapist 01/22/24 documented as of this encounter
--- OUTSIDE RECORDS SUMMARY | 2025-03-21 12:49 | XMS_ITS | Encounter Summary ---
Author Organization [employer] Address 75 [facility] 7t [place] [address] Care Team Providers Care Anesthesia Attending Name Role Phone Luly Laguna MD Primary Care Provider +1- [phone] MusjesAlan Unavailable KristaPolly gary Unavailable Sandra Schaffer Unavailable ElvaKeyla Unavailable Reason for Visit * Reason Comments Med Change Request Encounter Details Date Type Department Care Team (Late st Contact Info) Description 11/07/2022 Refill [facility] [address] [place], [place] [phone] Luly Laguna MD 230 [place], [place] [phone] Social History Tobacco Use Types Packs/Day Years [...] 11:15 AM EST Office Visit [facility] [address] [place] [address] Luly Laguna MD 230 [place] [address] 07/02/2025 10:15 AM EST Office Visit [facility] 230 [place] [address] Adolph, Tasha 230 [place] [address] documented as of this encounter Visit Diagnoses Not on filedocumented in this encounter Additional Health Concerns Assessment Noted Time PHQ-9 Depression Total Score: 0 11/08/19 11:15 AM EDT documented as of this encounter Care Teams Anesthesia Attending Relationship Specialty Start Date End Date Luly Laguna MD 230 [place] [address] PCP - General Family Medicine 05/15/18 Alan Horowitz 175 [facility] 2nd Floor [address] [place] [address] Gastroenterology 06/18/24 Polly Bryant 271 [facility] 1stfloor [place] [address] Obstetrics and Gynecology 06/18/24 Sandra Schaffer [address] 3rd [place] [address] Cardiology 11/01/24 Keyla Stevenson [address] [place] [address] Dr [address] [place] [address] Orthopaedic Surgery 11/14/24 An Thomas FulleretteParanormal Investigator 01/22/24 documented as of this encounter
--- OUTSIDE RECORDS SUMMARY | 2025-03-21 12:49 | XMS_ITS | Encounter Summary ---
Author Organization [employer] Address 75 [facility] 7t [place] [address] Care Team Providers Care Intervention Analyst Name Role Phone Luly Laguna MD Primary Care Provider +1- [phone] MusAlan andre Unavailable Manny Polly Unavailable Karime, Sandra Unavailable ElvaKeyla Unavailable Encounter Details Date Type Department Care Team (Late st Contact Info) Description 07/01/2022 Orders Only [facility] [address] [place], [place] [phone] Lora Russell LPN Social History Tobacco Use [...] Description 04/30/2025 11:15 AM EST Office Visit [facility] 230 [place] [address] Luly Laguna MD 230 [place] [address] 07/02/2025 10:15 AM EST Office Visit [facility] 230 [place] [address] Adolph, Tasha 230 [place] [address] documented as of this encounter Visit Diagnoses Not on filedocumented in this encounter Care Teams Intervention Analyst Relationship Specialty Start Date End Date Luly Laguna MD 230 [place] [address] PCP - General Family Medicine 05/15/18 Alan Horowitz 175 [facility] 2nd Floor [address] [place] [address] Gastroenterology 06/18/24 Polly Bryant 271 [facility] 1stfloor [place] [address] Obstetrics and Gynecology 06/18/24 Sandra Schaffer 11 [facility] 3rd [place] [address] Cardiology 11/01/24 Keyla Stevenson [address] [place] [address] Dr [address] [place] [address] Orthopaedic Surgery 11/14/24 An Thomas CleanerCollections Associate 01/22/24 documented as of this encounter
--- OUTSIDE RECORDS SUMMARY | 2025-03-21 12:49 | XMS_ITS | Encounter Summary ---
Author Organization [employer] Address 75 [facility] 7t [place] [address] Care Team Providers Care Support Staff Name Role Phone Luly Laguna MD Primary Care Provider MusAlan andre Zayda Unavailable Polly Bryant Unavailable Sandra Schaffer Unavailable Keyla Stevenson Unavailable Encounter Details Date Type Department Care Team (Latest Contact Info) Description 11/22/2018 Abstract [facility] CONVERSIONS Dental, Provider, DDS Social History Tobacco [...] Description 04/30/2025 11:15 AM EST Office Visit [facility] [address] [place], [place] [phone] Luly Laguna MD 230 [place], [place] [phone] 07/02/2025 10:15 AM EST Office Visit [facility] ADULT DENTAL [address] [place], [place] [phone] Tasha Farfan [address] [place] [address] documented as of this encounter Visit Diagnoses Not on filedocumented in this encounter Care Teams Support Staff Relationship Specialty Start Date End Date Luly Laguna MD 230 [place] [address] PCP - General Family Medicine 05/15/18 Alan Horowitz 175 [facility] 2nd Floor [address] [place] [address] Gastroenterology 06/18/24 Polly Bryant [address] [place] [address] Obstetrics and Gynecology 06/18/24 Sandra Schaffer 11 [facility] 3rd [place] [address] Cardiology 11/01/24 Keyla Stevenson [address] [facility] [address] [place] [address] Orthopaedic Surgery 11/14/24 An Thomas Newspaper Distributor SupervisorTabber 01/22/24 documented as of this encounter
--- OUTSIDE RECORDS SUMMARY | 2025-03-21 12:49 | XMS_ITS | Encounter Summary ---
Author Organization [employer] Address 75 [facility] 7t [place] [address] Care Team Providers Care Senior Medical Technologist Name Role Phone Luly Laguna MD Primary Care Provider +1- [phone] Alan Horowitz Unavailable KristaPolly gary Unavailable Sandra Schaffer Unavailable ElvaKeyla Unavailable Reason for Visit * Reason Comments Med Refill Encounter Details Date Type Department Care Team (Late st Contact Info) Description 02/05/2025 Refill [facility] [address] [place], [place] [phone] Luly Laguna MD 230 [place], [place] [phone] Vitamin D deficiency Social History Tobacco Use [...] Description 04/30/2025 11:15 AM EST Office Visit [facility]INE [address] [place] [address] Luly Laguna MD [address] [place] [address] 07/02/2025 10:15 AM EST Office Visit [facility] ADULT DENTAL [address] [place] [address] Tasha Farfan [address] [place] [address] documented as of this encounter Visit Diagnoses Diagnosis Vitamin D deficiency documented in this encounter Additional Health Concerns Assessment Noted Time PHQ-9 Depression Total Score: 3 03/25/20 24 11:38 AM EST documented as of this encounter Care Teams Senior Medical Technologist Relationship Specialty Start Date End Date Luly Laguna MD [address] [place] [address] PCP - General Family Medicine 05/15/18 Alan Horowitz 175 [facility] 2nd Floor [address] [place] [address] Gastroenterology 06/18/24 Polly Bryant 271 [facility] [place] [address] Obstetrics and Gynecology 06/18/24 Sandra Schaffer 11 [facility] 3rd [place] [address] Cardiology 11/01/24 Keyla Stevenson [address] [place] [address] Dr [address] [place] [address] Orthopaedic Surgery 11/14/24 An Thomas [employer] LeadHead Setter 01/22/24 documented as of this encounter
--- OUTSIDE RECORDS SUMMARY | 2025-03-21 12:49 | XMS_ITS | Encounter Summary ---
Author Organization [employer] Address 75 [facility] 7t [place] [address] Care Team Providers Care Director Of Institutional Sales Name Role Phone Luly Laguna MD Primary Care Provider +1- [phone] Musjes Alan Zayda Unavailable KristaPolly gary Unavailable Sandra Schaffer Unavailable Keyla Stevenson Unavailable Encounter Details Date Type Department Care Team (Late st Contact Info) Description 11/24/2022 Abstract [facility] 230 [place], [place] [phone] Luly Laguna MD 230 [place], [place] [phone] Social History Tobacco Use Types Packs/Day Years [...] Description 04/30/2025 11:15 AM EST Office Visit [facility] 230 [place] [address] Luly Laguna MD 230 [place] [address] 07/02/2025 10:15 AM EST Office Visit [facility] 230 [place] [address] Adolph Tasha 230 [place] [address] documented as of this encounter Visit Diagnoses Not on filedocumented in this encounter Additional Health Concerns Assessment Noted Time PHQ-9 Depression Total Score: 0 11/08/19 11:15 AM EDT documented as of this encounter Care Teams Director Of Institutional Sales Relationship Specialty Start Date End Date Luly Laguna MD 230 [place] [address] PCP - General Family Medicine 05/15/18 Alan Horowitz 175 [facility] 2nd Floor [address] [place] [address] Gastroenterology 06/18/24 Polly Bryant 271 [facility] 1stfloor [place] [address] Obstetrics and Gynecology 06/18/24 Sandra Schaffer 11 [facility] 3rd [place] [address] Cardiology 11/01/24 Keyla Stevenson [address] [facility] [address] [place] [address] Orthopaedic Surgery 11/14/24 An Thomas Rn Patient CareSpecial Day Class Teacher 01/22/24 documented as of this encounter
--- OUTSIDE RECORDS SUMMARY | 2025-03-21 12:49 | XMS_ITS | Encounter Summary ---
Author Organization [employer] Address 75 [facility] 7t [place] [address] Care Team Providers Care Health Information Technologist Name Role Phone Luly Laguna MD Primary Care Provider +1- [phone] Musjes Alan Zayda Unavailable KristaPolly gary Unavailable Sandra Schaffer Unavailable Keyla Stevenson Unavailable Encounter Details Date Type Department Care Team (Late st Contact Info) Description 11/24/2022 Abstract [facility] 230 [place], [place] [phone] Luly Laguna MD 230 [place], [place] [phone] Social History Tobacco Use Types Packs/Day Years [...] Description 04/30/2025 11:15 AM EST Office Visit [facility] 230 [place] [address] Luly Laguna MD 230 [place] [address] 07/02/2025 10:15 AM EST Office Visit [facility] 230 [place] [address] Adolph Tasha 230 [place] [address] documented as of this encounter Visit Diagnoses Not on filedocumented in this encounter Additional Health Concerns Assessment Noted Time PHQ-9 Depression Total Score: 0 11/08/19 11:15 AM EDT documented as of this encounter Care Teams Health Information Technologist Relationship Specialty Start Date End Date Luly Laguna MD 230 [place] [address] PCP - General Family Medicine 05/15/18 Alan Horowitz 175 [facility] 2nd Floor [address] [place] [address] Gastroenterology 06/18/24 Polly Bryant 271 [facility] 1stfloor [place] [address] Obstetrics and Gynecology 06/18/24 Sandra Schaffer 11 [facility] 3rd [place] [address] Cardiology 11/01/24 Keyla Stevenson [address] [facility] [address] [place] [address] Orthopaedic Surgery 11/14/24 An Thomas Willow SpecialistsElectronic Test Technician 01/22/24 documented as of this encounter
== END 2025-03-21 11:43 | disposition home or self-care (01) ==
PROVIDERS: PCP Family Medicine; Visit Provider Student in an Organized Health Care Education/Training Program
DX: M79.671 Pain in right foot (principal); M77.41 Metatarsalgia, right foot; G57.81 Other specified mononeuropathies of right lower limb
CPT/HCPCS: 64455; 99214

== ENCOUNTER → 2025-03-21 10:47 | Outpatient (BNVA) | payer MEDICAID, SELFPAY | PROVIDERS: Visit Provider Student in an Organized Health Care Education/Training Program | DX: M79.671 Pain in right foot (principal); M77.41 Metatarsalgia, right foot; G57.81 Other specified mononeuropathies of right lower limb | CPT/HCPCS: 64455; 99212; J1100; J2003; J3301 ==

== ENCOUNTER → 2025-04-04 11:19 | Outpatient (REF) | payer MEDICAID, SELFPAY ==
--- NOTE | 2025-04-04 11:21 | HM_ITS ---
* Total monitoring time 2 days. * Underlying rhythm is sinus with an average rate of 72/Min. * Rare supraventricular ectopy. * Rare ventricular ectopy. * No significant pauses or high-grade AV blocks. * No patient markers or diary events. MTDD
--- OUTSIDE RECORDS SUMMARY | 2025-04-04 12:12 | XMS_ITS | Clinical Summary ---
Author Organization [employer] Address 75 [facility] 7t [place] [address] Care Team Providers Care Forming Machine Tender Name Role Phone Luly Laguna MD Primary Care Provider +1- [phone] Alan Horowitz Unavailable Polly Bryant Unavailable Karime, [...] longer monitor 03/25/24 -08/30/23 currently has extended threat monitoring analyst for 30 days, will follow-up with cardiology [...] repeat colonoscopy in 10 years. Done at [facility] with Dr. Alan Horowitz MD Assessment [...] Carrasco, notes requested 11/07/2022 -dental home is [facility] -Health care Proxy 03/25/24 Assessment & Plan (03/26/2024 1:39 PM EST): -next annual exam due after 03/25/25 -eye care facilitated by Dr. Carrasco, notes requested 11/07/2022 -dental home is [facility] - Health care Proxy 03/25/24 Assessment [...] Overview (09/18/2024): Lab Results Component Value Date [id number] 52.8 03/25/2024 [id number] 29.9 (L) 05/04/2023 Mass of oral cavity [...] Type Department Care Team Description 03/09/2025 Refill [facility] [address] [place] [address] Luly Laguna MD Chronic pain of both knees 03/07/2025 Telephone [facility] [address] [place] [address] Luly Laguna MD April Recalls 03/07/2025 Travel 03/03/2025 Refill [facility] [address] [place] [address] Luly Laguna MD Right knee pain, unspecified chronicity; Pain and swelling of left knee 02/28/2025 Orders Only [facility] External Provider, [facility] 02/07/2025 Refill [facility] [address] [place] [address] Luly Laguna MD Chronic pain of both knees 02/05/2025 Refill [facility] [address] [place] [address] Luly Laguna MD Vitamin D deficiency 02/05/2025 Refill [facility] [address] [place] [address] Daya Matta MD Anxiety 01/24/2025 Refill [facility] [address] [place] [address] Luly Laguna MD Vitamin D deficiency 01/10/2025 Refill [facility] [address] [place] [address] Luly Laguna MD Gastroesophageal reflux disease, unspecified whether esophagitis present 01/09/2025 Refill [facility] [address] [place] [address] Daya Matta MD Anxiety; Gastroesophageal reflux disease, unspecified whether esophagitis present 01/09/2025 Refill [facility] [address] [place] [address] Luly Laguna MD Dyslipidemia from Last 3 Months Immunizations Immunization Administration [...] housing situation today? I have kemal isha 09/18/[address] you li [...] Description 04/30/2025 11:15 AM EST Office Visit [facility] [address] [place] [address] Luly Laguna MD [address] [place] [address] 07/02/2025 10:15 AM EST Office Visit [facility] [address] [place] [address] Tasha Farfan [address] [place] [address] Health Maintenance Due Date Last Done Comments CT Colonography 1965 FIT DNA/Cologuard 1965 FIT 1965 FOBT 1965 Sigmoidoscopy 1965 Alcohol/Substance Use Screening 1975 COVID-19 Vaccine ( season) 2025 Influenza Vaccine (#1) 2025 2, 04/14/2020, 01/31/2019, Additional history exists Depression Screening 03/25/2025 03/25/2024, 03/25/20 24 Dental Oral Exam 04/24/2025 10/22/2024, 03/2019, 11/16/2017, Additional history exists Dental Prophylaxis 06/28/2025 12/25/2024, 0 05/28/2019, 11/22/2018, Additional history exists Disability Screening 09/18/2025 09/18/2024 SDOH Screening 09/18/2025 09/18/2024 Pap Smear 09/19/2025 09/19/2022, 08/11/2016 Dental X-Ray: Bitewings 10/23/2025 10/23/19 25, 11/22/2018, 11/16/2017, Additional history exists Tobacco Screening [...] VIEWS RIGHT Routine 02/28/2025 12:15 PM EDT PROPHYLAXIS - ADULT Routine 12/25/2024 1 :00 PM EDT INTRAORAL - COMPLETE SERIES OF RADIOGRAPHIC IMAGES Routine 10/22/2024 10:30 AM EDT Excessive attrition of teeth Encounter for dental examination Fractured dental sabianism with loss of material Gingival hyperplasia Maxillary macrognathia PERIODIC ORAL EVALUATION - ESTABLISHED PATIENT Routine 10/22/2024 10:30 AM EDT Excessive attrition of teeth Encounter for dental examination Fractured dental sabianism with loss of material Gingival hyperplasia Maxillary [...] AM EDT Narrative 03/18/2025 10:05 AM EST [facility] [address] [place] [address] Mammography Report Signed Patient: Mahogany Tapia MR#: [id number] 2 : 1965 Acct:[id number] Age/Sex: 59 / F ADM Date: 03/14/25 Loc: HO.MAMMO Attending Dr: Luly Laguna MD Ordering Physician: Luly Laguna MD Results: 1N egative Date of Service: 03/14/25 Follow Up: 1 Year From Orig inal Mammogram Procedure(s): MM tomosynthesis screening BI Accession Number(s): [id number] cc: Luly Laguna MD Reason For Exam: [...] Lisa Casper DO 03/18/2025 10:02 AM [facility] Dictated By: Lisa Casper DO Signed By: <Electronically signed by Lisa Casper DO in OV> 03/18/25 1002 DD/ 1100 TD/TT: 03/14/25 1120 Data Visualization Developer: Procedure Note Donotuseinterpreter, Image - 03/18/2025 [facility] [address] [place], [place] [address] Mammography Report Signed Patient: Deann Tapia#: [id number] 2 : 1965Acct:[id number] Age/Sex: 59 / FADM Date: 03/14/25 Loc: HO.MAMMO Attending Dr: Luly Laguna MD Ordering Physician: Luly Laguna MDResults: 1N egative Date of Service: 03/14/25Follow Up: 1 Year From Orig inal Mammogram Procedure(s): MM tomosynthesis screening BI Accession Number(s): [id number] cc: Luly Laguna MD Reason For Exam: [...] Lisa Casper DO 03/18/2025 10:02 AM [facility] Dictated By: Lisa Casper DO Signed By: <Electronically signed by Lisa Casper DO in OV> 03/18/25 1002 DD/ 1100 TD/TT: 03/14/25 1120 Data Visualization Developer: us Luly Laguna MD IMG BI PROCEDURES Final Re sult * XR Foot 3+ Views Right (02/28/2025 12:15 PM EDT) Anatomical Region Laterality Modality Lower Extremities, Foot Right Radiogra phic Imaging 02/28/2025 12:1 5 PM EDT Narrative 02/28/2025 12:37 PM EDT [address] [address] XRay Report Signed Patient: Mahogany Tapia MR#: [id number] 2 : 1965 Acct:[id number] Age/Sex: 59 / F ADM Date: 02/28/25 Loc: HODIEUDONNE Attending Dr: Alba Meadows DPM Ordering Physician: Alba Meadows DPM Date of Service: 02/28/25 Procedure(s): XR foot RT min 3V Accession Number(s): [id number] cc: Luly Laguna MD; Alba Meadows DPM [...] Ezekiel Saravia MD 02/28/2025 12:35 PM EDT Dictated By: Ezekiel Saravia MD Signed By: <Electronically signed by Ezekiel Saravia MD in OV> 02/28/25 1235 DD/ 1215 TD/TT: 02/28/25 1220 Data Visualization Developer: Procedure Note Donotuseinterpreter, Image - 02/28/2025 [place] [address] XRay Report Signed Patient: Deann Tapia#: [id number] 2 : 1965Acct:[id number] Age/Sex: 59 / FADM Date: 02/28/25 Loc: FLAVIO Attending Dr: Alba Meadows DPM Ordering Physician: Alba Meadows DPM Date of Service: 02/28/25 Procedure(s): XR foot RT min 3V Accession Number(s): [id number] cc: Luly Laguna MD; Alba Meadows DPM [...] 02/28/25 1235 DD/ 1215 TD/TT: 02/28/25 1220 Data Visualization Developer: [facility] External Provider IMG XR PROCEDURES Final Result * Lipid Panel, Standard (08/29/2024 2:04 PM EDT) Triglycerides 108 <150 mg/dL [facility] Comment:Desirable Triglyceri de: less than 150 mg/dLBorderline High Triglyceride 150-199 mg/dLHigh Triglyceride: 200-499 mg/dLVery High Triglyceride: greater than or equal to 5OO mg/dL Cholesterol 138 <200 mg/dL [facility] Comment:Desirable Cholestero l: less than 200 mg/dLBorderline High Cholesterol: 200-239 mg/dLHigh Cholesterol: greater than 239 mg/dL LDL Cholesterol Calculated 70 <100 mg/dL [facility] Comment:Desirable LDL: less than 100 mg/dLNear Optimal/Above Optimal LDL: 110- 129 mg/dLBorderline High LDL: 130-159 mg/dLHigh LDL: 160-189 mg/dLVery High LDL: greater than or equal to 190 mg/dL HDL Cholesterol 47 >40 mg/dL [facility] Comment:Desirable HDL: great er than 40 mg/dL Note: This HDL assay may give artificially low results in patients with liver disease. Blood Venous blood specimen / Unknown 08/29/2024 2:04 PM EDT 08/29/2024 4:12 PM EDT Luly Laguna MD LAB BLOOD ORDERABLES Final Result Performing Organization Address [facility] Co de Phone Number [facility] [address] [place] [address] [phone] * (ABNORMAL) Colonoscopy (07/25/2023) Colonoscopy Abnormal( A) Normal Comment:small polyp, await p athology results at [place] Historical Provider HEALTH MAINTENANCE Final Result * Hepatitis C Antibody with Reflex to HCV, RNA, Quantitative, Real-Time PCR (05/04/2023 11:34 AM EST) Hepatitis C Antibody Nonreactive Nonreactive [facility] Comment:Antibodies to HCV no t detected; does not exclude early acuteHCV infection. Blood Venous blood specimen / Unknown 05/04/2023 11:34 AM EST 05/04/2023 1:12 PM EST Luly Laguna MD LAB BLOOD ORDERABLES Final Result Performing Organization Address [facility] Co de Phone Number [facility] [address] [place] [address] [phone] * (ABNORMAL) Pap Smear (09/19/2022) Pap Other Negative for intraephithelial lesion or malignancy, Other Comment:unsatisfactory HPV Not Detected Undetected, Indeterminate, Quantitative, Not Detected Historical Provider HEALTH MAINTENANCE Final Result * HIV 1/2 ANTIGEN/ANTIBODY,FOURTH GENERATION W/RFL (08/05/2021 11:46 AM EDT) HIV-1/2 ANTIGEN AND ANTIBODIES, 4TH GENERATION W/ REFLEX NON-[facility]ACT [facility] Comment: HIV-1 antigen and HIV-1/HIV-2 [...] purpose. For additional information please refer to http://education.[employer]/faq/TME200 (This link is being provided for informational/ educational purposes only.) The performance of this assay has not been clinically validated in patients less than 2 years old. 08/05/2021 11:4 6 AM EDT us Luly Laguna MD LAB BLOOD ORDERABLES Final Result [facility] [address] from Last 3 Months or Most Recently Relevant to Health Maintenance Insurance [facility] STANDARD DENTAL-[facility] MEDICAID STAND ADULT Care Teams Forming Machine Tender Relationship Specialty Start Date End Date [place], MD Luly [address] [place] [address] PCP - General Family Medicine 05/15/18 Alan Horowitz 175 [facility] 2nd Floor [address] [place] [address] Gastroenterology 06/18/24 Polly Bryant [address] [address] Obstetrics and Gynecology 06/18/24 Sandra Schaffer 11 [facility] 3rd [place] [address] Cardiology 11/01/24 Keyla Stevenson [address] [facility] [address] [place] [address] Orthopaedic Surgery 11/14/24 An Thomas Painting ManagerRoad Monkey 01/22/24
--- OUTSIDE RECORDS SUMMARY | 2025-04-04 12:12 | XMS_ITS | Encounter Summary ---
Author Organization [employer] Address 75 [facility] 7t [place] [address] Care Team Providers Care Manager Express Name Role Phone Luly Laguna MD Primary Care Provider MusAlan andre Zayda Unavailable Polly Bryant Unavailable Sandra Schaffer Unavailable Keyla Stevenson Unavailable Encounter Details Date Type Department Care Team (Latest Contact Info) Description 11/22/2018 Abstract [facility] CONVERSIONS Dental, Provider, DDS Social History [...] 11:15 AM EST Office Visit [facility]IC[facility] [address] [place], [place] [phone] Luly Laguna MD [address] [place], [place] [phone] 07/02/2025 10:15 AM EST Office Visit [facility] ADULT DENTAL [address] [place], [place] [phone] Tasha Farfan [address] [place] [address] documented as of this encounter Visit Diagnoses Not on filedocumented in this encounter Care Teams Manager Express Relationship Specialty Start Date End Date Luly Laguna MD [address] [place] [address] PCP - General Family Medicine 05/15/18 Alan Horowitz 175 [facility] 2nd Floor [address] [place] [address] Gastroenterology 06/18/24 Polly Bryant [address] [place] [address] Obstetrics and Gynecology 06/18/24 Sandra Schaffer 11 [facility] 3rd [place] [address] Cardiology 11/01/24 Keyla Stevenson [address] [facility] [address] [place] [address] Orthopaedic Surgery 11/14/24 An Thomas Mailing ManagerBuilding Materials Sales Attendant 01/22/24 documented as of this encounter
--- OUTSIDE RECORDS SUMMARY | 2025-04-04 12:12 | XMS_ITS | Encounter Summary ---
Author Organization [employer] Address 75 [facility] 7t [place] [address] Care Team Providers Care Meat Hanger Name Role Phone Luly Laguna MD Primary Care Provider +1- [phone] Alan Horowitz Unavailable KristaPolly gary Unavailable Sandra Schaffer Unavailable Keyla Stevenson Unavailable Reason for Visit * Reason Comments Med Refill Encounter Details Date Type Department Care Team (Late st Contact Info) Description 03/03/2025 Refill [facility] [address] [place], [place] [phone] Luly Laguna MD [address] [place], [place] [phone] Right knee pain, unspecified chronicity; Pain and [...] 11:15 AM EST Office Visit [facility] [address] [place] [address] Luly Laguna MD [address] [place] [phone] 07/02/2025 10:15 AM EST Office Visit [facility] ADULT DENTAL [address] [place] [phone] Adolph, Tasha [address] [place] [address] documented as of this encounter Visit Diagnoses Diagnosis Right knee pain, unspecified chronicity Pain and swelling of left knee documented in this encounter Additional Health Concerns Assessment Noted Time PHQ-9 Depression Total Score: 3 03/25/20 24 11:38 AM EST documented as of this encounter Care Teams Meat Hanger Relationship Specialty Start Date End Date Luly Laguna MD [address] [place] [address] PCP - General Family Medicine 05/15/18 Alan Horowitz 175 [facility] 2nd Floor [address] [place] [address] Gastroenterology 06/18/24 Polly Bryant 271 [facility] 1stfloor [place] [address] Obstetrics and Gynecology 06/18/24 Sandra Schaffer 11 [facility] 3rd [place] [address] Cardiology 11/01/24 Keyla Stevenson [address] [place] [address] Dr [address] [place] [address] Orthopaedic Surgery 11/14/24 An Thomas Food ConsultantSuperintendent Meters 01/22/24 documented as of this encounter
--- OUTSIDE RECORDS SUMMARY | 2025-04-04 12:12 | XMS_ITS | Encounter Summary ---
Author Organization [employer] Address 75 [facility] 7t [place] [address] Care Team Providers Care Airline Reservation Agent Name Role Phone Luly Laguna MD Primary Care Provider + [phone] MusjesAlan Unavailable KristaPolly gary Unavailable Sandra Schaffer Unavailable Keyla Stevenson Unavailable Encounter Details Date Type Department Care Team (Late st Contact Info) Description 05/29/2022 Abstract [facility] MEDICINE [address] [place] [address] [phone] Luly Laguna MD [address] [place] [address] [phone] Social History Tobacco Use Types Packs/Day Years [...] Description 04/30/2025 11:15 AM EST Office Visit [facility] [address] [place] [address] [phone] Luly Laguna MD [address] [place] [address] [phone] 07/02/2025 10:15 AM EST Office Visit [facility] ADULT DENTAL [address] [place] [address] Tasha Farfan [address] [place] [address] documented as of this encounter Procedures Procedure Name Priority Date/Time Associated Diagnosis Comments MAMMOGRAPHY Routine 03/01/2022 PAP/HPV Routine 08/11/2016 COLONOSCOPY Routine 04/24/2014 documented in this encounter Results * Mammography (03/01/2022) Mammogram normal Anatomical Region Laterality Modality Other [facility] Provider HEALTH MAINTENANCE Final Result * Pap Smear (08/11/2016) Pap smear ILM HPV neg Polly Treadwell Historical Provider HEALTH MAINTENANCE Final Result * Colonoscopy (04/24/2014) Colonoscopy normal with Dr. Sawant [facility] Provider HEALTH MAINTENANCE Final Result documented in this encounter Visit Diagnoses Not on filedocumented in this encounter Care Teams Airline Reservation Agent Relationship Specialty Start Date End Date Jase, MD Luly [address] [place] [address] PCP - General Family Medicine 05/15/18 Alan Horowitz 175 [facility] 2nd Floor [address] [place] [address] Gastroenterology 06/18/24 Polly Bryant 271 [facility] 1stfloor [place] [address] Obstetrics and Gynecology 06/18/24 Sandra Schaffer [address] 3rd [place] [address] Cardiology 11/01/24 Keyla Stevenson [address] [place] [address] [address] [place] [address] Orthopaedic Surgery 11/14/24 An Thomas Alteration HandMedical Technologist Prn 01/22/24 documented as of this encounter
--- OUTSIDE RECORDS SUMMARY | 2025-04-04 12:12 | XMS_ITS | Encounter Summary ---
Author Organization [employer] Address 75 [facility] 7t [place] [address] Care Team Providers Care Sales Broker Name Role Phone Luly Laguna MD Primary Care Provider +1- [phone] Alan Horowitz Unavailable KristaPolly gary Unavailable Sandra Schaffer Unavailable ElvaKeyla Unavailable Reason for Visit * Reason Comments Med Refill Encounter Details Date Type Department Care Team (Late st Contact Info) Description 10/23/2023 Refill [facility] [address] [place], [place] [phone] Luly Laguna MD 230 [place], [place] [phone] Social History Tobacco Use Types Packs/Day Years [...] Description 04/30/2025 11:15 AM EST Office Visit [facility] [address] [place] [address] Luly Laguna MD [address] [place] [address] 07/02/2025 10:15 AM EST Office Visit [facility] ADULT DENTAL [address] [place] [address] Adolph Tasha [address] [place] [address] documented as of this encounter Visit Diagnoses Not on filedocumented in this encounter Additional Health Concerns Assessment Noted Time PHQ-9 Depression Total Score: 0 11/08/19 11:15 AM EDT documented as of this encounter Care Teams Sales Broker Relationship Specialty Start Date End Date Luly Laguna MD [address] [place] [address] PCP - General Family Medicine 05/15/18 Alan Horowitz 175 [facility] 2nd Floor [address] [place] [address] Gastroenterology 06/18/24 Polly Bryant [address] [place] [address] Obstetrics and Gynecology 06/18/24 Sandra Schaffer [address] [place] [address] 3rd [place] [address] Cardiology 11/01/24 Keyla Stevenson [address] [place] [address] Dr [address] [place] [address] Orthopaedic Surgery 11/14/24 An Thomas Personal Care AttendantMoney Position Officer 01/22/24 documented as of this encounter
--- OUTSIDE RECORDS SUMMARY | 2025-04-04 12:12 | XMS_ITS | Encounter Summary ---
Author Organization [employer] Address 75 [facility] 7t [place] [address] Care Team Providers Care Welding Machine Tender Name Role Phone Luly Laguna MD Primary Care Provider +1- [phone] Alan Horowitz Unavailable Manny Polly Unavailable Karime, Sandra Unavailable Elva Keyla Unavailable Reason for Visit * Reason Comments Med Refill Encounter Details Date Type Department Care Team (Late st Contact Info) Description 01/19/2024 Refill [facility] MED[facility] [address] [place], [place] [phone] Gudelia Jaimes, ANP [address] [place], [place] [phone] Gastroesophageal reflux disease, unspecified whether esophagitis present [...] 11:15 AM EST Office Visit [facility] MEDICINE [address] [place] [address] Luly Laguna MD [address] [place] [address] 07/02/2025 10:15 AM EST Office Visit [facility] ADULT DENTAL [address] [place] [address] Adolph, Tasha [address] [place] [address] documented as of this encounter Visit Diagnoses Diagnosis Gastroesophageal reflux disease, unspecified whether esophagitis present- Primary documented in this encounter Additional Health Concerns Assessment Noted Time PHQ-9 Depression Total Score: 0 11/08/19 11:15 AM EDT documented as of this encounter Care Teams Welding Machine Tender Relationship Specialty Start Date End Date Luly Laguna MD [address] [place] [address] PCP - General Family Medicine 05/15/18 Alan Horowitz [address] [place] [address] 2nd Floor [address] [place] [address] Gastroenterology 06/18/24 Polly Bryant [address] [place] [address] Obstetrics and Gynecology 06/18/24 Sandra Schaffer [address] [facility] [address] 3rd [place] [address] Cardiology 11/01/24 Keyla Stevenson [address] [place] [address] Dr [address] [place] [address] Orthopaedic Surgery 11/14/24 An Thomas Underground RepairerCpht 01/22/24 documented as of this encounter
--- OUTSIDE RECORDS SUMMARY | 2025-04-04 12:12 | XMS_ITS | Encounter Summary ---
Author Organization [employer] Address 75 [facility] 7t [place] [address] Care Team Providers Care Banking Center Manager Name Role Phone Luly Laguna MD Primary Care Provider +1- [phone] MusAlan andre Unavailable Manny Polly Unavailable Karime, Sandra Unavailable ElvaKeyla Unavailable Encounter Details Date Type Department Care Team (Late st Contact Info) Description 07/01/2022 Orders Only [facility] [address] [place], [place] [phone] Lora Russell LPN Social History Tobacco Use [...] Description 04/30/2025 11:15 AM EST Office Visit [facility] MEDICINE [address] [place] [address] Luly Laguna MD [address] [place] [address] 07/02/2025 10:15 AM EST Office Visit [facility] ADULT DENTAL [address] [place] [address] Adolph, Tasha [address] [place] [address] documented as of this encounter Visit Diagnoses Not on filedocumented in this encounter Care Teams Banking Center Manager Relationship Specialty Start Date End Date Luly Laguna MD [address] [place] [address] PCP - General Family Medicine 05/15/18 Alan Horowitz 175 [facility] 2nd Floor [address] [place] [address] Gastroenterology 06/18/24 Polly Bryant 271 [facility] 1stfloor [place] [address] Obstetrics and Gynecology 06/18/24 Sandra Schaffer 11 [facility] 3rd [place] [address] Cardiology 11/01/24 Keyla Stevenson [address] [place] [address] Dr [address] [place] [address] Orthopaedic Surgery 11/14/24 An Thomas Cell Tuber HandCold Header Operator 01/22/24 documented as of this encounter
--- OUTSIDE RECORDS SUMMARY | 2025-04-04 12:12 | XMS_ITS | Encounter Summary ---
Author Organization [employer] Address [address] [place] [address] 7t [place] [address] Care Team Providers Care Industrial Hire Sales Assistant Name Role Phone Luly Laguna MD Primary Care Provider +1- [phone] MusjesAlan Unavailable KristaPolly gary Unavailable Sandra Schaffer Unavailable ElvaKeyla Unavailable Reason for Visit * Reason Comments Med Change Request Encounter Details Date Type Department Care Team (Late st Contact Info) Description 11/07/2022 Refill [facility] MEDICINE [address] [place], [place] [phone] Luly Laguna MD [address] [place], [place] [phone] Social History Tobacco Use Types Packs/Day Years [...] Description 04/30/2025 11:15 AM EST Office Visit [facility] MEDICINE [address] [place] [address] Luly Laguna MD [address] [place] [address] 07/02/2025 10:15 AM EST Office Visit [facility] ADULT DENTAL [address] [place] [address] Adolph, Tasha [address] [place] [address] documented as of this encounter Visit Diagnoses Not on filedocumented in this encounter Additional Health Concerns Assessment Noted Time PHQ-9 Depression Total Score: 0 11/08/19 11:15 AM EDT documented as of this encounter Care Teams Industrial Hire Sales Assistant Relationship Specialty Start Date End Date Luly Laguna MD [address] [place] [address] PCP - General Family Medicine 05/15/18 Alan Horowitz [address] [facility] 2nd Floor [address] [place] [address] Gastroenterology 06/18/24 Polly Bryant [address] [facility] 1stfloor [place] [address] Obstetrics and Gynecology 06/18/24 Sandra Schaffer [address] 3rd [place] [address] Cardiology 11/01/24 Keyla Stevenson [address] [place] [address] [address] [place] [address] Orthopaedic Surgery 11/14/24 An Thomas Occasional BabysitterExternal Grinder 01/22/24 documented as of this encounter
--- OUTSIDE RECORDS SUMMARY | 2025-04-04 12:12 | XMS_ITS | Encounter Summary ---
Author Organization [employer] Address 75 [facility] 7t [place] [address] Care Team Providers Care Stove Refinisher Name Role Phone Luly Laguna MD Primary Care Provider +1- [phone] Musjes Alan Zayda Unavailable KristaPolly gary Unavailable Sandra Schaffer Unavailable Keyla Stevenson Unavailable Encounter Details Date Type Department Care Team (Late st Contact Info) Description 11/24/[address] [facility] MEDICINE [address] [place], [place] [phone] Luly Laguna MD [address] [place], [place] [phone] Social History Tobacco Use Types Packs/Day Years [...] Description 04/30/2025 11:15 AM EST Office Visit [facility] MEDICINE [address] [place] [address] Luly Laguna MD [address] [place] [address] 07/02/2025 10:15 AM EST Office Visit [facility] ADULT DENTAL [address] [place] [address] Adolph Tasha [address] [place] [address] documented as of this encounter Visit Diagnoses Not on filedocumented in this encounter Additional Health Concerns Assessment Noted Time PHQ-9 Depression Total Score: 0 11/08/19 11:15 AM EDT documented as of this encounter Care Teams Stove Refinisher Relationship Specialty Start Date End Date Luly Laguna MD [address] [place] [address] PCP - General Family Medicine 05/15/18 Alan Horowitz 175 [facility] 2nd Floor [address] [place] [address] Gastroenterology 06/18/24 Polly Bryant [address] [facility] 1stfloor [place] [address] Obstetrics and Gynecology 06/18/24 Sandra Schaffer 11 [facility] 3rd [place] [address] Cardiology 11/01/24 Keyla Stevenson [address] [facility] [address] [place] [address] Orthopaedic Surgery 11/14/24 An Thomas Associate Entertainment EditorAdvertising Material Distributor 01/22/24 documented as of this encounter
--- OUTSIDE RECORDS SUMMARY | 2025-04-04 12:12 | XMS_ITS | Encounter Summary ---
Author Organization [employer] Address 75 [facility] 7t [place] [address] Care Team Providers Care Business Planning Analyst Name Role Phone Luly Laguna MD Primary Care Provider +1- [phone] Alan Horowitz Unavailable Manny Polly Unavailable Sandra Schaffer Unavailable Elva, Keyla Unavailable Encounter Details Date Type Department Care Team (Late st Contact Info) Description 06/18/[address] [facility] MEDICINE 230 [place] [address] Luly Laguna MD 230 [place], [place] [phone] Abnormal colonoscopy (Primary Dx) Social History Tobacco [...] EST Office Visit [facility] [address] [place] [address] Luly Laguna MD [address] [place] [address] 07/02/2025 10:15 AM EST Office Visit [facility] ADULT DENTAL [address] [place] [address] Adolph, Tasha 230 [place] [address] documented as of this encounter Visit Diagnoses Diagnosis Abnormal colonoscopy- Primary documented in this encounter Additional Health Concerns Assessment Noted Time PHQ-9 Depression Total Score: 3 03/25/20 24 11:38 AM EST documented as of this encounter Care Teams Business Planning Analyst Relationship Specialty Start Date End Date Luly Laguna MD [address] [place] [address] PCP - General Family Medicine 05/15/18 Alan Horowitz 175 [facility] 2nd Floor [address] [place] [address] Gastroenterology 06/18/24 Polly Bryant [address] [facility] 1stfloor [place] [address] Obstetrics and Gynecology 06/18/24 Sandra Schaffer [address] [facility] 3rd [place] [address] Cardiology 11/01/24 Keyla Stevenson [address] [place] [address] [address] [place] [address] Orthopaedic Surgery 11/14/24 An Thomas Moisture Meter OperatorCruise Coordinator 01/22/24 documented as of this encounter
--- OUTSIDE RECORDS SUMMARY | 2025-04-04 12:12 | XMS_ITS | Encounter Summary ---
Author Organization [employer] Address 75 [facility] 7t [place] [address] Care Team Providers Care Sheltered Workshop Executive Director Name Role Phone Luly Laguna MD Primary Care Provider +1- [phone] Musjes lAan Zayda Unavailable KristaPolly gary Unavailable Sandra Schaffer Unavailable Keyla Stevenson Unavailable Encounter Details Date Type Department Care Team (Late st Contact Info) Description 11/24/2022 Abstract [facility] MEDICINE 230 [place], [place] [phone] Luly Laguna MD 230 [place], [place] [phone] Social History Tobacco Use Types Packs/Day Years [...] Description 04/30/2025 11:15 AM EST Office Visit [facility] MEDICINE 230 [place] [address] Luly Laguna MD [address] [place] [address] 07/02/2025 10:15 AM EST Office Visit [facility] ADULT DENTAL 230 [place] [address] Adolph Tasha 230 [place] [address] documented as of this encounter Visit Diagnoses Not on filedocumented in this encounter Additional Health Concerns Assessment Noted Time PHQ-9 Depression Total Score: 0 11/08/19 11:15 AM EDT documented as of this encounter Care Teams Sheltered Workshop Executive Director Relationship Specialty Start Date End Date Luly Laguna MD 230 [place] [address] PCP - General Family Medicine 05/15/18 Alan Horowitz 175 [facility] 2nd Floor [address] [place] [address] Gastroenterology 06/18/24 Polly Bryant 271 [facility] 1stfloor [place] [address] Obstetrics and Gynecology 06/18/24 Sandra Schaffer 11 [facility] 3rd [place] [address] Cardiology 11/01/24 Keyla Stevenson [address] [facility] [address] [place] [address] Orthopaedic Surgery 11/14/24 An Thomas Textile KnitterGraining Operator 01/22/24 documented as of this encounter
--- OUTSIDE RECORDS SUMMARY | 2025-04-04 12:12 | XMS_ITS | Encounter Summary ---
Author Organization [employer] Address 75 [facility] 7t [place] [address] Care Team Providers Care Construction Trench Digger Name Role Phone Luly Laguna MD Primary Care Provider +1- [phone] Musjes Alan Zayda Unavailable KristaPolly gary Unavailable Sandra Schaffer Unavailable Keyla Stevenson Unavailable Encounter Details Date Type Department Care Team (Late st Contact Info) Description 11/24/2022 Abstract [facility] MEDICINE [address] [place], [place] [phone] Luly Laguna MD [address] [place], [place] [phone] Social History Tobacco Use Types Packs/Day Years [...] 11:15 AM EST Office Visit [facility] MEDICINE 230 [place] [address] Luly Laguna MD [address] [place] [address] 07/02/2025 10:15 AM EST Office Visit [facility] ADULT DENTAL 230 [place] [address] Adolph Tasha 230 [place] [address] documented as of this encounter Visit Diagnoses Not on filedocumented in this encounter Additional Health Concerns Assessment Noted Time PHQ-9 Depression Total Score: 0 11/08/19 11:15 AM EDT documented as of this encounter Care Teams Construction Trench Digger Relationship Specialty Start Date End Date Luly Laguna MD [address] [place] [address] PCP - General Family Medicine 05/15/18 Alan Horowitz [address] [facility] 2nd Floor [address] [place] [address] Gastroenterology 06/18/24 Polly Bryant [address] [facility] 1stfloor [place] [address] Obstetrics and Gynecology 06/18/24 Sandra Schaffer 11 [facility] 3rd [place] [address] Cardiology 11/01/24 Keyla Stevenson [address] [facility] [address] [place] [address] Orthopaedic Surgery 11/14/24 An Thomas Heater Planer OperatorManager Aviation 01/22/24 documented as of this encounter
--- OUTSIDE RECORDS SUMMARY | 2025-04-04 12:12 | XMS_ITS | Encounter Summary ---
Author Organization [employer] Address [address] [facility] 7t [place] [address] Care Team Providers Care Firearms Assembly Supervisor Name Role Phone Luly Laguna MD Primary Care Provider +1- [phone] Alan Horowitz Unavailable KristaPolly agry Unavailable Sandra Schaffer Unavailable ElvaKeyla Unavailable Reason for Visit * Reason Comments Med Refill Encounter Details Date Type Department Care Team (Late st Contact Info) Description 02/05/2025 Refill [facility] MEDICINE 230 [place], [place] [phone] Luly Laguna MD 230 [place], [place] [phone] Vitamin D deficiency Social History Tobacco Use [...] Description 04/30/2025 11:15 AM EST Office Visit [facility] MEDICINE [address] [place] [address] Luly Laguna MD [address] [place] [address] 07/02/2025 10:15 AM EST Office Visit [facility] ADULT DENTAL [address] [place] [address] Tasha Farfan [address] [place] [address] documented as of this encounter Visit Diagnoses Diagnosis Vitamin D deficiency documented in this encounter Additional Health Concerns Assessment Noted Time PHQ-9 Depression Total Score: 3 03/25/20 24 11:38 AM EST documented as of this encounter Care Teams Firearms Assembly Supervisor Relationship Specialty Start Date End Date Luly Laguna MD [address] [place] [address] PCP - General Family Medicine 05/15/18 Alan Horowitz 175 [facility] 2nd Floor [address] [place] [address] Gastroenterology 06/18/24 Polly Bryant [address] [facility] [place] [address] Obstetrics and Gynecology 06/18/24 Sandra Schaffer 11 [facility] 3rd [place] [address] Cardiology 11/01/24 Keyla Stevenson [address] [place] [address] [address] [place] [address] Orthopaedic Surgery 11/14/24 An Thomas Hydrological Technical OfficerKnitting Machine Fixer Head 01/22/24 documented as of this encounter
== END ==
LOC: HO.CARD 11:19
PROVIDERS: PCP Family Medicine; Visit Provider Nurse Practitioner Family
DX: R00.2 Palpitations (principal)
CPT/HCPCS: 93225

== ENCOUNTER → 2025-04-04 11:21 | Outpatient (BNV) | payer MEDICAID, SELFPAY | PROVIDERS: PCP Family Medicine; Visit Provider Internal Medicine | DX: I49.3 Ventricular premature depolarization (principal); I49.49 Other premature depolarization | CPT/HCPCS: 93227 ==

== ENCOUNTER 2025-04-21 11:48 | Outpatient (AMB) | payer MEDICAID, SELFPAY ==
[2025-04-21 11:50] VITALS: BMI 28.3
--- NOTE | 2025-04-21 11:50 | A.OFFVIS_ITS ---
Vital Signs 04/21/25 11:50 Height 5 ft 3 in Weight 160 lb BMI 28.3 Intake Visit Reasons: f/u neuroma Intake Note: Mahogany is a 59 year old female who presents to the office today for a 1 month follow up neuroma. At previous visit a Cortisone injection was given and pt was provided with metatarsal pads to be used daily. Pt states she is doing well, however she complaints of constant pain in the metatarsal area of her foot as well as having cramping sensations in her foot. Allergies acetaminophen (From Percocet) Allergy (Verified 04/21/25 11:58) shake oxycodone (From Percocet) Allergy (Verified 04/21/25 11:58) shake HPI Comments Details: The patient is a 59 year old female presenting with persistent right foot pain. She reports her foot feels better, but the pain is not completely resolved and is exacerbated by wearing shoes, particularly tighter ones. She states the pain is localized to the interdigital spaces between the 2nd and 3rd toes and 3rd and 4th toes. Patient states she has been using the metatarsal pads previously provided. Denies any new pedal injuries. She denies any other pedal concerns. Patient was accompanied by her daughter. [facility] Medical History Interdigital neuroma of right foot Metatarsalgia, right foot Depression Anxiety Hypertension No known health problems No known health problems Family History Father Stroke Mother No problems noted. Social History Current occupational status: unemployed Current occupation: Right Handed Review of Systems Const Details: - Musculoskeletal: Reports intermittent right foot pain to the interdigital spaces. All systems reviewed & are unremarkable except as noted in HPI and below Physical Exam Exam Exam: Physical Exam - Foot: Tenderness to palpation at the common location for a neuroma, between the toes. Vital Signs: BMI result Body Mass Index 28.3 Extrem Other: RLE Focused Physical Exam: Derm: Skin supple and turgor WNL. No open lesions, abrasions, or wounds noted. No ecchymosis or discoloration noted. No maceration noted. No hyperkeratotic lesions noted. No clinical signs of infections. Vasc: DP/PT pulses palpable. CFT < 3 secs. Temp gradient warm to warm. No edema noted. No varicosities noted. Pedal hair absent. Neuro: Protective sensations grossly intact. MSK: Pain on palpation to the sub metatarsal 3 and 4 area, as well as dorsally. Positive squeeze test. Positive jacob's sign without crepitus. Mild Pain with ROM of the forefoot. MMT 5/5. ROM of the hindfoot and ankle WNL. Mildly antalgic gait unassisted noted. No fluctuance noted. Office Procedures AMB Podiatry Dressing Details of Procedure: Provided patient with metatarsal pads applied bilaterally. [address] Strapping of foot/toe Procedure code (CPT) selection complete Results Reviewed Results Reviewed: Ordered a right foot MRI to be performed prior to next visit. Podiatry read of right foot xrays (03/10/25): Joint space narrowing of 1st MPJ. Bone spur noted to the plantar aspect and minimally posterior aspect of the calcaneus. No acute fractures or dislocations noted. No splaying of metatarsals noted. Right foot xrays (03/10/25): FINDINGS: Three weight bearing views of the right foot are submitted. Osseous mineralization is normal. There is no fracture or dislocation. The joint spaces are preserved. There is a small plantar calcaneal spur. The soft tissues are unremarkable. IMPRESSION: Small plantar calcaneal spur. Otherwise unremarkable examination of the right foot. Assessment & Plan Assessment & Plan (1) Right foot pain: Code(s): M79.671 - Pain in right foot Category: Medical (2) Metatarsalgia, right foot: Code(s): M77.41 - Metatarsalgia, right foot Category: Medical (3) Interdigital neuroma of right foot: Code(s): G57.81 - Other specified mononeuropathies of right lower limb Category: Medical Plan Patient was informed and verbally consented to the use of an ambient scribe for clinic note documentation during this visit. - Provided patient with metatarsal pads. - An MRI of the foot was ordered to assess the size of the suspected neuroma, as the previous injection did not provide complete relief. - The patient was counseled to wear wider shoes to avoid compression of the toes. - Advised patient to avoid barefoot walking and to wear supportive shoe gear. - Continue taking ibuprofen or Tylenol PRN for pain. - If the MRI confirms a neuroma, surgical excision may be required. RTC in 5 weeks. Orders: Orders MR foot RT wo/w con 04/21/25 G57.81 - Other specified mononeuropathies of right lower limb, M77.41 - Metatarsalgia, right foot, M79.671 - Pain in right foot AMB Podiatry Dressing 04/21/25 G57.81 - Other specified mononeuropathies of right lower limb, M77.41 - Metatarsalgia, right foot, M79.671 - Pain in right foot Medications: Discontinued methylprednisolone (Medrol (Nelson)) Discontinued Reason: Patient Completed Course PO PER PKG DIR 21 ea 0RF Right foot Metatarsalgia and neuroma G57.81 - Other specified mononeuropathies of right lower limb, M77.41 - Metatarsalgia, right foot, M79.671 - Pain in right foot Coding Level of Care Code Est Pt Level 4 (15878) Diagnoses Right foot pain M79.671 Metatarsalgia, right foot M77.41 Interdigital neuroma of right foot G57.81 CPT Codes Podiatry Dressing - CPT: 62769 Strapping of foot/toe ([id number]) Time Spent (min) 32
== END 2025-04-21 12:10 | disposition home or self-care (01) ==
LOC: HO.HPODS 11:49
PROVIDERS: PCP Family Medicine; Visit Provider Student in an Organized Health Care Education/Training Program
DX: M79.671 Pain in right foot (principal); M77.41 Metatarsalgia, right foot; G57.81 Other specified mononeuropathies of right lower limb
CPT/HCPCS: 29550; 99214

== ENCOUNTER → 2025-04-21 11:48 | Outpatient (BNVA) | payer MEDICAID, SELFPAY | PROVIDERS: PCP Family Medicine; Visit Provider Student in an Organized Health Care Education/Training Program | DX: G57.81 Other specified mononeuropathies of right lower limb (principal); M77.41 Metatarsalgia, right foot | CPT/HCPCS: 29550; 99212 ==

== ENCOUNTER 2025-04-30 11:42 | Outpatient (REF) | payer MEDICAID, SELFPAY ==
--- NOTE | ~2025-04-30 | XR_ITS ---
EXAMINATION: XR SHOULDER, RIGHT CLINICAL INFORMATION: chronic right shoulder pain COMPARISON: 05/18/2020. TECHNIQUE: AP external rotation, Grashey, scapular Y, and axillary views of the right shoulder. FINDINGS: Normal bone mineralization. No fracture, dislocation, or suspicious bone lesion. Normal alignment. The glenohumeral joint demonstrates mild degenerative arthritis. The AC joint demonstrates mild degenerative undersurface spurring. There is a type II acromion. No undersurface spurring. The subacromial space is preserved. Remainder of the soft tissue and bony structures appear normal. XR/XR shoulder RT min 2V IMPRESSION: 1. No acute bony or soft tissue abnormality. 2. Mild degenerative arthritis of the glenohumeral joint and AC joint. Electronically signed by: Nixon Domínguez MD 04/30/2025 02:30 PM THAI CESAR
== END 2025-04-30 11:43 | disposition home or self-care (01) ==
LOC: HO.HHCX 11:42
PROVIDERS: PCP Family Medicine; Visit Provider Family Medicine
DX: G89.29 Other chronic pain (principal); M25.511 Pain in right shoulder
CPT/HCPCS: 73030

== ENCOUNTER → 2025-04-30 11:50 | Outpatient (BNV) | payer MEDICAID, SELFPAY | PROVIDERS: PCP Family Medicine; Visit Provider Radiology Diagnostic Radiology | DX: M19.011 Primary osteoarthritis, right shoulder (principal) | CPT/HCPCS: 73030 ==

== ENCOUNTER 2025-05-13 08:26 | Outpatient (AMB) | payer MEDICAID, SELFPAY ==
--- NOTE | 2025-05-13 08:29 | A.OFFVIS_ITS ---
Intake Visit Reasons: B/L knee Cortisone Injections, last inj 02/11/25 Intake Note: Mahogany is a 59 year old female who presents today for repeat injections for both of her knees, last injections were on 02/11/25. Patient reports her last injections gave her a month of relief. She is wondering if she could start the process for gel injections for both knees. Allergies acetaminophen (From Percocet) Allergy (Verified 05/13/25 08:40) shake oxycodone (From Percocet) Allergy (Verified 05/13/25 08:40) shake HPI HPI B/L knee Cortisone Injections, last inj 02/11/25: Details: The patient is a 59-year-old female who presents to the office today for bilateral knee cortisone injections. Last injections gave her about 1 month of relief and were administered on 02/11/2025. [facility] Medical History Interdigital neuroma of right foot Metatarsalgia, right foot Depression Anxiety Hypertension No known health problems No known health problems Family History Father Stroke Mother No problems noted. Social History Current occupational status: unemployed Current occupation: Right Handed Review of Systems Const All systems reviewed & are unremarkable except as noted in HPI and below Physical Exam Const General: cooperative, healthy appearing and no acute distress Resp Effort & Inspection: normal respiratory effort and able to speak in complete sentences Extrem Other: Bilateral knees mild effusion. Range of motion 0-90 degrees with crepitus. Pain with patellar grind and retropatellar tenderness. NVI. Psych Appearance: grossly normal Mental Status: mental status grossly normal Attitude: cooperative Office Procedures AMB Joint Injection/Aspiration Joint Injection/Aspiration Primary Site: Right Knee Secondary Site: Left Knee Prep: site was prepped using aseptic technique, ethochloride spray was applied and injection warnings given Injected: 40 mg of, Decadron, with 3 mL of, 1% plain Lidocaine, 0.25% Bupivacaine and in the joint Approach Used: anterolateral Procedure: The patient tolerated the procedure well, but had some pain with the injection and there was some relief with the local anesthesia Coding 22687 - Bilateral Large Joint Procedure code (CPT) selection complete Assessment & Plan Assessment & Plan (1) Bilateral primary osteoarthritis of knee: Code(s): M17.0 - Bilateral primary osteoarthritis of knee Category: Medical Plan The patient was offered a cortisone injection in bilateral knees. The patient was explained the risks, benefits, and alternatives to receiving this injection. After receiving consent for the injection, the patient had the procedure done while in the office today. The patient tolerated the procedure well with no complications. The risks, benefits, and alternatives to a corticosteroid injection were discussed with the patient, including the potential benefits of decreased inflammation and pain, improved function, and diagnostic value. Risks were reviewed, including post-injection flare, skin or fat atrophy, transient facial flushing, temporary elevation in blood glucose, bruising, and rare but serious complications such as infection, tendon weakening or rupture, and cartilage damage with repeated injections. Procedure-related discomfort and possible vasovagal symptoms were also explained. Alternatives were reviewed, including NSAIDs, physical therapy, activity modification, bracing, ice/heat, weight management, hyaluronic acid injections when appropriate, PRP or other orthobiologics, oral steroids, surgery depending on pathology, and observation. The patient verbalized understanding and elected to proceed. After receiving consent for the injection, the patient had the procedure done while in the office today. The patient tolerated the procedure well with no complications. Follow-up will be PRN, or sooner if needed Coding Level of Care Code Est Pt Level 3 (64856) Diagnoses Bilateral primary osteoarthritis of knee M17.0 CPT Codes Coding - 98166 - Bilateral Large Joint: 50182 - Bilateral Large Joint ([id number])
--- OUTSIDE RECORDS SUMMARY | 2025-05-13 10:03 | XMS_ITS | Encounter Summary ---
Author Organization [employer] Address 75 [facility] 7t [place] [address] Care Team Providers Care Tube Mill Operator Name Role Phone Luly Laguna MD Primary Care Provider +1- [phone] Alan Horowitz Unavailable KristaPolly gary Unavailable Sandra Schaffer Unavailable ElvaKeyla Unavailable Reason for Visit * Reason Comments Med Refill Encounter Details Date Type Department Care Team (Late st Contact Info) Description 10/23/2023 Refill [facility] MEDICINE 230 [place], [place] [phone] Luly Laguna MD 230 [place], [place] [phone] Social History Tobacco Use Types Packs/Day Years [...] Team (Late st Contact Info) Description 07/02/2025 10:15 AM EST Office Visit [facility] ADULT DENTAL [address] [place] [address] Adolph, Tasha [address] [place] [address] documented as of this encounter Visit Diagnoses Not on filedocumented in this encounter Additional Health Concerns Assessment Noted Time PHQ-9 Depression Total Score: 0 11/08/19 23 11:15 AM EDT documented as of this encounter Care Teams Tube Mill Operator Relationship Specialty Start Date End Date Luly Laguna MD 230 [place] [address] PCP - General Family Medicine 05/15/18 Alan Horoiwtz 175 [facility] 2nd Floor [address] [place] [address] Gastroenterology 06/18/24 Polly Bryant [address] [place] [address] Obstetrics and Gynecology 06/18/24 Sandra Schaffer [address] [facility] [address] 3rd [place] [address] Cardiology 11/01/24 Keyla Stevenson [address] [place] [address] [address] [place] [address] Orthopaedic Surgery 11/14/24 An Thomas Card Punching Machine OperatorTechnical Applications Specialist 01/22/24 documented as of this encounter
--- OUTSIDE RECORDS SUMMARY | 2025-05-13 10:03 | XMS_ITS | Encounter Summary ---
Author Organization [employer] Address [address] [facility] 7t [place] [address] Care Team Providers Care Oil Burner Mechanic Name Role Phone Luly Laguna MD Primary Care Provider +1- [phone] Alan Horowitz Unavailable KristaPolly gary Unavailable Sandra Schaffer Unavailable ElvaKeyla Unavailable Reason for Visit * Reason Comments Med Refill Encounter Details Date Type Department Care Team (Late st Contact Info) Description 02/05/[address] [facility] MEDICINE [address] [place], [place] [phone] Luly Laguna MD 230 [place], [place] [phone] Vitamin D deficiency Social History Tobacco Use [...] Description 07/02/2025 10:15 AM EST Office Visit [facility] ADULT DENTAL [address] [place] [address] Adolph, Tasha [address] [place] [address] documented as of this encounter Visit Diagnoses Diagnosis Vitamin D deficiency documented in this encounter Additional Health Concerns Assessment Noted Time PHQ-9 Depression Total Score: 3 03/25/20 24 11:38 AM EST documented as of this encounter Care Teams Oil Burner Mechanic Relationship Specialty Start Date End Date Luly Laguna MD 230 [place] [address] PCP - General Family Medicine 05/15/18 Alan Horowitz [address] [facility] 2nd Floor [address] [place] [address] Gastroenterology 06/18/24 Polyl Bryant [address] [place] [address] Obstetrics and Gynecology 06/18/24 Sandra Schaffer [address] [place] [address] 3rd [place] [address] Cardiology 11/01/24 Keyla Stevenson [address] [place] [address] Dr [address] [place] [address] Orthopaedic Surgery 11/14/24 An Thomas Strategic ConsultantJigmaker 01/22/24 documented as of this encounter
--- OUTSIDE RECORDS SUMMARY | 2025-05-13 10:03 | XMS_ITS | Encounter Summary ---
Author Organization [email or web address] Address 75 [facility] 7t [place] [address] Care Team Providers Care Calender Let Off Operator Name Role Phone Luly Laguna MD Primary Care Provider +1- [phone] Musjes Alan Zayda Unavailable KristaPolly gary Unavailable Sandra Schaffer Unavailable Keyla Stevenson Unavailable Encounter Details Date Type Department Care Team (Late st Contact Info) Description 11/24/2022 Abstract [facility] MEDICINE [address] [place], [place] [phone] Luly Laguna MD 230 [place], [place] [phone] Social History Tobacco Use Types Packs/Day Years [...] Description 07/02/2025 10:15 AM EST Office Visit [facility] ADULT DENTAL [address] [place] [address] Tasha Farfan 230 [place] [address] documented as of this encounter Visit Diagnoses Not on filedocumented in this encounter Additional Health Concerns Assessment Noted Time PHQ-9 Depression Total Score: 0 11/08/19 11:15 AM EDT documented as of this encounter Care Teams Calender Let Off Operator Relationship Specialty Start Date End Date Luly Laguna MD [address] [place] [address] PCP - General Family Medicine 05/15/18 Alan Horowitz 175 [facility] 2nd Floor [address] [place] [address] Gastroenterology 06/18/24 Polly Bryant [address] [address] Obstetrics and Gynecology 06/18/24 Sandra Schaffer 11 [facility] 3rd [place] [address] Cardiology 11/01/24 Keyla Stevenson [address] [facility] [address] [place] [address] Orthopaedic Surgery 11/14/24 An Thomas Data StewardForensic Psychologist 01/22/24 documented as of this encounter
--- OUTSIDE RECORDS SUMMARY | 2025-05-13 10:03 | XMS_ITS | Encounter Summary ---
Author Organization [employer] Address 75 [facility] 7t [place] [address] Care Team Providers Care Manager Demand Name Role Phone Luly Laguna MD Primary Care Provider +1- [phone] Alan Horowitz Unavailable KristaPolly gary Unavailable Sandra Schaffer Unavailable Keyla Stevenson Unavailable Reason for Visit * Reason Comments Med Refill Encounter Details Date Type Department Care Team (Late st Contact Info) Description 03/03/2025 Refill [facility] 230 [place], [place] [phone] Luly Laguna MD [address] [place], [place] [phone] Right knee pain, unspecified chronicity; Pain and [...] Description 07/02/2025 10:15 AM EST Office Visit [facility] ADULT DENTAL [address] [place] [address] Cristo Farfanaris [address] [place] [address] documented as of this encounter Visit Diagnoses Diagnosis Right knee pain, unspecified chronicity Pain and swelling of left knee documented in this encounter Additional Health Concerns Assessment Noted Time PHQ-9 Depression Total Score: 3 03/25/20 24 11:38 AM EST documented as of this encounter Care Teams Manager Demand Relationship Specialty Start Date End Date Luly Laguna MD 230 [place] [address] PCP - General Family Medicine 05/15/18 Alan Horowitz 175 [facility] 2nd Floor [address] [place] [address] Gastroenterology 06/18/24 Polly Bryant [address] [place] [address] Obstetrics and Gynecology 06/18/24 Sandra Schaffer [address] [facility] [address] 3rd [place] [address] Cardiology 11/01/24 Keyla Stevenson [address] [place] [address] Dr [address] [place] [address] Orthopaedic Surgery 11/14/24 An Thomas Tentering Machine Off BearerBlood Bank Booking Clerk 01/22/24 documented as of this encounter
--- OUTSIDE RECORDS SUMMARY | 2025-05-13 10:03 | XMS_ITS | Encounter Summary ---
Author Organization [employer] Address 75 [facility] 7t [place] [address] Care Team Providers Care Clothing Man Name Role Phone Luly Laguna MD Primary Care Provider MusjesAlan Unavailable KristaPolly gary Unavailable Sandra Schaffer Unavailable Keyla Stevenson Unavailable Encounter Details Date Type Department Care Team (Late st Contact Info) Description 05/29/2022 Abstract [facility] MEDICINE 230 [place], [place] [phone] Luly Laguna MD 230 [place], [place] [phone] Social History Tobacco Use Types Packs/Day Years [...] Description 07/02/2025 10:15 AM EST Office Visit [facility] ADULT DENTAL 230 [place], [place] [phone] Tasha Farfan [address] [place], [place] [phone] documented as of this encounter Procedures Procedure Name Priority Date/Time Associated Diagnosis Comments MAMMOGRAPHY Routine 03/01/2022 PAP/HPV Routine 08/11/2016 COLONOSCOPY Routine 04/24/2014 documented in this encounter Results * Mammography (03/01/2022) Mammogram normal Anatomical Region Laterality Modality Other Historical Provider HEALTH MAINTENANCE Final Result * Pap Smear (08/11/2016) Pap smear ILM HPV neg Polly Treadwell [facility] Provider HEALTH MAINTENANCE Final Result * Colonoscopy (04/24/2014) Colonoscopy normal with Dr. Sawant [facility] Provider HEALTH MAINTENANCE Final Result documented in this encounter Visit Diagnoses Not on filedocumented in this encounter Care Teams Clothing Man Relationship Specialty Start Date End Date Luly Laguna MD 230 [place] [address] PCP - General Family Medicine 05/15/18 Alan Horowitz 175 [facility] 2nd Floor [address] [place] [address] Gastroenterology 06/18/24 Polly Bryant [address] [place] [address] Obstetrics and Gynecology 06/18/24 Sandra Schaffer 11 [facility] 3rd [place] [address] Cardiology 11/01/24 Keyla Stevenson [address] [place] [address] Dr [address] [place] [address] Orthopaedic Surgery 11/14/24 An Thomas Transit Department ClerkTongue Carrier 01/22/24 documented as of this encounter
--- OUTSIDE RECORDS SUMMARY | 2025-05-13 10:03 | XMS_ITS | Encounter Summary ---
Author Organization [employer] Address 75 [facility] 7t [place] [address] Care Team Providers Care Unemployment Inspector Name Role Phone Luly Laguna MD Primary Care Provider +1- [phone] Alan Horowitz Unavailable Manny Polly Unavailable Karime, Sandra Unavailable Elva Keyla Unavailable Reason for Visit * Reason Comments Med Refill Encounter Details Date Type Department Care Team (Late st Contact Info) Description 01/19/2024 Refill [facility] MEDICINE 230 [place], [place] [phone] Gudelia Jaimes, ANP 230 [place], [place] [phone] Gastroesophageal reflux disease, unspecified whether esophagitis present [...] Description 07/02/2025 10:15 AM EST Office Visit [facility] ADULT DENTAL 230 [place] [address] Adolph, Tasha 230 [place] [address] documented as of this encounter Visit Diagnoses Diagnosis Gastroesophageal reflux disease, unspecified whether esophagitis present- Primary documented in this encounter Additional Health Concerns Assessment Noted Time PHQ-9 Depression Total Score: 0 11/08/19 23 11:15 AM EDT documented as of this encounter Care Teams Unemployment Inspector Relationship Specialty Start Date End Date Luly Laguna MD 230 [place] [address] PCP - General Family Medicine 05/15/18 Alan Horowitz 175 [facility] 2nd Floor [address] [place] [address] Gastroenterology 06/18/24 Polly Bryant [address] [address] Obstetrics and Gynecology 06/18/24 Sandra Schaffer [address] [facility] [address]rd [place] [address] Cardiology 11/01/24 Keyla Stevenson [address] [place] [address] [address] [place] [address] Orthopaedic Surgery 11/14/24 An Thomas Barrelhead InspectorHome Health Speech Therapist 01/22/24 documented as of this encounter
--- OUTSIDE RECORDS SUMMARY | 2025-05-13 10:03 | XMS_ITS | Encounter Summary ---
Author Organization [employer] Address [address] [facility] 7t [place] [address] Care Team Providers Care Supervisor Blueprinting And Photocopy Name Role Phone Luly Laguna MD Primary Care Provider +1- [phone] Alan Horowitz Unavailable Manny Polly Unavailable Sandra Schaffer Unavailable Elva, Keyla Unavailable Encounter Details Date Type Department Care Team (Late st Contact Info) Description 06/18/2024 Orders Only [facility] MEDICINE 230 [place] [address] Luly Laguna MD 230 [place], [place] [phone] Abnormal colonoscopy (Primary Dx) Social History Tobacco [...] Description 07/02/2025 10:15 AM EST Office Visit [facility] ADULT DENTAL 230 [place] [address] Adolph, Tasha [address] [place] [address] documented as of this encounter Visit Diagnoses Diagnosis Abnormal colonoscopy- Primary documented in this encounter Additional Health Concerns Assessment Noted Time PHQ-9 Depression Total Score: 3 03/25/20 24 11:38 AM EST documented as of this encounter Care Teams Supervisor Blueprinting And Photocopy Relationship Specialty Start Date End Date Luly Laguna MD 230 [place] [address] PCP - General Family Medicine 05/15/18 Alan Horowitz 175 [facility] 2nd Floor [address] [place] [address] Gastroenterology 06/18/24 Polly Bryant [address] [address] Obstetrics and Gynecology 06/18/24 Sandra Schaffer 11 [facility] 3rd [place] [address] Cardiology 11/01/24 Keyla Stevenson [address] [place] [address] Dr [address] [place] [address] Orthopaedic Surgery 11/14/24 An Thomas Production Mechanic Tin CansEconomic Analysis Director 01/22/24 documented as of this encounter
--- OUTSIDE RECORDS SUMMARY | 2025-05-13 10:03 | XMS_ITS | Clinical Summary ---
Author Organization [employer] Address [address] [facility] 7[address] [place] [address] Care Team Providers Care Classified Copy Control Clerk Name Role Phone Luly Laguna MD Primary Care Provider [phone] Alan Horowitz Unavailable Gerry Bryantmen Unavailable Karime, Sandra Unavailable ElvaKeyla kumar Unavailable Allergies No known active allergies Medications ibuprofen 400 MG tabletIndicatio ns:Streptococca l pharyngitis Take 1 tablet (400 mg) by mouth every 6 (six) hours if needed for moderate pain or fever for up to 30 doses. 30 tablet 11/08/19 23 Active Acetaminophen Extra Strength 500 MG tabletIndicatio ns:Chronic pain of both knees TAKE 2 TABLETS (1,000 MG) BY MOUTH EVERY 6 (SIX) HOURS IF NEEDED FOR MODERATE PAIN OR FEVER. 240 tablet 11/15/19 25 Active atorvastatin (Lipitor) 20 MG tabletIndicatio ns:Dyslipidemia TAKE 1 TABLET BY MOUTH EVERY DAY 90 tablet 3 01/10/20 25 Active diclofenac (Cataflam) 50 MG tabletIndicatio ns:Chronic pain of both knees TAKE 1 TABLET BY MOUTH TWICE A DAY 60 tablet 03/10/20 25 Active ibuprofen 400 MG tabletIndicatio ns:Recurrent major depressive disorder, in partial remission (CMS/HCC),Chron ic right shoulder pain Take 1 tablet (400 mg) by mouth every 8 (eight) hours if needed for moderate pain or fever. 30 tablet 04/30/20 25 026 Active clonazePAM (KlonoPIN) 0.5 MG tabletIndicatio ns:Anxiety TOME 1 TABLETA POR VIA ORAL DOS VECES AL VANESSA CUANDO SEA NECESARIO PARA LA ANSIEDAD 56 tablet 04/30/20 25 Active FLUoxetine (PROzac) 20 MG capsuleIndicati ons:Depressive disorder TAKE 2 CAPSULES BY MOUTH EVERY MORNING 60 capsule 11 04/30/20 25 Active cholecalciferol (Vitamin D3) 25 MCG (1000 UT) tabletIndicatio ns:Vitamin D deficiency TAKE 1 TABLET BY MOUTH EVERY DAY 90 tablet 04/30/20 25 Active omeprazole (PriLOSEC) [address] capsuleIndicati ons:Gastroesoph ageal reflux disease, unspecified whether esophagitis present TAKE 1 CAPSULE BY MOUTH TWICE A DAY 180 capsule 04/30/20 25 Active FLUoxetine (PROzac) 20 MG capsuleIndicati ons:Depressive disorder TAKE 2 CAPSULES BY MOUTH EVERY MORNING 60 capsule 11 12/21/19 24 025 Discontinued predniSONE (Deltasone) 20 MG tabletIndicatio ns:Right knee pain, unspecified chronicity,Pain and swelling of left knee 2 tabs po daily for 5 days 10 tablet 08/30/19 25 025 Discontinued Blood Pressure kitIndications: Essential hypertension 1 each Once per day. Use to check blood pressure once daily 1 kit 11/27/19 25 025 Discontinued omeprazole (PriLOSEC) [address] capsuleIndicati ons:Gastroesoph ageal reflux disease, unspecified whether esophagitis present TAKE 1 CAPSULE BY MOUTH TWICE A DAY 180 capsule 01/11/20 25 025 Discontinued(Re order (will not trigger notification to Pharmacy)) cholecalciferol (Vitamin D-[address]) 25 MCG (1000 UT) tabletIndicatio ns:Vitamin D deficiency TOME 1 TABLETA POR VIA ORAL TODOS LOS MARTINEZ 90 tablet 01/25/20 25 025 Discontinued clonazePAM (KlonoPIN) 0.5 MG tabletIndicatio ns:Anxiety TOME 1 TABLETA POR VIA ORAL DOS VECES AL VANESSA CUANDO SEA NECESARIO PARA LA ANSIEDAD 56 tablet 02/07/20 25 025 Discontinued(Re order (will not trigger notification to Pharmacy)) Active [...] left knee. Overweight 08/29/2024 Assessment & Plan (04/30/2025 11:56 AM EST): Dietary Recommendations: Fruits, vegetables, whole grains, protein foods, and fat-free or low-fat dairy products are healthy choices. Eat different types of protein foods in your diet. This can include seafood, lean meats, poultry, beans, peas, lentils, nuts, seeds, soy products, and eggs. Limit foods and beverages higher in added sugars, saturated fat, and sodium. Exercise Recommendations: At least 150 minutes of moderate-intensity physical activity per week, or an equivalent combination of moderate- and vigorous-intensity activity Orders: Hemoglobin A1c; Future Assessment & Plan (08/29/2024 1:31 PM EDT): [...] longer monitor 03/25/24 -08/30/23 currently has extended shelter monitor for 30 days, will follow-up with [...] repeat colonoscopy in 10 years. Done at [facility] with Dr. Alan Horowitz MD Assessment & Plan (03/26/2024 1:34 PM EST): - 07/25/23 impression: 1 diminutive polyp in the ascending colon, removed with a jumbo cold forceps. Resected and retrieved. Internal hemorrhoids. Recommendations: Advance diet as tolerated. Continue present medications. Await pathology results. And repeat colonoscopy in 10 years. Chronically on benzodiazepine therapy 03/13/2024 Cardiac risk [...] modifications -Controlled off medicaions Assessment & Plan (04/30/2025 11:56 AM EST): -Blood pressure is at goal. -Continue lifestyle modifications -Controlled off medicaions Orders: Albumin, Random Urine W/Creatinine; Future Basic Metabolic Panel; Future Assessment & Plan (09/18/2024 2:40 PM EDT): [...] exacerbate pains and aches. Assessment & Plan (04/30/2025 11:56 AM EST): Multiple labs including inflammatory markers, [...] follow up next month Assessment & Plan (04/30/2025 11:56 AM EST): Seen by Dr. Ezekiel Pickard [...] month Other specified health status 11/07/2022 Overview (04/30/2025): -next annual exam due after 04/30/26 -eye care facilitated by Dr. Carrasco, notes requested 11/07/2022 -dental home is [facility] -Health care Proxy 03/25/24 Assessment & Plan (04/30/2025 11:56 AM EST): -next annual exam due after 04/30/26 -eye care facilitated by Dr. Carrasco, notes requested 11/07/2022 -dental home is [facility] care Proxy 03/25/24 Assessment & Plan (03/26/2024 1:39 PM EST): -next annual exam due after 03/25/25 -eye care facilitated by Dr. Carrasco, notes requested 11/07/2022 -dental home is [facility] - Health care Proxy 03/25/24 Assessment & Plan (11/07/2022 12:56 PM EDT): -next physical exam due after 11/08/2023 -eye care facilitated by Dr. Carrasco, notes requested 11/07/2022 -dental home is C Dyslipidemia 11/07/2022 Overview (04/29/2025): Lab Results Component Value Date CHOL 138 08/29/2024 CHOL 204 (H) 03/25/2024 CHOL 224 (H) 05/04/2023 TRIG 108 08/29/2024 TRIG 128 03/25/2024 TRIG 146 05/04/2023 HDL 47 08/29/2024 HDL 47 03/25/2024 HDL 50 05/04/2023 LDLCHOLCAL 70 08/29/2024 LDLCHOLCAL 132 (H) 03/25/2024 LDLCHOLCAL 145 (H) 05/04/2023 -continue lifestyle modification -atrovastatin 20mg started 03/27/24 with normal repeat labs Assessment & Plan (04/30/2025 11:56 AM EST): Lab Results Component Value Date CHOL 138 08/29/2024 CHOL 204 (H) 03/25/2024 CHOL 224 (H) 05/04/2023 TRIG 108 08/29/2024 TRIG 128 03/25/2024 TRIG 146 05/04/2023 HDL 47 08/29/2024 HDL 47 03/25/2024 HDL 50 05/04/2023 LDLCHOLCAL 70 08/29/2024 LDLCHOLCAL 132 (H) 03/25/2024 LDLCHOLCAL 145 (H) 05/04/2023 -continue lifestyle modification -atrovastatin 20mg started 03/27/24 with normal repeat labs Orders: Hepatic Function Panel; Future Lipid Panel, Standard; Future Assessment & Plan (09/18/2024 2:40 PM EDT): [...] cerumen 11/07/2022 Vitamin D deficiency 11/07/2022 Overview (04/29/2025): Lab Results Component Value Date [id number] 52.8 03/25/2024 [id number] 29.9 (L) 05/04/2023 Assessment & Plan (04/30/2025 11:56 AM EST): Mass of oral cavity 08/05/2021 Overview (05/04/2023): [...] and no further intervention required. Anxiety 02/20/2012 Assessment & Plan (04/30/2025 11:56 AM EST): On occ clonazepam with PCP Orders: clonazePAM (KlonoPIN) 0.5 MG tablet; TOME 1 TABLETA POR VIA ORAL DOS VECES AL VANESSA CUANDO SEA NECESARIO PARA LA ANSIEDAD Recurrent major depressive disorder, in partial remission 02/20/2012 Overview (04/29/2025): Denies suicidial or homacidial ideation. Therapist and psychiatrist offered. Assessment & Plan (04/30/2025 11:56 AM EST): -Denies suicidial or homacidial ideation. On occasional clonazepam Orders: ibuprofen 400 MG tablet; Take 1 tablet (400 mg) by mouth every 8 (eight) hours if needed for moderate pain or fever. Resolved Problems Problem Noted Date Diagnosed Date Resolved Date Exercise counseling 08/29/2024 03/20/20 Assessment & Plan (08/29/2024 1:31 PM EDT): [...] in added sugars, saturated fat, and sodium. Encounter for screening mamm ogram for malignant neoplasm of breast 03/25/2024 04/29/2025 Overview (03/25/2024): 03/08/24 BI-RADS 1 - Negative. RECOMMENDATION: Routine annual mammography screening. Assessment & Plan (03/26/2024 1:37 PM EST): 03/08/24 BI-RADS 1 - Negative. RECOMMENDATION: Routine annual mammography screening. Joint pain 11/07/2022 11/07/2022 Cerebral arterial aneurysm [...] Encounters Date Type Department Care Team Description 05/01/2025 Results Follow-Up [facility] [address] [place] [address] Luly Laguna MD XR Shoulder 2+ Views Right 04/30/2025 11:15 AM EST Office Visit [facility] [address] [place] [phone] Luly Laguna MD Essential hypertension (Primary Dx); Recurrent major depressive disorder, in partial remission (CMS/HCC); Dyslipidemia; Sensorineural hearing loss (SNHL) of left ear with unrestricted hearing of right ear; Fibromyalgia; Vitamin D deficiency; Other specified health status; Anxiety; Chronic right shoulder pain; Overweight 04/30/2025 Refill [facility] [address] [place] [phone] Daya Matta MD Gastroesophageal reflux disease, unspecified whether esophagitis present 04/30/2025 Refill [facility] [address] [place] [phone] Luly Laguna MD Depressive disorder; Vitamin D deficiency; Gastroesophageal reflux disease, unspecified whether esophagitis present 04/30/2025 Travel 04/29/2025 Telephone [facility] [address] [place] [phone] Isabelle Morales [place] 03/09/2025 Refill [facility] [address] [place] [phone] Luly Laguna MD Chronic pain of both knees 03/07/2025 Telephone [facility] [address] [place] [phone] Luly Laguna MD April Recalls 03/07/2025 Travel 03/03/2025 Refill [facility] [address] [place] [phone] Luly Laguna MD Right knee pain, unspecified chronicity; Pain and swelling of left knee 02/28/2025 Orders Only [facility] External Provider, from Last 3 Months Immunizations Immunization Administration [...] Answer Date Recorded Patient Health Questionnaire-9 Score 1 04/30/2025 Patient Health Questionnaire-9 Score 1 04/30/2025 Last PHQ-9: Questionnaire Data Not on file 1 07/01/2024 Housing Stability Answer Date Recorded What is [...] Date Recorded Patient Health Questionnaire-2 Score 0 04/30/2025 Internet Access Answer Date Recorded Internet Access [...] Sign Reading Time Taken Comments Blood Pressure 136/82 04/30/2025 11:01 AM EST Pulse 86 04/30/2025 11:01 AM EST Temperature 37.1 C (98.8 F) 04/30/2025 11:01 AM EST Respiratory Rate 20 04/30/2025 11:0 1 AM EST Oxygen Saturation 98% 04/30/2025 11: 01 AM EST Inhaled Oxygen Concentration - - Weight 73.4 kg (161 lb 12.8 oz) 025 11:01 AM EST Height 158.8 cm (5' 2.5 ) 09/18/2024 11 :16 AM EDT Body Mass Index 29.12 09/18/2024 11:16 AM EDT Plan of Treatment Upcoming Encounters Date Type Department Care Team (Late st Contact Info) Description 07/02/2025 10:15 AM EST Office Visit [facility] [address] [place] [address] Adolph, Tasha [address] [place] [address] Health Maintenance Due Date Last Done Comments CT Colonography 1965 FIT DNA/Cologuard 1965 FIT 1965 FOBT 1965 Sigmoidoscopy 1965 Dental Oral Exam 04/24/2025 10/22/2024, 03/2019, 11/16/2017, Additional history exists Dental Prophylaxis 06/28/2025 12/25/2024, 0 05/28/2019, 11/22/2018, Additional history exists Disability Screening 09/18/2025 09/18/2024 SDOH Screening 09/18/2025 09/18/2024 Pap Smear 09/19/2025 09/19/2022, 08/11/2016 Dental X-Ray: Bitewings 10/23/2025 10/23/19 25, 11/22/2018, 11/16/2017, Additional history exists Influenza Vaccine (#1) 2025 2, 04/14/2020, 01/31/2019, Additional history exists Postponed from 01/13/2025 (Patient Refused) Alcohol/Substance Use Screening 04/30/2026 04/30/2025 COVID-19 Vaccine ( season) 2026 Postponed from 01/13/2025 (Patient Refused) Depression Screening 04/30/2026 04/30/2025, 04/30/20 Tobacco Screening 04/30/2026 04/30/2025 Mammogram 03/14/2027 03/14/2025, 02/13, 03/07/2023, Additional history [...] Name Priority Date/Time Associated Diagnosis Comments XR SHOULDER 2+ VIEWS RIGHT Routine 04/30/2025 12:14 PM EST Chronic right shoulder pain BI MAMMOGRAM SCREENING TOMOSYNTHESIS BILATERAL Routine 03/14/2025 11:00 AM EDT XR FOOT 3+ VIEWS RIGHT Routine 02/28/2025 12:15 PM EDT PROPHYLAXIS - ADULT Routine 12/25/2024 1 :00 PM EDT INTRAORAL - COMPLETE SERIES OF RADIOGRAPHIC IMAGES Routine 10/22/2024 10:30 AM EDT Excessive attrition of teeth Encounter for dental examination Fractured dental mormonism with loss of material Gingival hyperplasia Maxillary macrognathia PERIODIC ORAL EVALUATION - ESTABLISHED PATIENT Routine 10/22/2024 10:30 AM EDT Excessive attrition of teeth Encounter for dental examination Fractured dental mormonism with loss of material Gingival hyperplasia Maxillary [...] Relevant to Health Maintenance Results * XR Shoulder 2+ Views Right (04/30/2025 12:14 PM EST) Anatomical Region Laterality Modality Upper Extremities, Shoulder Right Radi ographic Imaging 04/30/2025 12:1 4 PM EST Narrative 04/30/2025 2:33 PM EST [address] [address] XRay Report Signed Patient: Mahogany Tapia MR#: [id number] 2 : 1965 Acct:[id number] Age/Sex: 59 / F ADM Date: 04/30/25 Loc: HO.HHCX Attending Dr: Luly Laguna MD Ordering Physician: Luly Laguna MD Date of Service: 04/30/25 Procedure(s): XR shoulder RT min 2V Accession Number(s): [id number] cc: Luly Laguna MD Reason for Exam: chronic right shoulder pain EXAMINATION: XR SHOULDER, RIGHT CLINICAL INFORMATION: chronic right shoulder pain COMPARISON: 05/18/2020. TECHNIQUE: AP external rotation, Grashey, scapular Y, and axillary views of the right shoulder. FINDINGS: Normal bone mineralization. No fracture, dislocation, or suspicious bone lesion. Normal alignment. The glenohumeral joint demonstrates mild degenerative arthritis. The AC joint demonstrates mild degenerative undersurface spurring. There is a type II acromion. No undersurface spurring. The subacromial space is preserved. Remainder of the soft tissue and bony structures appear normal. XR/XR shoulder RT min 2V IMPRESSION: 1. No acute bony or soft tissue abnormality. 2. Mild degenerative arthritis of the glenohumeral joint and AC joint. Electronically signed by: Nixon Domínguez MD 04/30/2025 02:30 PM EST Dictated By: Nixon Domínguez MD Signed By: <Electronically signed by Nixon Domínguez MD in OV> 04/30/25 1430 DD/ 1214 TD/TT: 04/30/25 1230 Vegetable Farm Worker: Procedure Note Donotparaginterpreter, Image - 04/30/[address] [address] XRay Report Signed Patient: Maximilian TapiaR#: [id number] 2 : 1965Acct:[id number] Age/Sex: 59 / FADM Date: 04/30/25 Loc: HO.HHCX Attending Dr: Luly Laguna MD Ordering Physician: Luly Laguna MD Date of Service: 04/30/25 Procedure(s): XR shoulder RT min 2V Accession Number(s): [id number] cc: Luly Laguna MD Reason for Exam: chronic right shoulder pain EXAMINATION: XR SHOULDER, RIGHT CLINICAL INFORMATION: chronic right shoulder pain COMPARISON: 05/18/2020. TECHNIQUE: AP external rotation, Grashey, scapular Y, and axillary views of the right shoulder. FINDINGS: Normal bone mineralization. No fracture, dislocation, or suspicious bone lesion. Normal alignment. The glenohumeral joint demonstrates mild degenerative arthritis. The AC joint demonstrates mild degenerative undersurface spurring. There is a type II acromion. No undersurface spurring. The subacromial space is preserved. Remainder of the soft tissue and bony structures appear normal. XR/XR shoulder RT min 2V IMPRESSION: 1. No acute bony or soft tissue abnormality. 2. Mild degenerative arthritis of the glenohumeral joint and AC joint. Electronically signed by: Nixon Domínguez MD 04/30/2025 02:30 PM EST Dictated By: Nixon Domínguez MD Signed By: <Electronically signed by Nixon Domínguez MD in OV> 04/30/25 1430 DD/ 1214 TD/TT: 04/30/25 1230 Vegetable Farm Worker: Luly Laguna MD IMG XR PROCEDURES Final Re sult * BI Mammogram Screening Tomosynthesis Bilateral (03/14/2025 11:00 AM EDT) Anatomical Region Laterality Modality Breast Bilateral Mammography 03/14/2025 11:0 0 AM EDT Narrative 03/18/2025 10:05 AM EST [place] [facility] [address] [place] [address] Mammography Report Signed Patient: Mahogany Tapia MR#: [id number] 2 : 1965 Acct:[id number] Age/Sex: 59 / F ADM Date: 03/14/25 Loc: KELI Attending Dr: Luly Laguna MD Ordering Physician: Luly Laguna MD Results: 1N egative Date of Service: 03/14/25 Follow Up: 1 Year From Orig ina Mammogram Procedure(s): MM tomosynthesis screening BI Accession Number(s): [id number] cc: Luly Laguna MD Reason For Exam: [...] by: Lisa Casper DO 03/18/2025 10:02 AM EST Dictated By: Lisa Casper DO Signed By: <Electronically signed by Lisa Casper DO in OV> 03/18/25 1002 DD/ 1100 TD/TT: 03/14/25 1120 Vegetable Farm Worker: Procedure Note Donotuseinterpreter, Image - 03/18/2025 [place] [facility] [address] [place], [place] [address] Mammography Report Signed Patient: Deann Tapia#: [id number] 2 : 1965Acct:[id number] Age/Sex: 59 / FADM Date: 03/14/25 Loc: KELI Attending Dr: Luly Laguna MD Ordering Physician: Luly Laguna MDResults: 1N egative Date of Service: 03/14/25Follow Up: 1 Year From [facility] ina Mammogram Procedure(s): MM tomosynthesis screening BI Accession Number(s): [id number] cc: Luly Laguna MD Reason For Exam: [...] by: Lisa Casper DO 03/18/2025 10:02 AM [facility] Dictated By: Lisa Casper DO Signed By: <Electronically signed by Lisa Casper DO in OV> 03/18/25 1002 DD/ 1100 TD/TT: 03/14/25 1120 Vegetable Farm Worker: us Luly Laguna MD IMG BI PROCEDURES Final Re sult * XR Foot 3+ Views Right (02/28/2025 12:15 PM EDT) Anatomical Region Laterality Modality Lower Extremities, Foot Right [facility] 02/28/2025 12:1 5 PM EDT Narrative 02/28/2025 12:37 PM EDT [address] [address] XRay Report Signed Patient: Mahogany Tapia MR#: [id number] 2 : 1965 Acct:[id number] Age/Sex: 59 / F ADM Date: 02/28/25 Loc: FLAVIO Attending Dr: Alba Meadows DPM Ordering Physician: Alba Meadows DPM Date of Service: 02/28/25 Procedure(s): XR foot RT min 3V Accession Number(s): [id number] cc: Luly Laguna MD; Alba Meadows DPM [...] 02/28/25 1235 DD/ 1215 TD/TT: 02/28/25 1220 Vegetable Farm Worker: Procedure Note Donotuseinterpreter, Image - 02/28/2025 [place] [address] XRay Report Signed Patient: Deann Tapia#: [id number] 2 : 1965Acct:[id number] Age/Sex: 59 / FADM Date: 02/28/25 Loc: FLAVIO Attending Dr: Alba Meadows DPM Ordering Physician: Alba Meadows DPM Date of Service: 02/28/25 Procedure(s): XR foot RT min 3V Accession Number(s): [id number] cc: Luly Laguna MD; Alba Meadows DPM [...] the right foot. Electronically signed by: Ezekiel Saraiva MD 02/28/2025 12:35 PM EDT RP Dictated By: Ezekiel Saravia MD Signed By: <Electronically signed by Ezekiel Saravia MD in OV> 02/28/25 1235 DD/ 1215 TD/TT: 02/28/25 1220 Vegetable Farm Worker: [facility] External Provider IMG XR PROCEDURES Final Result * Lipid Panel, Standard (08/29/2024 2:04 PM EDT) Triglycerides 108 <150 mg/dL [facility] Comment:Desirable Triglyceri de: less than 150 mg/dLBorderline High Triglyceride 150-199 mg/dLHigh Triglyceride: 200-499 mg/dLVery High Triglyceride: greater than or equal to 5OO mg/dL Cholesterol 138 <200 mg/dL [facility] Comment:Desirable Cholestero l: less than 200 mg/dLBorderline High Cholesterol: 200-239 mg/dLHigh Cholesterol: greater than 239 mg/dL LDL Cholesterol Calculated 70 <100 mg/dL [facility] Comment:Desirable LDL: less than 100 mg/dLNear Optimal/Above Optimal LDL: 110- 129 mg/dLBorderline High LDL: 130-159 mg/dLHigh LDL: 160-189 mg/dLVery High LDL: greater than or equal to 190 mg/dL HDL Cholesterol 47 >40 mg/dL [facility] Comment:Desirable HDL: great er than 40 mg/dL Note: This HDL assay may give artificially low results in patients with liver disease. Blood Venous blood specimen / Unknown 08/29/2024 2:04 PM EDT 08/29/2024 4:12 PM EDT Luly Laguna MD LAB BLOOD ORDERABLES Final Result Performing Organization Address [facility] Co de Phone Number [facility] [address] [place] [phone] * (ABNORMAL) Colonoscopy (07/25/2023) Pathologist [facility] Colonoscopy Abnormal( A) Normal Comment:small polyp, await p athology results at [place] Historical Provider HEALTH MAINTENANCE Final Result * Hepatitis C Antibody with Reflex to HCV, RNA, Quantitative, Real-Time PCR (05/04/2023 11:34 AM EST) [facility] Hepatitis C Antibody Nonreactive Nonreactive [facility] Comment:Antibodies to HCV no t detected; does not exclude early acuteHCV infection. Blood Venous blood specimen / Unknown 05/04/2023 11:34 AM EST 05/04/2023 1:12 PM EST Luly Laguna MD LAB BLOOD ORDERABLES Final Result Performing Organization Address [facility] Co de Phone Number [facility] [address] [place] [phone] * (ABNORMAL) Pap Smear (09/19/2022) Pathologist [facility] Pap Other Negative for intraephithelial lesion or malignancy, Other Comment:unsatisfactory HPV Not Detected Undetected, Indeterminate, Quantitative, Not Detected Historical Provider HEALTH MAINTENANCE Final Result * HIV 1/2 ANTIGEN/ANTIBODY,FOURTH GENERATION W/RFL (08/05/2021 11:46 AM EDT) Pathologist [facility] HIV-1/2 ANTIGEN AND ANTIBODIES, 4TH GENERATION W/ REFLEX NON-REACT SAVI NON-REACT SAVI [facility] Comment: HIV-1 antigen and HIV-1/HIV-2 [...] purpose. For additional information please refer to [email or web address]/[email or web address] (This link is being provided for informational/ educational purposes only.) The performance of this assay has not been clinically validated in patients less than 2 years old. 08/05/2021 11:4 6 AM EDT Luly Laguna MD LAB BLOOD ORDERABLES Final Result Performing Organization Address City/State/[facility] Co de Phone Number [facility] Anywhere [address] from Last 3 Months or Most Recently Relevant to Health Maintenance Insurance [facility] C3 DENTAL-[facility] MEDICAID STAND ADULT Care Teams Classified Copy Control Clerk Relationship Specialty Start Date End Date [place], MD Luly [address] [place] [address] PCP - General Family Medicine 05/15/18 Alan Horowitz [address] [facility] 2nd Floor [address] [place] [address] Gastroenterology 06/18/24 Polly Bryant [address] [facility] 1stfloor [place] [address] Obstetrics and Gynecology 06/18/24 Sandra Schaffer [address] [facility] 3rd [place] [address] Cardiology 11/01/24 Keyla Stevenson [address] [place] [address] Dr [address] [place] [address] Orthopaedic Surgery 11/14/24 An [employer] Asset Management AnalystCamp Head Counselor 01/22/24
--- OUTSIDE RECORDS SUMMARY | 2025-05-13 10:03 | XMS_ITS | Encounter Summary ---
Author Organization [employer] Address [address] [facility] 7t [place] [address] Care Team Providers Care Dialysis Tech Name Role Phone Luly Laguna MD Primary Care Provider +1- [phone] Musjes Alan Zayda Unavailable KristaPolly gary Unavailable Sandra Schaffer Unavailable Keyla Stevenson Unavailable Encounter Details Date Type Department Care Team (Late st Contact Info) Description 11/24/2022 Abstract [facility] MEDICINE [address] [place], [place] [phone] Luly Laguna MD [address] [place], [place] [phone] Social History Tobacco Use Types Packs/Day Years [...] Description 07/02/2025 10:15 AM EST Office Visit [facility] ADULT DENTAL [address] [place] [address] Tasha Farfan [address] [place] [address] documented as of this encounter Visit Diagnoses Not on filedocumented in this encounter Additional Health Concerns Assessment Noted Time PHQ-9 Depression Total Score: 0 11/08/19 11:15 AM EDT documented as of this encounter Care Teams Dialysis Tech Relationship Specialty Start Date End Date Luly Laguna MD [address] [place] [address] PCP - General Family Medicine 05/15/18 Alan Horowitz 175 [facility] 2nd Floor [address] [place] [address] Gastroenterology 06/18/24 Polly Bryant [address] [address] Obstetrics and Gynecology 06/18/24 Sandra Schaffer 11 [facility] 3rd [place] [address] Cardiology 11/01/24 Keyla Stevenson [address] [facility] [address] [place] [address] Orthopaedic Surgery 11/14/24 An Thomas GeomagneticianSports Broadcasting Internship 01/22/24 documented as of this encounter
--- OUTSIDE RECORDS SUMMARY | 2025-05-13 10:03 | XMS_ITS | Encounter Summary ---
Author Organization [employer] Address [address] [facility] 7t [place] [address] Care Team Providers Care Livestock Slaughterer Name Role Phone Luly Laguna MD Primary Care Provider MusAlan andre Unavailable KristaPolly gary Unavailable Sandra Schaffer Unavailable Keyla Stevenson Unavailable Encounter Details Date Type Department Care Team (Latest Contact Info) Description 11/22/2018 Abstract [facility] CONVERSIONS Dental, Provider, DDS Social History [...] Description 07/02/2025 10:15 AM EST Office Visit [facility] ADULT DENTAL [address] [place], [place] [phone] Adolph, Tasha [address] [place], [place] [phone] documented as of this encounter Visit Diagnoses Not on filedocumented in this encounter Care Teams Livestock Slaughterer Relationship Specialty Start Date End Date Luly Laguna MD [address] [place], [place] [phone] PCP - General Family Medicine 05/15/18 Alan Horowitz 175 [facility] 2nd Floor [address] [place] [address] Gastroenterology 06/18/24 Polly Bryant 271 [facility] 1stfloor [place] [address] Obstetrics and Gynecology 06/18/24 Sandra Schaffer [address] [facility] [address] 3rd [place] [address] Cardiology 11/01/24 Keyla Stevenson [address] [place] [address] [address] [place] [address] Orthopaedic Surgery 11/14/24 An Thomas BookieMarket Research Consultant 01/22/24 documented as of this encounter
--- OUTSIDE RECORDS SUMMARY | 2025-05-13 10:03 | XMS_ITS | Encounter Summary ---
Author Organization [employer] Address 75 [facility] 7t [place] [address] Care Team Providers Care Music Intern Name Role Phone Luly Laguna MD Primary Care Provider +1- [phone] MusjesAlan Unavailable KristaPolly gary Unavailable Sandra Schaffer Unavailable ElvaKeyla manzo Unavailable Reason for Visit * Reason Comments Med Change Request Encounter Details Date Type Department Care Team (Late st Contact Info) Description 11/07/2022 Refill [facility] MEDICINE [address] [place], [place] [phone] Luly Laguna MD [address] [place], [place] [phone] Social History Tobacco Use Types Packs/Day Years [...] Description 07/02/2025 10:15 AM EST Office Visit [facility] ADULT DENTAL [address] [place] [address] Cristo Farfanaris [address] [place] [address] documented as of this encounter Visit Diagnoses Not on filedocumented in this encounter Additional Health Concerns Assessment Noted Time PHQ-9 Depression Total Score: 0 11/08/19 11:15 AM EDT documented as of this encounter Care Teams Music Intern Relationship Specialty Start Date End Date Luly Laguna MD [address] [place] [address] PCP - General Family Medicine 05/15/18 Alan Horowitz 175 [facility] 2nd Floor [address] [place] [address] Gastroenterology 06/18/24 Polly Bryant 271 [facility] 1stfloor [place] [address] Obstetrics and Gynecology 06/18/24 Sandra Schaffer [address] [facility] [address] 3rd [place] [address] Cardiology 11/01/24 Keyla Stevenson [address] [place] [address] Dr [address] [place] [address] Orthopaedic Surgery 11/14/24 An Thomas Repair TechBattery Loader 01/22/24 documented as of this encounter
--- OUTSIDE RECORDS SUMMARY | 2025-05-13 10:03 | XMS_ITS | Encounter Summary ---
Author Organization [employer] Address [address] [facility] 7t [place] [address] Care Team Providers Care Glazier Helper Name Role Phone Luly Laguna MD Primary Care Provider +1- [phone] Musjes Alan Zayda Unavailable KristaPolly gary Unavailable Sandra Schaffer Unavailable Keyla Stevenson Unavailable Encounter Details Date Type Department Care Team (Late st Contact Info) Description 11/24/2022 Abstract [facility] MEDICINE [address] [place], [place] [phone] Luly Laguna MD [address] [place], [place] [phone] Social History Tobacco Use Types Packs/Day Years [...] Description 07/02/2025 10:15 AM EST Office Visit [facility] ADULT DENTAL [address] [place] [address] Tasha Farfan [address] [place] [address] documented as of this encounter Visit Diagnoses Not on filedocumented in this encounter Additional Health Concerns Assessment Noted Time PHQ-9 Depression Total Score: 0 11/08/19 11:15 AM EDT documented as of this encounter Care Teams Glazier Helper Relationship Specialty Start Date End Date Luly Laguna MD [address] [place] [address] PCP - General Family Medicine 05/15/18 Alan Horowitz 175 [facility] 2nd Floor [address] [place] [address] Gastroenterology 06/18/24 Polly Bryant [address] [address] Obstetrics and Gynecology 06/18/24 Sandra Schaffer 11 [facility] 3rd [place] [address] Cardiology 11/01/24 Keyla Stevenson [address] [facility] [address] [place] [address] Orthopaedic Surgery 11/14/24 An Thomas Casing Material WeigherCare Team Coordinator Scheduler 01/22/24 documented as of this encounter
--- OUTSIDE RECORDS SUMMARY | 2025-05-13 10:03 | XMS_ITS | Encounter Summary ---
Author Organization [employer] Address 75 [facility] 7t [place] [address] Care Team Providers Care Crab Meat Processor Name Role Phone Luly Laguna MD Primary Care Provider +1- [phone] MusAlan andre Unavailable Polly Bryant Unavailable Karime, Sandra Unavailable Elva, Keyla Unavailable Encounter Details Date Type Department Care Team (Late st Contact Info) Description 07/01/2022 Orders Only [facility] MED & PEDS [address] [place], [place] [phone] Lora Russell LPN Social History Tobacco Use [...] Care Team (Late Contact Info) Description 07/02/2025 10:15 AM EST Office Visit [facility] ADULT DENTAL [address] [place] [address] Tasha Farfan [address] [place] [address] documented as of this encounter Visit Diagnoses Not on filedocumented in this encounter Care Teams Crab Meat Processor Relationship Specialty Start Date End Date Luly Laguna MD 230 [place] [address] PCP - General Family Medicine 05/15/18 Alan Horowitz 175 [facility] 2nd Floor [address] [place] [address] Gastroenterology 06/18/24 Polly Bryant 271 [facility] 1st[address] [place] [address] Obstetrics and Gynecology 06/18/24 Sandra Schaffer [address] [facility] [address] 3rd [place] [address] Cardiology 11/01/24 Keyla Stevenson [address] [place] [address] [address] [place] [address] Orthopaedic Surgery 11/14/24 An Thomas Laborer Pullet FarmAdvertising Sales Associate 01/22/24 documented as of this encounter
== END 2025-05-13 08:54 | disposition home or self-care (01) ==
PROVIDERS: PCP Family Medicine; Visit Provider Physician Assistant
DX: M17.0 Bilateral primary osteoarthritis of knee (principal)
CPT/HCPCS: 20610; 99213

== ENCOUNTER → 2025-05-13 08:26 | Outpatient (BNVA) | payer MEDICAID, SELFPAY | PROVIDERS: PCP Family Medicine; Visit Provider Physician Assistant | DX: M17.0 Bilateral primary osteoarthritis of knee (principal) | CPT/HCPCS: 20610; 99212; J0665; J1100; J2003 ==